=== PATIENT | male | born 1965 | race American Indian/Alaskan Native ===

== ENCOUNTER 2016-02-22 08:04 | Inpatient (IN) | payer MEDICARE ==
--- NOTE | 2016-02-22 08:57 | XRay Report ---
CHEST X-RAY, 2 VIEWS History: Shortness of breath. Findings: No comparison. Heart size appears borderline. Normal pulmonary vascularity. The lungs are clear. No evidence for pneumonia, CHF or pneumothorax. Impression: Borderline heart size. Lungs clear.
[2016-02-22 09:16] LABS: Basophils % (Auto) 1.1 % (0.0-1.8); Eosinophils % (Auto) 9.2 % (0.0-4.3); Hematocrit 32.7 % (35.5-45.6); Hemoglobin 10.6 gm/dl (11.8-15.2); Mean Corpuscular HGB Conc 33 % (32-34); Mean Corpuscular Hemoglobin 31 pg (28-32); Mean Corpuscular Volume 96 fl (84-94); Platelet Count 173 K/mm3 (140-440); Red Blood Count 3.42 M/mm3 (3.65-5.03); White Blood Count 5.7 K/mm3 (4.5-11.0)
[2016-02-22 09:36] LABS: Anion Gap 29 mmol/L; BUN/Creatinine Ratio 4.96; Blood Urea Nitrogen 77 mg/dL (9-20); Calcium 8.3 mg/dL (8.4-10.2); Carbon Dioxide 18 mmol/L (22-30); Chloride 94.3 mmol/L (98-107); Glucose 86 mg/dL (75-100); Potassium 4.9 mmol/L (3.6-5.0); Sodium 136 mmol/L (137-145)
--- NOTE | 2016-02-22 14:16 | Emergency Department Report ---
HPI - General Chief Complaint: Dyspnea/Respdistress Time Seen by Provider: 02/22/16 14:08 - HPI HPI: Chief complaint: Abdominal pain, constipation, decreased appetite and shortness of breath HPI: Patient presents complaining of abdominal pain especially epigastric radiating to the entire abdomen since last . Patient describes it as constant and sharp. Patient states he's not had a bowel movement since and does not feel hungry. Patient complains of nausea but no vomiting. Patient does not think he's had a fever but he feels alternately hot and cold. Patient states he's been constipated and had similar pain in the past but it appears to be worse this time. Patient had his last dialysis and skipped dialysis on Monday and is due for dialysis tomorrow. Patient denies any previous abdominal surgery. Mode of arrival: EMS Source: Patient Began: Last Duration: Continuous Context: See above Quality: Sharp Severity: 8 out of 10 Improved with: Nothing Worsened with: Palpation Associated signs and symptoms: See above. No edema. ED Past Medical Hx - Past Medical History Previous Medical History?: Yes Hx Hypertension: Yes Hx Renal Disease: Yes - Surgical History Past Surgical History?: Yes Additional Surgical History: Left A/V Graft - Medications Home Medications: Home Medications Medication Instructions Recorded Confirmed Last Taken Type Carvedilol [Coreg] 25 mg PO QDAY 02/22/16 02/22/16 02/21/16 History Furosemide [Lasix TAB] 80 mg PO 4XW 02/22/16 02/22/16 02/21/16 History Minoxidil [Loniten] 2.5 mg PO QDAY 02/22/16 02/22/16 02/21/16 History NIFEdipine XL [Procardia Xl] 90 mg PO QDAY 02/22/16 02/22/16 02/21/16 History Warfarin [Coumadin] 7.5 mg PO QDAY 02/22/16 02/22/16 02/21/16 History cloNIDine-TTS PATCH [Catapres-Tts 1 patch TD Q7D 02/22/16 02/22/16 Unknown History Patch] hydrALAZINE [Apresoline] 50 mg PO Q8HR 02/22/16 02/22/16 02/21/16 History ED Review of Systems ROS: Stated complaint: ZACHARIAH/ABD/BACK PAIN Other details as noted in HPI ROS Constitutional: No fever ENT: No uri symptoms Cardiovascular: No chest pain Respiratory: No sob or cough GI: No vomiting or diarrhea : End-stage renal disease on hemodialysis Skin: No rash Neuro: No focal weakness or numbness Psych: No depression Pio/lymph: No edema Physical Exam - Physical Exam Vital Signs: Vital Signs 02/22/16 02/22/16 08:22 14:05 Temperature 98.2 F Pulse Rate 82 74 Respiratory 18 18 Rate Blood Pressure 141/89 Blood Pressure 165/95 [Right] O2 Sat by Pulse 97 95 Oximetry Physical Exam: GENERAL: The patient is well-developed well-nourished . HEENT: Normocephalic. Atraumatic. Extraocular motions are intact. Patient has moist mucous membranes. NECK: Supple. No meningitic signs are noted. There is no adenopathy noted. CHEST/LUNGS: Clear to auscultation. There is no respiratory distress noted. HEART/CARDIOVASCULAR: Regular. There is no tachycardia. There is no gallop rub or murmur. ABDOMEN: Abdomen is soft and tender epigastric area without rebound or guarding. Patient has normal bowel sounds. There is no abdominal distention. SKIN: There is no rash. There is no edema. There is no diaphoresis. NEURO: The patient is awake, alert, and oriented. The patient is cooperative. The patient has no focal neurologic deficits. The patient has normal speech. MUSCULOSKELETAL: There is no tenderness or deformity. There is no limitation range of motion. There is no evidence of acute injury. ED Course Vital Signs 02/22/16 02/22/16 08:22 14:05 Temperature 98.2 F Pulse Rate 82 74 Respiratory 18 18 Rate Blood Pressure 141/89 Blood Pressure 165/95 [Right] O2 Sat by Pulse 97 95 Oximetry - Reevaluation(s) Reevaluation #1: 02/22/16 16:15 Discussed with nephrology who requested the patient be admitted to the hospital for further evaluation by gastroenterology and for dialysis. Patient was medicated with morphine, Protonix and Zofran with improvement. INR is pending. Patient will be admitted to the hospitalist. ED Medical Decision Making - Lab Data Result diagrams: 02/22/16 09:00 02/22/16 09:00 Laboratory Tests 02/22/16 09:00 Estimated GFR 4 BUN/Creatinine Ratio 4.96 Calcium 8.3 L Troponin T < 0.010 - EKG Data -: EKG Interpreted by Me EKG shows normal: sinus rhythm (79) - EKG Data When compared to previous EKG there are: previous EKG unavailable Interpretation: normal EKG (with possible left atrial enlargement.) - Radiology Data Radiology results: report reviewed (CT the abdomen does not show any acute changes other than a small amount of free fluid in the pelvis area.) Critical care attestation.: If time is entered above; I have spent that time in minutes in the direct care of this critically ill patient, excluding procedure time. ED Disposition Clinical Impression: Acute on chronic renal failure Abdominal pain Qualifiers: Abdominal location: generalized Qualified Code(s): R10.84 - Generalized abdominal pain Disposition: OP ADMITTED IP TO THIS HOSP Is pt being admited?: Yes Does the pt Need Aspirin: No Condition: Fair Time of Disposition: 16:14
[2016-02-22 14:41] LABS: Alanine Aminotransferase 15 units/L (7-56); Albumin 4.4 g/dL (3.9-5); Albumin/Globulin Ratio 1.5 %; Alkaline Phosphatase 84 units/L (35-129); Bilirubin,Total 0.4 mg/dL (0.1-1.2); Lipase 21 units/L (13-60); Total Protein 7.4 g/dL (6.3-8.2)
[2016-02-22 14:47] LABS: Bilirubin,Direct < 0.2 mg/dL (0-0.2)
--- NOTE | 2016-02-22 15:28 | Cat Scan Report ---
CT ABDOMEN AND PELVIS WITHOUT CONTRAST INDICATION: Upper abdominal pain. Renal failure, on dialysis. COMPARISON: None similar. FINDINGS: Noncontrast abdomen and pelvis CT performed. LUNG BASES: Mild cardiomegaly. No effusions. Slight basilar atelectasis. Mild atherosclerotic calcifications. Slight nonspecific distal esophageal prominence. ABDOMEN: Please note that sensitivity to detect small visceral lesions is limited due to the absence of intravenous or oral contrast. Few small splenic calcified granulomas. 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 No hydronephrosis or radiopaque renal calculi. Left renal fossa noted occupied by bowel and pancreatic tail. Otherwise grossly unremarkable unenhanced liver, spleen, gallbladder, pancreas, adrenals, nonaneurysmal abdominal aorta with atherosclerotic calcifications and IVC. Nonopacified GI tract evaluation limited, though grossly nonobstructive. Ascending colon incidentally noted coursing more anterior than usual in the right hemiabdomen. No ascites. Few small, subcentimeter mesenteric and retroperitoneal lymph nodes may be present. PELVIS: Small pelvic simple attenuation free fluid, an abnormal finding in a male patient. Grossly unremarkable prostate/seminal vesicles and nonopacified rectosigmoid. Nonopacified urinary bladder wall slightly exaggerated, possibly related to underdistention with minimal surrounding fat stranding nonspecific. No acute osseous abnormality. Mild subcutaneous edema. CONCLUSION: 1. Small amount of simple free fluid in the pelvis, though an abnormal finding in this male patient, etiology uncertain. 2. Few other incidental findings, including cardiomegaly and crossed fused renal ectopia on this unenhanced exam, amongst others, as described. I phoned the above results to Dr. Garcia in the ER, 3:15 PM, 02/22/2016. Thank you for the opportunity to participate in this patient's care.
[2016-02-22 15:33] LABS: Bilirubin,Indirect 0.2 mg/dL
[2016-02-22] MEDS ORDERED: MORPHINE IV ONE (15:42)
[2016-02-22] MEDS ORDERED: ZOFRAN IV ONE (15:42)
[2016-02-22] MEDS ORDERED: PROTONIX IV ONE (15:42)
--- NOTE | 2016-02-22 16:19 | Admit Criteria Form ---
Admission Criteria Documentation: RENAL FAILURE, ACUTE Clinical Indications for Admission to Inpatient Care ( Place 'X' for any and all applicable criteria): Admission is indicated for ALL (if I & II) or III of the following [A](2)(3)(4)( 5)(6)(7): [X ]I. Acute renal failure as indicated by ANY ONE of the following: [ ]a) A 3-fold rise in serum creatinine from baseline [ ]b) Serum creatinine greater than 4 mg/dL (354 micromoles/L) with an acute rise greater than 0.5 mg/dL (44.2 micromoles/L) [X ]c) Reduction of more than 75% in estimated glomerular filtration rate from baseline [ ]d) Estimated glomerular filtration rate less than 35 mL/min/1.73m2 (0.59mL/sec/1.73m2)in a child up to 18 years of age [ ]e) Anuria indicated by ALL of the following: [ ]i) Adequate volume status [ ]ii) Cessation of urine output indicated by ANY ONE of the following: [ ]1) Urine output less than 0.3 mL/kg/hr for 24 hours [ ]2) Anuria (urine output less than 0.1 mL/kg/ hr) for 12 hours [ X] II. Renal failure cannot be managed in an outpatient setting or observational care setting as indicating by ANY ONE of the following: [ ]a) Altered mental status that is severe or persistent [ ]b) Volume overload or Respiratory distress (eg, clinically significant pulmonary edema) that is severe or persistent [ ]c) Cardiac arrhythmias of immediate concern [ ]d) Hemodynamic instability [ ]e) Clinically significant electrolyte abnormality that requires inpatient care (eg, hyperkalemia with severe ECG findings)[B] [ ]f) Clinically significant metabolic abnormality (eg, acidosis) that is severe or persistent [X ]g) Acute treatment of renal failure (eg, renal replacement therapy ) not feasible or appropriate in observational care setting [ ]h) Clinical situation too unstable or uncertain (eg, inadequate urine output, ongoing decline in renal function, etiology unclear) [ ]i) Necessary support and caregiver ability to comply with outpatient treatment cannot be arranged in observation care timeframe (eg, within 24 hours) [X ]j) Other significant finding or clinical condition judged not to be within scope of observation care [ ]III.General contraindications and/or Inappropriate clinical situations for Observational Care in patients with Acute Renal Failure, when ANY ONE of the following is required: [ ]a) Prediction of prolongation of LOS based on ANY ONE of the following may be considered as a contraindication for observational care 2, 3, 4, 5, 6, 7, 8 , 9, 10, 11 [ ]i) Age > 65 yrs. [ ]ii) Patient arriving by ambulance [ ]iii) Patient with high acuity [ ]iv) Patient requiring vital sign monitoring [ ]v) Patient on IV medication [ ]b) Systolic blood pressures 180mmHg 3,12 [ ]c) Patient with altered mental status including delirium and other alteration of consciousness, (3) [ ]d) Patient whose discharge disposition will be to a detention home or rehabilitation home should not be managed in Emergency Department Observation Unit. CMS rule requires 3 days hospital stay before such placement.3,13 [ ]e) Patient with failure to thrive due to broad array of etiologies 3, 16,17 [ ]f) Inability to ambulate 3,14 Extended stay beyond goal length of stay may be needed for(13) [ ]a) Continuing uremic complications [ ]b) Care for comorbidities [ ]c) acute renal failure [ ]d) Need for dialysis The original [employer] content created by [employer] has been revised. The portions of the content which have been revised are identified through the use of italic text or in bold, and [facility] has neither reviewed nor approved the modified material. All other unmodified content is copyright [employer]. Please see references footnoted in the original [facility] edition 2016 Admission Criteria Met: Yes
[2016-02-22 16:24] LABS: Bacteria,Urine 1+ /HPF (Negative); Bilirubin,Urine NEG (Negative); Blood,Urine SM (Negative); Ketones,Urine TR mg/dL (Negative); Leukocyte Esterase,Urine NEG (Negative); Nitrite,Urine NEG (Negative); Urobilinogen,Urine < 2.0 mg/dL (<2.0); WBC,Urine < 1.0 /HPF (0.0-6.0)
[2016-02-22 16:44] LABS: INR 1.34 (0.87-1.13)
[2016-02-22 16:45] LABS: Partial Thromboplastin Time 35.1 Sec. (24.2-36.6)
[2016-02-22] MEDS ORDERED: NON-FORMULARY (Furosemide [Lasix Tab] 80 MG) PO SCH (16:45)
--- NOTE | 2016-02-22 16:55 | History and Physical Report ---
History of Present Illness Date of examination: 02/22/16 Date of admission: 02/22/16 Chief complaint: Abdominal pain History of present illness: Patient is a 42-year-old gentleman who is on renal replacement therapy on Tuesdays and Saturdays, started complaining of abdominal pain. Nausea but no vomiting. Patient was epigastric in location. Was seen by his die out worker, Dr. Garcia who advised patient to come to the emergency department for admission. CT scan of abdomen was unremarkable for any acute event except for some fluid collection and pelvic region. Patient was also found to be 77 and creatinine was 15.5. Patient denies any fever, no hematemesis or melena. Past History Past Medical History: ESRD, hypertension Past Surgical History: denies: No surgical history Social history: lives with family. denies: smoking, alcohol abuse, IV drug use Family history: denies: CAD, stroke Medications and Allergies Allergies Allergy/AdvReac Type Severity Reaction Status Date / Time No Known Allergies Allergy Unverified 02/22/16 08:22 Home Medications Medication Instructions Recorded Confirmed Last Taken Type Carvedilol [Coreg] 25 mg PO QDAY 02/22/16 02/22/16 02/21/16 History Furosemide [Lasix TAB] 80 mg PO 4XW 02/22/16 02/22/16 02/21/16 History Minoxidil [Loniten] 2.5 mg PO QDAY 02/22/16 02/22/16 02/21/16 History NIFEdipine XL [Procardia Xl] 90 mg PO QDAY 02/22/16 02/22/16 02/21/16 History Warfarin [Coumadin] 7.5 mg PO QDAY 02/22/16 02/22/16 02/21/16 History cloNIDine-TTS PATCH [Catapres-Tts 1 patch TD Q7D 02/22/16 02/22/16 Unknown History Patch] hydrALAZINE [Apresoline] 50 mg PO Q8HR 02/22/16 02/22/16 02/21/16 History Active Meds: Active Medications Carvedilol (Coreg) 25 mg PO QDAY DESTIN Clonidine HCl (Catapres-Tts Patch) mg TD Q7D DESTIN Famotidine (Pepcid) 20 mg IV QDAY DESTIN Hydralazine HCl (Apresoline) 50 mg PO Q8HR DESTIN Minoxidil (Loniten) 2.5 mg PO QDAY DESTIN Miscellaneous Medication (Furosemide [Lasix Tab]) 80 mg PO 4XW DESTIN Nifedipine (Procardia Xl) 90 mg PO QDAY DESTIN Exam - Physical Exam Narrative exam: Constitutional: Well Nouridhed and Well developed. Head: NC/ AT Eyes: Denies any visual impairments. No discharge from the eyes Nose: Denies any rhinorrhea or epistaxis Throats: Denies any post nasal drainage. Ears: Denies any hearing deficits Cardiovascular system: Denies any chest pain, shortness of breath, orthopnea, paroxysmal nocturnal dyspnea, or palpitation. Respiratory system: Denies any cough, difficulty breathing, wheezing, pleuritic chest pain, Gastrointestinal system: Has epigastric abdominal pain, with nausea, no vomiting , hematemesis or melena. Neurological system: Denies any headache, slurred speech, facial droop, lateralizing weakness Genitalia system: Denies any dysuria, urinary frequency or urgency, urethral discharge Skin: No rashes, hyperpigmented spots. Hematological: Denies any cervical tenderness hemorrhages or petechia. Immunological: Denies any multiple septic spots, Lymphatic: Denies any generalized lymphadenopathy. Endocrine: Denies any polyuria, polydipsia, polyphagia. No heat or cold intolerance. - Constitutional Vitals: Temp Pulse Resp BP Pulse Ox 98.3 F 79 18 153/77 100 02/22/16 15:40 02/22/16 15:40 02/22/16 15:40 02/22/16 15:40 02/22/16 15:40 General appearance: Present: no acute distress, well-nourished - EENT Eyes: Present: PERRL ENT: hearing intact, clear oral mucosa - Neck Neck: Present: supple, normal ROM - Respiratory Respiratory effort: normal Respiratory: bilateral: CTA - Cardiovascular Heart Sounds: Present: S1 & S2. Absent: rub, click - Extremities Extremities: pulses symmetrical, No edema Peripheral Pulses: within normal limits - Abdominal General gastrointestinal: Present: soft, non-tender, non-distended, normal bowel sounds Male genitourinary: Present: normal - Integumentary Integumentary: Present: clear, warm, dry - Musculoskeletal Musculoskeletal: gait normal, strength equal bilaterally - Psychiatric Psychiatric: appropriate mood/affect, intact judgment & insight - Neurologic Neurologic: CNII-XII intact, moves all extremities Results - Labs CBC & Chem 7: 02/22/16 09:00 02/22/16 09:00 Labs: Abnormal lab results 02/22/16 02/22/16 02/22/16 Range/Units 09:00 09:00 16:01 RBC 3.42 L (3.65-5.03) M/mm3 Hgb 10.6 L (11.8-15.2) gm/dl Hct 32.7 L (35.5-45.6) % MCV 96 H (84-94) fl RDW 18.0 H (13.2-15.2) % [place] % (Auto) 11.4 H (0.0-7.3) % Eos % (Auto) 9.2 H (0.0-4.3) % Eos # 0.5 H (0.0-0.4) K/mm3 PT 16.5 H (12.2-14.9) Sec. INR 1.34 H (0.87-1.13) Sodium 136 L (137-145) mmol/L Chloride 94.3 L (98-107) mmol/L Carbon Dioxide 18 L (22-30) mmol/L BUN 77 H (9-20) mg/dL Creatinine 15.5 H (0.8-1.5) mg/dL Calcium 8.3 L (8.4-10.2) mg/dL Assessment and Plan Assessment 1. Epigastric abdominal pain with nausea 2. Perinephric fluid collection of questionable significance 3. End-stage renal disease on hemodialysis 4. Anemia secondary to #3 Plan Commence patient on Pepcid 20 mg 1 by mouth twice a day Zofran 4 mg every 6hrs when necessary nausea Nephrology consult to continue hemodialysis DVT prophylaxis with Lovenox Spent 31 minutes direct patient care during this admission process - Patient Problems (1) Epigastric abdominal pain Current Visit: Yes Status: Acute (2) End-stage renal disease on hemodialysis Current Visit: Yes Status: Acute
[2016-02-22] MEDS ORDERED: CATAPRES-TTS PATCH TD SCH (17:00)
--- NOTE | 2016-02-22 17:03 | Consultation ---
History of Present Illness - History of Present Illness thank you for the consultation Patient was evaluated in the ER history of present illness Patient is a pleasant 50-year-old -[place] male who is currently established without practice for end-stage renal disease care. Patient normally dialyzes on Monday at [facility] and recently started having somewhat acute onset of nausea vomiting and upper abdominal pain. Patient denies having any fever but has had some chills. He was unable to keep food down. Upon further questioning it is found the patient has been taking Renvela which is potentially GI toxic binder and at times patient can have nausea vomiting with that. No real seizures reported to be sick at home. Patient has normally been tolerant trading his dialysis treatment well without any problems. Past medical history is significant for Cynthia is currently maintenance of a dialysis Anemia and end-stage renal disease Secondary hyperparathyroidism Hypertension Current allergies none Home medications present medication: Reviewed Social history: No history of any alcohol or tobacco use Family history: No history of any renal relatedhis daughter in the family All the labs and imaging Center review from this admission Review of systems: Positive for nausea vomiting somewhat acute onset no associated fever but has had some chills no constipation completed a systems up and pertinent positive mentioned system negative Assessment and plan End-stage renal disease currently on maintenance dialysis on Monday in no acute emergent indication for renal replacement therapy patient will receive hemodialysis in the morning Abdominal pain severe with nausea with epigastric tenderness in a patient who has been taking binders for phosphorus which do have known GI toxicity patient will need to be seen by GI and possibly consider for endoscopy to rule out peptic ulcer disease In the meantime continue to treat empirically for now Hypertension we'll systolic blood pressure under 140-150 predialysis under 160 Anemia and end-stage renal disease to follow hemoglobin goal between 10-12 Secondary hyperparathyroidism for phosphorusAn PTH needs to be followed Patient has reported fever or chills and at this time history monitor clinically Medications and Allergies Allergies Allergy/AdvReac Type Severity Reaction Status Date / Time No Known Allergies Allergy Unverified 02/22/16 08:22 Home Medications Medication Instructions Recorded Confirmed Last Taken Type Carvedilol [Coreg] 25 mg PO QDAY 02/22/16 02/22/16 02/21/16 History Furosemide [Lasix TAB] 80 mg PO 4XW 02/22/16 02/22/16 02/21/16 History Minoxidil [Loniten] 2.5 mg PO QDAY 02/22/16 02/22/16 02/21/16 History NIFEdipine XL [Procardia Xl] 90 mg PO QDAY 02/22/16 02/22/16 02/21/16 History Warfarin [Coumadin] 7.5 mg PO QDAY 02/22/16 02/22/16 02/21/16 History cloNIDine-TTS PATCH [Catapres-Tts 1 patch TD Q7D 02/22/16 02/22/16 Unknown History Patch] hydrALAZINE [Apresoline] 50 mg PO Q8HR 02/22/16 02/22/16 02/21/16 History Active Meds: Active Medications Carvedilol (Coreg) 25 mg PO QDAY DESTIN Clonidine HCl (Catapres-Tts Patch) 0.3 mg TD Q7D DESTIN Famotidine (Pepcid) 20 mg IV QDAY DESTIN Hydralazine HCl (Apresoline) 50 mg PO Q8HR DESTIN Minoxidil (Loniten) 2.5 mg PO QDAY DESTIN Miscellaneous Medication (Furosemide [Lasix Tab]) 80 mg PO 4XW DESTIN Nifedipine (Procardia Xl) 90 mg PO QDAY DESTIN Exam - Vital Signs Vital signs: Vital Signs Temp Pulse Resp BP Pulse Ox 98.2 F 82 18 141/89 97 02/22/16 08:22 02/22/16 08:22 02/22/16 08:22 02/22/16 08:22 02/22/16 08:22 - General Appearance General appearance: well-developed (no acute distress) EENT: mucous membranes moist (no pharyngeal erythema) Neck: Present: neck supple (without any thyroid problem last JVD carotid bruit) Respiratory: Clear to Ascultation (clear to auscultation no crackles rales or wheezes) Heart: regular (S1-S2 normal no S3-S4 or any rub) Gastrointestinal: Present: normal (mild epigastric tenderness to deep palpation otherwise unremarkable examination) Integumentary: no rash (minimal edema less than 1+) Neurologic: no focal deficit (alert awake oriented times) Results - Lab Results 02/22/16 09:00 02/22/16 09:00 Most recent lab results Calcium 8.3 mg/dL (8.4-10.2) L 02/22/16 09:00
[2016-02-22] MEDS: PEPCID IV SCH (17:24)
[2016-02-22] MEDS: APRESOLINE PO SCH ×2 (17:24→21:45)
[2016-02-22] MEDS: LASIX PO SCH (21:44)
[2016-02-22] MEDS: PROCARDIA XL PO SCH (21:44)
[2016-02-22] MEDS: COREG PO SCH (21:44)
[2016-02-22] MEDS ORDERED: NACL 0.9% 1000 ML 100 ML IV PRN (22:18)
[2016-02-23] MEDS: APRESOLINE PO SCH ×3 (09:33→21:27)
[2016-02-23] MEDS: LONITEN PO SCH (09:34)
[2016-02-23] MEDS: PROCARDIA XL PO SCH (09:35)
[2016-02-23] MEDS: PEPCID IV SCH (09:36)
[2016-02-23] MEDS: COREG PO SCH (09:37)
--- NOTE | 2016-02-23 09:48 | Progress Note ---
Assessment and Plan end-stage renal disease patient is currently in maintenance or dialysis on Monday schedule he will go for hemodialysis today orders will be placed. counseling and education was done Hypertension goal systolic blood pressure under 160 predialysis in his case to follow Nausea vomiting abdominal pain patient who has been taking Renvela but she is known to have GI toxicity, patient will likely benefit from an upper GI study or gastroenterology evaluation Interim treat empirically with proton pump inhibitor and possibly Carafate for 2 weeks anemia and end-stage renal disease to monitor and follow We'll continue to follow make recommendation from renal standpoint Subjective Interval history: seen today for follow up no acute complaints of than intermittent nausea and abdominal pain overall somewhat better events of 24 hours vitals labs intake output medications were reviewed, patient is to be seen by gastroenterology service Objective - Vital Signs Vital signs: Vital Signs - 12hr 02/22/16 02/23/16 02/23/16 22:00 00:06 08:00 Temperature 98.2 F 98.1 F Pulse Rate 81 Pulse Rate [ 81 77 80 Right Radial] Respiratory 16 18 18 Rate Blood Pressure 151/92 Blood Pressure 140/75 144/82 [Right Arm] O2 Sat by Pulse 98 98 Oximetry - General Appearance General appearance: appears stated age EENT: mucous membranes moist Neck: no JVD Respiratory: Present: Clear to Ascultation (no crackles rales or wheezes) Cardiology: regular (S1-S2 normal) Gastrointestinal: normal (soft mild epigastric tenderness) Integumentary: no rash - Lab 02/22/16 09:00 02/22/16 09:00 Most recent lab results Calcium 8.3 mg/dL (8.4-10.2) L 02/22/16 09:00
--- NOTE | 2016-02-23 15:05 | Progress Note ---
Assessment and Plan Assessment and plan: 1. Abdominal pain/nausea Possible secondary to toxicity from phosphorous binders GI consulted for possible EGD to rule out peptic ulcer disease Started on famotidine, when necessary antiemetics 2. Small amount of simple free fluid in the pelvis Questionable significance; monitor 3. ESRD on HD On regular schedule TTS Nephrology following 4. Anemia of chronic kidney disease Epogen with HD per nephrology 5. Hypertension BP controlled on multiple medications (hydralazine, clonidine patch, minoxidil, Coreg, nifedipine) and fluid removal through HD 6. DVT prophylaxis Start heparin subcutaneous History Interval history: doing well, abd pain significantly improved Hospitalist Physical - Constitutional Vitals: Temp Pulse Resp BP Pulse Ox 98.1 F 74 16 137/77 98 02/23/16 10:30 02/23/16 13:30 02/23/16 10:30 02/23/16 13:30 02/23/16 08:00 General appearance: Present: no acute distress - EENT Eyes: Present: PERRL, EOM intact. Absent: scleral icterus, conjunctival injection - Neck Neck: Present: supple, normal ROM. Absent: masses or JVD - Respiratory Respiratory effort: normal Respiratory: bilateral: CTA, negative: rhonchi, wheezing - Cardiovascular Rhythm: regular Heart Sounds: Present: S1 & S2. Absent: systolic murmur - Extremities Extremities: no ischemia - Abdominal General gastrointestinal: soft, tender, non-distended, normal bowel sounds Localized gastrointestinal: tender: epigastric periumbilical - Integumentary Integumentary: Present: warm, dry. Absent: jaundice, rash - Psychiatric Psychiatric: appropriate mood/affect - Neurologic Neurologic: CNII-XII intact, no focal deficits Results - Labs CBC & Chem 7: 02/22/16 09:00 02/22/16 09:00 Labs: Laboratory Last Values WBC 5.7 K/mm3 (4.5-11.0) 02/22/16 09:00 RBC 3.42 M/mm3 (3.65-5.03) L 02/22/16 09:00 Hgb 10.6 gm/dl (11.8-15.2) L 02/22/16 09:00 Hct 32.7 % (35.5-45.6) L 02/22/16 09:00 MCV 96 fl (84-94) H 02/22/16 09:00 MCH 31 pg (28-32) 02/22/16 09:00 MCHC 33 % (32-34) 02/22/16 09:00 RDW 18.0 % (13.2-15.2) H 02/22/16 09:00 Plt Count 173 K/mm3 (140-440) 02/22/16 09:00 Lymph % (Auto) 26.6 % (13.4-35.0) 02/22/16 09:00 [place] % (Auto) 11.4 % (0.0-7.3) H 02/22/16 09:00 Eos % (Auto) 9.2 % (0.0-4.3) H 02/22/16 09:00 Baso % (Auto) 1.1 % (0.0-1.8) 02/22/16 09:00 Lymph # 1.5 K/mm3 (1.2-5.4) 02/22/16 09:00 [place] # 0.6 K/mm3 (0.0-0.8) 02/22/16 09:00 Eos # 0.5 K/mm3 (0.0-0.4) H 02/22/16 09:00 Baso # 0.1 K/mm3 (0.0-0.1) 02/22/16 09:00 Seg Neutrophils % 51.7 % (40.0-70.0) 02/22/16 09:00 Seg Neutrophils # 2.9 K/mm3 (1.8-7.7) 02/22/16 09:00 PT 16.5 Sec. (12.2-14.9) H 02/22/16 16:01 INR 1.34 (0.87-1.13) H 02/22/16 16:01 APTT 35.1 Sec. (24.2-36.6) 02/22/16 16:01 Sodium 136 mmol/L (137-145) L 02/22/16 09:00 Potassium 4.9 mmol/L (3.6-5.0) 02/22/16 09:00 Chloride 94.3 mmol/L (98-107) L 02/22/16 09:00 Carbon Dioxide 18 mmol/L (22-30) L 02/22/16 09:00 Anion Gap 29 mmol/L 02/22/16 09:00 BUN 77 mg/dL (9-20) H 02/22/16 09:00 Creatinine 15.5 mg/dL (0.8-1.5) H 02/22/16 09:00 Estimated GFR 4 ml/min 02/22/16 09:00 BUN/Creatinine Ratio 4.96 % 02/22/16 09:00 Glucose 86 mg/dL (75-100) 02/22/16 09:00 Calcium 8.3 mg/dL (8.4-10.2) L 02/22/16 09:00 Total Bilirubin 0.4 mg/dL (0.1-1.2) 02/22/16 09:00 Direct Bilirubin < 0.2 mg/dL (0-0.2) 02/22/16 09:00 Indirect Bilirubin 0.2 mg/dL 02/22/16 09:00 AST 20 units/L (5-40) 02/22/16 09:00 ALT 15 units/L (7-56) 02/22/16 09:00 Alkaline Phosphatase 84 units/L (35-129) 02/22/16 09:00 Troponin T < 0.010 ng/mL (0.00-0.029) 02/22/16 09:00 Total Protein 7.4 g/dL (6.3-8.2) 02/22/16 09:00 Albumin 4.4 g/dL (3.9-5) 02/22/16 09:00 Albumin/Globulin Ratio 1.5 % 02/22/16 09:00 Lipase 21 units/L (13-60) 02/22/16 09:00 Urine Color Yellow (Yellow) 02/22/16 15:40 Urine Turbidity Clear (Clear) 02/22/16 15:40 Urine pH 7.0 (5.0-7.0) 02/22/16 15:40 Ur Specific [place] 1.011 (1.003-1.030) 02/22/16 15:40 Urine Protein 100 mg/dl mg/dL (Negative) 02/22/16 15:40 Urine Glucose (UA) 50 mg/dL (Negative) 02/22/16 15:40 Urine Ketones Tr mg/dL (Negative) 02/22/16 15:40 Urine Blood Sm (Negative) 02/22/16 15:40 Urine Nitrite Neg (Negative) 02/22/16 15:40 Urine Bilirubin Neg (Negative) 02/22/16 15:40 Urine Urobilinogen < 2.0 mg/dL (<2.0) 02/22/16 15:40 Ur Leukocyte Esterase Neg (Negative) 02/22/16 15:40 Urine WBC (Auto) < 1.0 /HPF (0.0-6.0) 02/22/16 15:40 Urine RBC (Auto) 1.0 /HPF (0.0-6.0) 02/22/16 15:40 U Epithel Cells (Auto) < 1.0 /HPF (0-13.0) 02/22/16 15:40 Urine Bacteria (Auto) 1+ /HPF (Negative) 02/22/16 15:40 - Imaging and Cardiology CT scan - abdomen: report reviewed (small amount of free fluid in the pelvis)
--- NOTE | 2016-02-23 17:43 | Gastroenterology Consultation ---
History of Present Illness - Reason for Consult Consult date: 02/23/16 Abdominal pain Requesting physician: SANTA PEDRAZA - History of Present Illness Asked to see this pleasant 50yo man with ESRD on HD for evaluation of epigastric pain. He is on phosphate binders and denies any NSAID usage. No hematemesis, vomiting, melena, hematochezia. He was started on Pepcid and states "I'm really feeling better than I did yesterday." No dysphagia, CP/SOB. Past History Past Medical History: ESRD, hypertension Past Surgical History: denies: No surgical history Social history: lives with family. denies: smoking, alcohol abuse, IV drug use Family history: denies: CAD, stroke Medications and Allergies Allergies Allergy/AdvReac Type Severity Reaction Status Date / Time No Known Allergies Allergy Unverified 02/22/16 08:22 Home Medications Medication Instructions Recorded Confirmed Last Taken Type Carvedilol [Coreg] 25 mg PO QDAY 02/22/16 02/22/16 02/21/16 History Furosemide [Lasix TAB] 80 mg PO 4XW 02/22/16 02/22/16 02/21/16 History Minoxidil [Loniten] 2.5 mg PO QDAY 02/22/16 02/22/16 02/21/16 History NIFEdipine XL [Procardia Xl] 90 mg PO QDAY 02/22/16 02/22/16 02/21/16 History Warfarin [Coumadin] 7.5 mg PO QDAY 02/22/16 02/22/16 02/21/16 History cloNIDine-TTS PATCH [Catapres-Tts 1 patch TD Q7D 02/22/16 02/22/16 Unknown History Patch] hydrALAZINE [Apresoline] 50 mg PO Q8HR 02/22/16 02/22/16 02/21/16 History Active Meds: Active Medications Carvedilol (Coreg) 25 mg PO QDAY [facility] Last Admin: 02/23/16 09:37 Dose: Not Given Clonidine HCl (Catapres-Tts Patch) 0.3 mg TD Q7D [facility] Last Admin: 02/22/16 22:00 Dose: Not Given Famotidine (Pepcid) 10 mg PO BID DESTIN Furosemide (Lasix) 80 mg PO SuMoWeFr [facility] Last Admin: 02/22/16 21:44 Dose: 80 mg Hydralazine HCl (Apresoline) 50 mg PO Q8HR [facility] Last Admin: 02/23/16 14:00 Dose: Not Given Sodium Chloride (Nacl 0.9% 1000 Ml) 100 mls @ 999 mls/hr IV STEPAN PRN PRN Reason: Hypotension Minoxidil (Loniten) 2.5 mg PO QDAY [facility] Last Admin: 02/23/16 09:34 Dose: Not Given Nifedipine (Procardia Xl) 90 mg PO QDAY [facility] Last Admin: 02/23/16 09:35 Dose: Not Given Review of Systems - Review of Systems All systems: negative (epig pain) Exam - Constitutional Vital Signs: Temp Pulse Resp BP Pulse Ox 98.4 F 86 18 140/80 98 02/23/16 17:00 02/23/16 17:00 02/23/16 17:00 02/23/16 17:00 02/23/16 08:00 General appearance: no acute distress - Neck Neck: supple - Respiratory Respiratory: bilateral: CTA - Cardiovascular Rhythm: regular Heart Sounds: Present: S1 & S2 Extremities: No edema - Gastrointestinal General gastrointestinal: Present: soft, non-tender, non-distended, normal bowel sounds - Neurologic Neurological: alert and oriented x3 - Psychiatric Psychiatric: appropriate mood/affect - Labs CBC & Chem 7: 02/22/16 09:00 02/22/16 09:00 Assessment and Plan 50yo man with improving epigastric pain, likely related to dyspepsia/gastritis from PO4 binders. Rec: 1) Would continue Pepcid for 2 weeks, then d/c 2) Given his improvement, I would not recommend an inpatient GI endoscopy at this time He may f/u with us in our [place] location upon discharge, should his issue re -occur. I will stop following daily, but please do not hesitate to contact me with any questions.
[2016-02-24] MEDS: APRESOLINE PO SCH ×3 (06:40→22:01)
[2016-02-24] MEDS: LONITEN PO SCH (10:23)
[2016-02-24] MEDS: PEPCID PO SCH ×2 (10:23→22:01)
[2016-02-24] MEDS: COREG PO SCH (10:23)
[2016-02-24] MEDS: PROCARDIA XL PO SCH (10:24)
--- NOTE | 2016-02-24 10:45 | Gastroenterology Progress Note ---
Assessment and Plan 50yo man with worsening epigastric pain, likely related to dyspepsia/gastritis from PO4 binders. However, given his intolerance of PO, PUD should also be considered. Rec: 1) Continue Pepcid 2) Clear liquids today and NPO after MN for EGD tomorrow 3) If PUD is found, will d/w Dr. Garcia re: PPI therapy Subjective Date of service: 02/24/16 Principal diagnosis: Epig pain Interval history: Asked to re-evaluate Mr. Fuller for abdominal pain. He developed worsening upper abdominal pain and an inability to tolerate his breakfast today. Pain is described as burning. No nausea/vomiting, signs of bleeding. No CP/SOB. Objective - Constitutional Vitals: Temp Pulse Resp BP Pulse Ox 98.1 F 76 18 164/64 96 02/24/16 08:11 02/24/16 08:11 02/24/16 08:11 02/24/16 10:23 02/24/16 08:11 General appearance: no acute distress - Neck Neck: supple - Respiratory Respiratory: bilateral: CTA - Cardiovascular Rhythm: regular Heart Sounds: Present: S1 & S2 - Extremities Extremities: No edema - Gastrointestinal General gastrointestinal: Present: soft, tender (in epigastrium), non-distended , normal bowel sounds - Neurologic Neurological: alert and oriented x3 - Psychiatric Psychiatric: appropriate mood/affect - Labs CBC & Chem 7: 02/22/16 09:00 02/22/16 09:00
--- NOTE | 2016-02-24 12:49 | Progress Note ---
Assessment and Plan Assessment and plan: 1. Abdominal pain/nausea Possible secondary to toxicity from phosphorous binders As pain persistent and associated with dyspepsia, PUD in differential, so GI consulted and scheduled for EGD tomorrow morning Continue Pepcid for now 2. Small amount of simple free fluid in the pelvis Questionable significance; monitor 3. ESRD on HD On regular schedule TTS Nephrology following 4. Anemia of chronic kidney disease Epogen with HD per nephrology 5. Hypertension BP controlled on multiple medications (hydralazine, clonidine patch, minoxidil, Coreg, nifedipine) and fluid removal through HD 6. DVT prophylaxis Heparin subcutaneous History Interval history: worsening epigastric pain this morning and not tolerating po Hospitalist Physical - Constitutional Vitals: Temp Pulse Resp BP Pulse Ox 98.1 F 76 18 164/64 96 02/24/16 08:11 02/24/16 08:11 02/24/16 08:11 02/24/16 10:23 02/24/16 08:11 General appearance: Present: no acute distress - EENT Eyes: Present: PERRL, EOM intact. Absent: scleral icterus, conjunctival injection - Neck Neck: Present: supple, normal ROM. Absent: masses or JVD - Respiratory Respiratory effort: normal Respiratory: bilateral: CTA, negative: rales, rhonchi, wheezing - Cardiovascular Rhythm: regular Heart Sounds: Present: S1 & S2. Absent: systolic murmur - Extremities Extremities: no ischemia - Abdominal General gastrointestinal: soft, tender, non-distended, normal bowel sounds Localized gastrointestinal: tender: epigastric periumbilical - Psychiatric Psychiatric: cooperative - Neurologic Neurologic: CNII-XII intact, no focal deficits Results - Labs CBC & Chem 7: 02/22/16 09:00 02/22/16 09:00 Labs: Laboratory Last Values WBC 5.7 K/mm3 (4.5-11.0) 02/22/16 09:00 RBC 3.42 M/mm3 (3.65-5.03) L 02/22/16 09:00 Hgb 10.6 gm/dl (11.8-15.2) L 02/22/16 09:00 Hct 32.7 % (35.5-45.6) L 02/22/16 09:00 MCV 96 fl (84-94) H 02/22/16 09:00 MCH 31 pg (28-32) 02/22/16 09:00 MCHC 33 % (32-34) 02/22/16 09:00 RDW 18.0 % (13.2-15.2) H 02/22/16 09:00 Plt Count 173 K/mm3 (140-440) 02/22/16 09:00 Lymph % (Auto) 26.6 % (13.4-35.0) 02/22/16 09:00 [place] % (Auto) 11.4 % (0.0-7.3) H 02/22/16 09:00 Eos % (Auto) 9.2 % (0.0-4.3) H 02/22/16 09:00 Baso % (Auto) 1.1 % (0.0-1.8) 02/22/16 09:00 Lymph # 1.5 K/mm3 (1.2-5.4) 02/22/16 09:00 [place] # 0.6 K/mm3 (0.0-0.8) 02/22/16 09:00 Eos # 0.5 K/mm3 (0.0-0.4) H 02/22/16 09:00 Baso # 0.1 K/mm3 (0.0-0.1) 02/22/16 09:00 Seg Neutrophils % 51.7 % (40.0-70.0) 02/22/16 09:00 Seg Neutrophils # 2.9 K/mm3 (1.8-7.7) 02/22/16 09:00 PT 16.5 Sec. (12.2-14.9) H 02/22/16 16:01 INR 1.34 (0.87-1.13) H 02/22/16 16:01 APTT 35.1 Sec. (24.2-36.6) 02/22/16 16:01 Sodium 136 mmol/L (137-145) L 02/22/16 09:00 Potassium 4.9 mmol/L (3.6-5.0) 02/22/16 09:00 Chloride 94.3 mmol/L (98-107) L 02/22/16 09:00 Carbon Dioxide 18 mmol/L (22-30) L 02/22/16 09:00 Anion Gap 29 mmol/L 02/22/16 09:00 BUN 77 mg/dL (9-20) H 02/22/16 09:00 Creatinine 15.5 mg/dL (0.8-1.5) H 02/22/16 09:00 Estimated GFR 4 ml/min 02/22/16 09:00 BUN/Creatinine Ratio 4.96 % 02/22/16 09:00 Glucose 86 mg/dL (75-100) 02/22/16 09:00 Calcium 8.3 mg/dL (8.4-10.2) L 02/22/16 09:00 Total Bilirubin 0.4 mg/dL (0.1-1.2) 02/22/16 09:00 Direct Bilirubin < 0.2 mg/dL (0-0.2) 02/22/16 09:00 Indirect Bilirubin 0.2 mg/dL 02/22/16 09:00 AST 20 units/L (5-40) 02/22/16 09:00 ALT 15 units/L (7-56) 02/22/16 09:00 Alkaline Phosphatase 84 units/L (35-129) 02/22/16 09:00 Troponin T < 0.010 ng/mL (0.00-0.029) 02/22/16 09:00 Total Protein 7.4 g/dL (6.3-8.2) 02/22/16 09:00 Albumin 4.4 g/dL (3.9-5) 02/22/16 09:00 Albumin/Globulin Ratio 1.5 % 02/22/16 09:00 Lipase 21 units/L (13-60) 02/22/16 09:00 Urine Color Yellow (Yellow) 02/22/16 15:40 Urine Turbidity Clear (Clear) 02/22/16 15:40 Urine pH 7.0 (5.0-7.0) 02/22/16 15:40 Ur Specific [place] 1.011 (1.003-1.030) 02/22/16 15:40 Urine Protein 100 mg/dl mg/dL (Negative) 02/22/16 15:40 Urine Glucose (UA) 50 mg/dL (Negative) 02/22/16 15:40 Urine Ketones Tr mg/dL (Negative) 02/22/16 15:40 Urine Blood Sm (Negative) 02/22/16 15:40 Urine Nitrite Neg (Negative) 02/22/16 15:40 Urine Bilirubin Neg (Negative) 02/22/16 15:40 Urine Urobilinogen < 2.0 mg/dL (<2.0) 02/22/16 15:40 Ur Leukocyte Esterase Neg (Negative) 02/22/16 15:40 Urine WBC (Auto) < 1.0 /HPF (0.0-6.0) 02/22/16 15:40 Urine RBC (Auto) 1.0 /HPF (0.0-6.0) 02/22/16 15:40 U Epithel Cells (Auto) < 1.0 /HPF (0-13.0) 02/22/16 15:40 Urine Bacteria (Auto) 1+ /HPF (Negative) 02/22/16 15:40
--- NOTE | 2016-02-24 13:16 | Progress Note ---
Assessment and Plan end-stage renal disease patient is currently in maintenance hemodialysis on Monday schedule Patient will receive his hemodialysis in the morning mild metabolic acidosis should improve with hemodialysis Still continues to have abdominal pain poor appetite and nausea patient likely will benefit from upper endoscopy Gastroenterology services currently following treat with antibiotic proton pump inhibitors and possibly Carafate for 2 weeks Patient was advised not to use Renvela,discussed with gastroenterology services patient will likely require upper endoscopy tomorrow CT scan showed traces of fluid in the pelvis which can be seen sometime in dialysis patient GI to comment Monitor dialysis related labs and follow-up Subjective Principal diagnosis: Epig pain Interval history: seen today for follow-up patient still continues to complain of abdominal pain and was unable to eat his breakfast Appetite is still very poor, events of 24 hours vitals labs intake output medications were reviewed Patient is currently status post gastroenterology evaluation denies any constipation today Objective - Vital Signs Vital signs: Vital Signs - 12hr 02/24/16 02/24/16 02/24/16 06:40 08:11 10:23 Temperature 98.1 F Pulse Rate 70 Pulse Rate [ 76 Right Radial] Respiratory 18 Rate Blood Pressure 165/92 164/64 Blood Pressure 145/76 [Right Arm] O2 Sat by Pulse 96 Oximetry - General Appearance General appearance: appears stated age EENT: mucous membranes moist Neck: no JVD Respiratory: Present: Clear to Ascultation Cardiology: regular (S1 and S2 normal) Gastrointestinal: other (still continues to have epigastric tenderness) Integumentary: other (o edema) Neurologic: other () - Lab 02/22/16 09:00 02/22/16 09:00 Most recent lab results Calcium 8.3 mg/dL (8.4-10.2) L 02/22/16 09:00
[2016-02-24] MEDS: LASIX PO SCH (17:51)
[2016-02-25] MEDS: APRESOLINE PO SCH ×4 (06:38→21:58)
--- NOTE | 2016-02-25 09:56 | Progress Note ---
Subjective Principal diagnosis: Epig pain Objective - Vital Signs Vital signs: Vital Signs - 12hr 02/24/16 02/24/16 02/24/16 22:01 23:00 23:04 Temperature 98 F Pulse Rate Pulse Rate [ 64 Right Radial] Respiratory 18 Rate Respiratory 20 Rate [Abdomen] Blood Pressure 144/81 Blood Pressure 144/81 [Right Arm] O2 Sat by Pulse 98 Oximetry 02/25/16 06:38 Temperature Pulse Rate 72 Pulse Rate [ Right Radial] Respiratory Rate Respiratory Rate [Abdomen] Blood Pressure 133/77 Blood Pressure [Right Arm] O2 Sat by Pulse Oximetry - Lab 02/22/16 09:00 02/22/16 09:00 Most recent lab results Calcium 8.3 mg/dL (8.4-10.2) L 02/22/16 09:00
[2016-02-25] MEDS: PEPCID PO SCH ×2 (10:52→21:57)
[2016-02-25] MEDS: PROCARDIA XL PO SCH ×2 (10:52→19:01)
[2016-02-25] MEDS: COREG PO SCH (10:52)
[2016-02-25] MEDS: LONITEN PO SCH ×2 (10:52→19:00)
[2016-02-25] MEDS ORDERED: NACL 0.9% 1000 ML 1,000 ML IV SCH (15:00)
--- NOTE | 2016-02-25 15:57 | Anesthesia Day of Surgery ---
Anesthesia Day of Surgery - Day of Surgery Patient Examined: Yes Patient H&P Reviewed: Yes Patient is NPO: Yes
--- NOTE | 2016-02-25 15:57 | Anesthesia Consultation ---
Anesthesia Consult and Med Hx Date of service: 02/25/16 - Airway Anesthetic Teeth Evaluation: Good ROM Head & Neck: Adequate Mental/Hyoid Distance: Adequate Mallampati Class: Class II Intubation Access Assessment: Good - Pulmonary Exam CTA: Yes - Cardiac Exam Cardiac Exam: RRR - Pre-Operative Health Status ASA Pre-Surgery Classification: ASA3 Proposed Anesthetic Plan: MAC - Cardiovascular System Hx Hypertension: Yes - Central Nervous System CVA: Yes (2011) - Endocrine Hx Renal Disease: Yes Hx End Stage Renal Disease: Yes (dialyzed today)
[2016-02-25] MEDS ORDERED: DIPRIVAN 10 MG/ML IV ONE (16:09)
[2016-02-25] MEDS ORDERED: NACL 0.9 (PRIMING MACHINE ONLY DIALYSIS) MC ONE (16:34)
--- NOTE | 2016-02-25 16:53 | Post Operative Note ---
Pre-op diagnosis: Epigastric pain Post-op diagnosis: other (epigastric pain, gastritis/duodenitis) Findings: EGD Esophagus: irreg Z-line, suspicious for Baeza's. Biopsied Stomach: Erythematous mucosa in antrum; biopsied Duodenum: Erythematous mucosa in bulb; biopsied Imp: Epig pain/anorexia, possibly due to gastritis/duodenitis. Incidentally irreg Z-line, suspicious for Baeza's Rec: 1) Return to floor 2) Advance diet 3) Would have nephro comment on whether he can be on PPI therapy, if need be 4) F/U path Procedure: EGD Anesthesia: MAC Surgeon: CHASE MCMAHON Estimated blood loss: minimal Pathology: list (GE junction, antrum, duodenum) Specimen disposition: to lab Condition: stable Disposition: floor
--- NOTE | 2016-02-25 17:32 | Post Anesthesia Evaluation ---
- Post Anesthesia Evaluation Patient Participated: Yes Airway Patent: Yes Stable Respiratory Function: Yes Temp > 96.8F: Yes Pain Manageable: Yes Adequeate Hydration: Yes Anesthesia Complications: No Block Receding Appropriately: Not Applicable
--- NOTE | 2016-02-25 18:11 | Event Note ---
Came to see the patient around 4:30 in the evening according to the nurse patient went for hemodialysis which she tolerated well currently he has gone down for endoscopy Vital labs medications were reviewed We will follow him in the morning
--- NOTE | 2016-02-25 20:26 | Operative Report ---
PROCEDURE PERFORMED: Upper endoscopy with biopsy. PREOPERATIVE DIAGNOSES: Epigastric pain, dyspepsia. POSTOPERATIVE DIAGNOSES: Epigastric pain, dyspepsia, gastritis/duodenitis/irregular Z line, rule out Baeza's esophagus. ANESTHESIA: Via monitored anesthesia care. DESCRIPTION OF PROCEDURE: After informed consent was obtained, the patient was placed in left lateral decubitus position. A standard Fujinon upper endoscope was inserted into the mouth and advanced to the second portion of duodenum. Scope was then carefully withdrawn and mucosa was carefully examined. FINDINGS: Esophagus: The Z-line appeared irregular at 38 cm from the oral entry site suspicious for Baeza's esophagus. Cold forceps biopsies were taken and sent for pathology. Stomach: There was evidence of erythematous mucosa in the gastric antrum. Cold forceps biopsies were taken and sent for pathology. Duodenum: There was erythematous mucosa noted in the duodenal bulb. Cold forceps biopsies were taken and sent for pathology. COMPLICATIONS: None. ESTIMATED BLOOD LOSS: Minimal. IMPRESSION: A 50-year-old gentleman with end-stage renal disease, on phosphate binders, presenting with epigastric pain/anorexia/dyspeptic symptoms, possibly related to gastritis and duodenitis from the phosphate binders. Incidentally, he was found to have an irregular Z line which is suspicious for Baeza's esophagus. RECOMMENDATIONS: 1. Return to floor. 2. Advance diet to clears and further as tolerated. 3. I would have Nephrology comment on whether or not the patient can safely be on a proton pump inhibitor therapy, if need be. 4. Follow up pathology. JOB# [id number] [facility]
--- NOTE | 2016-02-25 21:18 | Progress Note ---
Assessment and Plan Assessment and plan: 1. Abdominal pain/nausea Possible secondary to toxicity from phosphorous binders As pain persistent and associated with dyspepsia, PUD in differential, so GI consulted and underwent EGD today that revealed esophagus suspicious for Baeza 's and erythematous mucosa in the antrum and duodenal bulb; biopsies were obtained; likely PPI needed; will discuss tomorrow with GI and nephrology 2. Small amount of simple free fluid in the pelvis Questionable significance; monitor 3. ESRD on HD On regular schedule TTS Nephrology following 4. Anemia of chronic kidney disease Epogen with HD per nephrology 5. Hypertension BP controlled on multiple medications (hydralazine, clonidine patch, minoxidil, Coreg, nifedipine) and fluid removal through HD 6. DVT prophylaxis Heparin subcutaneous History Interval history: s/ EGD today as well as HD Hospitalist Physical - Constitutional Vitals: Temp Pulse Resp BP Pulse Ox 98.1 F 69 16 175/93 99 02/25/16 17:30 02/25/16 18:59 02/25/16 17:30 02/25/16 18:59 02/25/16 17:30 General appearance: Present: no acute distress - EENT Eyes: Present: PERRL, EOM intact. Absent: scleral icterus, conjunctival injection - Neck Neck: Present: supple, normal ROM. Absent: masses or JVD - Respiratory Respiratory effort: normal Respiratory: bilateral: CTA, negative: rales, rhonchi - Cardiovascular Rhythm: regular Heart Sounds: Present: S1 & S2. Absent: systolic murmur - Extremities Extremities: no ischemia - Abdominal General gastrointestinal: soft, non-tender, non-distended, normal bowel sounds - Integumentary Integumentary: Present: warm, dry. Absent: jaundice, rash - Neurologic Neurologic: CNII-XII intact, no focal deficits Results - Labs CBC & Chem 7: 02/22/16 09:00 02/22/16 09:00 Labs: Laboratory Last Values WBC 5.7 K/mm3 (4.5-11.0) 02/22/16 09:00 RBC 3.42 M/mm3 (3.65-5.03) L 02/22/16 09:00 Hgb 10.6 gm/dl (11.8-15.2) L 02/22/16 09:00 Hct 32.7 % (35.5-45.6) L 02/22/16 09:00 MCV 96 fl (84-94) H 02/22/16 09:00 MCH 31 pg (28-32) 02/22/16 09:00 MCHC 33 % (32-34) 02/22/16 09:00 RDW 18.0 % (13.2-15.2) H 02/22/16 09:00 Plt Count 173 K/mm3 (140-440) 02/22/16 09:00 Lymph % (Auto) 26.6 % (13.4-35.0) 02/22/16 09:00 [place] % (Auto) 11.4 % (0.0-7.3) H 02/22/16 09:00 Eos % (Auto) 9.2 % (0.0-4.3) H 02/22/16 09:00 Baso % (Auto) 1.1 % (0.0-1.8) 02/22/16 09:00 Lymph # 1.5 K/mm3 (1.2-5.4) 02/22/16 09:00 [place] # 0.6 K/mm3 (0.0-0.8) 02/22/16 09:00 Eos # 0.5 K/mm3 (0.0-0.4) H 02/22/16 09:00 Baso # 0.1 K/mm3 (0.0-0.1) 02/22/16 09:00 Seg Neutrophils % 51.7 % (40.0-70.0) 02/22/16 09:00 Seg Neutrophils # 2.9 K/mm3 (1.8-7.7) 02/22/16 09:00 PT 16.5 Sec. (12.2-14.9) H 02/22/16 16:01 INR 1.34 (0.87-1.13) H 02/22/16 16:01 APTT 35.1 Sec. (24.2-36.6) 02/22/16 16:01 Sodium 136 mmol/L (137-145) L 02/22/16 09:00 Potassium 4.9 mmol/L (3.6-5.0) 02/22/16 09:00 Chloride 94.3 mmol/L (98-107) L 02/22/16 09:00 Carbon Dioxide 18 mmol/L (22-30) L 02/22/16 09:00 Anion Gap 29 mmol/L 02/22/16 09:00 BUN 77 mg/dL (9-20) H 02/22/16 09:00 Creatinine 15.5 mg/dL (0.8-1.5) H 02/22/16 09:00 Estimated GFR 4 ml/min 02/22/16 09:00 BUN/Creatinine Ratio 4.96 % 02/22/16 09:00 Glucose 86 mg/dL (75-100) 02/22/16 09:00 Calcium 8.3 mg/dL (8.4-10.2) L 02/22/16 09:00 Total Bilirubin 0.4 mg/dL (0.1-1.2) 02/22/16 09:00 Direct Bilirubin < 0.2 mg/dL (0-0.2) 02/22/16 09:00 Indirect Bilirubin 0.2 mg/dL 02/22/16 09:00 AST 20 units/L (5-40) 02/22/16 09:00 ALT 15 units/L (7-56) 02/22/16 09:00 Alkaline Phosphatase 84 units/L (35-129) 02/22/16 09:00 Troponin T < 0.010 ng/mL (0.00-0.029) 02/22/16 09:00 Total Protein 7.4 g/dL (6.3-8.2) 02/22/16 09:00 Albumin 4.4 g/dL (3.9-5) 02/22/16 09:00 Albumin/Globulin Ratio 1.5 % 02/22/16 09:00 Lipase 21 units/L (13-60) 02/22/16 09:00 Urine Color Yellow (Yellow) 02/22/16 15:40 Urine Turbidity Clear (Clear) 02/22/16 15:40 Urine pH 7.0 (5.0-7.0) 02/22/16 15:40 Ur Specific [place] 1.011 (1.003-1.030) 02/22/16 15:40 Urine Protein 100 mg/dl mg/dL (Negative) 02/22/16 15:40 Urine Glucose (UA) 50 mg/dL (Negative) 02/22/16 15:40 Urine Ketones Tr mg/dL (Negative) 02/22/16 15:40 Urine Blood Sm (Negative) 02/22/16 15:40 Urine Nitrite Neg (Negative) 02/22/16 15:40 Urine Bilirubin Neg (Negative) 02/22/16 15:40 Urine Urobilinogen < 2.0 mg/dL (<2.0) 02/22/16 15:40 Ur Leukocyte Esterase Neg (Negative) 02/22/16 15:40 Urine WBC (Auto) < 1.0 /HPF (0.0-6.0) 02/22/16 15:40 Urine RBC (Auto) 1.0 /HPF (0.0-6.0) 02/22/16 15:40 U Epithel Cells (Auto) < 1.0 /HPF (0-13.0) 02/22/16 15:40 Urine Bacteria (Auto) 1+ /HPF (Negative) 02/22/16 15:40
[2016-02-26] MEDS: APRESOLINE PO SCH ×2 (05:59→14:36)
--- NOTE | 2016-02-26 07:37 | Gastroenterology Progress Note ---
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 Please call with questions. Thank you! Subjective Date of service: 02/26/16 Principal diagnosis: Epig pain Interval history: Pt seen/examined today. S/P EGD yesterday with evidence of irreg Z-line, gastritis/duodenitis. Tolerated diet w/o problems. No other acute overnight events. Objective - Constitutional Vitals: Temp Pulse Resp BP Pulse Ox 98.1 F 78 18 123/71 100 02/26/16 01:57 02/26/16 05:59 02/26/16 01:57 02/26/16 05:59 02/26/16 01:57 General appearance: no acute distress - Neck Neck: supple - Respiratory Respiratory: bilateral: CTA - Cardiovascular Rhythm: regular Heart Sounds: Present: S1 & S2 - Extremities Extremities: No edema - Gastrointestinal General gastrointestinal: Present: soft, non-tender, non-distended, normal bowel sounds - Neurologic Neurological: alert and oriented x3 - Labs CBC & Chem 7: 02/22/16 09:00 02/22/16 09:00
[2016-02-26] MEDS: COREG PO SCH (10:10)
[2016-02-26] MEDS: PEPCID PO SCH (10:10)
[2016-02-26] MEDS: LONITEN PO SCH (10:10)
[2016-02-26] MEDS: PROCARDIA XL PO SCH (10:10)
--- NOTE | 2016-02-26 11:26 | Progress Note ---
Assessment and Plan end-stage renal disease currently on maintenance in a dialysis patient is doing well We will see him for follow-up in the dialysis clinic Counseling and education was done regarding hospital related comorbidities His appetite is good his able to keep food down without any associated nausea vomiting I have also discussed the care plan with Hospital medicine about the prescriptions for Prilosec and Carafate to be given to the patient EGD findings were noted. Subjective Principal diagnosis: Epig pain Objective - Vital Signs Vital signs: Vital Signs - 12hr 02/26/16 02/26/16 02/26/16 01:57 05:59 07:40 Temperature 98.1 F 98.1 F Pulse Rate 78 Pulse Rate [ 72 75 Right Radial] Respiratory 18 16 Rate Blood Pressure 123/71 Blood Pressure 126/74 132/73 [Right Arm] O2 Sat by Pulse 100 98 Oximetry 02/26/16 10:10 Temperature Pulse Rate 75 Pulse Rate [ Right Radial] Respiratory Rate Blood Pressure 132/73 Blood Pressure [Right Arm] O2 Sat by Pulse Oximetry - Lab 02/22/16 09:00 02/22/16 09:00 Most recent lab results Calcium 8.3 mg/dL (8.4-10.2) L 02/22/16 09:00
[2016-02-26 12:57] VITALS: BP 140/83
--- NOTE | 2016-02-26 13:54 | Discharge Summary ---
Providers - Providers Date of Admission: 02/22/16 16:16 Date of discharge: 02/26/16 Attending physician: SANTA PEDRAZA 02/22/16 16:18 Consult to Physician [CONS] Urgent Consulting Provider: YAMILKA RUDD Reason For Exam: renal failure Notified:: yes 02/22/16 16:19 Consult to Physician [CONS] Urgent Consulting Provider: CARRIE HARMON ASS Reason For Exam: abdominal pain Place consult to:: [facility] Notified:: no Primary care physician: CARLOS HARRIS Hospitalization Condition: Stable Disposition: DISCHARGED TO HOME OR SELFCARE Time spent for discharge: 35 min Core Measure Documentation - Palliative Care Palliative Care/ Comfort Measures: Not Applicable - Core Measures Any of the following diagnoses?: none Exam - Constitutional Vitals: Temp Pulse Resp BP Pulse Ox 98.3 F 77 16 140/83 98 02/26/16 12:55 02/26/16 12:55 02/26/16 12:55 02/26/16 12:55 02/26/16 08:40 Plan Activity: advance as tolerated Diet: low cholesterol, low salt, renal Follow up with: CARLOS HARRIS MD [Primary Care Provider] - 3-5 Days CHASE MCMAHON MD [Staff Physician] - 14 Days YAMILKA RUDD MD [Staff Physician] - 7 Days Prescriptions: Sucralfate [Carafate] 1 gm PO ACHS #90 tablet Pantoprazole [Protonix] 40 mg PO QDAY #30 tablet
== END 2016-02-26 15:07 | disposition home or self-care (01) | DRG 391 ==
LOC: ED 08:04 → 3A 16:16
PROVIDERS: ADMIT Family Medicine; ATTEND Internal Medicine
PROC: 5A1D60Z (ICD-10-PCS; 2016-02-23)
PROC: 0DB98ZX Excision of Duodenum, Via Natural or Artificial Opening Endoscopic, Diagnostic (ICD-10-PCS; principal; 2016-02-25)
PROC: 0DB68ZX Excision of Stomach, Via Natural or Artificial Opening Endoscopic, Diagnostic (ICD-10-PCS; principal; 2016-02-25)
PROC: 0DB38ZX Excision of Lower Esophagus, Via Natural or Artificial Opening Endoscopic, Diagnostic (ICD-10-PCS; principal; 2016-02-25)
DX: K29.00 Acute gastritis without bleeding (principal); N18.6 End stage renal disease; I12.0 Hypertensive chronic kidney disease with stage 5 chronic kidney disease or end stage renal disease; E87.2 Acidosis; T50.995A Adverse effect of other drugs, medicaments and biological substances, initial encounter; K29.80 Duodenitis without bleeding; D63.1 Anemia in chronic kidney disease; E21.3 Hyperparathyroidism, unspecified; Y92.89 Other specified places as the place of occurrence of the external cause
CPT/HCPCS: 36415; 71020; 74176; 80048; 80074; 81001; 83690; 84484; 85025; 85610; 85730; 88305; 88342; 93005; 93010; 96374; 96375; C9113; J2270; J2405; J2704; J7030

== ENCOUNTER 2019-01-07 03:11 | Observation (INO) | payer MEDICARE ==
[2019-01-07] MEDS ORDERED: ONDANSETRON 4 MG/2 ML INJ IV ONE (03:35)
[2019-01-07] MEDS ORDERED: FAMOTIDINE 20 MG/2 ML INJ IV ONE (03:35)
[2019-01-07] MEDS ORDERED: DICYCLOMINE 20 MG/2 ML INJ IM ONE (03:35)
--- NOTE | 2019-01-07 04:07 | XRay Report ---
CHEST 1 VIEW INDICATION / CLINICAL INFORMATION: chest pain. COMPARISON: None available. FINDINGS: SUPPORT DEVICES: None. HEART / MEDIASTINUM: Mildly enlarged LUNGS / PLEURA: Extensive consolidation present throughout both lungs. Signer Name: Aryan Hall MD Signed: 01/07/2019 4:03 AM Workstation Name: [id number]
[2019-01-07 04:09] LABS: Basophils % (Auto) 0.3 % (0.0-1.8); Eosinophils # (Auto) 0.2 K/mm3 (0.0-0.4); Eosinophils % (Auto) 4.1 % (0.0-4.3); Hematocrit 29.7 % (35.5-45.6); Hemoglobin 9.5 gm/dl (11.8-15.2); Lymphocytes # (Auto) 0.8 K/mm3 (1.2-5.4); Lymphocytes % (Auto) 13.6 % (13.4-35.0); Mean Corpuscular HGB Conc 32 % (32-34); Mean Corpuscular Volume 89 fl (84-94); Monocytes # (Auto) 0.5 K/mm3 (0.0-0.8); Monocytes % (Auto) 7.9 % (0.0-7.3); Platelet Count 217 K/mm3 (140-440); Red Blood Count 3.35 M/mm3 (3.65-5.03); Red Cell Distribution Width 18.4 % (13.2-15.2)
--- NOTE | 2019-01-07 04:09 | Cat Scan Report ---
CT ABDOMEN AND PELVIS WITHOUT CONTRAST INDICATION / CLINICAL INFORMATION: NV epigastric pain. TECHNIQUE: Axial CT images were obtained through the abdomen and pelvis without IV contrast. All CT scans at [facility] location are performed using CT dose reduction for ALARA by means of automated exposure control. COMPARISON: None available. FINDINGS: LOWER CHEST: Cardiomegaly. Some respiratory motion artifact limits the exam.. LIVER: No significant abnormality. GALLBLADDER: No significant abnormality. BILE DUCTS: No significant abnormality. PANCREAS: No significant abnormality. SPLEEN: No significant abnormality. ADRENALS: No significant abnormality. 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 STOMACH and SMALL BOWEL: No significant abnormality. COLON: No significant abnormality. APPENDIX: No significant abnormality. PERITONEUM: No free fluid. No free air. No fluid collection. LYMPH NODES: No significant adenopathy. AORTA and ARTERIES: No significant abnormality. IVC and VEINS: No significant abnormality. URINARY BLADDER: No significant abnormality. REPRODUCTIVE ORGANS: No significant abnormality. ADDITIONAL FINDINGS: None. SKELETAL SYSTEM: No significant abnormality. IMPRESSION: No definite acute finding appreciated within the limits of the exam. Extensive respiratory motion art ifact limits the exam. Mild anasarca. Signer Name: Aryan Hall MD Signed: 01/07/2019 4:04 AM Workstation Name: [email or web address]
[2019-01-07 04:23] LABS: Albumin 3.9 g/dL (3.9-5); Calcium 9.2 mg/dL (8.4-10.2)
[2019-01-07 04:37] LABS: Chol/HDL Ratio 2.9 %
--- NOTE | 2019-01-07 05:10 | Emergency Department Report ---
ED General Adult HPI - General Chief complaint: Abdominal Pain Stated complaint: ABDOMINAL PAIN Time Seen by Provider: 01/07/19 03:26 Source: EMS Mode of arrival: Stretcher Limitations: No Limitations - History of Present Illness Initial comments: Patient is a 53-year-old male with a past medical history of end-stage renal disease and hypertension who is presenting with nausea vomiting shortness of breath chest pain. Patient states symptoms started on approximate 4 days ago. Patient states he hardly ate that day because of a burning epigastric pain radiating into his chest. He said multiple episodes of nausea and vomiting. Patient states he had dialysis on Monday however he's continued to have chest pain and denies shortness of breath as well. Patient denies fevers chills cough cold or congestion. - Related Data Home Medications Medication Instructions Recorded Confirmed Last Taken Furosemide [Lasix TAB] 80 mg PO 4XW 02/22/16 02/22/16 02/21/16 Minoxidil [Loniten] 2.5 mg PO QDAY 02/22/16 02/22/16 02/21/16 NIFEdipine XL [Procardia Xl] 90 mg PO QDAY 02/22/16 02/22/16 02/21/16 Warfarin [Coumadin] 7.5 mg PO QDAY 02/22/16 02/22/16 02/21/16 carvediloL [Coreg] 25 mg PO QDAY 02/22/16 02/22/16 02/21/16 cloNIDine-TTS PATCH [Catapres-Tts 1 patch TD Q7D 02/22/16 02/22/16 Unknown 0.3mg Patch] hydrALAZINE [Apresoline TAB] 50 mg PO Q8HR 02/22/16 02/22/16 02/21/16 Previous Rx's Medication Instructions Recorded Last Taken Type Pantoprazole [Protonix] 40 mg PO QDAY #30 tablet 02/26/16 Unknown Rx Sucralfate [Carafate] 1 gm PO ACHS #90 tablet 02/26/16 Unknown Rx Allergies Allergy/AdvReac Type Severity Reaction Status Date / Time No Known Allergies Allergy Unverified 02/22/16 08:22 ED Review of Systems ROS: Stated complaint: ABDOMINAL PAIN Other details as noted in HPI Comment: All other systems reviewed and negative ED Past Medical Hx - Past Medical History Previous Medical History?: Yes Hx Hypertension: Yes Hx Renal Disease: Yes (HD TThS) - Surgical History Past Surgical History?: Yes Additional Surgical History: Left A/V Graft - Social History Smoking Status: Never Smoker - Medications Home Medications: Home Medications Medication Instructions Recorded Confirmed Last Taken Type Furosemide [Lasix TAB] 80 mg PO 4XW 02/22/16 02/22/16 02/21/16 History Minoxidil [Loniten] 2.5 mg PO QDAY 02/22/16 02/22/16 02/21/16 History NIFEdipine XL [Procardia Xl] 90 mg PO QDAY 02/22/16 02/22/16 02/21/16 History Warfarin [Coumadin] 7.5 mg PO QDAY 02/22/16 02/22/16 02/21/16 History carvediloL [Coreg] 25 mg PO QDAY 02/22/16 02/22/16 02/21/16 History cloNIDine-TTS PATCH [Catapres-Tts 1 patch TD Q7D 02/22/16 02/22/16 Unknown Histo ry 0.3mg Patch] hydrALAZINE [Apresoline TAB] 50 mg PO Q8HR 02/22/16 02/22/16 02/21/16 History Pantoprazole [Protonix] 40 mg PO QDAY #30 tablet 02/26/16 Unknown Rx Sucralfate [Carafate] 1 gm PO ACHS #90 tablet 02/26/16 Unknown Rx ED Physical Exam - General Limitations: No Limitations General appearance: alert, in no apparent distress - Head Head exam: Present: atraumatic, normocephalic - Eye Eye exam: Present: normal appearance, PERRL, EOMI - ENT ENT exam: Present: mucous membranes moist - Neck Neck exam: Present: normal inspection - Respiratory Respiratory exam: Present: rales. Absent: respiratory distress, wheezes, rhonchi - Cardiovascular Cardiovascular Exam: Present: regular rate, normal rhythm, normal heart sounds. Absent: systolic murmur, diastolic murmur, rubs, gallop - GI/Abdominal GI/Abdominal exam: Present: soft, tenderness (epigastric), normal bowel sounds. Absent: distended, guarding, rebound - Rectal Rectal exam: Present: deferred - Extremities Exam Extremities exam: Present: normal inspection - Back Exam Back exam: Present: normal inspection - Neurological Exam Neurological exam: Present: alert, oriented X3 - Psychiatric Psychiatric exam: Present: normal affect, normal mood - Skin Skin exam: Present: warm, dry, intact, normal color. Absent: rash ED Course Vital Signs 01/07/19 03:36 Temperature 98 F Pulse Rate 84 Respiratory 14 Rate Blood Pressure 126/75 [Right] O2 Sat by Pulse 96 Oximetry ED Medical Decision Making - Lab Data Result diagrams: 01/07/19 03:53 01/07/19 03:53 Lab Results 01/07/19 01/07/19 01/07/19 Range/Units 03:53 03:53 03:53 WBC 6.0 (4.5-11.0) K/mm3 RBC 3.35 L (3.65-5.03) M/mm3 Hgb 9.5 L (11.8-15.2) gm/dl Hct 29.7 L (35.5-45.6) % MCV 89 (84-94) fl MCH 28 (28-32) pg MCHC 32 (32-34) % RDW 18.4 H (13.2-15.2) % Plt Count 217 (140-440) K/mm3 Lymph % (Auto) 13.6 (13.4-35.0) % [place] % (Auto) 7.9 H (0.0-7.3) % Eos % (Auto) 4.1 (0.0-4.3) % Baso % (Auto) 0.3 (0.0-1.8) % Lymph # 0.8 L (1.2-5.4) K/mm3 [place] # 0.5 (0.0-0.8) K/mm3 Eos # 0.2 (0.0-0.4) K/mm3 Baso # 0.0 (0.0-0.1) K/mm3 Seg Neutrophils % 74.1 H (40.0-70.0) % Seg Neutrophils # 4.5 (1.8-7.7) K/mm3 Sodium 136 L (137-145) mmol/L Potassium 4.0 (3.6-5.0) mmol/L Chloride 88.2 L (98-107) mmol/L Carbon Dioxide 22 (22-30) mmol/L Anion Gap 30 mmol/L BUN 147 H (9-20) mg/dL Creatinine 14.6 H (0.8-1.5) mg/dL Estimated GFR 4 ml/min BUN/Creatinine Ratio 10 % Glucose 151 H (75-100) mg/dL Calcium 9.2 (8.4-10.2) mg/dL Total Bilirubin 0.40 (0.1-1.2) mg/dL AST 18 (5-40) units/L ALT 18 (7-56) units/L Alkaline Phosphatase 109 (35-129) units/L Troponin T 0.077 H (0.00-0.029) ng/mL Total Protein 6.6 (6.3-8.2) g/dL Albumin 3.9 (3.9-5) g/dL Albumin/Globulin Ratio 1.4 % Triglycerides 105 (2-149) mg/dL Cholesterol 122 (50-199) mg/dL LDL Cholesterol Direct 66 (50-130) mg/dL HDL Cholesterol 42 (40-59) mg/dL Cholesterol/HDL Ratio 2.90 % Lipase 18 (13-60) units/L - EKG Data -: EKG Interpreted by Ne EKG shows normal: sinus rhythm, axis, intervals, QRS complexes, ST-T waves Rate: normal - EKG Data Interpretation: normal EKG - Radiology Data CHEST 1 VIEW INDICATION / CLINICAL INFORMATION: chest pain. COMPARISON: None available. FINDINGS: SUPPORT DEVICES: None. HEART / MEDIASTINUM: Mildly enlarged LUNGS / PLEURA: Extensive consolidation present throughout both lungs. Signer Name: Aryan Hall MD Signed: 01/07/2019 4:03 AM Workstation Name: [id number] CT ABDOMEN AND PELVIS WITHOUT CONTRAST INDICATION / CLINICAL INFORMATION: NV epigastric pain. TECHNIQUE: Axial CT images were obtained through the abdomen and pelvis without IV contrast. All CT scans at this location are performed using CT dose reduction for ALARA by means of automated exposure control. COMPARISON: None available. FINDINGS: LOWER CHEST: Cardiomegaly. Some respiratory motion artifact limits the exam.. LIVER: No significant abnormality. GALLBLADDER: No significant abnormality. BILE DUCTS: No significant abnormality. PANCREAS: No significant abnormality. SPLEEN: No significant abnormality. ADRENALS: No significant abnormality. 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 STOMACH and SMALL BOWEL: No significant abnormality. COLON: No significant abnormality. APPENDIX: No significant abnormality. PERITONEUM: No free fluid. No free air. No fluid collection. LYMPH NODES: No significant adenopathy. AORTA and ARTERIES: No significant abnormality. IVC and VEINS: No significant abnormality. URINARY BLADDER: No significant abnormality. REPRODUCTIVE ORGANS: No significant abnormality. ADDITIONAL FINDINGS: None. SKELETAL SYSTEM: No significant abnormality. IMPRESSION: No definite acute finding appreciated within the limits of the exam. Extensive respiratory motion artifact limits the exam. Mild anasarca. Signer Name: Aryan Hall MD - Medical Decision Making Patient is a 53-year-old Citizen Of [place] male who is presenting with 2 issues. Patient was a patient has end stage renal disease and is complaining of shortness of breath. Chest x-ray shows pulmonary edema. Patient's while resting in his room had a O2 sat of 88%. Patient was started on oxygen therapy. The patient does appear to need dialysis and likely would not make it till Monday. Secondly the patient has had nausea and vomiting and epigastric discomfort. CT of abdomen and pelvis shows no acute process and his laboratory studies do not show with patient has pancreatitis or biliary issues. Patient likely with a gastritis. Patient was given antiemetics and medications diseases epigastric burning. Patient's symptoms did improve and he was able to rest comfortably. Patient will be admitted to the hospitalist service for dialysis. Critical care attestation.: If time is entered above; I have spent that time in minutes in the direct care of this critically ill patient, excluding procedure time. ED Disposition Clinical Impression: End-stage renal disease needing dialysis Pulmonary edema Qualifiers: Chronicity: acute Qualified Code(s): J81.0 - Acute pulmonary edema Chest pain Qualifiers: Chest pain type: unspecified Qualified Code(s): R07.9 - Chest pain, unspecified Gastritis Qualifiers: Gastritis type: unspecified gastritis Chronicity: acute Gastritis bleeding: without bleeding Qualified Code(s): K29.00 - Acute gastritis without bleeding Disposition: OP ADMIT IP TO THIS HOSP Is pt being admited?: Yes Does the pt Need Aspirin: No Condition: Stable Instructions: Pulmonary Edema (ED), Chest Pain (ED) Time of Disposition: 05:13
--- NOTE | 2019-01-07 06:49 | Event Note ---
Date: 01/07/19 See history and physical and the reports End-stage renal disease needing dialysis Volume overload
[2019-01-07] MEDS ORDERED: cloNIDine TTS 0.3 MG/24 HR PATCH TD SCH (07:00)
[2019-01-07] MEDS ORDERED: NON-FORMULARY EACH (Furosemide [Lasix Tab] 80 MG) PO SCH (07:00)
--- NOTE | 2019-01-07 07:19 | History and Physical Report ---
CHIEF COMPLAINT: 1. Abdominal pain. 2. Nausea, vomiting of 1 day duration. 3. Chest pain. HISTORY OF PRESENT ILLNESS: A 53-year-old. The patient vomited about 3-4 times. Chest pain is retrosternal, nonradiating. Pain is about 5 on a scale of 1-10. Some shortness of breath present. No diarrhea. No fever or chills. No recent travel. PAST MEDICAL HISTORY: Significant for hypertension, end-stage renal disease, and anticoagulation. PAST SURGICAL HISTORY: Left AV graft. SOCIAL HISTORY: Does not smoke. FAMILY HISTORY: Hypertension. CURRENT MEDICATIONS: Include nifedipine 90 mg once a day, Coumadin 7.5 once a day and clonidine TTS patch q. weekly, hydralazine 50 mg every 8 hours, and Protonix 40 mg once a day. REVIEW OF SYSTEMS: Significant for chest pain, shortness of breath, and nausea and vomiting. Otherwise, review of systems is negative. PHYSICAL EXAMINATION: GENERAL: Middle-aged man, cooperative during examination. VITAL SIGNS: Blood pressure is 113/71, temperature is 98, pulse is 84, respirations are 14, and sats are 92%. HEENT: Unremarkable. Pupils are equal and reactive. NECK: Supple, no lymphadenopathy, no thyromegaly. LUNGS: Clear to auscultation and percussion. Good air entry. CARDIOVASCULAR: S1, S2 heard. No gallop, no murmur, no rub. Apical impulse in left fifth intercostal space and midclavicular line. ABDOMEN: Soft. Slight tenderness in the epigastric region. Bowel sounds are normal. Hernial orifices are normal. EXTREMITIES: Good pedal pulses. No pedal edema. CENTRAL NERVOUS SYSTEM: Alert and oriented x 4, nonfocal exam. SKIN: Normal. LABORATORY DATA: Significant for white count of 6000, H and H is 9.5 and 29.7, platelet count is 217,000. Sodium is 136, potassium is 4.0, BUN and creatinine is 147 and 14.6. AST and ALT are normal. Troponin is 0.077. Urine normal. EKG reviewed. No acute ST-T wave changes. Chest x-ray shows extensive consolidation present throughout the both lungs. Chest x-ray shows extensive consolidation present throughout both lungs. Abdominal CAT scan shows no definite acute findings appreciated. Extensive respiratory motion artifact, limited exam, mild anasarca. ASSESSMENT AND PLAN: 1. Chest pain, rule out myocardial infarction, chest pain protocol. Serial troponins and Lexiscan. 2. Hypertension. Continue antihypertensives and control the blood pressure. Now, the blood pressure is normal. 3. Acute gastritis. IV Protonix and gentle IV hydration. 4. Anticoagulation. Continue Coumadin. 5. Anemia secondary to chronic kidney disease. 6. Elevated troponin consistent with non-STEMI 2. The patient will also order for a stress test. 7. Deep venous thrombosis prophylaxis, heparin 5000 q. 12. JOB# [id number] [facility]
[2019-01-07] MEDS ORDERED: REGADENOSON 0.4 MG/5 ML INJ IV ONE ×2 (08:32→08:37)
[2019-01-07] MEDS: hydrALAZINE 25 MG TAB PO SCH ×3 (09:02→21:53)
[2019-01-07] MEDS: SUCRALFATE 1 GM TAB PO SCH ×4 (09:02→21:55)
[2019-01-07] MEDS ORDERED: MINOXIDIL 2.5 MG TAB PO SCH (10:00)
[2019-01-07] MEDS ORDERED: PANTOPRAZOLE 40 MG TAB PO SCH (10:00)
[2019-01-07 10:35] LABS: INR 1.14 (0.87-1.13)
--- NOTE | 2019-01-07 11:52 | Consultation ---
History of Present Illness - Reason for Consult Consult date: 01/07/19 end stage renal disease - History of Present Illness Mr. Fuller is a 53yo with ESRD on HD and hypertension who presented to the ED with chest pain, N/V and SOB. He reports that he was in usual state of health until when symptoms began. He reported burning, epigastric pain radiating to chest. He denies fever, chills. Outpatient treatment hx reviewed - he is noncompliant with dialysis. He last dialyzed on Jan 02 but did not complete his prescribed time. He has not completed his full prescribed time since 12/27. Past History Past Medical History: ESRD, hypertension, stroke Past Surgical History: Other (AV access surgery) Social history: no significant social history Family history: no significant family history Medications and Allergies Allergies Allergy/AdvReac Type Severity Reaction Status Date / Time No Known Allergies Allergy Unverified 02/22/16 08:22 Home Medications Medication Instructions Recorded Confirmed Last Taken Type Furosemide [Lasix TAB] 80 mg PO DAILY 02/22/16 01/07/19 02/21/16 History Minoxidil [Loniten] 2.5 mg PO QDAY 02/22/16 01/07/19 02/21/16 History NIFEdipine XL [Procardia Xl] 90 mg PO QDAY 02/22/16 01/07/19 02/21/16 History Warfarin [Coumadin] 7.5 mg PO QDAY 02/22/16 01/07/19 02/21/16 History carvediloL [Coreg] 25 mg PO QDAY 02/22/16 01/07/19 02/21/16 History cloNIDine-TTS PATCH [Catapres-Tts 1 patch TD Q7D 02/22/16 01/07/19 Unknown Hist ory 0.3mg Patch] hydrALAZINE [Apresoline TAB] 50 mg PO Q8HR 02/22/16 01/07/19 02/21/16 History Pantoprazole [Protonix] 40 mg PO QDAY #30 tablet 02/26/16 01/07/19 Unknown Rx Sucralfate [Carafate] 1 gm PO ACHS #90 tablet 02/26/16 01/07/19 Unknown Rx Active Meds: Active Medications Carvedilol (Coreg) 25 mg PO QDAY [facility] Clonidine HCl (Catapres-Tts Patch) 0.3 mg TD Mo [facility] Furosemide (Lasix) 80 mg PO DAILY [facility] Heparin Sodium (Porcine) (Heparin) 5,000 unit SUB-Q Q12HR [facility] Hydralazine HCl (Apresoline) 50 mg PO Q8HR [facility] Last Admin: 01/07/19 09:02 Dose: Not Given Documented by: Minoxidil (Loniten) 2.5 mg PO QDAY [facility] Nifedipine (Procardia Xl) 90 mg PO QDAY@0800 [facility] Pantoprazole Sodium (Protonix) 40 mg IV BID [facility] Stop: 01/07/19 23:59 Pantoprazole Sodium (Protonix) 40 mg PO BID [facility] Sucralfate (Carafate) 1 gm PO ACHS [facility] Last Admin: 01/07/19 09:02 Dose: Not Given Documented by: Warfarin Sodium (Coumadin) 7.5 mg PO QDAY@1700 [facility]; Protocol Review of Systems All systems: negative Exam - Vital Signs Vital signs: Vital Signs Pulse Ox 96 01/07/19 03:27 - General Appearance General appearance: well-developed, well-nourished EENT: ATNC Respiratory: Clear to Ascultation Heart: regular, S1S2 Gastrointestinal: Present: normal. Absent: tenderness, distended Integumentary: no rash, warm and dry Musculoskeletal: Present: other (no edema) Psychiatric: cooperative Results - Lab Results 01/07/19 03:53 01/07/19 03:53 Most recent lab results Calcium 9.2 mg/dL (8.4-10.2) 01/07/19 03:53 Assessment and Plan Impression: * End stage renal disease * Chest pain * Uremia * Nausea/vomiting - uremia likely contributing factor * Hypertension * Anemia secondary to ESRD * Secondary hyperparathyroidism Plan: * Hemodialysis today; continue daily hemodialysis * UF as tolerated * Cardiology following; work up in progress * Epogen TIW prn * Renal diet * Dose medications for renal function * Need for compliance addressed with patient
[2019-01-07] MEDS ORDERED: SODIUM CHLORIDE 0.9% 100 ML IV PRN (11:57)
[2019-01-07] MEDS ORDERED: EPOETIN ALFA 10,000 UNIT/1 ML INJ IV PRN (11:57)
[2019-01-07 12:10] LABS: Hepatitis B Surface Antigen Non-Reactive (Negative); Hepatitis C Virus Antibody Non-Reactive (NonReactive)
--- NOTE | 2019-01-07 14:57 | Event Note ---
Date: 01/07/19 Patient seen and examined Presented with chest pain and volume overload Consulted nephrology and cardiology Patient on coumadin, INR nontherapeutic cont to monitor trop,f/u cardiology recommendation
[2019-01-07] MEDS ORDERED: WARFARIN 7.5 MG TAB PO SCH (17:00)
[2019-01-07] MEDS: HEPARIN 5,000 UNIT/1 ML VIAL SUB-Q SCH ×2 (17:45→21:53)
[2019-01-07] MEDS: PANTOPRAZOLE 40 MG INJ IV SCH ×2 (17:47→21:52)
[2019-01-07] MEDS: carvediloL 25 MG TAB PO SCH (18:03)
[2019-01-07] MEDS: FUROSEMIDE 40 MG TAB PO SCH (18:04)
[2019-01-07] MEDS: NIFEdipine XL 90 MG TAB PO SCH (18:04)
--- NOTE | 2019-01-07 18:50 | Consultation ---
History of Present Illness Consult date: 01/07/19 Consult reason: chest pain History of present illness: The patient is a 53-year-old man with end-stage renal disease on hemodialysis, hypertension and chronic anemia. He presented to the hospital with atypical chest pain, and mildly upper abdominal pain, epigastric pain and nausea vomiting. He was evaluated by the medical service, ordered a Lexiscan thallium stress test. The Lexiscan thallium stress test performed today showed normal perfusion with mild left ventricular dilatation, no ischemic defects. The patient has no exertional chest pain, no unusual shortness of breath, no palpitations, no edema. He denies any prior cardiac history. Serial ECG showing normal sinus rhythm with nonspecific ST and T-wave changes. Chest x-ray shows a moderate cardiomegaly, with diffuse mild bilateral interstitial opacities. There was a mild isolated rise in troponin of uncertain significance. Of note, this patient is on warfarin therapy, the indication of which is uncertain. There is no report in the chart of a cardiac indication for chronic anticoagulation. His INR was subtherapeutic at 1.14 on presentation. Past History Past Medical History: ESRD, hypertension, stroke Past Surgical History: Other (AV access surgery) Social history: no significant social history Family history: no significant family history Medications and Allergies Allergies Allergy/AdvReac Type Severity Reaction Status Date / Time No Known Allergies Allergy Unverified 02/22/16 08:22 Home Medications Medication Instructions Recorded Confirmed Last Taken Type Furosemide [Lasix TAB] 80 mg PO DAILY 02/22/16 01/07/19 02/21/16 History Minoxidil [Loniten] 2.5 mg PO QDAY 02/22/16 01/07/19 02/21/16 History NIFEdipine XL [Procardia Xl] 90 mg PO QDAY 02/22/16 01/07/19 02/21/16 History Warfarin [Coumadin] 7.5 mg PO QDAY 02/22/16 01/07/19 02/21/16 History carvediloL [Coreg] 25 mg PO QDAY 02/22/16 01/07/19 02/21/16 History cloNIDine-TTS PATCH [Catapres-Tts 1 patch TD Q7D 02/22/16 01/07/19 Unknown History 0.3mg Patch] hydrALAZINE [Apresoline TAB] 50 mg PO Q8HR 02/22/16 01/07/19 02/21/16 History Pantoprazole [Protonix] 40 mg PO QDAY #30 tablet 02/26/16 01/07/19 Unknown Rx Sucralfate [Carafate] 1 gm PO ACHS #90 tablet 02/26/16 01/07/19 Unknown Rx Active Meds: Active Medications Carvedilol (Coreg) 25 mg PO QDAY [facility] Last Admin: 01/07/19 18:03 Dose: 25 mg Documented by: Clonidine HCl (Catapres-Tts Patch) 0.3 mg TD Mo [facility] Epoetin Curt (Procrit) 10,000 unit IV STEPAN PRN PRN Reason: hemodialysis Furosemide (Lasix) 80 mg PO DAILY [facility] Last Admin: 01/07/19 18:04 Dose: 80 mg Documented by: Heparin Sodium (Porcine) (Heparin) 5,000 unit SUB-Q Q12HR [facility] Last Admin: 01/07/19 17:45 Dose: Not Given Documented by: Hydralazine HCl (Apresoline) 50 mg PO Q8HR [facility] Last Admin: 01/07/19 16:16 Dose: 50 mg Documented by: Sodium Chloride (Nacl 0.9%) 100 mls @ 999 mls/hr IV STEPAN PRN PRN Reason: Hypotension Minoxidil (Loniten) 2.5 mg PO QDAY [facility] Last Admin: 01/07/19 18:03 Dose: 2.5 mg Documented by: Nifedipine (Procardia Xl) 90 mg PO QDAY@0800 [facility] Last Admin: 01/07/19 18:04 Dose: 90 mg Documented by: Pantoprazole Sodium (Protonix) 40 mg IV BID [facility] Stop: 01/07/19 23:59 Last Admin: 01/07/19 17:47 Dose: Not Given Documented by: Pantoprazole Sodium (Protonix) 40 mg PO BID [facility] Sucralfate (Carafate) 1 gm PO ACHS [facility] Last Admin: 01/07/19 18:04 Dose: 1 gm Documented by: Warfarin Sodium (Coumadin) 7.5 mg PO QDAY@1700 [facility]; Protocol Last Admin: 01/07/19 18:02 Dose: 7.5 mg Documented by: Review of Systems Cardiovascular: chest pain, no orthopnea, no palpitations, no rapid/irregular heart beat, no edema, no syncope, no lightheadedness, no shortness of breath Physical Examination Vital Signs Pulse Ox 96 01/07/19 03:27 General appearance: no acute distress HEENT: Positive: PERRL Neck: Positive: neck supple Cardiac: Positive: Reg Rate and Rhythm Lungs: Positive: Decreased Breath Sounds Neuro: Positive: Weakness Abdomen: Positive: Soft Male genitourinary: Positive: deferred Skin: Positive: Clear Extremities: Absent: edema Results 01/07/19 03:53 01/07/19 03:53 Cardiac Enzymes 01/07/19 Range/Units 03:53 AST 18 (5-40) units/L Coagulation 01/07/19 Range/Units 09:49 PT 14.5 (12.2-14.9) Sec. INR 1.14 H (0.87-1.13) Lipids 01/07/19 Range/Units 03:53 Triglycerides 105 (2-149) mg/dL Cholesterol 122 (50-199) mg/dL HDL Cholesterol 42 (40-59) mg/dL Cholesterol/HDL Ratio 2.90 % CBC 01/07/19 Range/Units 03:53 WBC 6.0 (4.5-11.0) K/mm3 RBC 3.35 L (3.65-5.03) M/mm3 Hgb 9.5 L (11.8-15.2) gm/dl Hct 29.7 L (35.5-45.6) % Plt Count 217 (140-440) K/mm3 Lymph # 0.8 L (1.2-5.4) K/mm3 [place] # 0.5 (0.0-0.8) K/mm3 Eos # 0.2 (0.0-0.4) K/mm3 Baso # 0.0 (0.0-0.1) K/mm3 Comprehensive Metabolic Panel 01/07/19 Range/Units 03:53 Sodium 136 L (137-145) mmol/L Potassium 4.0 (3.6-5.0) mmol/L Chloride 88.2 L (98-107) mmol/L Carbon Dioxide 22 (22-30) mmol/L BUN 147 H (9-20) mg/dL Creatinine 14.6 H (0.8-1.5) mg/dL Glucose 151 H (75-100) mg/dL Calcium 9.2 (8.4-10.2) mg/dL AST 18 (5-40) units/L ALT 18 (7-56) units/L Alkaline Phosphatase 109 (35-129) units/L Total Protein 6.6 (6.3-8.2) g/dL Albumin 3.9 (3.9-5) g/dL EKG interpretations - Telemetry EKG Rhythm: Sinus Rhythm Assessment and Plan - Patient Problems (1) Atypical chest pain Current Visit: Yes Status: Acute Plan to address problem: Atypical chest pain which appears more consistent with gastroesophageal reflux or gastritis. He underwent a Lexiscan thallium stress test today, normal perfusion, no ischemic defects. (2) Cardiomegaly Current Visit: Yes Status: Acute Plan to address problem: Cardiomegaly on chest x-ray, we will order an echocardiogram for left ventricular function assessment. (3) Abnormal chest x-ray Current Visit: Yes Status: Acute Plan to address problem: Abnormal chest x-ray with bilateral interstitial opacities, does not appear to represent pulmonary edema, recommend pulmonary consultation and further evaluat ion.
--- NOTE | 2019-01-07 21:31 | Treadmill Report ---
THALLIUM STRESS TEST REPORT LEFT VENTRICLE: Left ventricle is at the upper limits of normal in size. Perfusion study demonstrates homogeneous uptake of the tracer in all segments, no significant defects identified. Gated analysis demonstrates normal left ventricular systolic function, ejection fraction 52%. CONCLUSION: Normal myocardial perfusion study. JOB# [id number] CA/NTS
[2019-01-07] MEDS ORDERED: ACETAMINOPHEN 325 MG TAB PO PRN (21:57)
[2019-01-08] MEDS: hydrALAZINE 25 MG TAB PO SCH ×2 (05:36→14:15)
[2019-01-08 06:07] LABS: INR 1.05 (0.87-1.13)
[2019-01-08] MEDS: NIFEdipine XL 90 MG TAB PO SCH (08:30)
[2019-01-08] MEDS: SUCRALFATE 1 GM TAB PO SCH ×2 (08:30→14:15)
[2019-01-08] MEDS ORDERED: AMOXICILLIN/K CLAV 875/125MG TAB PO SCH (10:00)
[2019-01-08] MEDS ORDERED: PANTOPRAZOLE 40 MG TAB PO SCH (10:00)
[2019-01-08] MEDS ORDERED: SODIUM CHLORIDE*PRIMING MACHINE ONLY FOR DIALYSIS MC ONE (10:18)
--- NOTE | 2019-01-08 10:54 | Discharge Summary ---
Providers - Providers Date of Admission: 01/07/19 06:25 Date of discharge: 01/08/19 Attending physician: THIEN CHEN 01/07/19 07:05 Consult to Physician [CONS] Routine Comment: Consulting Provider: YAMILKA RUDD Physician Instructions: Reason For Exam: ESRD 01/07/19 12:36 Consult to Physician [CONS] Routine Comment: Consulting Provider: NOEMI BANDA Physician Instructions: Reason For Exam: chest pain Primary care physician: [employer]ICATION PROFESSOR Hospitalization Condition: Stable Pertinent studies: Exercise stress test Abdomen/pelvis CT CXR Hospital course: Discharge diagnosis: * End stage renal disease on HD * Chest pain due to CAP placed on abx, stress test was negative * Uremia due to ESRD * Nausea/vomiting - uremia likely contributing factor * Hypertension * Anemia secondary to ESRD * Secondary hyperparathyroidism * Paroxysmal atrial fib on coumadin Disposition: DC- TO HOME OR SELFCARE Time spent for discharge: 34 minutes Core Measure Documentation - Palliative Care Palliative Care/ Comfort Measures: Not Applicable - Core Measures Any of the following diagnoses?: none Exam - Constitutional Vitals: Temp Pulse Resp BP Pulse Ox 98.2 F 90 18 155/90 97 01/08/19 09:10 01/08/19 10:30 01/08/19 09:10 01/08/19 10:30 01/08/19 07:53 General appearance: Present: no acute distress, well-nourished - EENT Eyes: Present: PERRL ENT: hearing intact, clear oral mucosa - Neck Neck: Present: supple, normal ROM - Respiratory Respiratory effort: normal Respiratory: bilateral: CTA - Cardiovascular Heart Sounds: Present: S1 & S2. Absent: rub, click - Extremities Extremities: pulses symmetrical, No edema Peripheral Pulses: within normal limits - Abdominal General gastrointestinal: Present: soft, non-tender, non-distended, normal bowel sounds - Integumentary Integumentary: Present: clear, warm, dry - Musculoskeletal Musculoskeletal: gait normal, strength equal bilaterally - Psychiatric Psychiatric: appropriate mood/affect, intact judgment & insight - Neurologic Neurologic: CNII-XII intact, moves all extremities Plan Activity: advance as tolerated Weight Bearing Status: Weight Bear as Tolerated Diet: renal Special Instructions: restrict fluid intake to (1.2 L per day), home health RN (for INR check) Follow up with: PRIMARY CARE,MD [Primary Care Provider] - 7 Days SOLO,CHITURU, MD [Staff Physician] - 7 Days Forms: Warfarin Discharge Instruction Prescriptions: Amoxicillin/K Clav Tab [Augmentin 875MG TAB] 1 each PO Q12HR #14 tablet Amiodarone [Cordarone 200 MG TAB] 200 mg PO QDAY #30 tablet Warfarin [Coumadin] 7.5 mg PO QDAY #14
--- NOTE | 2019-01-08 13:10 | Progress Note ---
Assessment and Plan Atypical chest pain stress thallium test this admission: normal perfusion with mild left ventricular dilatation, no ischemic defects. End-stage renal disease on hemodialysis Hypertension Chronic anemia Mild isolated rise in troponin of uncertain significance Paroxysmal Afib on warfarin. INR sub-therapeutic on presentation Recommendations: Continue warfarin for oral anticoagulation. In addition to carvedilol, we will add amiodarone for suppression of paroxysmal atrial fibrillation. Subjective Date of service: 01/08/19 Interval history: Patient was seen in dialysis. He denies chest pain. Objective Vital Signs Temp Pulse Resp Resp BP Pulse Ox 01/08/19 10:30 90 155/90 01/08/19 10:15 80 148/93 01/08/19 10:00 90 137/81 01/08/19 09:45 89 144/87 01/08/19 09:30 88 140/84 01/08/19 09:15 88 135/81 01/08/19 09:10 98.2 F 87 18 138/82 01/08/19 07:53 97 01/08/19 05:32 97.8 F 80 20 118/58 91 01/07/19 22:00 18 01/07/19 21:37 97 01/07/19 21:14 98.2 F 134 H 18 182/110 98 01/07/19 19:06 98.8 F 126 H 18 157/104 94 01/07/19 18:03 115 H 195/116 01/07/19 16:45 97 H 179/115 01/07/19 16:39 98.6 F 102 H 18 162/95 01/07/19 16:31 84 196/116 01/07/19 16:16 96 H 188/144 01/07/19 16:15 96 H 188/114 01/07/19 16:00 69 186/100 01/07/19 15:45 75 173/82 01/07/19 15:30 86 174/96 01/07/19 15:15 94 H 180/93 01/07/19 15:00 90 157/81 01/07/19 14:45 95 H 174/96 01/07/19 14:30 87 172/94 01/07/19 14:15 88 175/92 01/07/19 14:00 88 178/96 01/07/19 13:45 84 175/91 01/07/19 13:30 84 159/88 01/07/19 13:25 84 158/88 01/07/19 13:20 97.7 F 84 19 155/83 - Physical Examination General: No Apparent Distress HEENT: Positive: PERRL Neck: Positive: neck supple Cardiac: Positive: Reg Rate and Rhythm Lungs: Positive: Decreased Breath Sounds Neuro: Positive: Weakness Extremities: Absent: edema - Labs and Meds Coagulation 01/08/19 Range/Units 05:15 PT 13.6 (12.2-14.9) Sec. INR 1.05 (0.87-1.13)
[2019-01-08] MEDS ORDERED: AMIODARONE 200 MG TAB PO SCH (14:00)
[2019-01-08] MEDS: FUROSEMIDE 40 MG TAB PO SCH (14:16)
[2019-01-08] MEDS: carvediloL 25 MG TAB PO SCH (14:16)
[2019-01-08] MEDS: HEPARIN 5,000 UNIT/1 ML VIAL SUB-Q SCH (14:19)
[2019-01-08 14:29] VITALS: BP 150/88
[2019-01-09] MEDS ORDERED: AMIODARONE 200 MG TAB PO SCH (10:00)
== END 2019-01-08 14:30 | disposition home or self-care (01) ==
LOC: ED 03:11 → INTOOBSV 06:25 → 3A 06:25
PROVIDERS: ADMIT Internal Medicine; ATTEND Internal Medicine
DX: R07.89 Other chest pain (principal); I12.0 Hypertensive chronic kidney disease with stage 5 chronic kidney disease or end stage renal disease; N18.6 End stage renal disease; D63.1 Anemia in chronic kidney disease; K29.00 Acute gastritis without bleeding; R74.8 Abnormal levels of other serum enzymes; D68.62 Lupus anticoagulant syndrome; Z99.2 Dependence on renal dialysis
CPT/HCPCS: 36415; 71045; 74176; 78452; 80053; 80061; 80074; 83690; 84484; 85025; 85610; 93005; 93010; 93017; 94760; 96372; 96374; 96375; 99284; 99285; A9502; C9113; G0378; J0500; J0885; J1644; J2405; J7030; G0257; J2785

== ENCOUNTER 2019-01-12 05:58 | Inpatient (IN) | payer MEDICARE ==
--- NOTE | 2019-01-12 06:25 | Emergency Department Report ---
HPI - General Chief Complaint: Abdominal Pain Time Seen by Provider: 01/12/19 06:09 - HPI HPI: 53-year-old male presents to the emergency department with a complaint of generalized abdominal pain and some diarrhea with dark stool that has been going on since earlier this week, about 5 days ago. The patient was just recently admitted and discharged from this hospital after presenting with chest pain, nausea and vomiting. He has a history of noncompliance with dialysis and received daily dialysis while admitted here. His police crime scene technician is Dr. Garcia. The patient says that he has not had dialysis since as he says the left upper extremity fistula has clotted off. He denies any fever, nausea, vomiting, chest pain, shortness of breath. He also has a past medical history of hypertension. He is anticoagulated on Coumadin. ED Past Medical Hx - Past Medical History Hx Hypertension: Yes Hx Renal Disease: Yes (HD TThS) - Surgical History Additional Surgical History: Left A/V Graft - Social History Smoking Status: Never Smoker Substance Use Type: None - Medications Home Medications: Home Medications Medication Instructions Recorded Confirmed Last Taken Type Furosemide [Lasix TAB] 80 mg PO DAILY 02/22/16 01/07/19 02/21/16 History Minoxidil [Loniten] 2.5 mg PO QDAY 02/22/16 01/07/19 02/21/16 History NIFEdipine XL [Procardia Xl] 90 mg PO QDAY 02/22/16 01/07/19 02/21/16 History carvediloL [Coreg] 25 mg PO QDAY 02/22/16 01/07/19 02/21/16 History cloNIDine-TTS PATCH [Catapres-Tts 1 patch TD Q7D 02/22/16 01/07/19 Unknown History 0.3mg Patch] hydrALAZINE [Apresoline TAB] 50 mg PO Q8HR 02/22/16 01/07/19 02/21/16 History Pantoprazole [Protonix TAB] 40 mg PO QDAY #30 tablet 02/26/16 01/07/19 Unknown Rx Sucralfate [Carafate] 1 gm PO ACHS #90 tablet 02/26/16 01/07/19 Unknown Rx Amiodarone [Cordarone 200 MG TAB] 200 mg PO QDAY #30 tablet 01/08/19 Unknown Rx Amoxicillin/K Clav Tab [Augmentin 1 each PO Q12HR #14 tablet 01/08/19 Unknown Rx 875MG TAB] Warfarin [Coumadin] 7.5 mg PO QDAY #14 01/08/19 Unknown Rx ED Review of Systems ROS: Stated complaint: ABDOMINAL PAIN Other details as noted in HPI Comment: All other systems reviewed and negative Constitutional: denies: chills, fever Eyes: denies: eye pain, vision change ENT: denies: ear pain, throat pain Respiratory: denies: cough, shortness of breath Cardiovascular: denies: chest pain, palpitations Gastrointestinal: abdominal pain, diarrhea, melena. denies: nausea, vomiting Genitourinary: denies: dysuria, discharge Musculoskeletal: denies: back pain, arthralgia Skin: denies: rash, lesions Neurological: denies: headache, weakness Physical Exam - Physical Exam Vital Signs: Vital Signs 01/12/19 06:06 Temperature 98.6 F Physical Exam: GENERAL: The patient is well-developed well-nourished. HENT: Normocephalic. Atraumatic. Patient has moist mucous membranes. EYES: Extraocular motions are intact. Pupils equal reactive to light bilateral ly. NECK: Supple. Trachea is midline. CHEST/LUNGS: Clear to auscultation. There is no respiratory distress noted. HEART/CARDIOVASCULAR: Regular. There is no tachycardia. There is no murmur. ABDOMEN: Abdomen is soft. Generalized tenderness to palpation to the abdomen. No guarding. Patient has normal bowel sounds. There is no abdominal distention. SKIN: Skin is warm and dry. NEURO: The patient is awake, alert, and oriented. The patient is cooperative. The patient has no focal neurologic deficits. Normal speech. MUSCULOSKELETAL: There is no tenderness or deformity. There is no evidence of acute injury. There is a left upper extremity AV graft that has a palpable thrill. RECTAL: No gross blood. Very little stool obtained for guaiac testing. ED Course Vital Signs 01/12/19 06:06 Temperature 98.6 F - Consultations Consultation #1: 01/12/19 08:[address] Woods, nephrology, who will arrange for the patient to get dialysis today. If the graft is in fact malfunctioning, they will contact vascular. ED Medical Decision Making - Lab Data Result diagrams: 01/12/19 07:18 01/12/19 07:18 - Radiology Data Radiology results: image reviewed interpreted by me: Chest x-ray does not show any acute process. There are no pleural effusions, obvious pneumonia and there is no pneumothorax. Abdominal x-ray shows nonspecific nonobstructive bowel gas - Medical Decision Making This patient presents to the emergency department with a complaint of abdominal pain and the inability to get dialysis secondary to an alleged clotted left upper extremity AV graft. His labs are mostly unremarkable except for the elevated BUN and creatinine levels consistent with his end-stage renal disease on hemodialysis. Patient does present quite hypertensive and was given doses of hydralazine and labetalol, along with some morphine for pain control. Nephrology was contacted and consult. The patient will get dialyzed this morning. The patient also had some complaints of having some dark stool over the past few days. Rectal examination was done that does not show any gross blood. While there was not much stool for guaiac testing there was no obvious melena. He was accepted for admission by the hospitalist service. - Differential Diagnosis gastritis, colitis, bowel obstruction Critical Care Time: No Critical care attestation.: If time is entered above; I have spent that time in minutes in the direct care of this critically ill patient, excluding procedure time. ED Disposition Clinical Impression: End-stage renal disease needing dialysis, Hypertensive urgency Abdominal pain Qualifiers: Abdominal location: generalized Qualified Code(s): R10.84 - Generalized abdominal pain Disposition: OP ADMIT IP TO THIS HOSP Is pt being admited?: Yes Condition: Fair Time of Disposition: 08:04
[2019-01-12] MEDS ORDERED: MORPHINE 4 MG/1 ML INJ IV ONE (06:39)
[2019-01-12] MEDS ORDERED: hydrALAZINE 20 MG/1 ML INJ IV ONE ×2 (06:39→10:43)
--- NOTE | 2019-01-12 07:02 | XRay Report ---
ABDOMEN 3 VIEW(S) INDICATION: Unspecified abdominal pain. COMPARISON: CT abdomen and pelvis without contrast from 01/07/2019. FINDINGS: Bowel gas pattern: No significant abnormality. Free air: None seen. Stones: None seen. Chest: Stable cardiomegaly. No acute abnormality. Additional Findings: No additional significant findings. IMPRESSION: No acute abnormality of the abdomen. Signer Name: Terrance Hughes MD Signed: 01/12/2019 6:57 AM Workstation Name: [email or web address]
[2019-01-12 07:38] LABS: Basophils # (Auto) 0.1 K/mm3 (0.0-0.1); Basophils % (Auto) 0.8 % (0.0-1.8); Eosinophils # (Auto) 0.3 K/mm3 (0.0-0.4); Eosinophils % (Auto) 5.2 % (0.0-4.3); Hematocrit 24.9 % (35.5-45.6); Lymphocytes # (Auto) 1.3 K/mm3 (1.2-5.4); Lymphocytes % (Auto) 19.3 % (13.4-35.0); Mean Corpuscular HGB Conc 32 % (32-34); Mean Corpuscular Volume 89 fl (84-94); Monocytes # (Auto) 0.5 K/mm3 (0.0-0.8); Monocytes % (Auto) 7.5 % (0.0-7.3); Platelet Count 253 K/mm3 (140-440); Red Blood Count 2.79 M/mm3 (3.65-5.03); Red Cell Distribution Width 18.2 % (13.2-15.2)
[2019-01-12 07:42] LABS: INR 1.13 (0.87-1.13)
[2019-01-12 07:43] LABS: Partial Thromboplastin Time 30.9 Sec. (24.2-36.6)
[2019-01-12 07:49] LABS: Alanine Aminotransferase 21 units/L (7-56); Albumin 3.4 g/dL (3.9-5); BUN/Creatinine Ratio 6; Blood Urea Nitrogen 86 mg/dL (9-20); Hemolysis Index 5
[2019-01-12 07:58] LABS: Bilirubin,Direct < 0.2 mg/dL (0-0.2)
[2019-01-12] MEDS ORDERED: PANTOPRAZOLE 40 MG INJ IV ONE (08:05)
[2019-01-12] MEDS ORDERED: SODIUM CHLORIDE 0.9% 100 ML IV PRN (08:35)
[2019-01-12] MEDS ORDERED: hydrALAZINE 20 MG/1 ML INJ ONE (11:03)
--- NOTE | 2019-01-12 12:15 | History and Physical Report ---
History of Present Illness Date of examination: 01/12/19 Date of admission: 01/12/19 08:05 Chief complaint: Stomach pains History of present illness: [facility] 53 [facility] with a history of ESRD on hemodialysis TTS, hypertension, AOCD and pAFib on Warfarin who presents to [facility] ED with unresolved epigastric abdominal pains/n/v and a report of clotted left upper extremity AV graft since patient discharge from here on Monday, Jan.09. During that admission he had a negative stress test. He was found to have pAFib and started on Amiodarone. The abdominal pains never resolved and it prevented him from going to hemodialysis on . He also having intractable n/v which never went away from last hospitalization, so he has not been taking his bp medications consistently; therefore, BP is uncontrolled. He denies any fever, nausea, vomiting, chest pain, shortness of breath. He also has a past medical history of hypertension. He is anti-coagulated on Coumadin. The patient also had some complaints of having some dark stool over the past few days. Rectal examination was done that does not show any gross blood. While there was not much stool for guaiac testing there was no obvious melena. Patient seen in HD center and the Left AVG is functioning normally. PMH: as hpi PSH: Multiple HD access device, currently Left upper AVG SH: no tob, no etoh, no illegal drugs FH: hypertension ROS: Constitutional: denies: fever ENT: denies: throat or neck pain Respiratory: denies: cough, shortness of breath Cardiovascular: denies: chest pain Endocrine: denies unexplained weight loss or gain Gastrointestinal: + abdominal pain, nausea Genitourinary: denies: dysuria Rectal: denies no incontinence, no bleeding, no itching, no discharge Musculoskeletal: denies swelling, myalgia, muscle weakness Skin: denies: rash Neurological: denies: headache Hematological/Lymphatic: denies: easy bleeding or easy bruising Allergic/Immunologic: no urticaria, no allergic rhinitis, no anaphylaxis Psych: denies sadness or hopelessness, SI/HI Medications and Allergies Allergies Allergy/AdvReac Type Severity Reaction Status Date / Time No Known Allergies Allergy Unverified 02/22/16 08:22 Home Medications Medication Instructions Recorded Confirmed Last Taken Type Furosemide [Lasix TAB] 80 mg PO DAILY 02/22/16 01/07/19 02/21/16 History Minoxidil [Loniten] 2.5 mg PO QDAY 02/22/16 01/07/19 02/21/16 History NIFEdipine XL [Procardia Xl] 90 mg PO QDAY 02/22/16 01/07/19 02/21/16 History carvediloL [Coreg] 25 mg PO QDAY 02/22/16 01/07/19 02/21/16 History cloNIDine-TTS PATCH [Catapres-Tts 1 patch TD Q7D 02/22/16 01/07/19 Unknown History 0.3mg Patch] hydrALAZINE [Apresoline TAB] 50 mg PO Q8HR 02/22/16 01/07/19 02/21/16 History Pantoprazole [Protonix TAB] 40 mg PO QDAY #30 tablet 02/26/16 01/07/19 Unknown Rx Sucralfate [Carafate] 1 gm PO ACHS #90 tablet 02/26/16 01/07/19 Unknown Rx Amiodarone [Cordarone 200 MG TAB] 200 mg PO QDAY #30 tablet 01/08/19 Unknown Rx Amoxicillin/K Clav Tab [Augmentin 1 each PO Q12HR #14 tablet 01/08/19 Unknown Rx 875MG TAB] Warfarin [Coumadin] 7.5 mg PO QDAY #14 01/08/19 Unknown Rx Active Meds: Active Medications Amiodarone HCl (Cordarone) 200 mg PO QDAY [facility] Carvedilol (Coreg) 12.5 mg PO BID [facility] Clonidine HCl (Catapres-Tts Patch) 0.3 mg TD Q7D [facility] Hydralazine HCl (Apresoline) 50 mg PO Q8HR [facility] Sodium Chloride (Nacl 0.9%) 100 mls @ 999 mls/hr IV STEPAN PRN PRN Reason: Hypotension Minoxidil (Loniten) 2.5 mg PO QDAY [facility] Nifedipine (Procardia Xl) 90 mg PO QDAY [facility] Pantoprazole Sodium (Protonix) 40 mg PO QDAY [facility] Sucralfate (Carafate) 1 gm PO ACHS [facility]ST[facility] Exam - Physical Exam Narrative exam: Gen: WDWN, NAD, Awake, Alert, Orientated x 3 HEENT: NCAT, EOMI, PERRL, OP Clear Neck: supple, no adenopathy, no thyromegaly, no JVD CVS/Heart: RRR, normal S1S2, pulses present bilaterally Chest/Lungs: CTA B, Symmetrical chest expansion, good air entry bilaterally GI/Abdomen: soft, nondistended, mild epigastic tenderness, good bowel sounds, no guarding or rebound /Bladder: no suprapubic tenderness, no CVA or paraspinal tenderness Extermity/Skin: no c/c/e, no obvious rash MSK: FROM x 4 Neuro: CN 2-12 grossly intact, no new focal deficits Psych: calm - Constitutional Vitals: Temp Pulse Resp BP Pulse Ox 98.6 F 73 18 232/125 99 01/12/19 08:40 01/12/19 12:00 01/12/19 08:40 01/12/19 12:00 01/12/19 06:25 Results - Labs CBC & Chem 7: 01/12/19 07:18 01/12/19 07:18 Labs: Laboratory Last Values WBC 6.8 K/mm3 (4.5-11.0) 01/12/19 07:18 RBC 2.79 M/mm3 (3.65-5.03) L 01/12/19 07:18 Hgb 8.0 gm/dl (11.8-15.2) L 01/12/19 07:18 Hct 24.9 % (35.5-45.6) L 01/12/19 07:18 MCV 89 fl (84-94) 01/12/19 07:18 MCH 29 pg (28-32) 01/12/19 07:18 MCHC 32 % (32-34) 01/12/19 07:18 RDW 18.2 % (13.2-15.2) H 01/12/19 07:18 Plt Count 253 K/mm3 (140-440) 01/12/19 07:18 Lymph % (Auto) 19.3 % (13.4-35.0) 01/12/19 07:18 [place] % (Auto) 7.5 % (0.0-7.3) H 01/12/19 07:18 Eos % (Auto) 5.2 % (0.0-4.3) H 01/12/19 07:18 Baso % (Auto) 0.8 % (0.0-1.8) 01/12/19 07:18 Lymph # 1.3 K/mm3 (1.2-5.4) 01/12/19 07:18 [place] # 0.5 K/mm3 (0.0-0.8) 01/12/19 07:18 Eos # 0.3 K/mm3 (0.0-0.4) 01/12/19 07:18 Baso # 0.1 K/mm3 (0.0-0.1) 01/12/19 07:18 Seg Neutrophils % 67.2 % (40.0-70.0) 01/12/19 07:18 Seg Neutrophils # 4.6 K/mm3 (1.8-7.7) 01/12/19 07:18 PT 14.4 Sec. (12.2-14.9) 01/12/19 07:18 INR 1.13 (0.87-1.13) 01/12/19 07:18 APTT 30.9 Sec. (24.2-36.6) 01/12/19 07:18 Sodium 138 mmol/L (137-145) 01/12/19 07:18 Potassium 4.3 mmol/L (3.6-5.0) 01/12/19 07:18 Chloride 96.6 mmol/L (98-107) L 01/12/19 07:18 Carbon Dioxide 18 mmol/L (22-30) L 01/12/19 07:18 Anion Gap 28 mmol/L 01/12/19 07:18 BUN 86 mg/dL (9-20) H 01/12/19 07:18 Creatinine 13.4 mg/dL (0.8-1.5) H 01/12/19 07:18 Estimated GFR 5 ml/min 01/12/19 07:18 BUN/Creatinine Ratio 6 % 01/12/19 07:18 Glucose 92 mg/dL (75-100) 01/12/19 07:18 Calcium 9.0 mg/dL (8.4-10.2) 01/12/19 07:18 Total Bilirubin 0.30 mg/dL (0.1-1.2) 01/12/19 07:18 Direct Bilirubin < 0.2 mg/dL (0-0.2) 01/12/19 07:18 Indirect Bilirubin 0.1 mg/dL 01/12/19 07:18 AST 21 units/L (5-40) 01/12/19 07:18 ALT 21 units/L (7-56) 01/12/19 07:18 Alkaline Phosphatase 117 units/L (35-129) 01/12/19 07:18 Total Protein 6.2 g/dL (6.3-8.2) L 01/12/19 07:18 Albumin 3.4 g/dL (3.9-5) L 01/12/19 07:18 Albumin/Globulin Ratio 1.2 % 01/12/19 07:18 Lipase 20 units/L (13-60) 01/12/19 07:18 Assessment and Plan Assessment and plan: [facility] is a 53 [facility] [place] [place] with a history of ESRD on hemodialysis TTS, hypertension, AOCD and pAFib on Warfarin who presents to [facility] ED with unresolved epigastric abdominal pains/n/v and a report of clotted left upper extremity AV graft since patient discharge from here on Monday, Jan.09. During that admission he had a negative stress test. He was found to have pAFib and started on Amiodarone. The abdominal pains never resolved and it prevented him from going to hemodialysis on . He also having intractable n/v which never went away from last hospitalization, so he has not been taking his bp medications consistently; therefore, BP is uncontrolled. He denies any fever, nausea, vomiting, chest pain, shortness of breath. He also has a past medical history of hypertension. He is anti-coagulated on Coumadin. The patient also had some complaints of having some dark stool over the past few days. Rectal examination was done that does not show any gross blood. While there was not much stool for guaiac testing there was no obvious melena. Patient seen in HD center and the Left AVG is functioning normally. * pChest x-ray does not show any acute process. There are no pleural effusions, obvious pneumonia and there is no pneumothorax. * Abdominal x-ray shows nonspecific nonobstructive bowel gas * 01/07/19 CT abd/pelvis without contrast Impression: No definite acute finding appreciated within the limits of the exam. Extensive respiratory motion artifact limits the exam, mild anasarca. Intractable N/V/Epigastric Abd pains on anticoagulation with anemia warrants inpatient GI consultation. Treat with PPI ESRD, missed HD: needing Hemodialysis, Nephrology consulted, counseling on compliance Malignant Hypertension: iv hydralazine not helping, restarted home medications which patient was noncompliance with. AOCD with drop in h/h: monitor closely, repeat levels, pAFib: continue amiodarone, hold warfarin due to the anemia and poor compliance Noncompliance; counseling done DVT ppx scd only preventive health screening 16 minutes Advance care planning 30 minutes Disposition: GI evaluation due intractable n/v and to drop in h/h from 9.5 on to 8.0 today.
--- NOTE | 2019-01-12 12:39 | Consultation ---
History of Present Illness - Reason for Consult Consult date: 01/12/19 end stage renal disease - History of Present Illness Mr. Fuller is a a 53yo with ESRD on hemodialysis TTS, hypertension, atrial fibrillation on oral anticoagulation who presented to the ED w/ complaint of abdominal pain and a report of clotted left upper extremity AV graft. He was discharged on Jan 09 and rudolph since patient discharged from here on Jan 08 and has not received dialysis since that time. He reports abdominal pain has failed to improve. He also reports N/V. Past History Past Medical History: atrial fib, ESRD, hypertension Past Surgical History: Other ([facility]ERRA AVG) Social history: no significant social history Family history: no significant family history Medications and Allergies Allergies Allergy/AdvReac Type Severity Reaction Status Date / Time No Known Allergies Allergy Unverified 02/22/16 08:22 Home Medications Medication Instructions Recorded Confirmed Last Taken Type Furosemide [Lasix TAB] 80 mg PO DAILY 02/22/16 01/07/19 02/21/16 History Minoxidil [Loniten] 2.5 mg PO QDAY 02/22/16 01/07/19 02/21/16 History NIFEdipine XL [Procardia Xl] 90 mg PO QDAY 02/22/16 01/07/19 02/21/16 History carvediloL [Coreg] 25 mg PO QDAY 02/22/16 01/07/19 02/21/16 History cloNIDine-TTS PATCH [Catapres-Tts 1 patch TD Q7D 02/22/16 01/07/19 Unknown History 0.3mg Patch] hydrALAZINE [Apresoline TAB] 50 mg PO Q8HR 02/22/16 01/07/19 02/21/16 History Pantoprazole [Protonix TAB] 40 mg PO QDAY #30 tablet 02/26/16 01/07/19 Unknown Rx Sucralfate [Carafate] 1 gm PO ACHS #90 tablet 02/26/16 01/07/19 Unknown Rx Amiodarone [Cordarone 200 MG TAB] 200 mg PO QDAY #30 tablet 01/08/19 Unknown Rx Amoxicillin/K Clav Tab [Augmentin 1 each PO Q12HR #14 tablet 01/08/19 Unknown Rx 875MG TAB] Warfarin [Coumadin] 7.5 mg PO QDAY #14 01/08/19 Unknown Rx Active Meds: Active Medications Amiodarone HCl (Cordarone) 200 mg PO QDAY [facility] Carvedilol (Coreg) 12.5 mg PO BID [facility] Clonidine HCl (Catapres-Tts Patch) 0.3 mg TD Q7D [facility] Hydralazine HCl (Apresoline) 50 mg PO Q8HR [facility] Sodium Chloride (Nacl 0.9%) 100 mls @ 999 mls/hr IV STEPAN PRN PRN Reason: Hypotension Minoxidil (Loniten) 2.5 mg PO QDAY [facility] Nifedipine (Procardia Xl) 90 mg PO QDAY [facility] Pantoprazole Sodium (Protonix) 40 mg PO QDAY [facility] Sucralfate (Carafate) 1 gm PO ACHS [facility] Review of Systems All systems: negative Exam - Vital Signs Vital signs: Vital Signs Temp 98.6 F 01/12/19 06:06 - General Appearance General appearance: well-developed, well-nourished EENT: ATNC, mucous membranes moist Respiratory: Clear to Ascultation Heart: regular, S1S2 Gastrointestinal: Present: normal. Absent: tenderness, distended Integumentary: no rash, warm and dry Neurologic: no focal deficit Musculoskeletal: Present: other (no edema) Psychiatric: cooperative Results - Lab Results 01/12/19 07:18 01/12/19 07:18 Most recent lab results Calcium 9.0 mg/dL (8.4-10.2) 01/12/19 07:18 Assessment and Plan Impression: * End stage renal disease * Abdominal pain * Atrial fibrillation on chronic anticoagulation * Hypertension * Anemia secondary to ESRD * Secondary hyperparathyroidism * Medical noncompliance Plan: * Hemodialysis today - SIERRA AVG used successfully w/o difficulty * Continue HD TTS * UF as tolerated * GI consulation pending * Epogen TIW prn * Renal diet * Dose medications for renal function
[2019-01-12] MEDS ORDERED: cloNIDine TTS 0.3 MG/24 HR PATCH TD SCH (13:00)
[2019-01-12] MEDS: hydrALAZINE 25 MG TAB PO SCH ×2 (13:02→21:23)
[2019-01-12] MEDS: AMIODARONE 200 MG TAB PO SCH (13:02)
[2019-01-12] MEDS: NIFEdipine XL 90 MG TAB PO SCH (13:02)
[2019-01-12] MEDS: MINOXIDIL 2.5 MG TAB PO SCH (13:03)
--- NOTE | 2019-01-12 15:25 | Gastroenterology Consultation ---
History of Present Illness - Reason for Consult Consult date: 01/12/19 abdominal pain, nausea/vomiting, anemia Requesting physician: MORENA CHACKO - History of Present Illness This is a 53 yo male with pmh of ESRD on HD, HTN, chronic anemia, p Afib on coumadin (last dose on Monday per patient during last admission) admitted for abdominal pain/nausea/vomiting. He reports having abdominal pain and nausea/vomiting for the past 1 month or so. He also has had loose stools and intermittent black stools. no prior GI evaluation. he has been on PPI and sucralfate without much relief. He was noted to have down trend in H/H with acute on chronic anemia. hgb down to 8 from 9 at last admission. He was on coumadin for afib but did not take it at home since last admission with discharge on Monday. INR at 1.13. During last admission, he had negative stress test and cardiac work up. Medication list reviewed. Past History Past Medical History: atrial fib, anemia, ESRD Past Surgical History: Other (fistula) Family history: diabetes, hypertension Medications and Allergies Allergies Allergy/AdvReac Type Severity Reaction Status Date / Time No Known Allergies Allergy Unverified 02/22/16 08:22 Home Medications Medication Instructions Recorded Confirmed Last Taken Type Furosemide [Lasix TAB] 80 mg PO DAILY 02/22/16 01/07/19 02/21/16 History Minoxidil [Loniten] 2.5 mg PO QDAY 02/22/16 01/07/19 02/21/16 History NIFEdipine XL [Procardia Xl] 90 mg PO QDAY 02/22/16 01/07/19 02/21/16 History carvediloL [Coreg] 25 mg PO QDAY 02/22/16 01/07/19 02/21/16 History cloNIDine-TTS PATCH [Catapres-Tts 1 patch TD Q7D 02/22/16 01/07/19 Unknown History 0.3mg Patch] hydrALAZINE [Apresoline TAB] 50 mg PO Q8HR 02/22/16 01/07/19 02/21/16 History Pantoprazole [Protonix TAB] 40 mg PO QDAY #30 tablet 02/26/16 01/07/19 Unknown Rx Sucralfate [Carafate] 1 gm PO ACHS #90 tablet 02/26/16 01/07/19 Unknown Rx Amiodarone [Cordarone 200 MG TAB] 200 mg PO QDAY #30 tablet 01/08/19 Unknown Rx Amoxicillin/K Clav Tab [Augmentin 1 each PO Q12HR #14 tablet 01/08/19 Unknown Rx 875MG TAB] Warfarin [Coumadin] 7.5 mg PO QDAY #14 01/08/19 Unknown Rx Active Meds: Active Medications Amiodarone HCl (Cordarone) 200 mg PO QDAY [facility] Last Admin: 01/12/19 13:02 Dose: 200 mg Documented by: Carvedilol (Coreg) 12.5 mg PO BID [facility] Clonidine HCl (Catapres-Tts Patch) 0.3 mg TD Q7D [facility] Last Admin: 01/12/19 14:42 Dose: 0.3 mg Documented by: Hydralazine HCl (Apresoline) 50 mg PO Q8HR [facility] Last Admin: 01/12/19 13:02 Dose: 50 mg Documented by: Sodium Chloride (Nacl 0.9%) 100 mls @ 999 mls/hr IV STEPAN PRN PRN Reason: Hypotension Minoxidil (Loniten) 2.5 mg PO QDAY [facility] Last Admin: 01/12/19 13:03 Dose: 2.5 mg Documented by: Nifedipine (Procardia Xl) 90 mg PO QDAY [facility] Last Admin: 01/12/19 13:02 Dose: 90 mg Documented by: Pantoprazole Sodium (Protonix) 40 mg PO QDAY [facility] Sucralfate (Carafate) 1 gm PO [facility] Review of Systems - Review of Systems Constitutional: no weight loss, no weight gain Cardiovascular: no chest pain Respiratory: no cough, no shortness of breath Gastrointestinal: abdominal pain, nausea, vomiting, melena Rectal: no bleeding Neurological: weakness Exam - Constitutional Vital Signs: Temp Pulse Resp BP Pulse Ox 98.7 F 87 18 227/118 98 01/12/19 12:51 01/12/19 12:51 01/12/19 12:51 01/12/19 13:02 01/12/19 12:51 General appearance: no acute distress - EENT Eyes: EOM intact ENT: hearing intact - Neck Neck: supple - Respiratory Respiratory effort: normal - Cardiovascular Rhythm: regular Heart Sounds: Present: S1 & S2 - Gastrointestinal General gastrointestinal: Present: soft, non-tender, non-distended, normal bowel sounds - Integumentary Integumentary: Present: clear, warm - Neurologic Neurological: alert and oriented x3 - Labs CBC & Chem 7: 01/12/19 07:18 01/12/19 07:18 Lab Results: Laboratory Results - last 24 hr 01/12/19 01/12/19 01/12/19 07:18 07:18 07:18 WBC 6.8 RBC 2.79 L Hgb 8.0 L Hct 24.9 L MCV 89 MCH 29 MCHC 32 RDW 18.2 H Plt Count 253 Lymph % (Auto) 19.3 [place] % (Auto) 7.5 H Eos % (Auto) 5.2 H Baso % (Auto) 0.8 Lymph # 1.3 [place] # 0.5 Eos # 0.3 Baso # 0.1 Seg Neutrophils % 67.2 Seg Neutrophils # 4.6 PT 14.4 INR 1.13 APTT 30.9 Sodium 138 Potassium 4.3 Chloride 96.6 L Carbon Dioxide 18 L Anion Gap 28 BUN 86 H Creatinine 13.4 H Estimated GFR 5 BUN/Creatinine Ratio 6 Glucose 92 Calcium 9.0 Total Bilirubin 0.30 Direct Bilirubin < 0.2 Indirect Bilirubin 0.1 AST 21 ALT 21 Alkaline Phosphatase 117 Total Protein 6.2 L Albumin 3.4 L Albumin/Globulin Ratio 1.2 Lipase 20 - Imaging CT Scan: report reviewed Assessment and Plan # Epigastric pain/nausea/vomiting # Reports of melena. # Acute on chronic anemia - ddx including PUD, gastritis, H pylori. - CT a/p from last admission unremarkable but without contrast. - unclear if patient has been taking any PPI or sucralfate as prescribed from last admission. - kept lunch down today. Rec - continue with PPI and sucralfate. - monitor H/H. - will plan for EGD on Monday unless there is further drop in H/H or overt signs of active GI bleeding.
[2019-01-12 16:10] LABS: Hematocrit 27.7 % (35.5-45.6)
[2019-01-12] MEDS: SUCRALFATE 1 GM TAB PO SCH ×2 (17:45→21:24)
[2019-01-12] MEDS: carvediloL 12.5 MG TAB PO SCH (21:23)
[2019-01-13] MEDS: hydrALAZINE 25 MG TAB PO SCH ×3 (05:05→21:55)
[2019-01-13] MEDS: SUCRALFATE 1 GM TAB PO SCH ×4 (08:39→21:55)
[2019-01-13] MEDS: AMIODARONE 200 MG TAB PO SCH (09:41)
[2019-01-13] MEDS: MINOXIDIL 2.5 MG TAB PO SCH (09:41)
--- NOTE | 2019-01-13 09:41 | Gastroenterology Progress Note ---
Assessment and Plan # Epigastric pain/nausea/vomiting # Reports of melena. # Acute on chronic anemia - ddx including PUD, gastritis, H pylori. - CT a/p from last admission unremarkable but without contrast. - patient has not been taking any PPI or sucralfate as prescribed from last admission. - clinically improving somewhat. Rec - continue with PPI and sucralfate. - monitor H/H. - will plan for EGD on Monday unless there is further drop in H/H or overt signs of active GI bleeding. - NPO MN. Subjective Date of service: 01/13/19 Interval history: patient reports abdominal pain somewhat better and keeping food down. tolerating diet. Objective - Constitutional Vitals: Temp Pulse Resp BP Pulse Ox 98.2 F 96 H 18 151/83 97 01/13/19 04:38 01/13/19 05:05 01/13/19 04:38 01/13/19 05:05 01/13/19 04:38 General appearance: no acute distress - Neck Neck: supple - Respiratory Respiratory effort: normal - Cardiovascular Rhythm: regular Heart Sounds: Present: S1 & S2 - Gastrointestinal General gastrointestinal: Present: soft, non-tender, non-distended - Integumentary Integumentary: Present: warm - Neurologic Neurological: alert and oriented x3 - Labs CBC & Chem 7: 01/12/19 15:52 01/12/19 07:18 Labs: Laboratory Results - last 24 hr 01/12/19 15:52 Hgb 9.0 L Hct 27.7 L
[2019-01-13] MEDS: carvediloL 12.5 MG TAB PO SCH ×2 (09:42→21:55)
[2019-01-13] MEDS: NIFEdipine XL 90 MG TAB PO SCH (09:42)
[2019-01-13] MEDS: PANTOPRAZOLE 40 MG TAB PO SCH (09:43)
[2019-01-13 10:10] LABS: Hemoglobin 9.2 gm/dl (11.8-15.2); Mean Corpuscular HGB Conc 32 % (32-34); Mean Corpuscular Volume 90 fl (84-94); Platelet Count 284 K/mm3 (140-440); Red Blood Count 3.22 M/mm3 (3.65-5.03)
--- NOTE | 2019-01-13 11:32 | Progress Note ---
Assessment and Plan Assessment and plan: Patient is a 53 yo man from [place], [place] with a history of ESRD on hemodialysis TTS, hypertension, AOCD and pAFib on Warfarin who presents to [facility] ED with unresolved epigastric abdominal pains/n/v and a report of clotted left upper extremity AV graft since patient discharge from here on Jan.09. During that admission he had a negative stress test. He was found to have pAFib and started on Amiodarone. The abdominal pains never resolved and it prevented him from going to hemodialysis on . He also having intractable n/v which never went away from last hospitalization, so he has not been taking his bp medications consistently; therefore, BP is uncontrolled. He denies any fever, nausea, vomiting, chest pain, shortness of breath. He also has a past medical history of hypertension. He is anti-coagulated on Coumadin. The patient also had some complaints of having some dark stool over the past few days. Rectal examination was done that does not show any gross blood. While there was not much stool for guaiac testing there was no obvious melena. Patient seen in HD center and the Left AVG is functioning normally. * pChest x-ray does not show any acute process. There are no pleural effusions, obvious pneumonia and there is no pneumothorax. * Abdominal x-ray shows nonspecific nonobstructive bowel gas * 01/07/19 CT abd/pelvis without contrast Impression: No definite acute finding a ppreciated within the limits of the exam. Extensive respiratory motion artifact limits the exam, mild anasarca. Intractable N/V/Epigastric Abd pains: Treating w/ PPI and sucrafrate, d/w GI ESRD, missed HD: needing Hemodialysis, Nephrology consulted, counseling on compliance Malignant Hypertension: iv hydralazine not helping, restarted home medications which patient was noncompliance with. AOCD with drop in h/h: monitor closely, repeat levels, pAFib: continue amiodarone, hold warfarin due to the anemia and poor compliance Noncompliance; counseling done DVT ppx scd only full code Disposition: continue inpatient care, EGD tomorrow then hopefully d/c soon after History Interval history: Patient was seen and examined. Follow-up on current diagnosis n/v. No overnight events reported to me. Patient denies any chest pain, shortness breath, or severe headaches. Imaging, nursing note, chart, labs and old chart reviewed. Discussed with patient. Hospitalist Physical - Physical exam Narrative exam: Gen: WDWN, NAD, Awake, Alert, Orientated x 3 HEENT: NCAT, EOMI, PERRL, OP Clear Neck: supple, no adenopathy, no thyromegaly, no JVD CVS/Heart: RRR, normal S1S2, pulses present bilaterally Chest/Lungs: CTA B, Symmetrical chest expansion, good air entry bilaterally GI/Abdomen: soft, nondistended, mild epigastic tenderness, good bowel sounds, no guarding or rebound /Bladder: no suprapubic tenderness, no CVA or paraspinal tenderness Extermity/Skin: no c/c/e, no obvious rash MSK: FROM x 4 Neuro: CN 2-12 grossly intact, no new focal deficits Psych: calm - Constitutional Vitals: Temp Pulse Resp BP Pulse Ox 98.2 F 96 H 18 167/92 97 01/13/19 04:38 01/13/19 05:05 01/13/19 04:38 01/13/19 09:42 01/13/19 04:38 Results - Labs CBC & Chem 7: 01/13/19 09:22 01/12/19 07:18 Labs: Laboratory Last Values WBC 5.4 K/mm3 (4.5-11.0) 01/13/19 09:22 RBC 3.22 M/mm3 (3.65-5.03) L 01/13/19 09:22 Hgb 9.2 gm/dl (11.8-15.2) L 01/13/19 09:22 Hct 29.0 % (35.5-45.6) L 01/13/19 09:22 MCV 90 fl (84-94) 01/13/19 09:22 MCH 29 pg (28-32) 01/13/19 09:22 MCHC 32 % (32-34) 01/13/19 09:22 RDW 18.0 % (13.2-15.2) H 01/13/19 09:22 Plt Count 284 K/mm3 (140-440) 01/13/19 09:22 Lymph % (Auto) 19.3 % (13.4-35.0) 01/12/19 07:18 Brooks % (Auto) 7.5 % (0.0-7.3) H 01/12/19 07:18 Eos % (Auto) 5.2 % (0.0-4.3) H 01/12/19 07:18 Baso % (Auto) 0.8 % (0.0-1.8) 01/12/19 07:18 Lymph # 1.3 K/mm3 (1.2-5.4) 01/12/19 07:18 Brooks # 0.5 K/mm3 (0.0-0.8) 01/12/19 07:18 Eos # 0.3 K/mm3 (0.0-0.4) 01/12/19 07:18 Baso # 0.1 K/mm3 (0.0-0.1) 01/12/19 07:18 Seg Neutrophils % 67.2 % (40.0-70.0) 01/12/19 07:18 Seg Neutrophils # 4.6 K/mm3 (1.8-7.7) 01/12/19 07:18 PT 14.4 Sec. (12.2-14.9) 01/12/19 07:18 INR 1.13 (0.87-1.13) 01/12/19 07:18 APTT 30.9 Sec. (24.2-36.6) 01/12/19 07:18 Sodium 138 mmol/L (137-145) 01/12/19 07:18 Potassium 4.3 mmol/L (3.6-5.0) 01/12/19 07:18 Chloride 96.6 mmol/L (98-107) L 01/12/19 07:18 Carbon Dioxide 18 mmol/L (22-30) L 01/12/19 07:18 Anion Gap 28 mmol/L 01/12/19 07:18 BUN 86 mg/dL (9-20) H 01/12/19 07:18 Creatinine 13.4 mg/dL (0.8-1.5) H 01/12/19 07:18 Estimated GFR 5 ml/min 01/12/19 07:18 BUN/Creatinine Ratio 6 % 01/12/19 07:18 Glucose 92 mg/dL (75-100) 01/12/19 07:18 Calcium 9.0 mg/dL (8.4-10.2) 01/12/19 07:18 Total Bilirubin 0.30 mg/dL (0.1-1.2) 01/12/19 07:18 Direct Bilirubin < 0.2 mg/dL (0-0.2) 01/12/19 07:18 Indirect Bilirubin 0.1 mg/dL 01/12/19 07:18 AST 21 units/L (5-40) 01/12/19 07:18 ALT 21 units/L (7-56) 01/12/19 07:18 Alkaline Phosphatase 117 units/L (35-129) 01/12/19 07:18 Total Protein 6.2 g/dL (6.3-8.2) L 01/12/19 07:18 Albumin 3.4 g/dL (3.9-5) L 01/12/19 07:18 Albumin/Globulin Ratio 1.2 % 01/12/19 07:18 Lipase 20 units/L (13-60) 01/12/19 07:18 Active Medications - Current Medications Current Medications: Generic Name Dose Route Start Last Admin Trade Name Freq PRN Reason Stop Dose Admin Amiodarone HCl 200 mg 01/12/19 13:00 01/13/19 09:41 Cordarone PO 200 mg QDAY DESTIN Administration Carvedilol 12.5 mg 01/12/19 22:00 01/13/19 09:42 Coreg PO 12.5 mg BID DESTIN Administration Clonidine HCl 0.3 mg 01/12/19 13:00 01/12/19 14:42 Catapres-Tts Patch TD 0.3 mg Q7D DESTIN Administration Hydralazine HCl 50 mg 01/12/19 14:00 01/13/19 05:05 Apresoline PO 50 mg Q8HR DESTIN Administration Sodium Chloride 100 mls @ 999 mls/hr 01/12/19 08:35 Nacl 0.9% IV STEPAN PRN Hypotension Minoxidil 2.5 mg 01/12/19 13:00 01/13/19 09:41 Loniten PO 2.5 mg QDAY DESTIN Administration Nifedipine 90 mg 01/12/19 13:00 01/13/19 09:42 Procardia Xl PO 90 mg QDAY DESTIN Administration Pantoprazole Sodium 40 mg 01/13/19 10:00 01/13/19 09:43 Protonix PO 40 mg QDAY DESTIN Administration Sucralfate 1 gm 01/12/19 16:30 01/13/19 08:39 Carafate PO 1 gm ACHS DESTIN Administration
[2019-01-13 12:13] LABS: INR 1.07 (0.87-1.13)
[2019-01-13] MEDS ORDERED: EPOETIN ALFA 10,000 UNIT/1 ML INJ IV PRN (16:27)
[2019-01-13] MEDS ORDERED: SODIUM CHLORIDE 0.9% 100 ML IV PRN (16:27)
--- NOTE | 2019-01-13 16:27 | Progress Note ---
Assessment and Plan Impression: * End stage renal disease * Abdominal pain * Atrial fibrillation on chronic anticoagulation * Hypertension * Anemia secondary to ESRD * Secondary hyperparathyroidism * Medical noncompliance Plan: * Patient is s/p hemodialysis yesterday - [facility] AV[facility] used successfully w/o difficulty * Continue HD TTS schedule - no acute need for HD today * UF as tolerated * GI recommendations reviewed - note plans for EGD in AM * Continue antiHTN medications * Epogen TIW prn * Renal diet * Dose medications for renal function * AM labs Subjective Date of service: 01/13/19 Interval history: Reports no complaints today. States abdominal pain improved. Objective - Vital Signs Vital signs: Vital Signs - 12hr 01/13/19 01/13/19 01/13/19 04:38 05:05 09:42 Temperature 98.2 F Pulse Rate 87 96 H 91 H Respiratory 18 Rate Blood Pressure 151/83 151/83 167/92 O2 Sat by Pulse 97 98 Oximetry 01/13/19 01/13/19 11:48 13:19 Temperature 98.7 F Pulse Rate 89 Respiratory 18 Rate Blood Pressure 165/94 165/94 O2 Sat by Pulse 96 Oximetry - General Appearance General appearance: well-developed, well-nourished EENT: ATNC Neck: no JVD Respiratory: Present: Clear to Ascultation Cardiology: regular, S1S2 Gastrointestinal: tenderness (mild epigastric tenderness with palpation) Integumentary: no rash Neurologic: no focal deficit, alert and oriented x3 Musculoskeletal: other (no edema) Psychiatric: cooperative - Lab 01/13/19 09:22 01/12/19 07:18 Most recent lab results Calcium 9.0 mg/dL (8.4-10.2) 01/12/19 07:18 Medications & Allergies - Medications Allergies/Adverse Reactions: Allergies No Known Allergies Allergy (Unverified 02/22/16 08:22) Home Medications: Home Medications Medication Instructions Recorded Confirmed Last Taken Type Furosemide [Lasix TAB] 80 mg PO DAILY 02/22/16 01/13/19 01/11/19 History NIFEdipine XL [Procardia Xl] 90 mg PO QDAY 02/22/16 01/13/19 01/11/19 History carvediloL [Coreg] 25 mg PO QDAY 02/22/16 01/13/19 01/11/19 History cloNIDine-TTS PATCH [Catapres-Tts 1 patch TD Q7D 02/22/16 01/13/19 01/12/19 History 0.3mg Patch] hydrALAZINE [Apresoline TAB] 100 mg PO Q8HR 02/22/16 01/13/19 01/11/19 History Pantoprazole [Protonix TAB] 40 mg PO QDAY #30 tablet 02/26/16 01/13/19 01/11/19 Rx Sucralfate [Carafate] 1 gm PO ACHS #90 tablet 02/26/16 01/13/19 01/12/19 Rx Amiodarone [Cordarone 200 MG TAB] 200 mg PO QDAY #30 tablet 01/08/19 01/13/19 Unknown Rx Warfarin [Coumadin] 7.5 mg PO QDAY #14 01/08/19 01/13/19 Unknown Rx Active Medications: Generic Name Dose Route Start Last Admin Trade Name Freq PRN Reason Stop Dose Admin Amiodarone HCl 200 mg 01/12/19 13:00 01/13/19 09:41 Cordarone PO 200 mg QDAY DESTIN Administration Carvedilol 12.5 mg 01/12/19 22:00 01/13/19 09:42 Coreg PO 12.5 mg BID DESTIN Administration Clonidine HCl 0.3 mg 01/12/19 13:00 01/12/19 14:42 Catapres-Tts Patch TD 0.3 mg Q7D DESTIN Administration Hydralazine HCl 50 mg 01/12/19 14:00 01/13/19 13:19 Apresoline PO 50 mg Q8HR DESTIN Administration Sodium Chloride 100 mls @ 999 mls/hr 01/12/19 08:35 Nacl 0.9% IV STEPAN PRN Hypotension Minoxidil 2.5 mg 01/12/19 13:00 01/13/19 09:41 Loniten PO 2.5 mg QDAY DESTIN Administration Nifedipine 90 mg 01/12/19 13:00 01/13/19 09:42 Procardia Xl PO 90 mg QDAY DESTIN Administration Pantoprazole Sodium 40 mg 01/13/19 10:00 01/13/19 09:43 Protonix PO 40 mg QDAY DESTIN Administration Sucralfate 1 gm 01/12/19 16:30 01/13/19 12:47 Carafate PO 1 gm ACHS DESTIN Administration
[2019-01-14] MEDS: hydrALAZINE 25 MG TAB PO SCH ×2 (06:03→13:08)
[2019-01-14 08:07] LABS: Calcium 9.4 mg/dL (8.4-10.2)
[2019-01-14] MEDS ORDERED: SODIUM CHLORIDE 0.9% 1000 ML 1,000 ML IV SCH (09:30)
[2019-01-14] MEDS ORDERED: LIDOCAINE MPF (2%) 20 MG/1 ML VIAL 5 ML ONE (09:30)
[2019-01-14] MEDS ORDERED: WATER FOR IRRIG STERILE 250 ML BOTTLE IR ONE (10:10)
[2019-01-14] MEDS ORDERED: PROPOFOL 200 MG/20 ML VIAL IV ONE (10:14)
--- NOTE | 2019-01-14 10:15 | Anesthesia Day of Surgery ---
Anesthesia Day of Surgery - Day of Surgery Patient Examined: Yes Patient H&P Reviewed: Yes Patient is NPO: Yes
--- NOTE | 2019-01-14 10:18 | Anesthesia Consultation ---
Anesthesia Consult and Med Hx Date of service: 01/14/19 - Airway Anesthetic Teeth Evaluation: Chipped ROM Head & Neck: Adequate Mental/Hyoid Distance: Adequate Mallampati Class: Class II Intubation Access Assessment: Probably Good - Pre-Operative Health Status ASA Pre-Surgery Classification: ASA3 Proposed Anesthetic Plan: MAC - Cardiovascular System Hx Hypertension: Yes (Negative stress test [id number] per pt) Hx Heart Attack/AMI: No Hx Cardia Arrhythmia: Yes () - Central Nervous System CVA: Yes (2012-denies residual) - Gastrointestinal Hx Gastroesophageal Reflux Disease: Yes - Endocrine Hx Renal Disease: Yes (HD TThS. Last HD [id number]) Hx End Stage Renal Disease: Yes - Hematic Hx Anemia: Yes - Other Systems Hx Alcohol Use: No Hx Cancer: No
--- NOTE | 2019-01-14 10:38 | Operative Report ---
Operative Report Operative Report: Date: 01/14/2019 Pre procedure diagnosis: abdominal pain, nausea/vomiting Post procedure diagnosis: esophagitis, gastritis, gastric erosion, duodenitis Procedure: Esophagogastroduodenoscopy with biopsies Endoscopist: Ori Chavez MD Medications: Per anesthesia- see separate records for details Complications: none Estimated blood loss: None After careful discussion of the nature and purpose of the procedure, details of the technique, risks, benefits and alternatives, the patient gave consent. The patient was placed in the left lateral decubitus position and medicated by anesthesia- see separate records for details. The tip of the olympus video upper scope was passed per orum under direct view through the mouth and into the esophagus, stomach and duodenum. The scope was advanced to the second portion of the duodenum without difficulty. The second portion of the duodenum were normal. The bulb revealed mild erythematous mucosa. Biopsies were obtained from the duodenum. The scope was withdrawn back into the stomach and the stomach gently insufflated with air. The antrum revealed erythematous mucosa diffusely with small nonbleeding erosions. Biopsies were obtained. The scope was then retroflexed and partially withdrawn to inspect the proximal stomach. The cardia, fundus and body were normal appearing. The scope was then withdrawn in the forward view. The EG junction was at 38 cm from the incisors. The distal esophagus showed mild esophagitis LA grade A with irregular z-line. Biopsies were obtained. Rest of the esophagus was normal. The procedure was well tolerated and the patient was observed in the GI recovery unit. IMPRESSION: 1. Mild duodenitis in the bulb. Biopsies obtained from the duodenum. 2. Antral gastritis with nonbleeding small gastric erosions. Biopsies were obtained. 3. Mild distal esophagitis. Biopsies were obtained from the GE junction. 4. No signs of active bleeding noted. Plan: 1. Resume renal diet. 2. Continue with PPI and sucralfate. 3. Follow up in GI clinic post discharge. Follow up on pathology results. 4. No further GI recommendations. Ok for discharge per GI standpoint. Will sign off. 4. Avoid NSAIDs. Ori Chavez MD (Jenny) [facility]
[2019-01-14] MEDS: SUCRALFATE 1 GM TAB PO SCH ×2 (10:41→13:08)
[2019-01-14] MEDS: PANTOPRAZOLE 40 MG TAB PO SCH ×2 (10:42→13:11)
[2019-01-14] MEDS: carvediloL 12.5 MG TAB PO SCH (11:45)
[2019-01-14] MEDS: AMIODARONE 200 MG TAB PO SCH ×2 (11:45→13:11)
[2019-01-14] MEDS: MINOXIDIL 2.5 MG TAB PO SCH ×2 (11:46→13:10)
[2019-01-14] MEDS: NIFEdipine XL 90 MG TAB PO SCH ×2 (11:46→13:10)
--- NOTE | 2019-01-14 13:04 | Post Anesthesia Evaluation ---
- Post Anesthesia Evaluation Patient Participated: Yes Airway Patent: Yes Stable Respiratory Function: Yes Nausea/Vomiting: No Temp > 96.8F: Yes Pain Manageable: Yes Adequeate Hydration: Yes Anesthesia Complications: No Block Receding Appropriately: Not Applicable Patient on Ventilator: No
--- NOTE | 2019-01-14 13:15 | Discharge Summary ---
Providers - Providers Date of Admission: 01/12/19 18:30 Date of discharge: 01/14/19 Attending physician: MORENA CHACKO 01/12/19 08:02 Consult to Physician [CONS] Routine Comment: Consulting Provider: QUYEN ROSE Physician Instructions: Reason For Exam: ESRD, Dialysis 01/12/19 12:37 Consult to Physician [CONS] Routine Comment: Consulting Provider: BRIAN CHAVEZ Physician Instructions: Reason For Exam: intractable n/v abd pains, anemia, on A/c Primary care physician: YAMILKA RUDD Hospitalization Condition: Stable Hospital course: Patient is a 53 yo man from [place], [place] with a history of ESRD on hemodialysis TTS, hypertension, AOCD and pAFib on Warfarin who presents to [facility] ED with unresolved epigastric abdominal pains/n/v and a report of clotted left upper extremity AV graft since patient discharge from here on Monday, Jan.09. During that admission he had a negative stress test. He was found to have pAFib and started on Amiodarone. The abdominal pains never resolved and it prevented him from going to hemodialysis on . He also having intractable n/v which never went away from last hospitalization, so he has not been taking his bp medications consistently; therefore, BP is uncontrolled. He denies any fever, nausea, vomiting, chest pain, shortness of breath. He also has a past medical history of hypertension. He is anti-coagulated on Coumadin. The patient also had some complaints of having some dark stool over the past few days. Rectal examination was done that does not show any gross blood. While there was not much stool for guaiac testing there was no obvious melena. Patient seen in HD center and the Left AVG is functioning normally. * pChest x-ray does not show any acute process. There are no pleural effusions, obvious pneumonia and there is no pneumothorax. * Abdominal x-ray shows nonspecific nonobstructive bowel gas * 01/07/19 CT abd/pelvis without contrast Impression: No definite acute finding appreciated within the limits of the exam. Extensive respiratory motion artifact limits the exam, mild anasarca. Date: 01/14/2019 EGD Pre procedure diagnosis: abdominal pain, nausea/vomiting Post procedure diagnosis: esophagitis, gastritis, gastric erosion, duodenitis Procedure: Esophagogastroduodenoscopy with biopsies Endoscopist: Brian Chavez MD IMPRESSION: 1. Mild duodenitis in the bulb. Biopsies obtained from the duodenum. 2. Antral gastritis with nonbleeding small gastric erosions. Biopsies were obtained. 3. Mild distal esophagitis. Biopsies were obtained from the GE junction. 4. No signs of active bleeding noted. Plan: 1. Resume renal diet. 2. Continue with PPI and sucralfate. 3. Follow up in GI clinic post discharge. Follow up on pathology results. 4. No further GI recommendations. Ok for discharge per GI standpoint. Will sign off. 4. Avoid NSAIDs. Discharge Diagnoses: Intractable N/V/Epigastric Abd pains due to Mild duodenitis, antral gastritis and distal esophagitis: Treating w/ PPI and sucrafrate, d/w GI okay to resume a/c ESRD, missed HD: needing Hemodialysis, Nephrology consulted, counseling on compliance Malignant Hypertension: iv hydralazine not helping, restarted home medications which patient was noncompliance with. AOCD with drop in h/h: monitor closely, repeat levels, pAFib: continue amiodarone, hold warfarin due to the anemia and poor compliance Noncompliance; counseling done DVT ppx scd only full code Disposition: DC-01 TO HOME OR SELFCARE Time spent for discharge: 35 minutes Core Measure Documentation - Palliative Care Palliative Care/ Comfort Measures: Not Applicable - Core Measures Any of the following diagnoses?: none - VTE Discharge Requirements Deep Vein Thrombosis/Pulmonary Embolism Present on Admission: No Has pt received <5 days of overlap therapy or INR<2.0: No Anticoagulant overlap therapy prescribed at discharge: No Contraindication No Overlap Therapy order at DC: Not Indicated Exam - Physical Exam Narrative exam: Gen: WDWN, NAD, Awake, Alert, Orientated x 3 HEENT: NCAT, EOMI, PERRL, OP Clear Neck: supple, no adenopathy, no thyromegaly, no JVD CVS/Heart: RRR, normal S1S2, pulses present bilaterally Chest/Lungs: CTA B, Symmetrical chest expansion, good air entry bilaterally GI/Abdomen: soft, nondistended, mild epigastic tenderness, good bowel sounds, no guarding or rebound /Bladder: no suprapubic tenderness, no CVA or paraspinal tenderness Extermity/Skin: no c/c/e, no obvious rash MSK: FROM x 4 Neuro: CN 2-12 grossly intact, no new focal deficits Psych: calm - Constitutional Vitals: Temp Pulse Resp BP Pulse Ox 98.5 F 89 16 173/100 96 01/14/19 11:54 01/14/19 13:08 01/14/19 11:54 01/14/19 13:08 01/14/19 11:54 Plan Activity: other (no strenous activity until cleared by PCP) Diet: renal, advance as tolerated Follow up with: BRIAN CHAVEZ MD [Staff Physician] - 7 Days QUYEN ROSE MD [Staff Physician] - 7 Days ANDRE BARBOUR MD [Staff Physician] - 7 Days Prescriptions: hydrALAZINE [Apresoline TAB] 100 mg PO TID #90 tab Sucralfate [Carafate] 1 gm PO ACHS #90 tablet cloNIDine-TTS PATCH [Catapres-Tts 0.3mg Patch] 1 patch TD Q7D #4 patch Amiodarone [Cordarone 200 MG TAB] 200 mg PO QDAY #30 tablet carvediloL [Coreg] 25 mg PO QDAY #30 tab Warfarin [Coumadin] 7.5 mg PO QDAY #30 tablet Minoxidil [Loniten] 2.5 mg PO QDAY #30 tablet NIFEdipine XL [Procardia Xl] 90 mg PO QDAY #30 tablet Pantoprazole [Protonix TAB] 40 mg PO QDAY #30 tablet
--- NOTE | 2019-01-14 16:49 | Progress Note ---
Assessment and Plan - Patient Problems (1) End-stage renal disease needing dialysis Current Visit: Yes Status: Acute Plan to address problem: End stage renal disease Continue hemodialysis Monday schedule (2) Hypertensive urgency Current Visit: Yes Status: Acute Plan to address problem: Hypertensive urgency Continue medications Ultrafiltration with dialysis (3) Hyponatremia Current Visit: Yes Status: Acute Plan to address problem: Hyponatremia mild Initial fluid restriction (4) Anemia Current Visit: Yes Status: Acute Plan to address problem: Moderate anemia Hemoglobin 9.2 g per DL Monitor CBC Subjective Interval history: 53-year-old with end-stage renal disease on hemodialysis Monday S schedule hypertension admitted with concern for bloody stools Patient seen today Next hemodialysis in the a.m. has had elevated blood pressures blood pressure medications given by the nurse Objective - Vital Signs Vital signs: Vital Signs - 12hr 01/14/19 01/14/19 01/14/19 05:08 06:03 10:16 Temperature 98.4 F 98.6 F Pulse Rate 90 90 88 Respiratory 18 18 Rate Blood Pressure 148/84 148/84 163/94 O2 Sat by Pulse 96 97 Oximetry 01/14/19 01/14/19 01/14/19 10:39 10:54 11:09 Temperature 97.7 F Pulse Rate 85 85 85 Respiratory 14 14 25 H Rate Blood Pressure 137/74 150/85 15/86 O2 Sat by Pulse 95 100 100 Oximetry 01/14/19 01/14/19 11:54 13:08 Temperature 98.5 F Pulse Rate 89 89 Respiratory 16 Rate Blood Pressure 173/100 173/100 O2 Sat by Pulse 96 Oximetry - General Appearance General appearance: well-developed, well-nourished EENT: ATNC, PERRL Neck: no JVD Respiratory: Present: Clear to Ascultation Cardiology: regular, S1S2 Gastrointestinal: normal, normoactive bowel sounds Integumentary: no rash Neurologic: alert and oriented x3, CN 3-12 intact Psychiatric: mood/affect appropriate - Lab 01/13/19 09:22 01/14/19 06:26 Most recent lab results Calcium 9.4 mg/dL (8.4-10.2) 01/14/19 06:26 - Imaging Chest x-ray: image reviewed (I reviewed chest x-ray) Medications & Allergies - Medications Allergies/Adverse Reactions: Allergies No Known Allergies Allergy (Unverified 02/22/16 08:22) Home Medications: Home Medications Medication Instructions Recorded Confirmed Last Taken Type Amiodarone [Cordarone 200 MG TAB] 200 mg PO QDAY #30 tablet 01/14/19 Unknown Rx Epoetin Curt 10,000 Unit [Procrit] 10,000 unit IV STEPAN PRN #1 vial 01/14/19 Unknown Rx Minoxidil [Loniten] 2.5 mg PO QDAY #30 tablet 01/14/19 Unknown Rx NIFEdipine XL [Procardia Xl] 90 mg PO QDAY #30 tablet 01/14/19 Unknown Rx Pantoprazole [Protonix TAB] 40 mg PO QDAY #30 tablet 01/14/19 Unknown Rx Sucralfate [Carafate] 1 gm PO ACHS #90 tablet 01/14/19 Unknown Rx Warfarin [Coumadin] 7.5 mg PO QDAY #30 tablet 01/14/19 Unknown Rx carvediloL [Coreg] 25 mg PO QDAY #30 tab 01/14/19 Unknown Rx cloNIDine-TTS PATCH [Catapres-Tts 1 patch TD Q7D #4 patch 01/14/19 Unknown Rx 0.3mg Patch] hydrALAZINE [Apresoline TAB] 100 mg PO TID #90 tab 01/14/19 Unknown Rx Active Medications: Generic Name Dose Route Start Last Admin Trade Name Freq PRN Reason Stop Dose Admin Amiodarone HCl 200 mg 01/12/19 13:00 01/14/19 13:11 Cordarone PO 200 mg QDAY DESTIN Administration Carvedilol 12.5 mg 01/12/19 22:00 01/14/19 11:45 Coreg PO Not Given BID DESTIN Clonidine HCl 0.3 mg 01/12/19 13:00 01/12/19 14:42 Catapres-Tts Patch TD 0.3 mg Q7D DESTIN Administration Epoetin Curt 10,000 unit 01/13/19 16:27 Procrit IV STEPAN PRN hemodialysis Hydralazine HCl 50 mg 01/12/19 14:00 01/14/19 13:08 Apresoline PO 50 mg Q8HR DESTIN Administration Sodium Chloride 100 mls @ 999 mls/hr 01/12/19 08:35 Nacl 0.9% IV STEPAN PRN Hypotension Sodium Chloride 1,000 mls @ 50 mls/hr 01/14/19 09:30 Nacl 0.9% 1000 Ml IV DIRECT DESTIN Minoxidil 2.5 mg 01/12/19 13:00 01/14/19 13:10 Loniten PO 2.5 mg QDAY DESTIN Administration Nifedipine 90 mg 01/12/19 13:00 01/14/19 13:10 Procardia Xl PO 90 mg QDAY DESTIN Administration Pantoprazole Sodium 40 mg 01/13/19 10:00 01/14/19 13:11 Protonix PO 40 mg QDAY DESTIN Administration Sucralfate 1 gm 01/12/19 16:30 01/14/19 13:08 Carafate PO 1 gm ACHS DESTIN Administration
[2019-01-14 17:02] VITALS: BP 179/104
== END 2019-01-14 18:18 | disposition home or self-care (01) | DRG 391 ==
LOC: ED 05:58 → 3A 08:05 → OBSVTOIN 18:30
PROVIDERS: ADMIT Internal Medicine; ATTEND Internal Medicine
PROC: 5A1D70Z Performance of Urinary Filtration, Intermittent, Less than 6 Hours Per Day (ICD-10-PCS; 2019-01-12)
PROC: 0DB98ZX Excision of Duodenum, Via Natural or Artificial Opening Endoscopic, Diagnostic (ICD-10-PCS; principal; 2019-01-14)
PROC: 0DB68ZX Excision of Stomach, Via Natural or Artificial Opening Endoscopic, Diagnostic (ICD-10-PCS; 2019-01-14)
DX: K29.80 Duodenitis without bleeding (principal); N18.6 End stage renal disease; N25.81 Secondary hyperparathyroidism of renal origin; I12.0 Hypertensive chronic kidney disease with stage 5 chronic kidney disease or end stage renal disease; K25.9 Gastric ulcer, unspecified as acute or chronic, without hemorrhage or perforation; D63.1 Anemia in chronic kidney disease; K21.0 Gastro-esophageal reflux disease with esophagitis; K29.70 Gastritis, unspecified, without bleeding; I16.0 Hypertensive urgency; I48.0 Paroxysmal atrial fibrillation; Z99.2 Dependence on renal dialysis; Z79.01 Long term (current) use of anticoagulants; Z79.899 Other long term (current) drug therapy; Z82.49 Family history of ischemic heart disease and other diseases of the circulatory system; Z91.19 Patient's noncompliance with other medical treatment and regimen
CPT/HCPCS: 36415; 74022; 80048; 80076; 83690; 85014; 85018; 85025; 85027; 85610; 85730; 87116; 88305; 88312; 88342; 96374; 96375; G0378; J0360; J2270; J2704; J7030

== ENCOUNTER 2019-01-23 23:18 | Observation (INO) | payer MEDICARE ==
[2019-01-23] MEDS ORDERED: ASPIRIN 325 MG TAB PO ONE (23:40)
--- NOTE | 2019-01-24 00:24 | XRay Report ---
CHEST 1 VIEW INDICATION / CLINICAL INFORMATION: Chest Pain. COMPARISON: 01/07/2019 FINDINGS: SUPPORT DEVICES: None. HEART / MEDIASTINUM: Moderately enlarged but stable. LUNGS / PLEURA: There is now extensive bilateral perihilar and lower lobe lung consolidation suggesti ng pulmonary edema. Mild venous congestion is also seen. No effusions are seen. No pneumothorax. ADDITIONAL FINDINGS: No significant additional findings. IMPRESSION: 1 Significant interval worsening likely pulmonary edema. Signer Name: Ghanshyam Sweeney MD Signed: 01/24/2019 12:19 AM Workstation Name: [email or web address]
[2019-01-24 00:32] LABS: Hematocrit 25.3 % (35.5-45.6); Hemoglobin 8.2 gm/dl (11.8-15.2); Lymphocytes % (Auto) 15.1 % (13.4-35.0); Mean Corpuscular HGB Conc 33 % (32-34); Mean Corpuscular Volume 91 fl (84-94); Mean Platelet Volume 7.9 fl (6-12); Platelet Count 223 K/mm3 (140-440); Red Blood Count 2.78 M/mm3 (3.65-5.03); Red Cell Distribution Width 19.2 % (13.2-15.2)
[2019-01-24 00:33] LABS: Basophils # (Auto) 0.1 K/mm3 (0.0-0.1); Basophils % (Auto) 1.4 % (0.0-1.8); Eosinophils # (Auto) 0.8 K/mm3 (0.0-0.4); Eosinophils % (Auto) 10.9 % (0.0-4.3); Lymphocytes # (Auto) 1.2 K/mm3 (1.2-5.4); Monocytes # (Auto) 0.7 K/mm3 (0.0-0.8); Monocytes % (Auto) 8.6 % (0.0-7.3)
[2019-01-24 00:41] LABS: Calcium 9.5 mg/dL (8.4-10.2)
[2019-01-24 01:02] LABS: INR 2.21 (0.87-1.13)
[2019-01-24 01:03] LABS: Partial Thromboplastin Time 40.4 Sec. (24.2-36.6)
[2019-01-24 01:08] LABS: Chol/HDL Ratio 2.45 %
[2019-01-24] MEDS ORDERED: ONDANSETRON 4 MG/2 ML INJ IV ONE (03:26)
[2019-01-24] MEDS ORDERED: HYDROmorphone 1 MG/1 ML INJ IV ONE (03:26)
[2019-01-24] MEDS ORDERED: ASPIRIN 325 MG TAB ONE (03:36)
--- NOTE | 2019-01-24 03:52 | Emergency Department Report ---
ED Chest Pain HPI - General Chief Complaint: Chest Pain Stated Complaint: CHEST PAIN/ZACHARIAH Time Seen by Provider: 01/24/19 02:54 Source: patient Mode of arrival: Ambulatory Limitations: No Limitations - History of Present Illness Initial Comments: 53-year-old male with a past medical history end-stage renal disease on dialysis TTS, hypertension, and A. fib on Coumadin presents to the hospital complaining of chest pain that started yesterday evening. Patient complains of a constant moderate tightness across his chest with shortness of breath. Pain is worse with movement and palpation. He denies cough or fever. He also complains of lower extremity edema. Last dialysis was Monday, January 19. Patient missed his Monday dialysis because his access was not working. Patient had a procedure on the to fix his access was not able to wait for his dialysis on the due to his symptoms. medical record reviewed. Patient has been admitted here twice this month. He had a negative stress test January 07. Severity scale (0 -10): 8 - Related Data Previous Rx's Medication Instructions Recorded Last Taken Type Amiodarone [Cordarone 200 MG TAB] 200 mg PO QDAY #30 tablet 01/14/19 Unknown Rx Epoetin Curt 10,000 Unit [Procrit] 10,000 unit IV STEPAN PRN #1 vial 01/14/19 Unknown Rx Minoxidil [Loniten] 2.5 mg PO QDAY #30 tablet 01/14/19 Unknown Rx NIFEdipine XL [Procardia Xl] 90 mg PO QDAY #30 tablet 01/14/19 Unknown Rx Pantoprazole [Protonix TAB] 40 mg PO QDAY #30 tablet 01/14/19 Unknown Rx Sucralfate [Carafate] 1 gm PO ACHS #90 tablet 01/14/19 Unknown Rx Warfarin [Coumadin] 7.5 mg PO QDAY #30 tablet 01/14/19 Unknown Rx carvediloL [Coreg] 25 mg PO QDAY #30 tab 01/14/19 Unknown Rx cloNIDine-TTS PATCH [Catapres-Tts 1 patch TD Q7D #4 patch 01/14/19 Unknown Rx 0.3mg Patch] hydrALAZINE [Apresoline TAB] 100 mg PO TID #90 tab 01/14/19 Unknown Rx Allergies Allergy/AdvReac Type Severity Reaction Status Date / Time No Known Allergies Allergy Unverified 02/22/16 08:22 Heart Score - HEART Score History: Slightly suspicious EKG: Normal Age: 45-65 Risk factors: > 3 risk factors or hx of atherosclerotic disease Troponin: 1-3x normal limit HEART Score: 4 ED Review of Systems ROS: Stated complaint: CHEST PAIN/ZACHARIAH Other details as noted in HPI Comment: All other systems reviewed and negative ED Past Medical Hx - Past Medical History Previous Medical History?: Yes Hx Hypertension: Yes (Negative stress test [id number] per pt) Hx Heart Attack/AMI: No Hx Renal Disease: Yes (HD TThS. Last HD ) - Surgical History Additional Surgical History: Left A/V Graft - Social History Smoking Status: Never Smoker - Medications Home Medications: Home Medications Medication Instructions Recorded Confirmed Last Taken Type Amiodarone [Cordarone 200 MG TAB] 200 mg PO QDAY #30 tablet 01/14/19 Unknown Rx Epoetin Curt 10,000 Unit [Procrit] 10,000 unit IV STEPAN PRN #1 vial 01/14/19 Unk nown Rx Minoxidil [Loniten] 2.5 mg PO QDAY #30 tablet 01/14/19 Unknown Rx NIFEdipine XL [Procardia Xl] 90 mg PO QDAY #30 tablet 01/14/19 Unknown Rx Pantoprazole [Protonix TAB] 40 mg PO QDAY #30 tablet 01/14/19 Unknown Rx Sucralfate [Carafate] 1 gm PO ACHS #90 tablet 01/14/19 Unknown Rx Warfarin [Coumadin] 7.5 mg PO QDAY #30 tablet 01/14/19 Unknown Rx carvediloL [Coreg] 25 mg PO QDAY #30 tab 01/14/19 Unknown Rx cloNIDine-TTS PATCH [Catapres-Tts 1 patch TD Q7D #4 patch 01/14/19 Unknown Rx 0.3mg Patch] hydrALAZINE [Apresoline TAB] 100 mg PO TID #90 tab 01/14/19 Unknown Rx ED Physical Exam - General Limitations: No Limitations - Other Other exam information: General: No acute distress Head: Atraumatic Eyes: normal appearance ENT: Moist mucous membranes Neck: Normal appearance, no midline tenderness Chest: Clear to auscultation bilaterally CV: Regular rate and rhythm, reproducible upper chest wall tenderness to palpation, systolic murmur Abdomen: Soft, normal bowel sounds, nontender, nondistended, no rebound or guarding Back: Normal inspection Extremity: Normal inspection infection, full range of motion, lower extremity edema. Left arm AV access with positive thrill Neuro: Alert O x 3, no facial asymmetry, speech clear, no gross motor sensory deficit Psych: Appropriate behavior Skin: No rash ED Course Vital Signs 01/24/19 01/24/19 01/24/19 02:31 02:41 02:45 Temperature Pulse Rate 82 94 H Respiratory 19 19 Rate Blood Pressure 146/83 Blood Pressure 168/88 [Left] O2 Sat by Pulse 96 95 Oximetry 01/24/19 01/24/19 02:57 03:01 Temperature 98.2 F Pulse Rate 94 H Respiratory 21 Rate Blood Pressure 147/74 Blood Pressure [Left] O2 Sat by Pulse 95 Oximetry - Consultations Consultation #1: 01/24/19 03:[address] Cruz industrial boilermaker, will admit pt for dialysis in am. JOSÉ score - José Score Age > 65: (0) No Aspirin use within the Past 7 Days: (0) No 3 or more CAD Risk Factors: (1) Yes 2 or more Angina events in past 24 hrs: (1) Yes Known CAD with more than 50% Stenosis: (0) No Elevated Cardiac Markers: (1) Yes ST Deviation Greater than 0.5mm: (0) No JOSÉ Score: 3 ED Medical Decision Making - Lab Data Result diagrams: 01/24/19 00:02 01/24/19 00:02 Lab Results 01/24/19 01/24/19 01/24/19 Range/Units 00:02 00:02 00:37 WBC 7.8 (4.5-11.0) K/mm3 RBC 2.78 L (3.65-5.03) M/mm3 Hgb 8.2 L (11.8-15.2) gm/dl Hct 25.3 L (35.5-45.6) % MCV 91 (84-94) fl MCH 30 (28-32) pg MCHC 33 (32-34) % RDW 19.2 H (13.2-15.2) % Plt Count 223 (140-440) K/mm3 Lymph % (Auto) 15.1 (13.4-35.0) % [place] % (Auto) 8.6 H (0.0-7.3) % Eos % (Auto) 10.9 H (0.0-4.3) % Baso % (Auto) 1.4 (0.0-1.8) % Lymph # 1.2 (1.2-5.4) K/mm3 [place] # 0.7 (0.0-0.8) K/mm3 Eos # 0.8 H (0.0-0.4) K/mm3 Baso # 0.1 (0.0-0.1) K/mm3 Seg Neutrophils % 64.0 (40.0-70.0) % Seg Neutrophils # 5.0 (1.8-7.7) K/mm3 PT 25.0 H (12.2-14.9) Sec. INR 2.21 H (0.87-1.13) APTT 40.4 H (24.2-36.6) Sec. Sodium 137 (137-145) mmol/L Potassium 4.5 (3.6-5.0) mmol/L Chloride 101.5 (98-107) mmol/L Carbon Dioxide 17 L (22-30) mmol/L Anion Gap 23 mmol/L BUN 70 H (9-20) mg/dL Creatinine 13.2 H (0.8-1.5) mg/dL Estimated GFR 5 ml/min BUN/Creatinine Ratio 5 % Glucose 104 H (75-100) mg/dL Calcium 9.5 (8.4-10.2) mg/dL Troponin T 0.055 H (0.00-0.029) ng/mL Triglycerides 130 (2-149) mg/dL Cholesterol 172 (50-199) mg/dL LDL Cholesterol Direct 85 (50-130) mg/dL HDL Cholesterol 70 H (40-59) mg/dL Cholesterol/HDL Ratio 2.45 % 01/24/19 Range/Units 02:59 WBC (4.5-11.0) K/mm3 RBC (3.65-5.03) M/mm3 Hgb (11.8-15.2) gm/dl Hct (35.5-45.6) % MCV (84-94) fl MCH (28-32) pg MCHC (32-34) % RDW (13.2-15.2) % Plt Count (140-440) K/mm3 Lymph % (Auto) (13.4-35.0) % [place] % (Auto) (0.0-7.3) % Eos % (Auto) (0.0-4.3) % Baso % (Auto) (0.0-1.8) % Lymph # (1.2-5.4) K/mm3 [place] # (0.0-0.8) K/mm3 Eos # (0.0-0.4) K/mm3 Baso # (0.0-0.1) K/mm3 Seg Neutrophils % (40.0-70.0) % Seg Neutrophils # (1.8-7.7) K/mm3 PT (12.2-14.9) Sec. INR (0.87-1.13) APTT (24.2-36.6) Sec. Sodium (137-145) mmol/L Potassium (3.6-5.0) mmol/L Chloride (98-107) mmol/L Carbon Dioxide (22-30) mmol/L Anion Gap mmol/L BUN (9-20) mg/dL Creatinine (0.8-1.5) mg/dL Estimated GFR ml/min BUN/Creatinine Ratio % Glucose (75-100) mg/dL Calcium (8.4-10.2) mg/dL Troponin T 0.055 H (0.00-0.029) ng/mL Triglycerides (2-149) mg/dL Cholesterol (50-199) mg/dL LDL Cholesterol Direct (50-130) mg/dL HDL Cholesterol (40-59) mg/dL Cholesterol/HDL Ratio % - EKG Data -: EKG Interpreted by [facility] EKG shows normal: sinus rhythm, ST-T waves (no stemi) Rate: normal - Radiology Data Radiology results: report reviewed CHEST 1 VIEW INDICATION / CLINICAL INFORMATION: Chest Pain. COMPARISON: 01/07/2019 FINDINGS: SUPPORT DEVICES: None. HEART / MEDIASTINUM: Moderately enlarged but stable. LUNGS / PLEURA: There is now extensive bilateral perihilar and lower lobe lung consolidation suggesting pulmonary edema. Mild venous congestion is also seen. No effusions are seen. No pneumoth orax. ADDITIONAL FINDINGS: No significant additional findings. IMPRESSION: 1 Significant interval worsening likely pulmonary edema. - Medical Decision Making Patient has reproducible chest wall tenderness. Low suspicion for CAD given negative stress tests earlier this month. Chronic troponin elevation with unchanged upon repeat testing. Patient is anticoagulated on Coumadin therefore low suspicious for pulmonary embolism. Shortness of breath secondary to pulmonary edema and missing dialysis. Case discussed with industrial boilermaker who will arrange for dialysis in a.m. Patient provided 0.5 mg of Dilaudid and 4 Zofran for pain. Patient has a history of chronic A. fib and is currently in sinus rhythm on EKG. - Differential Diagnosis PA, unstable angina, pulmonary embolism, pulmonary edema, MSK pain Critical Care Time: No Critical care attestation.: If time is entered above; I have spent that time in minutes in the direct care of this critically ill patient, excluding procedure time. ED Disposition Clinical Impression: Chest wall pain, End-stage renal disease needing dialysis, Pulmonary edema, Chronic atrial fibrillation, Anticoagulated on Coumadin Disposition: 09 OP ADMIT IP TO THIS HOSP Is pt being admited?: Yes Condition: Stable Referrals: PRIMARY CARE, [Primary Care Provider] - 3-5 Days Time of Disposition: 04:08 (Dr Sheth/hosp)
[2019-01-24] MEDS ORDERED: ONDANSETRON 4 MG/2 ML INJ IV PRN (04:24)
[2019-01-24] MEDS ORDERED: oxyCODONE /ACETAMINOPHEN 5-325MG TAB PO PRN (04:24)
[2019-01-24] MEDS ORDERED: ACETAMINOPHEN 325 MG TAB PO PRN (04:24)
[2019-01-24] MEDS ORDERED: NITROGLYCERIN 0.4 MG TAB SUBL SL PRN (04:27)
[2019-01-24] MEDS ORDERED: diphenhydrAMINE 50 MG/ML VIAL IV PRN (04:27)
--- NOTE | 2019-01-24 04:40 | History and Physical Report ---
<BETSEY SURESH - Last Filed: 01/24/19 04:54> History of Present Illness Date of examination: 01/24/19 Date of admission: 01/24/2019 Chief complaint: Missed HD , and CP History of present illness: 53-year-old -[place] male with history of ESRD on HD, hypertension, A. fib on anticoagulation who presents to [facility] ED with complaints of chest pain and missed HD session. Patient states that he's been experiencing intermittent chest pain for the past day. He rates the pain 5/10. There are no aggravating or relieving factors. Patient complains of medicine Tuesdays (01/22) HD session due to malfunction of AV fistula. AV fistula was repaired but his next scheduled HD session at outpatient clinic is not until 01/24/19. Patient states he was unable to wait for clinic to open up to be dialyzed. He states that his ankles are swollen and he is becoming SOB with exertion. Review of medical records shows patient was admitted on 01/07/19 with similar complaints. Pt had thallium stress test during that admission which was negative. Denies nausea, vomiting, diaphoresis, headache, fever, or compliance with medications. Past History Past Medical History: atrial fib (on Coumadin ), ESRD (T//), hypertension Past Surgical History: Other (L AV Fistula) Social history: lives with family, full code. denies: smoking Family history: no significant family history Medications and Allergies Allergies Allergy/AdvReac Type Severity Reaction Status Date / Time No Known Allergies Allergy Unverified 02/22/16 08:22 Home Medications Medication Instructions Recorded Confirmed Last Taken Type Amiodarone [Cordarone 200 MG TAB] 200 mg PO QDAY #30 tablet 01/14/19 01/24/19 Unknown Rx Epoetin Curt 10,000 Unit [Procrit] 10,000 unit IV STEPAN PRN #1 vial 01/14/19 01/24/19 Unknown Rx Minoxidil [Loniten] 2.5 mg PO QDAY #30 tablet 01/14/19 01/24/19 Unknown Rx NIFEdipine XL [Procardia Xl] 90 mg PO QDAY #30 tablet 01/14/19 01/24/19 Unknown Rx Pantoprazole [Protonix TAB] 40 mg PO QDAY #30 tablet 01/14/19 01/24/19 Unknown Rx Sucralfate [Carafate] 1 gm PO ACHS #90 tablet 01/14/19 01/24/19 Unknown Rx Warfarin [Coumadin] 7.5 mg PO QDAY #30 tablet 01/14/19 01/24/19 Unknown Rx carvediloL [Coreg] 25 mg PO QDAY #30 tab 01/14/19 01/24/19 Unknown Rx cloNIDine-TTS PATCH [Catapres-Tts 1 patch TD Q7D #4 patch 01/14/19 01/24/19 Unknown Rx 0.3mg Patch] hydrALAZINE [Apresoline TAB] 100 mg PO TID #90 tab 01/14/19 01/24/19 Unknown Rx Cinacalcet 30 mg PO DAILY 01/24/19 01/24/19 Unknown History Furosemide 80 mg PO DAILY 01/24/19 01/24/19 Unknown History Review of Systems All systems: negative Cardiovascular: chest pain, edema (ankle ), dyspnea on exertion Respiratory: dyspnea on exertion Exam - Physical Exam Narrative exam: Physical exam General appearance: Present: No acute distress, alert and oriented 3, adult male - EENT Eyes: Present: PERRL, EOM intact ENT: hearing intact, normal dentition - Neck Neck: Present: supple, normal ROM - Respiratory Respiratory effort: Non-labored Respiratory: Clear throughout - Cardiovascular Heart rate: 90 (bpm) Rhythm: Sinus rhythm Heart Sounds: Present: S1 & S2. Absent: rub, click - Extremities Extremities: no ischemia, pulses intact, ankle edema L>R - Peripheral Assessment Peripheral Pulses: within normal limits - Abdominal General gastrointestinal: soft, non-tender, normal bowel sounds - Integumentary Integumentary: Present: warm, dry - Musculoskeletal Musculoskeletal: Able to move all extremities -Neurological Neurological: CN II-XII intact - Psychiatric Psychiatric: cooperative - Constitutional Vitals: Temp Pulse Resp BP Pulse Ox 98.2 F 90 17 143/83 95 01/24/19 02:57 01/24/19 04:15 01/24/19 04:15 01/24/19 04:15 01/24/19 04:21 Results - Labs CBC & Chem 7: 01/24/19 00:02 01/24/19 00:02 Labs: Laboratory Last Values WBC 7.8 K/mm3 (4.5-11.0) 01/24/19 00:02 RBC 2.78 M/mm3 (3.65-5.03) L 01/24/19 00:02 Hgb 8.2 gm/dl (11.8-15.2) L 01/24/19 00:02 Hct 25.3 % (35.5-45.6) L 01/24/19 00:02 MCV 91 fl (84-94) 01/24/19 00:02 MCH 30 pg (28-32) 01/24/19 00:02 MCHC 33 % (32-34) 01/24/19 00:02 RDW 19.2 % (13.2-15.2) H 01/24/19 00:02 Plt Count 223 K/mm3 (140-440) 01/24/19 00:02 Lymph % (Auto) 15.1 % (13.4-35.0) 01/24/19 00:02 [place] % (Auto) 8.6 % (0.0-7.3) H 01/24/19 00:02 Eos % (Auto) 10.9 % (0.0-4.3) H 01/24/19 00:02 Baso % (Auto) 1.4 % (0.0-1.8) 01/24/19 00:02 Lymph # 1.2 K/mm3 (1.2-5.4) 01/24/19 00:02 [place] # 0.7 K/mm3 (0.0-0.8) 01/24/19 00:02 Eos # 0.8 K/mm3 (0.0-0.4) H 01/24/19 00:02 Baso # 0.1 K/mm3 (0.0-0.1) 01/24/19 00:02 Seg Neutrophils % 64.0 % (40.0-70.0) 01/24/19 00:02 Seg Neutrophils # 5.0 K/mm3 (1.8-7.7) 01/24/19 00:02 PT 25.0 Sec. (12.2-14.9) H 01/24/19 00:37 INR 2.21 (0.87-1.13) H 01/24/19 00:37 APTT 40.4 Sec. (24.2-36.6) H 01/24/19 00:37 Sodium 137 mmol/L (137-145) 01/24/19 00:02 Potassium 4.5 mmol/L (3.6-5.0) 01/24/19 00:02 Chloride 101.5 mmol/L (98-107) 01/24/19 00:02 Carbon Dioxide 17 mmol/L (22-30) L 01/24/19 00:02 Anion Gap 23 mmol/L 01/24/19 00:02 BUN 70 mg/dL (9-20) H 01/24/19 00:02 Creatinine 13.2 mg/dL (0.8-1.5) H 01/24/19 00:02 Estimated GFR 5 ml/min 01/24/19 00:02 BUN/Creatinine Ratio 5 % 01/24/19 00:02 Glucose 104 mg/dL (75-100) H 01/24/19 00:02 Calcium 9.5 mg/dL (8.4-10.2) 01/24/19 00:02 Troponin T 0.055 ng/mL (0.00-0.029) H 01/24/19 02:59 Triglycerides 130 mg/dL (2-149) 01/24/19 00:02 Cholesterol 172 mg/dL (50-199) 01/24/19 00:02 LDL Cholesterol Direct 85 mg/dL (50-130) 01/24/19 00:02 HDL Cholesterol 70 mg/dL (40-59) H 01/24/19 00:02 Cholesterol/HDL Ratio 2.45 % 01/24/19 00:02 - Imaging and Cardiology Imaging and Cardiology: CXR: FINDINGS: SUPPORT DEVICES: None. HEART / MEDIASTINUM: Moderately enlarged but stable. LUNGS / PLEURA: There is now extensive bilateral perihilar and lower lobe lung consolidation suggesting pulmonary edema. Mild venous congestion is also seen. No effusions are seen. No pneumothorax. ADDITIONAL FINDINGS: No significant additional findings. IMPRESSION: 1 Significant interval worsening likely pulmonary edema. Assessment and Plan Assessment and plan: 53-year-old -[place] male with history of ESRD on HD, hypertension, A. fib on anticoagulation who presents to [facility] ED with complaints of chest pain and missed HD session. Acute Atypical Chest Pain -Initiate chest pain protocol -Continuous telemetry monitoring -Continue supportive care -Pain mgmt -Troponin negative0.055 x 2 -EKG unrevealing for acute ischemic abnormalities -Negative thallium stress test on 01/07 -Cardiology consulted ESRD on HD -T/Th/S -Last dialyzed 01/19/19 -Missed 01/22 HD session due to malfunction of HD access, which has been resolved -CXR shows Significant interval worsening likely pulmonary edema -Avoid nephrotoxic agents -Renal dose all meds -Nephrology consulted Paroxysmal A. Fib -Continue Coumadin and amiodarone HTN -Monitor BP -Resume home hypertensive meds Chronic Anemia -Hemoglobin on admission 8.2 -No s/s of active bleeding -Continue to monitor hemoglobin -Transfuse as needed DVT PPX -On Heparin Advance Directives: No VTE prophylaxis?: Mechanical Plan of care discussed with patient/family: Yes <ELIZABETH HYATT - Last Filed: 01/24/19 06:03> Medications and Allergies Active Meds: Active Medications Acetaminophen (Tylenol) 650 mg PO Q4H PRN PRN Reason: Pain MILD(1-3)/Fever >100.5/NIELSON Amiodarone HCl (Cordarone) 200 mg PO QDAY DESTIN Carvedilol (Coreg) 25 mg PO QDAY DESTIN Clonidine HCl (Catapres-Tts Patch) 0.3 mg TD Th DESTIN Diphenhydramine HCl (Benadryl) 25 mg IV Q6H PRN PRN Reason: Itching Docusate Sodium (Colace) 100 mg PO BID DESTIN Hydralazine HCl (Apresoline) 100 mg PO TID DESTIN Minoxidil (Loniten) 2.5 mg PO QDAY DESTIN Nifedipine (Procardia Xl) 90 mg PO QDAY@0600 DESTIN Nitroglycerin (Nitrostat) 0.4 mg SL .Q5MIN PRN PRN Reason: Chest Pain Ondansetron HCl (Zofran) 4 mg IV Q6H PRN PRN Reason: Nausea And Vomiting Oxycodone/Acetaminophen (Percocet 5/325) 1 tab PO Q6H PRN PRN Reason: Pain, Moderate (4-6) Pantoprazole Sodium (Protonix) 40 mg PO QDAY DESTIN Sodium Chloride (Sodium Chloride Flush Syringe 10 Ml) 10 ml IV BID DESTIN Sodium Chloride (Sodium Chloride Flush Syringe 10 Ml) 10 ml IV PRN PRN PRN Reason: LINE FLUSH Sucralfate (Carafate) 1 gm PO ACHS [facility] Exam - Constitutional Vitals: Temp Pulse Resp BP Pulse Ox 98.2 F 90 16 149/82 94 01/24/19 02:57 01/24/19 05:24 01/24/19 05:24 01/24/19 05:15 01/24/19 05:24 Results - Labs CBC & Chem 7: 01/24/19 00:02 01/24/19 00:02 Labs: Laboratory Last Values WBC 7.8 K/mm3 (4.5-11.0) 01/24/19 00:02 RBC 2.78 M/mm3 (3.65-5.03) L 01/24/19 00:02 Hgb 8.2 gm/dl (11.8-15.2) L 01/24/19 00:02 Hct 25.3 % (35.5-45.6) L 01/24/19 00:02 MCV 91 fl (84-94) 01/24/19 00:02 MCH 30 pg (28-32) 01/24/19 00:02 MCHC 33 % (32-34) 01/24/19 00:02 RDW 19.2 % (13.2-15.2) H 01/24/19 00:02 Plt Count 223 K/mm3 (140-440) 01/24/19 00:02 Lymph % (Auto) 15.1 % (13.4-35.0) 01/24/19 00:02 Boyd % (Auto) 8.6 % (0.0-7.3) H 01/24/19 00:02 Eos % (Auto) 10.9 % (0.0-4.3) H 01/24/19 00:02 Baso % (Auto) 1.4 % (0.0-1.8) 01/24/19 00:02 Lymph # 1.2 K/mm3 (1.2-5.4) 01/24/19 00:02 Boyd # 0.7 K/mm3 (0.0-0.8) 01/24/19 00:02 Eos # 0.8 K/mm3 (0.0-0.4) H 01/24/19 00:02 Baso # 0.1 K/mm3 (0.0-0.1) 01/24/19 00:02 Seg Neutrophils % 64.0 % (40.0-70.0) 01/24/19 00:02 Seg Neutrophils # 5.0 K/mm3 (1.8-7.7) 01/24/19 00:02 PT 25.0 Sec. (12.2-14.9) H 01/24/19 00:37 INR 2.21 (0.87-1.13) H 01/24/19 00:37 APTT 40.4 Sec. (24.2-36.6) H 01/24/19 00:37 Sodium 137 mmol/L (137-145) 01/24/19 00:02 Potassium 4.5 mmol/L (3.6-5.0) 01/24/19 00:02 Chloride 101.5 mmol/L (98-107) 01/24/19 00:02 Carbon Dioxide 17 mmol/L (22-30) L 01/24/19 00:02 Anion Gap 23 mmol/L 01/24/19 00:02 BUN 70 mg/dL (9-20) H 01/24/19 00:02 Creatinine 13.2 mg/dL (0.8-1.5) H 01/24/19 00:02 Estimated GFR 5 ml/min 01/24/19 00:02 BUN/Creatinine Ratio 5 % 01/24/19 00:02 Glucose 104 mg/dL (75-100) H 01/24/19 00:02 Calcium 9.5 mg/dL (8.4-10.2) 01/24/19 00:02 Troponin T 0.055 ng/mL (0.00-0.029) H 01/24/19 02:59 Triglycerides 130 mg/dL (2-149) 01/24/19 00:02 Cholesterol 172 mg/dL (50-199) 01/24/19 00:02 LDL Cholesterol Direct 85 mg/dL (50-130) 01/24/19 00:02 HDL Cholesterol 70 mg/dL (40-59) H 01/24/19 00:02 Cholesterol/HDL Ratio 2.45 % 01/24/19 00:02 Assessment and Plan Assessment and plan: Patient seen and examined, with plan as stated above
[2019-01-24] MEDS ORDERED: SODIUM CHLORIDE 0.9% 100 ML IV PRN ×2 (06:53→06:54)
[2019-01-24] MEDS ORDERED: EPOETIN ALFA 10,000 UNIT/1 ML INJ IV PRN (06:54)
[2019-01-24] MEDS: SUCRALFATE 1 GM TAB PO SCH ×5 (07:30→20:59)
[2019-01-24] MEDS: NIFEdipine XL 90 MG TAB PO SCH (07:48)
[2019-01-24] MEDS ORDERED: cloNIDine TTS 0.3 MG/24 HR PATCH TD SCH (08:00)
[2019-01-24 08:18] LABS: Creatine Kinase MB 2.9 ng/mL (0.0-4.0)
[2019-01-24] MEDS: hydrALAZINE 100 MG TAB PO SCH ×3 (08:48→20:59)
[2019-01-24] MEDS ORDERED: AMIODARONE 200 MG TAB PO SCH (10:00)
[2019-01-24] MEDS: DOCUSATE SODIUM 100 MG CAP PO SCH ×2 (10:00→20:59)
--- NOTE | 2019-01-24 11:58 | Consultation ---
History of Present Illness Consult date: 01/24/19 Consult reason: chest pain History of present illness: 53-year old male with end-stage renal disease on hemodialysis, chronic anemia and hypertension. He also has paroxysmal atrial fibrillation on warfarin for anticoagulation. He presented with atypical chest pain, that reproducible with palpation and position changes. Patient denies unusual shortness of breath or lower extremity edema. He admits to one missed dialysis session this week. Of note, the patient was admitted to this hospital two weeks ago with chest pain. At that time he underwent a Lexiscan thallium stress test that showed normal myocardial perfusion, ejection fraction 52%. Chest x-ray shows cardiomegaly with interstitial edema. INR is therapeutic at 2.2. Cardiac enzymes shows a CK of 124 with a normal relative index of 2.3. Troponins mildly elevated likely in the setting of renal failure. An ECG is sinus rhythm, no acute ischemic changes. Past History Past Medical History: atrial fib (on Coumadin ), ESRD (T/Th/S), hypertension Past Surgical History: Other (L AV Fistula) Social history: lives with family, full code. denies: smoking Family history: no significant family history Medications and Allergies Allergies Allergy/AdvReac Type Severity Reaction Status Date / Time No Known Allergies Allergy Unverified 02/22/16 08:22 Home Medications Medication Instructions Recorded Confirmed Last Taken Type Amiodarone [Cordarone 200 MG TAB] 200 mg PO QDAY #30 tablet 01/14/19 01/24/19 Unknown Rx Epoetin Curt 10,000 Unit [Procrit] 10,000 unit IV STEPAN PRN #1 vial 01/14/19 01/24/19 Unknown Rx Minoxidil [Loniten] 2.5 mg PO QDAY #30 tablet 01/14/19 01/24/19 Unknown Rx NIFEdipine XL [Procardia Xl] 90 mg PO QDAY #30 tablet 01/14/19 01/24/19 Unknown Rx Pantoprazole [Protonix TAB] 40 mg PO QDAY #30 tablet 01/14/19 01/24/19 Unknown Rx Sucralfate [Carafate] 1 gm PO ACHS #90 tablet 01/14/19 01/24/19 Unknown Rx Warfarin [Coumadin] 7.5 mg PO QDAY #30 tablet 01/14/19 01/24/19 Unknown Rx carvediloL [Coreg] 25 mg PO QDAY #30 tab 01/14/19 01/24/19 Unknown Rx cloNIDine-TTS PATCH [Catapres-Tts 1 patch TD Q7D #4 patch 01/14/19 01/24/19 Unknown Rx 0.3mg Patch] hydrALAZINE [Apresoline TAB] 100 mg PO TID #90 tab 01/14/19 01/24/19 Unknown Rx Cinacalcet 30 mg PO DAILY 01/24/19 01/24/19 Unknown History Furosemide 80 mg PO DAILY 01/24/19 01/24/19 Unknown History Active Meds: Active Medications Acetaminophen (Tylenol) 650 mg PO Q4H PRN PRN Reason: Pain MILD(1-3)/Fever >100.5/NIELSON Amiodarone HCl (Cordarone) 200 mg PO QDAY [facility] Carvedilol (Coreg) 25 mg PO QDAY [facility] Clonidine HCl (Catapres-Tts Patch) 0.3 mg TD Th [facility] Diphenhydramine HCl (Benadryl) 25 mg IV Q6H PRN PRN Reason: Itching Docusate Sodium (Colace) 100 mg PO BID [facility] Epoetin Curt (Procrit) 10,000 unit IV STEPAN PRN PRN Reason: hemodialysis Hydralazine HCl (Apresoline) 100 mg PO TID [facility] Last Admin: 01/24/19 08:48 Dose: 100 mg Documented by: Sodium Chloride (Nacl 0.9%) 100 mls @ 999 mls/hr IV STEPAN PRN PRN Reason: Hypotension Minoxidil (Loniten) 2.5 mg PO QDAY [facility] Nifedipine (Procardia Xl) 90 mg PO QDAY@0600 [facility] Last Admin: 01/24/19 07:48 Dose: 90 mg Documented by: Nitroglycerin (Nitrostat) 0.4 mg SL .Q5MIN PRN PRN Reason: Chest Pain Ondansetron HCl (Zofran) 4 mg IV Q6H PRN PRN Reason: Nausea And Vomiting Oxycodone/Acetaminophen (Percocet 5/325) 1 tab PO Q6H PRN PRN Reason: Pain, Moderate (4-6) Pantoprazole Sodium (Protonix) 40 mg PO QDAY [facility] Sodium Chloride (Sodium Chloride Flush Syringe 10 Ml) 10 ml IV BID [facility] Sodium Chloride (Sodium Chloride Flush Syringe 10 Ml) 10 ml IV PRN PRN PRN Reason: LINE FLUSH Sucralfate (Carafate) 1 gm PO ACHS [facility] Warfarin Sodium (Coumadin) 7.5 mg PO DAILY@1700 [facility] Physical Examination Vital Signs Pulse Resp Pulse Ox 82 19 96 01/24/19 02:31 01/24/19 02:31 01/24/19 02:31 General appearance: no acute distress HEENT: Positive: PERRL Neck: Positive: trachea midline Cardiac: Positive: Reg Rate and Rhythm Lungs: Positive: Decreased Breath Sounds Neuro: Positive: Grossly Intact Results 01/24/19 00:02 01/24/19 00:02 Cardiac Enzymes 01/24/19 Range/Units 07:42 CK-MB (CK-2) 2.9 (0.0-4.0) ng/mL Coagulation 01/24/19 Range/Units 00:37 PT 25.0 H (12.2-14.9) Sec. INR 2.21 H (0.87-1.13) APTT 40.4 H (24.2-36.6) Sec. Lipids 01/24/19 Range/Units 00:02 Triglycerides 130 (2-149) mg/dL Cholesterol 172 (50-199) mg/dL HDL Cholesterol 70 H (40-59) mg/dL Cholesterol/HDL Ratio 2.45 % CBC 01/24/19 Range/Units 00:02 WBC 7.8 (4.5-11.0) K/mm3 RBC 2.78 L (3.65-5.03) M/mm3 Hgb 8.2 L (11.8-15.2) gm/dl Hct 25.3 L (35.5-45.6) % Plt Count 223 (140-440) K/mm3 Lymph # 1.2 (1.2-5.4) K/mm3 [place] # 0.7 (0.0-0.8) K/mm3 Eos # 0.8 H (0.0-0.4) K/mm3 Baso # 0.1 (0.0-0.1) K/mm3 Comprehensive Metabolic Panel 01/24/19 Range/Units 00:02 Sodium 137 (137-145) mmol/L Potassium 4.5 (3.6-5.0) mmol/L Chloride 101.5 (98-107) mmol/L Carbon Dioxide 17 L (22-30) mmol/L BUN 70 H (9-20) mg/dL Creatinine 13.2 H (0.8-1.5) mg/dL Glucose 104 H (75-100) mg/dL Calcium 9.5 (8.4-10.2) mg/dL Assessment and Plan Atypical chest pain, musculoskeletal normal myocardial perfusion by MPI 01/07/19 Paroxysmal afib on warfarin for anticoagulation ESRD on dialysis Hypertension Chronic Anemia
--- NOTE | 2019-01-24 13:43 | Consultation ---
History of Present Illness - Reason for Consult Consult date: 01/24/19 end stage renal disease - History of Present Illness This is a 53 year old man with ESRD who presents with shortness of breath. He was last dialyzed on Friday 01/19. He had an access issue which was fixed on 01/22/19 but was unable to make it to dialysis. He began getting short of breath last night and came to ED. No recent issues with HD, with no cramping or dizziness. Seen on HD this AM. No issues noted. No dyspnea currently. No chest pain. No abdominal pain. No nausea, vomiting. Past History Past Medical History: atrial fib (on Coumadin ), ESRD (T//), hypertension Past Surgical History: Other (L AV Fistula) Social history: lives with family, full code. denies: smoking Family history: no significant family history Medications and Allergies Allergies Allergy/AdvReac Type Severity Reaction Status Date / Time No Known Allergies Allergy Unverified 02/22/16 08:22 Home Medications Medication Instructions Recorded Confirmed Last Taken Type Amiodarone [Cordarone 200 MG TAB] 200 mg PO QDAY #30 tablet 01/14/19 01/24/19 Unknown Rx Epoetin Curt 10,000 Unit [Procrit] 10,000 unit IV STEPAN PRN #1 vial 01/14/19 01/24/19 Unknown Rx Minoxidil [Loniten] 2.5 mg PO QDAY #30 tablet 01/14/19 01/24/19 Unknown Rx NIFEdipine XL [Procardia Xl] 90 mg PO QDAY #30 tablet 01/14/19 01/24/19 Unknown Rx Pantoprazole [Protonix TAB] 40 mg PO QDAY #30 tablet 01/14/19 01/24/19 Unknown Rx Sucralfate [Carafate] 1 gm PO ACHS #90 tablet 01/14/19 01/24/19 Unknown Rx Warfarin [Coumadin] 7.5 mg PO QDAY #30 tablet 01/14/19 01/24/19 Unknown Rx carvediloL [Coreg] 25 mg PO QDAY #30 tab 01/14/19 01/24/19 Unknown Rx cloNIDine-TTS PATCH [Catapres-Tts 1 patch TD Q7D #4 patch 01/14/19 01/24/19 Unknown Rx 0.3mg Patch] hydrALAZINE [Apresoline TAB] 100 mg PO TID #90 tab 01/14/19 01/24/19 Unknown Rx Cinacalcet 30 mg PO DAILY 01/24/19 01/24/19 Unknown History Furosemide 80 mg PO DAILY 01/24/19 01/24/19 Unknown History Active Meds: Active Medications Acetaminophen (Tylenol) 650 mg PO Q4H PRN PRN Reason: Pain MILD(1-3)/Fever >100.5/NIELSON Amiodarone HCl (Cordarone) 200 mg PO QDAY [facility] Carvedilol (Coreg) 25 mg PO QDAY [facility] Clonidine HCl (Catapres-Tts Patch) 0.3 mg TD Th [facility] Diphenhydramine HCl (Benadryl) 25 mg IV Q6H PRN PRN Reason: Itching Docusate Sodium (Colace) 100 mg PO BID [facility] Last Admin: 01/24/19 10:00 Dose: Not Given Documented by: Epoetin Curt (Procrit) 10,000 unit IV STEPAN PRN PRN Reason: hemodialysis Hydralazine HCl (Apresoline) 100 mg PO TID [facility] Last Admin: 01/24/19 08:48 Dose: 100 mg Documented by: Sodium Chloride (Nacl 0.9%) 100 mls @ 999 mls/hr IV STEPAN PRN PRN Reason: Hypotension Minoxidil (Loniten) 2.5 mg PO QDAY [facility] Nifedipine (Procardia Xl) 90 mg PO QDAY@0600 [facility] Last Admin: 01/24/19 07:48 Dose: 90 mg Documented by: Nitroglycerin (Nitrostat) 0.4 mg SL .Q5MIN PRN PRN Reason: Chest Pain Ondansetron HCl (Zofran) 4 mg IV Q6H PRN PRN Reason: Nausea And Vomiting Oxycodone/Acetaminophen (Percocet 5/325) 1 tab PO Q6H PRN PRN Reason: Pain, Moderate (4-6) Pantoprazole Sodium (Protonix) 40 mg PO QDAY [facility] Sodium Chloride (Sodium Chloride Flush Syringe 10 Ml) 10 ml IV BID [facility] Last Admin: 01/24/19 10:00 Dose: Not Given Documented by: Sodium Chloride (Sodium Chloride Flush Syringe 10 Ml) 10 ml IV PRN PRN PRN Reason: LINE FLUSH Sucralfate (Carafate) 1 gm PO ACHS [facility] Last Admin: 01/24/19 11:30 Dose: Not Given Documented by: Warfarin Sodium (Coumadin) 7.5 mg PO DAILY@1700 [facility] Review of Systems Constitutional: no fever, no fatigue Ears, nose, mouth and throat: no ear pain Cardiovascular: no chest pain, no orthopnea, no dyspnea on exertion Respiratory: no cough, no shortness of breath, no dyspnea on exertion, no congestion Gastrointestinal: no abdominal pain, no nausea, no vomiting, no diarrhea Genitourinary Male: no dysuria Musculoskeletal: no neck stiffness, no hot joints Integumentary: no rash Neurological: no headaches Psychiatric: no anxiety Exam - Vital Signs Vital signs: Vital Signs Pulse Resp Pulse Ox 82 19 96 01/24/19 02:31 01/24/19 02:31 01/24/19 02:31 - General Appearance General appearance: well-developed, well-nourished, appears stated age EENT: PERRL, mucous membranes moist Neck: Present: neck supple, trachea midline. Absent: JVD/HJR, Masses Respiratory: Clear to Ascultation Heart: regular, S1S2 Gastrointestinal: Present: normoactive bowel sounds. Absent: tenderness Integumentary: no rash, warm and dry Neurologic: no focal deficit, no asterixis, alert and oriented x3 Psychiatric: mood/affect appropriate Results - Lab Results 01/24/19 00:02 01/24/19 00:02 Most recent lab results Calcium 9.5 mg/dL (8.4-10.2) 01/24/19 00:02 Assessment and Plan # ESRD: will provide HD today for shortness of breath. Continue HD // or prn based on labs. - avoid nephrotoxins - daily labs - renal diet - renally dose meds # Anemia: EDITH with HD prn # HTN: BP high. UF as tolerated, dyspnea improving with HD. Continue home meds post HD # Acidosis: HD as above # Secondary Hyperparathyroidism: continue home binders
--- NOTE | 2019-01-24 15:46 | Event Note ---
Date: 01/24/19 Patient with ESRD on dialysis presents with missed hemodialysis, chest pain. I have seen and examined him. Dialysis today.
[2019-01-24] MEDS ORDERED: WARFARIN 7.5 MG TAB PO SCH (17:00)
[2019-01-24] MEDS: carvediloL 25 MG TAB PO SCH (18:10)
[2019-01-24] MEDS: PANTOPRAZOLE 40 MG TAB PO SCH (18:10)
[2019-01-24] MEDS: MINOXIDIL 2.5 MG TAB PO SCH (18:10)
[2019-01-24 20:19] LABS: Creatine Kinase MB 2.9 ng/mL (0.0-4.0)
[2019-01-25] MEDS: NIFEdipine XL 90 MG TAB PO SCH (05:03)
[2019-01-25 06:28] LABS: Basophils % (Auto) 0.8 % (0.0-1.8); Eosinophils # (Auto) 0.5 K/mm3 (0.0-0.4); Eosinophils % (Auto) 9.2 % (0.0-4.3); Hematocrit 23.8 % (35.5-45.6); Hemoglobin 7.8 gm/dl (11.8-15.2); Lymphocytes # (Auto) 0.9 K/mm3 (1.2-5.4); Lymphocytes % (Auto) 16.5 % (13.4-35.0); Mean Corpuscular HGB Conc 33 % (32-34); Mean Corpuscular Volume 90 fl (84-94); Monocytes # (Auto) 0.6 K/mm3 (0.0-0.8); Monocytes % (Auto) 10.5 % (0.0-7.3); Platelet Count 188 K/mm3 (140-440); Red Blood Count 2.66 M/mm3 (3.65-5.03); Red Cell Distribution Width 18.6 % (13.2-15.2)
[2019-01-25 06:38] LABS: INR 2.37 (0.87-1.13)
[2019-01-25 06:55] LABS: Calcium 8.8 mg/dL (8.4-10.2)
[2019-01-25] MEDS: SUCRALFATE 1 GM TAB PO SCH ×2 (08:00→11:33)
--- NOTE | 2019-01-25 09:03 | Progress Note ---
Assessment and Plan Atypical chest pain, musculoskeletal normal myocardial perfusion by MPI 01/07/19 Shortness of breath cxr this presentation shows a persistent cardiomegaly, with worse perihilar infiltrates, and possible right lower lobe consolidation. pt admits to one missed dialysis session this week Paroxysmal afib currently in sinus rhythm; on beta blockers for suppression on warfarin for anticoagulation ESRD on dialysis Hypertension Chronic Anemia Recommendations: Pulmonary evaluation for persistent diffuse pulmonary opacities. The appearance is not consistent with cardiogenic pulmonary edema. Echocardiogram for left ventricular function and valvular function assessment. Subjective Date of service: 01/25/19 Interval history: Patient reports his breathing improved after dialysis. He denies chest pain. Objective Vital Signs Temp Pulse Resp Resp BP Pulse Ox 01/25/19 08:03 20 01/25/19 00:00 105 H 01/24/19 18:10 104 H 190/100 01/24/19 18:00 100 H 01/24/19 16:00 98.2 F 102 H 20 187/99 01/24/19 15:30 107 H 192/108 01/24/19 15:15 107 H 185/104 01/24/19 15:00 105 H 192/106 01/24/19 14:45 105 H 182/105 01/24/19 14:30 104 H 188/106 01/24/19 14:15 102 H 187/106 01/24/19 14:00 102 H 194/106 01/24/19 13:45 190 H 01/24/19 13:30 98 H 191/109 01/24/19 13:15 98 H 186/102 01/24/19 13:00 98 H 197/109 01/24/19 12:45 97 H 195/111 01/24/19 12:30 95 H 194/106 01/24/19 12:21 97.5 F L 100 H 20 188/97 87 01/24/19 12:20 97 F L 99 H 20 208/104 01/24/19 10:00 20 20 96 - Physical Examination General: No Apparent Distress HEENT: Positive: PERRL Neck: Positive: trachea midline. Negative: Masses Cardiac: Positive: Reg Rate and Rhythm Lungs: Positive: Decreased Breath Sounds Neuro: Positive: Grossly Intact Extremities: Present: +1 Edema - Labs and Meds Cardiac Enzymes 01/24/19 Range/Units 19:15 CK-MB (CK-2) 2.9 (0.0-4.0) ng/mL Coagulation 01/25/19 Range/Units 05:14 PT 26.4 H (12.2-14.9) Sec. INR 2.37 H (0.87-1.13) CBC 01/25/19 Range/Units 05:14 WBC 5.6 (4.5-11.0) K/mm3 RBC 2.66 L (3.65-5.03) M/mm3 Hgb 7.8 L (11.8-15.2) gm/dl Hct 23.8 L (35.5-45.6) % Plt Count 188 (140-440) K/mm3 Lymph # 0.9 L (1.2-5.4) K/mm3 [place] # 0.6 (0.0-0.8) K/mm3 Eos # 0.5 H (0.0-0.4) K/mm3 Baso # 0.0 (0.0-0.1) K/mm3 Comprehensive Metabolic Panel 01/25/19 Range/Units 05:14 Sodium 137 (137-145) mmol/L Potassium 4.6 (3.6-5.0) mmol/L Chloride 97.2 L (98-107) mmol/L Carbon Dioxide 23 (22-30) mmol/L BUN 43 H (9-20) mg/dL Creatinine 9.1 H (0.8-1.5) mg/dL Glucose 95 (75-100) mg/dL Calcium 8.8 (8.4-10.2) mg/dL
[2019-01-25] MEDS ORDERED: NON-FORMULARY EACH (Furosemide 80 MG) PO SCH (10:30)
[2019-01-25] MEDS ORDERED: NON-FORMULARY EACH (Cinacalcet 30 MG) PO SCH (10:30)
[2019-01-25] MEDS ORDERED: FUROSEMIDE 40 MG TAB PO SCH (11:00)
[2019-01-25] MEDS ORDERED: CINACALCET 30 MG TAB PO SCH (11:00)
[2019-01-25] MEDS: PANTOPRAZOLE 40 MG TAB PO SCH (11:31)
[2019-01-25] MEDS: DOCUSATE SODIUM 100 MG CAP PO SCH (11:31)
[2019-01-25] MEDS: MINOXIDIL 2.5 MG TAB PO SCH (11:31)
[2019-01-25] MEDS: carvediloL 25 MG TAB PO SCH (11:32)
[2019-01-25] MEDS: hydrALAZINE 100 MG TAB PO SCH ×2 (11:32→14:00)
--- NOTE | 2019-01-25 11:44 | XRay Report ---
CHEST 1 VIEW INDICATION: pulmonary opacities. COMPARISON: 01/23/2018. FINDINGS: Support devices: None. Heart: Stable cardiomegaly. Lungs/Pleura: Marked improvement in bilateral opacities greatest at the perihilar region. Mild residu al remains. Additional findings: None. IMPRESSION: Marked interval improvement. Asymmetric edema is favored. Signer Name: Roland Buitrago MD Signed: 01/25/2019 11:40 AM Workstation Name: [id number]
--- NOTE | 2019-01-25 11:45 | Progress Note ---
Assessment and Plan # ESRD: s/p HD yesterday for shortness of breath. Continue HD // or prn based on labs. Due tomorrow, no indication for HD today - avoid nephrotoxins - daily labs - renal diet - renally dose meds # Anemia: EDITH with HD prn, hemoglobin 7.8 # HTN: BP high but improved. UF as tolerated with HD. Continue home meds post HD # Acidosis: HD as above # Secondary Hyperparathyroidism: continue home binders Thank you for this consult. Subjective Date of service: 01/25/19 Interval history: No acute events noted. Feeling well today. No issues with HD noted yesterday. No dyspnea, chest pain noted. Normal appetite. Ready to go home. Objective - Exam Narrative Exam: General appearance: well-developed, well-nourished, appears stated age EENT: PERRL, mucous membranes moist Neck: Present: neck supple, trachea midline. Absent: JVD/HJR, Masses Respiratory: Clear to Ascultation Heart: regular, S1S2 Gastrointestinal: Present: normoactive bowel sounds. Absent: tenderness Integumentary: no rash, warm and dry Neurologic: no focal deficit, no asterixis, alert and oriented x3 Psychiatric: mood/affect appropriate - Vital Signs Vital signs: Vital Signs - 12hr 01/25/19 01/25/19 01/25/19 00:00 00:01 05:28 Temperature 98.2 F 98.1 F Pulse Rate 105 H 108 H 101 H Respiratory 18 18 Rate Blood Pressure 155/94 155/87 O2 Sat by Pulse 88 92 Oximetry 01/25/19 01/25/19 01/25/19 08:03 09:01 09:03 Temperature 98.0 F Pulse Rate 100 H Respiratory 20 18 20 Rate Blood Pressure 153/86 O2 Sat by Pulse 89 Oximetry 01/25/19 11:32 Temperature Pulse Rate 100 H Respiratory Rate Blood Pressure 156/86 O2 Sat by Pulse Oximetry - Lab 01/25/19 05:14 01/25/19 05:14 Most recent lab results Calcium 8.8 mg/dL (8.4-10.2) 01/25/19 05:14 Medications & Allergies - Medications Allergies/Adverse Reactions: Allergies No Known Allergies Allergy (Unverified 02/22/16 08:22) Home Medications: Home Medications Medication Instructions Recorded Confirmed Last Taken Type Amiodarone [Cordarone 200 MG TAB] 200 mg PO QDAY #30 tablet 01/14/19 01/24/19 Unknown Rx Epoetin Curt 10,000 Unit [Procrit] 10,000 unit IV STEPAN PRN #1 vial 01/14/19 01/24/19 Unknown Rx Minoxidil [Loniten] 2.5 mg PO QDAY #30 tablet 01/14/19 01/24/19 Unknown Rx NIFEdipine XL [Procardia Xl] 90 mg PO QDAY #30 tablet 01/14/19 01/24/19 Unknown Rx Pantoprazole [Protonix TAB] 40 mg PO QDAY #30 tablet 01/14/19 01/24/19 Unknown Rx Sucralfate [Carafate] 1 gm PO ACHS #90 tablet 01/14/19 01/24/19 Unknown Rx Warfarin [Coumadin] 7.5 mg PO QDAY #30 tablet 01/14/19 01/24/19 Unknown Rx carvediloL [Coreg] 25 mg PO QDAY #30 tab 01/14/19 01/24/19 Unknown Rx cloNIDine-TTS PATCH [Catapres-Tts 1 patch TD Q7D #4 patch 01/14/19 01/24/19 Unknown Rx 0.3mg Patch] hydrALAZINE [Apresoline TAB] 100 mg PO TID #90 tab 01/14/19 01/24/19 Unknown Rx Cinacalcet 30 mg PO DAILY 01/24/19 01/24/19 Unknown History Furosemide 80 mg PO DAILY 01/24/19 01/24/19 Unknown History Active Medications: Generic Name Dose Route Start Last Admin Trade Name Freq PRN Reason Stop Dose Admin Acetaminophen 650 mg 01/24/19 04:24 01/25/19 08:03 Tylenol PO 650 mg Q4H PRN Administration Pain MILD(1-3)/Fever >100.5/NIELSON Carvedilol 25 mg 01/24/19 10:00 01/25/19 11:32 Coreg PO 25 mg QDAY [facility] Administration Cinacalcet 30 mg 01/25/19 11:00 01/25/19 11:40 Sensipar PO 30 mg QDAY [facility] Administration Clonidine HCl 0.3 mg 01/24/19 08:00 01/24/19 18:18 Catapres-Tts Patch TD Not Given Th [facility] Diphenhydramine HCl 25 mg 12/19/19 04:27 Benadryl IV Q6H PRN Itching Docusate Sodium 100 mg 01/24/19 10:00 01/25/19 11:31 Colace PO 100 mg BID [facility] Administration Epoetin Curt 10,000 unit 01/24/19 06:54 Procrit IV STEPAN PRN hemodialysis Furosemide 80 mg 01/25/19 11:00 01/25/19 11:40 Lasix PO 80 mg DAILY@0600 [facility] Administration Hydralazine HCl 100 mg 01/24/19 08:00 01/25/19 11:32 Apresoline PO 100 mg TID [facility] Administration Sodium Chloride 100 mls @ 999 mls/hr 01/24/19 06:53 Nacl 0.9% IV STEPAN PRN Hypotension Minoxidil 2.5 mg 01/24/19 10:00 01/25/19 11:31 Loniten PO 2.5 mg QDAY [facility] Administration Nifedipine 90 mg 01/24/19 06:00 01/25/19 05:03 Procardia Xl PO 90 mg QDAY@0600 [facility] Administration Nitroglycerin 0.4 mg 01/24/19 04:27 Nitrostat SL .Q5MIN PRN Chest Pain Ondansetron HCl 4 mg 01/24/19 04:24 Zofran IV Q6H PRN Nausea And Vomiting Oxycodone/Acetaminophen 1 tab 01/24/19 04:24 Percocet 5/325 PO Q6H PRN Pain, Moderate (4-6) Pantoprazole Sodium 40 mg 01/24/19 10:00 01/25/19 11:31 Protonix PO 40 mg QDAY [facility] Administration Sodium Chloride 10 ml 01/24/19 10:00 01/25/19 11:34 Sodium Chloride Flush Syringe 10 Ml IV 10 ml BID [facility] Administration Sodium Chloride 10 ml 01/24/19 04:24 Sodium Chloride Flush Syringe 10 Ml IV PRN PRN LINE FLUSH Sucralfate 1 gm 01/24/19 07:30 01/25/19 11:33 Carafate PO 1 gm ACHS [facility] Administration Warfarin Sodium 7.5 mg 01/24/19 17:00 01/24/19 18:16 Coumadin PO 7.5 mg DAILY@1700 [facility] Administration
--- NOTE | 2019-01-25 12:23 | Consultation ---
History of Present Illness Consult date: 01/25/19 Requesting physician: JESSICA BROCK Reason for consult: abnormal CXR/CT History of present illness: 53 y/o male admitted two days ago with dyspnea and chest pain. CXR showed bilateral pulmonary edema in bat wing pattern. At suggestion of Cardiology, pulmonary was consulted. Repeat CXR today has significant improvement with diuresis only. Past History Past Medical History: atrial fib (on Coumadin ), ESRD (T//), hypertension Past Surgical History: Other (L AV Fistula) Social history: lives with family, full code. denies: smoking Family history: no significant family history Medications and Allergies Allergies Allergy/AdvReac Type Severity Reaction Status Date / Time No Known Allergies Allergy Unverified 02/22/16 08:22 Home Medications Medication Instructions Recorded Confirmed Last Taken Type Amiodarone [Cordarone 200 MG TAB] 200 mg PO QDAY #30 tablet 01/14/19 01/24/19 Unknown Rx Epoetin Curt 10,000 Unit [Procrit] 10,000 unit IV STEPAN PRN #1 vial 01/14/19 01/24/19 Unknown Rx Minoxidil [Loniten] 2.5 mg PO QDAY #30 tablet 01/14/19 01/24/19 Unknown Rx NIFEdipine XL [Procardia Xl] 90 mg PO QDAY #30 tablet 01/14/19 01/24/19 Unknown Rx Pantoprazole [Protonix TAB] 40 mg PO QDAY #30 tablet 01/14/19 01/24/19 Unknown Rx Sucralfate [Carafate] 1 gm PO ACHS #90 tablet 01/14/19 01/24/19 Unknown Rx Warfarin [Coumadin] 7.5 mg PO QDAY #30 tablet 01/14/19 01/24/19 Unknown Rx carvediloL [Coreg] 25 mg PO QDAY #30 tab 01/14/19 01/24/19 Unknown Rx cloNIDine-TTS PATCH [Catapres-Tts 1 patch TD Q7D #4 patch 01/14/19 01/24/19 Unknown Rx 0.3mg Patch] hydrALAZINE [Apresoline TAB] 100 mg PO TID #90 tab 01/14/19 01/24/19 Unknown Rx Cinacalcet 30 mg PO DAILY 01/24/19 01/24/19 Unknown History Furosemide 80 mg PO DAILY 01/24/19 01/24/19 Unknown History Active Meds: Active Medications Acetaminophen (Tylenol) 650 mg PO Q4H PRN PRN Reason: Pain MILD(1-3)/Fever >100.5/NIELSON Last Admin: 01/25/19 08:03 Dose: 650 mg Documented by: Carvedilol (Coreg) 25 mg PO QDAY [facility] Last Admin: 01/25/19 11:32 Dose: 25 mg Documented by: Cinacalcet (Sensipar) 30 mg PO QDAY [facility] Last Admin: 01/25/19 11:40 Dose: 30 mg Documented by: Clonidine HCl (Catapres-Tts Patch) 0.3 mg TD Th [facility] Last Admin: 01/24/19 18:18 Dose: Not Given Documented by: Diphenhydramine HCl (Benadryl) 25 mg IV Q6H PRN PRN Reason: Itching Docusate Sodium (Colace) 100 mg PO BID [facility] Last Admin: 01/25/19 11:31 Dose: 100 mg Documented by: Epoetin Curt (Procrit) 10,000 unit IV STEPAN PRN PRN Reason: hemodialysis Furosemide (Lasix) 80 mg PO DAILY@0600 [facility] Last Admin: 01/25/19 11:40 Dose: 80 mg Documented by: Hydralazine HCl (Apresoline) 100 mg PO TID [facility] Last Admin: 01/25/19 11:32 Dose: 100 mg Documented by: Sodium Chloride (Nacl 0.9%) 100 mls @ 999 mls/hr IV STEPAN PRN PRN Reason: Hypotension Minoxidil (Loniten) 2.5 mg PO QDAY [facility] Last Admin: 01/25/19 11:31 Dose: 2.5 mg Documented by: Nifedipine (Procardia Xl) 90 mg PO QDAY@0600 [facility] Last Admin: 01/25/19 05:03 Dose: 90 mg Documented by: Nitroglycerin (Nitrostat) 0.4 mg SL .Q5MIN PRN PRN Reason: Chest Pain Ondansetron HCl (Zofran) 4 mg IV Q6H PRN PRN Reason: Nausea And Vomiting Oxycodone/Acetaminophen (Percocet 5/325) 1 tab PO Q6H PRN PRN Reason: Pain, Moderate (4-6) Pantoprazole Sodium (Protonix) 40 mg PO QDAY [facility] Last Admin: 01/25/19 11:31 Dose: 40 mg Documented by: Sodium Chloride (Sodium Chloride Flush Syringe 10 Ml) 10 ml IV BID [facility] Last Admin: 01/25/19 11:34 Dose: 10 ml Documented by: Sodium Chloride (Sodium Chloride Flush Syringe 10 Ml) 10 ml IV PRN PRN PRN Reason: LINE FLUSH Sucralfate (Carafate) 1 gm PO ACHS [facility] Last Admin: 01/25/19 11:33 Dose: 1 gm Documented by: Warfarin Sodium (Coumadin) 7.5 mg PO DAILY@1700 [facility] Last Admin: 01/24/19 18:16 Dose: 7.5 mg Documented by: Physical Examination Vital signs: Vital Signs Pulse Resp Pulse Ox 82 19 96 01/24/19 02:31 01/24/19 02:31 01/24/19 02:31 Results - Laboratory Findings CBC and BMP: 01/25/19 05:14 01/25/19 05:14 PT/INR, D-dimer PT 26.4 Sec. (12.2-14.9) H 01/25/19 05:14 INR 2.37 (0.87-1.13) H 01/25/19 05:14 Abnormal lab findings: Abnormal Labs 01/24/19 01/24/19 01/24/19 00:02 00:02 00:37 RBC 2.78 L Hgb 8.2 L Hct 25.3 L RDW 19.2 H [place] % (Auto) 8.6 H Eos % (Auto) 10.9 H Lymph # Eos # 0.8 H PT 25.0 H INR 2.21 H APTT 40.4 H Chloride Carbon Dioxide 17 L BUN 70 H Creatinine 13.2 H Glucose 104 H Troponin T 0.055 H HDL Cholesterol 70 H 01/24/19 01/24/19 01/24/19 02:59 05:35 07:42 RBC Hgb Hct RDW [place] % (Auto) Eos % (Auto) Lymph # Eos # PT INR APTT Chloride Carbon Dioxide BUN Creatinine Glucose Troponin T 0.055 H 0.054 H 0.059 H HDL Cholesterol 01/24/19 01/25/19 01/25/19 19:15 05:14 05:14 RBC 2.66 L Hgb 7.8 L Hct 23.8 L RDW 18.6 H [place] % (Auto) 10.5 H Eos % (Auto) 9.2 H Lymph # 0.9 L Eos # 0.5 H PT INR APTT Chloride 97.2 L Carbon Dioxide BUN 43 H Creatinine 9.1 H Glucose Troponin T 0.071 H D HDL Cholesterol 01/25/19 05:14 RBC Hgb Hct RDW [place] % (Auto) Eos % (Auto) Lymph # Eos # PT 26.4 H INR 2.37 H APTT Chloride Carbon Dioxide BUN Creatinine Glucose Troponin T HDL Cholesterol - Diagnostic Findings Chest x-ray: image reviewed Assessment and Plan patient's cxr is markedly improved per report. Cannot see imaging. If this were not edema then there would have been no improvement with diuresis. At this point, will sign off.
--- NOTE | 2019-01-25 13:35 | Progress Note ---
Hospitalist Physical - Constitutional Vitals: Temp Pulse Resp BP Pulse Ox 98.3 F 98 H 18 159/93 88 01/25/19 12:45 01/25/19 12:45 01/25/19 12:45 01/25/19 12:45 01/25/19 12:45 General appearance: Present: no acute distress Results - Labs CBC & Chem 7: 01/25/19 05:14 01/25/19 05:14 Labs: Laboratory Last Values WBC 5.6 K/mm3 (4.5-11.0) 01/25/19 05:14 RBC 2.66 M/mm3 (3.65-5.03) L 01/25/19 05:14 Hgb 7.8 gm/dl (11.8-15.2) L 01/25/19 05:14 Hct 23.8 % (35.5-45.6) L 01/25/19 05:14 MCV 90 fl (84-94) 01/25/19 05:14 MCH 29 pg (28-32) 01/25/19 05:14 MCHC 33 % (32-34) 01/25/19 05:14 RDW 18.6 % (13.2-15.2) H 01/25/19 05:14 Plt Count 188 K/mm3 (140-440) 01/25/19 05:14 Lymph % (Auto) 16.5 % (13.4-35.0) 01/25/19 05:14 [place] % (Auto) 10.5 % (0.0-7.3) H 01/25/19 05:14 Eos % (Auto) 9.2 % (0.0-4.3) H 01/25/19 05:14 Baso % (Auto) 0.8 % (0.0-1.8) 01/25/19 05:14 Lymph # 0.9 K/mm3 (1.2-5.4) L 01/25/19 05:14 [place]mer[place]da # 0.6 K/mm3 (0.0-0.8) 01/25/19 05:14 Eos # 0.5 K/mm3 (0.0-0.4) H 01/25/19 05:14 Baso # 0.0 K/mm3 (0.0-0.1) 01/25/19 05:14 Seg Neutrophils % 63.0 % (40.0-70.0) 01/25/19 05:14 Seg Neutrophils # 3.6 K/mm3 (1.8-7.7) 01/25/19 05:14 PT 26.4 Sec. (12.2-14.9) H 01/25/19 05:14 INR 2.37 (0.87-1.13) H 01/25/19 05:14 APTT 40.4 Sec. (24.2-36.6) H 01/24/19 00:37 Sodium 137 mmol/L (137-145) 01/25/19 05:14 Potassium 4.6 mmol/L (3.6-5.0) 01/25/19 05:14 Chloride 97.2 mmol/L (98-107) L 01/25/19 05:14 Carbon Dioxide 23 mmol/L (22-30) 01/25/19 05:14 Anion Gap 21 mmol/L 01/25/19 05:14 BUN 43 mg/dL (9-20) H 01/25/19 05:14 Creatinine 9.1 mg/dL (0.8-1.5) H 01/25/19 05:14 Estimated GFR 7 ml/min 01/25/19 05:14 BUN/Creatinine Ratio 5 % 01/25/19 05:14 Glucose 95 mg/dL (75-100) 01/25/19 05:14 Calcium 8.8 mg/dL (8.4-10.2) 01/25/19 05:14 Total Creatine Kinase 115 units/L (55-170) 01/24/19 19:15 CK-MB (CK-2) 2.9 ng/mL (0.0-4.0) 01/24/19 19:15 CK-MB (CK-2) Rel Index 2.5 (0-4) 01/24/19 19:15 Troponin T 0.071 ng/mL (0.00-0.029) H D 01/24/19 19:15 Triglycerides 130 mg/dL (2-149) 01/24/19 00:02 Cholesterol 172 mg/dL (50-199) 01/24/19 00:02 LDL Cholesterol Direct 85 mg/dL (50-130) 01/24/19 00:02 HDL Cholesterol 70 mg/dL (40-59) H 01/24/19 00:02 Cholesterol/HDL Ratio 2.45 % 01/24/19 00:02 Active Medications - Current Medications Current Medications: Generic Name Dose Route Start Last Admin Trade Name Freq PRN Reason Stop Dose Admin Acetaminophen 650 mg 01/24/19 04:24 01/25/19 08:03 Tylenol PO 650 mg Q4H PRN Administration Pain MILD(1-3)/Fever >100.5/NIELSON Carvedilol 25 mg 01/24/19 10:00 01/25/19 11:32 Coreg PO 25 mg QDAY [facility] Administration Cinacalcet 30 mg 01/25/19 11:00 01/25/19 11:40 Sensipar PO 30 mg QDAY [facility] Administration Clonidine HCl 0.3 mg 01/24/19 08:00 01/24/19 18:18 Catapres-Tts Patch TD Not Given Th [facility] Diphenhydramine HCl 25 mg 01/24/19 04:27 Benadryl IV Q6H PRN Itching Docusate Sodium 100 mg 01/24/19 10:00 01/25/19 11:31 Colace PO 100 mg BID [facility] Administration Epoetin Curt 10,000 unit 01/24/19 06:54 Procrit IV STEPAN PRN hemodialysis Furosemide 80 mg 01/25/19 11:00 01/25/19 11:40 Lasix PO 80 mg DAILY@0600 [facility] Administration Hydralazine HCl 100 mg 01/24/19 08:00 01/25/19 11:32 Apresoline PO 100 mg TID [facility] Administration Sodium Chloride 100 mls @ 999 mls/hr 01/24/19 06:53 Nacl 0.9% IV STEPAN PRN Hypotension Minoxidil 2.5 mg 01/24/19 10:00 01/25/19 11:31 Loniten PO 2.5 mg QDAY [facility] Administration Nifedipine 90 mg 01/24/19 06:00 01/25/19 05:03 Procardia Xl PO 90 mg QDAY@0600 [facility] Administration Nitroglycerin 0.4 mg 01/24/19 04:27 Nitrostat SL .Q5MIN PRN Chest Pain Ondansetron HCl 4 mg 01/24/19 04:24 Zofran IV Q6H PRN Nausea And Vomiting Oxycodone/Acetaminophen 1 tab 01/24/19 04:24 Percocet 5/325 PO Q6H PRN Pain, Moderate (4-6) Pantoprazole Sodium 40 mg 01/24/19 10:00 01/25/19 11:31 Protonix PO 40 mg QDAY [facility] Administration Sodium Chloride 10 ml 01/24/19 10:00 01/25/19 11:34 Sodium Chloride Flush Syringe 10 Ml IV 10 ml BID [facility] Administration Sodium Chloride 10 ml 01/24/19 04:24 Sodium Chloride Flush Syringe 10 Ml IV PRN PRN LINE FLUSH Sucralfate 1 gm 01/24/19 07:30 01/25/19 11:33 Carafate PO 1 gm ACHS [facility] Administration Warfarin Sodium 7.5 mg 01/24/19 17:00 01/24/19 18:16 Coumadin PO 7.5 mg DAILY@1700 [facility] Administration Nutrition/Malnutrition Assess - Dietary Evaluation Nutrition/Malnutrition Findings: Nutrition Notes Start: 01/25/19 11:12 Freq: Status: Active Protocol: Document 01/25/19 11:12 CT (Rec: 01/25/19 11:21 CT [id number]) Co-Sign 01/25/19 11:12 LP Nutrition Notes Need for Assessment generated from: Education Initial or Follow up Assessment Current Diagnosis Hypertension Other Pertinent Diagnosis ESRD on HD, afib, chronic anemia Current Diet Renal Labs/Tests BUN 43 Cr 9.1 Pertinent Medications Coumadin Height 5 ft 9 in Weight 61.235 kg Usual Body Weight 61.235 kg [place] Body Weight (kg) 72.72 BMI 19.9 Intake Prior to Admission Fair Weight Status Appropriate Subjective/Other Information Coumadin education screen. Pt stated UBW is 135 lbs and he has noticed wt change d/t fluid accumulation and HD but did not know how many pounds. Pt stated he was eating fair [employer] d/t having no appetite at times. Pt stated he has had previous education for coumadin and vitamin k interactions, stating that he is well versed on the topic. Handout was left with pt. Pt ate 100% of his dinner and had 2 cereals for breakfast. He had requested only having cereal for breakfast. Pt stated he received Nepro at his previous dialysis center and would like it again. Burn Absent Trauma Absent GI Symptoms None Current % PO Good (75-100%) Minimum of two criteria No Energy Intake (non-severe) <75% Estimated Energy Requirement >7 days #1 Nutrition Diagnosis Inadequate oral intake Etiology poor appetite As Evidenced by Signs and Symptoms pt stating eating fair [employer] Is patient on ventilator? No Is Patient Ambulatory and/or Out of Bed Yes REE-([facility]-ambulatory/OOB) [ 1895.049 [id number]] Calculation Used for Recommendations [facility] Additional Notes Protein needs: >73 g/kg/day (> 1.2 g/kg/day) Fluid needs: 7191-0666 ml/day or per MD Nutrition Intervention Change Diet Order: Continue Renal Add Supplement/Snack (indicate name/kcal Add Nepro daily vanilla /protein ) Provides kCal: 425 Provides Protein (gm) 20 Teaching Recipient Patient Learning Readiness Good Teaching Methods Discussion,Handout Response to Teaching Verbalize understanding Education Handouts Provided Coumadin and vitamin K Barriers to Learning No Barriers RD phone number provided Yes Patient aware of follow up options Yes Goal #1 Meet >75% of energy and protein needs Goal #2 wt maintenance Anticipated Discharge Needs: Renal with ONS PRN Follow-Up By: 01/28/19 Additional Comments Follow up for PO/ONS intakes
--- NOTE | 2019-01-25 14:30 | Discharge Summary ---
Providers - Providers Date of Admission: 01/24/19 04:24 Date of discharge: 01/25/19 Attending physician: JESSICA BROCK 01/24/19 03:51 Consult to Physician [CONS] Urgent Comment: Dr. Morrow spoke with Dr. Cruz @ [phone] Consulting Provider: QUYEN ROSE Physician Instructions: Reason For Exam: esrd pulm edema, needing dialysis Primary care physician: WINDOWS SERVER SPECIALIST Hospitalization Condition: Fair Hospital course: Patient is 53-year-old -[place] male with history of ESRD on HD, hypertension, A. fib on anticoagulation who presented to [facility] ED with complaints of chest pain and missed HD session. Patient states that he's been experiencing intermittent chest pain for the past day. He rates the pain 5/10. There are no aggravating or relieving factors. Patient missed HD session due to malfunction of AV fistula. AV fistula was repaired but his next scheduled HD session at outpatient clinic is not until 01/24/19. Patient states he was unable to wait for clinic to open up to be dialyzed. He states that his ankles are swollen and he is becoming SOB with exertion. Review of medical records shows patient was admitted on 01/07/19 with similar complaints. Pt had thallium stress test during that admission which was negative. He was admitted, evaluated by Cardiology and Pulmonology. Cardiology stated chest pain is non cardiac. Dialysis was arranged and done. Afterwards he felt better, chest pain was resolved so discharged home. Disposition: DC-01 TO HOME OR SELFCARE - Discharge Diagnoses (1) Chest pain due to GERD Status: Acute (2) Pulmonary edema Status: Acute (3) Fluid overload Status: Acute (4) Chronic atrial fibrillation Status: Acute (5) End-stage renal disease needing dialysis Status: Acute (6) Hypertensive urgency Status: Acute Core Measure Documentation - Palliative Care Palliative Care/ Comfort Measures: Not Applicable - Core Measures Any of the following diagnoses?: none Exam - Constitutional Vitals: Temp Pulse Resp BP Pulse Ox 98.3 F 98 H 18 159/93 88 01/25/19 12:45 01/25/19 12:45 01/25/19 12:45 01/25/19 12:45 01/25/19 12:45 Plan Activity: advance as tolerated Diet: low fat, low cholesterol, low salt, renal Plan of Treatment: 1.Follow up with PCP in 1 week 2.Check INR in 1 week at PCP office 3.Routine hemodialysis as scheduled Follow up with: PRIMARY CAREMD [Primary Care Provider] - 3-5 Days Forms: Warfarin Discharge Instruction
[2019-01-25 15:25] VITALS: BP 146/82
== END 2019-01-25 15:20 | disposition home or self-care (01) ==
LOC: ED 23:18 → 4A 01-24 04:24
PROVIDERS: ADMIT Internal Medicine; ATTEND Internal Medicine
DX: R07.89 Other chest pain (principal); I12.0 Hypertensive chronic kidney disease with stage 5 chronic kidney disease or end stage renal disease; N18.6 End stage renal disease; I48.0 Paroxysmal atrial fibrillation; D50.0 Iron deficiency anemia secondary to blood loss (chronic); E87.2 Acidosis; N25.81 Secondary hyperparathyroidism of renal origin; J81.1 Chronic pulmonary edema; I48.20 Chronic atrial fibrillation, unspecified; Z79.01 Long term (current) use of anticoagulants; Z99.2 Dependence on renal dialysis
CPT/HCPCS: 36415; 71045; 80048; 80061; 82550; 82553; 84484; 85025; 85610; 85730; 87116; 93005; 93010; 93306; 96374; 96375; 99284; G0378; J1170; J2405; G0257

== ENCOUNTER 2019-02-09 17:10 | Observation (INO) | payer MEDICARE ==
--- NOTE | 2019-02-09 17:27 | Event Note ---
ED Screening Note Date of service: 02/09/19 Time: 17:26 ED Screening Note: Pt complains of mouth and oral bleeding x today post dialysis denies pain on coumadin This initial assessment/diagnostic orders/clinical plan/treatment(s) is/are subject to change based on patients health status, clinical progression and re- assessment by fellow clinical providers in the ED. Further treatment and workup at subsequent clinical providers discretion. Patient/guardian urged not to elope from the ED as their condition may be serious if not clinically assessed and managed. Initial orders include: labs
[2019-02-09 19:01] LABS: Basophils # (Auto) 0.1 K/mm3 (0.0-0.1); Basophils % (Auto) 2.9 % (0.0-1.8); Eosinophils # (Auto) 0.6 K/mm3 (0.0-0.4); Eosinophils % (Auto) 11.2 % (0.0-4.3); Hemoglobin 6.7 gm/dl (11.8-15.2); Lymphocytes # (Auto) 0.9 K/mm3 (1.2-5.4); Lymphocytes % (Auto) 18.1 % (13.4-35.0); Mean Corpuscular HGB Conc 34 % (32-34); Mean Corpuscular Volume 90 fl (84-94); Monocytes # (Auto) 0.5 K/mm3 (0.0-0.8); Monocytes % (Auto) 9.2 % (0.0-7.3); Platelet Count 263 K/mm3 (140-440); Red Blood Count 2.18 M/mm3 (3.65-5.03)
[2019-02-09 19:07] LABS: Hematocrit 19.7 % (35.5-45.6); Red Cell Distribution Width 20.1 % (13.2-15.2)
[2019-02-09 19:09] LABS: INR 4.32 (0.87-1.13); Partial Thromboplastin Time 43.6 Sec. (24.2-36.6)
[2019-02-09] MEDS ORDERED: SODIUM CHLORIDE 0.9% 500 ML 500 ML IV ONE (21:41)
--- NOTE | 2019-02-09 22:10 | Emergency Department Report ---
ED General Adult HPI - General Chief complaint: Medical Clearance Stated complaint: BLEEDING OUT OF MOUTH Time Seen by Provider: 02/09/19 17:25 Source: patient, EMS Mode of arrival: Ambulatory Limitations: No Limitations - History of Present Illness Initial comments: Patient is a 53-year-old [place] male with a past history of atrial fibrillation on Coumadin as well as end-stage renal disease who is presenting with resolved epistaxis. The patient states after dialysis he had a prolonged periods of time where his dialysis AV graft was bleeding. Pressure was held. I walking home patient states that he had some trickling of blood from the nose. Patient states he very coughed up a large amount of blood. This is resolved as well. Patient came to the hospital seeking treatment Y he was bleeding. He denies any chest pain shortness of breath fevers chills nausea vomiting at this time. Patient is no longer having any bleeding per mouth or nose. He denies melena. Patient states several weeks ago he did have some abdominal pain but this resolved as well. - Related Data Home Medications Medication Instructions Recorded Confirmed Last Taken Cinacalcet 30 mg PO DAILY 01/24/19 01/24/19 Unknown Furosemide 80 mg PO DAILY 01/24/19 01/24/19 Unknown Previous Rx's Medication Instructions Recorded Last Taken Type Amiodarone [Cordarone 200 MG TAB] 200 mg PO QDAY #30 tablet 01/14/19 Unknown Rx Epoetin Curt 10,000 Unit [Procrit] 10,000 unit IV STEPAN PRN #1 vial 01/14/19 Unknown Rx Minoxidil [Loniten] 2.5 mg PO QDAY #30 tablet 01/14/19 Unknown Rx NIFEdipine XL [Procardia Xl] 90 mg PO QDAY #30 tablet 01/14/19 Unknown Rx Pantoprazole [Protonix TAB] 40 mg PO QDAY #30 tablet 01/14/19 Unknown Rx Sucralfate [Carafate] 1 gm PO ACHS #90 tablet 01/14/19 Unknown Rx Warfarin [Coumadin] 7.5 mg PO QDAY #30 tablet 01/14/19 Unknown Rx carvediloL [Coreg] 25 mg PO QDAY #30 tab 01/14/19 Unknown Rx cloNIDine-TTS PATCH [Catapres-Tts 1 patch TD Q7D #4 patch 01/14/19 Unknown Rx 0.3mg Patch] hydrALAZINE [Apresoline TAB] 100 mg PO TID #90 tab 01/14/19 Unknown Rx Allergies Allergy/AdvReac Type Severity Reaction Status Date / Time No Known Allergies Allergy Unverified 02/22/16 08:22 ED Review of Systems ROS: Stated complaint: BLEEDING OUT OF MOUTH Other details as noted in HPI Comment: All other systems reviewed and negative ED Past Medical Hx - Past Medical History Hx Hypertension: Yes (Negative stress test [id number] per pt) Hx Heart Attack/AMI: No Hx Renal Disease: Yes (HD TThS. Last HD [id number]) - Surgical History Additional Surgical History: Left A/V Graft - Social History Smoking Status: Never Smoker Substance Use Type: None - Medications Home Medications: Home Medications Medication Instructions Recorded Confirmed Last Taken Type Amiodarone [Cordarone 200 MG TAB] 200 mg PO QDAY #30 tablet 01/14/19 01/24/19 Unknown Rx Epoetin Curt 10,000 Unit [Procrit] 10,000 unit IV STEPAN PRN #1 vial 01/14/19 01/24/19 Unknown Rx Minoxidil [Loniten] 2.5 mg PO QDAY #30 tablet 01/14/19 01/24/19 Unknown Rx NIFEdipine XL [Procardia Xl] 90 mg PO QDAY #30 tablet 01/14/19 01/24/19 Unknown Rx Pantoprazole [Protonix TAB] 40 mg PO QDAY #30 tablet 01/14/19 01/24/19 Unknown Rx Sucralfate [Carafate] 1 gm PO ACHS #90 tablet 01/14/19 01/24/19 Unknown Rx Warfarin [Coumadin] 7.5 mg PO QDAY #30 tablet 01/14/19 01/24/19 Unknown Rx carvediloL [Coreg] 25 mg PO QDAY #30 tab 01/14/19 01/24/19 Unknown Rx cloNIDine-TTS PATCH [Catapres-Tts 1 patch TD Q7D #4 patch 01/14/19 01/24/19 Un known Rx 0.3mg Patch] hydrALAZINE [Apresoline TAB] 100 mg PO TID #90 tab 01/14/19 01/24/19 Unknown Rx Cinacalcet 30 mg PO DAILY 01/24/19 01/24/19 Unknown History Furosemide 80 mg PO DAILY 01/24/19 01/24/19 Unknown History ED Physical Exam - General Limitations: No Limitations General appearance: alert, in no apparent distress - Head Head exam: Present: atraumatic, normocephalic - Eye Eye exam: Present: normal appearance - ENT ENT exam: Present: normal orophraynx, mucous membranes moist, other (patient bilateral turbinates show some very mild hyperemia but no active bleeding. There is no dried blood in the nares. Patient's saliva is not blood tinged. There is no bleeding at the teeth.) - Neck Neck exam: Present: normal inspection - Respiratory Respiratory exam: Present: normal lung sounds bilaterally. Absent: respiratory distress, wheezes, rales, rhonchi - Cardiovascular Cardiovascular Exam: Present: regular rate, normal rhythm. Absent: systolic murmur, diastolic murmur, rubs, gallop - GI/Abdominal GI/Abdominal exam: Present: soft, normal bowel sounds. Absent: distended, tenderness, guarding - Rectal Rectal exam: Present: deferred, heme (-) stool - Extremities Exam Extremities exam: Present: normal inspection - Back Exam Back exam: Present: normal inspection - Neurological Exam Neurological exam: Present: alert, oriented X3 - Psychiatric Psychiatric exam: Present: normal affect, normal mood - Skin Skin exam: Present: warm, dry, intact, normal color. Absent: rash ED Course Vital Signs 02/09/19 02/09/19 17:27 21:13 Temperature 98.4 F Pulse Rate 85 84 Respiratory 16 12 Rate Blood Pressure 156/86 Blood Pressure 134/77 [Right] O2 Sat by Pulse 100 100 Oximetry ED Medical Decision Making - Lab Data Result diagrams: 02/09/19 18:41 02/09/19 18:41 Lab Results 02/09/19 02/09/19 02/09/19 Range/Units 18:41 18:41 18:41 WBC 5.2 (4.5-11.0) K/mm3 RBC 2.18 L (3.65-5.03) M/mm3 Hgb 6.7 L (11.8-15.2) gm/dl Hct 19.7 L* (35.5-45.6) % MCV 90 (84-94) fl MCH 31 (28-32) pg MCHC 34 (32-34) % RDW 20.1 H (13.2-15.2) % Plt Count 263 (140-440) K/mm3 Lymph % (Auto) 18.1 (13.4-35.0) % [place] % (Auto) 9.2 H (0.0-7.3) % Eos % (Auto) 11.2 H (0.0-4.3) % Baso % (Auto) 2.9 H (0.0-1.8) % Lymph # 0.9 L (1.2-5.4) K/mm3 [place] # 0.5 (0.0-0.8) K/mm3 Eos # 0.6 H (0.0-0.4) K/mm3 Baso # 0.1 (0.0-0.1) K/mm3 Seg Neutrophils % 58.6 (40.0-70.0) % Seg Neutrophils # 3.0 (1.8-7.7) K/mm3 PT 42.5 H (12.2-14.9) Sec. INR 4.32 H (0.87-1.13) APTT 43.6 H (24.2-36.6) Sec. Sodium 137 (137-145) mmol/L Potassium 4.2 (3.6-5.0) mmol/L Chloride 96.6 L (98-107) mmol/L Carbon Dioxide 26 (22-30) mmol/L Anion Gap 19 mmol/L BUN 25 H (9-20) mg/dL Creatinine 4.2 H (0.8-1.5) mg/dL Estimated GFR 18 ml/min BUN/Creatinine Ratio 6 % Glucose 105 H (75-100) mg/dL Calcium 9.0 (8.4-10.2) mg/dL Total Bilirubin 0.40 (0.1-1.2) mg/dL AST 34 (5-40) units/L ALT 41 (7-56) units/L Alkaline Phosphatase 155 H (35-129) units/L Total Protein 6.7 (6.3-8.2) g/dL Albumin 4.0 (3.9-5) g/dL Albumin/Globulin Ratio 1.5 % - Medical Decision Making Patient with a supratherapeutic INR. This is likely cause of the patient's prolonged bleeding of his AV graft as well as the episode of epistaxis. Patient is not actively bleeding at this time. The patient will be admitted for observation to monitor the patient's bleeding. Also monitor the patient's INR returning back to therapeutic range. Patient's hemoglobin is lower than normal for this patient patient will be given 1 unit of packed red blood cells. Critical Care Time: Yes (30) Critical care attestation.: If time is entered above; I have spent that time in minutes in the direct care of this critically ill patient, excluding procedure time. ED Disposition Clinical Impression: End-stage renal disease on hemodialysis, Severe anemia, Supratherapeutic INR, Anticoagulated on Coumadin Disposition: OP ADMIT IP TO THIS HOSP Is pt being admited?: Yes Does the pt Need Aspirin: No Condition: Stable Time of Disposition: 22:11
--- NOTE | 2019-02-09 22:39 | History and Physical Report ---
History of Present Illness Date of admission: 02/09/19 22:12 History of present illness: 53-year-old man with a history of end-stage renal disease on dialysis Monday, , Monday, hypertension, A. fib on Coumadin comes emergency room for evaluation of bleeding. Patient states that after dialysis his fistula started bleeding, they got that under control at dialysis and wrapped his arm. On his way home he had a few drops of blood from his nose, bleeding from the left side of his mouth. He has had no further bleeding since he has been here in the emergency room Review Of Systems: Constitutional: no weight loss, chills, fever Ears, eyes, nose, mouth and throat: no nasal congestion, no nasal discharge, no sinus pressure, blurry vision, diplopia Neck: No neck pain or rigidity. Cardiovascular: No palpitations, chest pain Respiratory: No cough, shortness of breath Gastrointestinal: No hematochezia, abdominal pain Genitourinary : no dysuria, frequency , hematuria Musculoskeletal: no muscle ache , joint pain Integumentary: no rash, no pruritis Neurological: no parathesias, focal weakness Endocrine: no cold or heat intolerance, no polyuria or polydipsia Hematologic/Lymphatic: no easy bruising, no easy bleeding, no gland swelling Allergic/Immunologic: no urticaria, no angioedema. PAST MEDICAL HISTORY:hypertension,, A. fib, end-stage renal disease PAST SURGICAL HISTORY: AV fistula FAMILY HISTORY:hypertension, diabetes SOCIAL HISTORY: no tobacco, no drugs, alcohol Medications and Allergies Allergies Allergy/AdvReac Type Severity Reaction Status Date / Time No Known Allergies Allergy Unverified 02/22/16 08:22 Home Medications Medication Instructions Recorded Confirmed Last Taken Type Amiodarone [Cordarone 200 MG TAB] 200 mg PO QDAY 02/09/19 02/09/19 Unknown History Cinacalcet [Sensipar] 30 mg PO QDAY 02/09/19 02/09/19 Unknown History Furosemide [Lasix TAB] 80 mg PO QDAY 02/09/19 02/09/19 Unknown History Minoxidil [Loniten] 2.5 mg PO QDAY 02/09/19 02/09/19 Unknown History NIFEdipine [Nifedipine ER] 90 mg PO QDAY 02/09/19 02/09/19 Unknown History Pantoprazole [Protonix] 40 mg PO QDAY 02/09/19 02/09/19 Unknown History Warfarin Sodium 7.5 mg PO QDAY 02/09/19 02/09/19 Unknown History carvediloL [Coreg] 25 mg PO QDAY 02/09/19 02/09/19 Unknown History cloNIDine-TTS PATCH [Catapres-Tts 1 patch TD Q7D 02/09/19 02/09/19 Unknown History 0.3mg Patch] hydrALAZINE [Apresoline TAB] 100 mg PO TID 02/09/19 02/09/19 Unknown History Exam - Physical Exam Narrative exam: Gen. appearance: Patient lying in bed, no apparent distress HEENT: Normocephalic, atraumatic, pupils equally round and reactive to light, extraocular movement intact, and no sclericterus,. No JVD or thyromegaly or nodule,neck supple, no carotid bruit ,mucous membranes moist, no exudate or erythema Heart: S1, S2, regular rate and rhythm Lungs: Clear to auscultation bilaterally, breathing comfortable Abdomen: Positive bowel sounds, nontender, nondistended, no organomegaly Extremity: No edema, cyanosis, clubbing Skin: No rash, nodules, warm, dry Neuro: Oriented 3, cranial nerves II-12 intact, speech is fluent, motor and sensory intact - Constitutional Vitals: Temp Pulse Resp BP Pulse Ox 98.4 F 84 12 156/86 100 02/09/19 17:27 02/09/19 21:13 02/09/19 21:13 02/09/19 21:13 02/09/19 21:13 Results - Labs CBC & Chem 7: 02/09/19 18:41 02/09/19 18:41 Labs: Abnormal lab results 02/09/19 02/09/19 02/09/19 Range/Units 18:41 18:41 18:41 RBC 2.18 L (3.65-5.03) M/mm3 Hgb 6.7 L (11.8-15.2) gm/dl Hct 19.7 L* (35.5-45.6) % RDW 20.1 H (13.2-15.2) % [place] % (Auto) 9.2 H (0.0-7.3) % Eos % (Auto) 11.2 H (0.0-4.3) % Baso % (Auto) 2.9 H (0.0-1.8) % Lymph # 0.9 L (1.2-5.4) K/mm3 Eos # 0.6 H (0.0-0.4) K/mm3 PT 42.5 H (12.2-14.9) Sec. INR 4.32 H (0.87-1.13) APTT 43.6 H (24.2-36.6) Sec. Chloride 96.6 L (98-107) mmol/L BUN 25 H (9-20) mg/dL Creatinine 4.2 H (0.8-1.5) mg/dL Glucose 105 H (75-100) mg/dL Alkaline Phosphatase 155 H (35-129) units/L Crossmatch 02/09/19 Range/Units 22:00 RBC (3.65-5.03) M/mm3 Hgb (11.8-15.2) gm/dl Hct (35.5-45.6) % RDW (13.2-15.2) % [place] % (Auto) (0.0-7.3) % Eos % (Auto) (0.0-4.3) % Baso % (Auto) (0.0-1.8) % Lymph # (1.2-5.4) K/mm3 Eos # (0.0-0.4) K/mm3 PT (12.2-14.9) Sec. INR (0.87-1.13) APTT (24.2-36.6) Sec. Chloride (98-107) mmol/L BUN (9-20) mg/dL Creatinine (0.8-1.5) mg/dL Glucose (75-100) mg/dL Alkaline Phosphatase (35-129) units/L Crossmatch See Detail Assessment and Plan Assessment Bleedinf from fistula Consult vascular, bleeding stable Acute blood loss anemia Transfuse 1 unit of blood No further bleeding noted Monitor PT/INR End-stage renal disease on dialysis Consult renal A. fib on Coumadin INR is supratherapeutic Hold further Coumadin, monitor PT/INR DVT prophylaxis
[2019-02-09] MEDS ORDERED: ONDANSETRON 4 MG/2 ML INJ IV PRN (22:40)
[2019-02-09] MEDS ORDERED: ACETAMINOPHEN 325 MG TAB PO PRN (22:40)
[2019-02-09] MEDS ORDERED: SODIUM CHLORIDE 0.9% 500 ML 500 ML ONE (23:17)
[2019-02-10 08:08] LABS: Basophils # (Auto) 0.1 K/mm3 (0.0-0.1); Eosinophils # (Auto) 0.6 K/mm3 (0.0-0.4); Eosinophils % (Auto) 12.1 % (0.0-4.3); Hematocrit 22.2 % (35.5-45.6); Hemoglobin 7.3 gm/dl (11.8-15.2); Lymphocytes % (Auto) 20.6 % (13.4-35.0); Mean Corpuscular HGB Conc 33 % (32-34); Mean Corpuscular Volume 90 fl (84-94); Monocytes # (Auto) 0.7 K/mm3 (0.0-0.8); Platelet Count 256 K/mm3 (140-440); Red Blood Count 2.47 M/mm3 (3.65-5.03)
[2019-02-10 09:11] LABS: INR 4.16 (0.87-1.13)
[2019-02-10 09:16] LABS: Partial Thromboplastin Time 45.1 Sec. (24.2-36.6)
[2019-02-10 14:00] VITALS: BP 159/85
--- NOTE | 2019-02-10 14:17 | Consultation ---
History of Present Illness - Reason for Consult Consult date: 02/10/19 Bleeding from Left Arm Arteriovenous Fistula Requesting physician: ELIZABETH HYATT - History of Present Illness The patient is a 53-year-old male with a history of end-stage renal disease who was on hemodialysis through a left arm arteriovenous fistula. He is on Coumadin for atrial fibrillation with a supratherapeutic INR greater than 4. He went to hemodialysis on Monday and underwent dialysis without complications. He states after dialysis he had a prolonged bleeding was initially controlled with manual compression. While he was walking home he became bleeding from his nose as well as his fistula which prompted him to present to the emergency department. Upon presentation to the emergency department he was no longer bleeding from his nose or his fistula but was found to have the supratherapeutic INR of 4.25. He states that he recently moved back to [place] from [place] and followed up with his vascular surgeon Dr. Genaro Rajput and had a fistulogram with angioplasty performed in his office approximately 2 weeks ago. 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 He denies any additional complications. Past History Past Medical History: atrial fib, dialysis, ESRD, heart failure, hypertension, stroke Past Surgical History: Other (left arm AVF with multiple interventions) Medications and Allergies Allergies Allergy/AdvReac Type Severity Reaction Status Date / Time No Known Allergies Allergy Unverified 02/22/16 08:22 Home Medications Medication Instructions Recorded Confirmed Last Taken Type Amiodarone [Cordarone 200 MG TAB] 200 mg PO QDAY 02/09/19 02/09/19 Unknown History Cinacalcet [Sensipar] 30 mg PO QDAY 02/09/19 02/09/19 Unknown History Furosemide [Lasix TAB] 80 mg PO QDAY 02/09/19 02/09/19 Unknown History Minoxidil [Loniten] 2.5 mg PO QDAY 02/09/19 02/09/19 Unknown History NIFEdipine [Nifedipine ER] 90 mg PO QDAY 02/09/19 02/09/19 Unknown History Pantoprazole [Protonix] 40 mg PO QDAY 02/09/19 02/09/19 Unknown History Warfarin Sodium 7.5 mg PO QDAY 02/09/19 02/09/19 Unknown History carvediloL [Coreg] 25 mg PO QDAY 02/09/19 02/09/19 Unknown History cloNIDine-TTS PATCH [Catapres-Tts 1 patch TD Q7D 02/09/19 02/09/19 Unknown History 0.3mg Patch] hydrALAZINE [Apresoline TAB] 100 mg PO TID 02/09/19 02/09/19 Unknown History Active Meds: Active Medications Acetaminophen (Tylenol) 650 mg PO Q4H PRN PRN Reason: Pain MILD(1-3)/Fever >100.5/NIELSON Ondansetron HCl (Zofran) 4 mg IV Q8H PRN PRN Reason: Nausea And Vomiting Sodium Chloride (Sodium Chloride Flush Syringe 10 Ml) 10 ml IV BID DESTIN Last Admin: 02/10/19 09:44 Dose: 10 ml Documented by: Sodium Chloride (Sodium Chloride Flush Syringe 10 Ml) 10 ml IV PRN PRN PRN Reason: LINE FLUSH Review of Systems All systems: negative Exam - Constitutional Vitals: Temp Pulse Resp BP Pulse Ox 98.0 F 85 19 159/85 98 02/10/19 10:42 02/10/19 10:42 02/10/19 10:42 02/10/19 10:42 02/10/19 10:42 General appearance: Present: no acute distress - Neck Neck: Present: supple - Respiratory Respiratory effort: normal - Cardiovascular Rhythm: irregularly irregular - Extremities Extremities: No edema, abnormal (Left arm AVF with 2 moderately sized pseudoanuerysms without ulcerations, palpable thrill without pulsatility) Results - Labs CBC & Chem 7: 02/10/19 07:19 02/10/19 07:19 Labs: Abnormal lab results 02/09/19 02/09/19 02/09/19 Range/Units 18:41 18:41 18:41 RBC 2.18 L (3.65-5.03) M/mm3 Hgb 6.7 L (11.8-15.2) gm/dl Hct 19.7 L* (35.5-45.6) % RDW 20.1 H (13.2-15.2) % [place] % (Auto) 9.2 H (0.0-7.3) % Eos % (Auto) 11.2 H (0.0-4.3) % Baso % (Auto) 2.9 H (0.0-1.8) % Lymph # 0.9 L (1.2-5.4) K/mm3 Eos # 0.6 H (0.0-0.4) K/mm3 PT 42.5 H (12.2-14.9) Sec. INR 4.32 H (0.87-1.13) APTT 43.6 H (24.2-36.6) Sec. Sodium (137-145) mmol/L Chloride 96.6 L (98-107) mmol/L BUN 25 H (9-20) mg/dL Creatinine 4.2 H (0.8-1.5) mg/dL Glucose 105 H (75-100) mg/dL Alkaline Phosphatase 155 H (35-129) units/L Crossmatch 02/09/19 02/10/19 02/10/19 Range/Units 22:00 07:19 07:19 RBC 2.47 L (3.65-5.03) M/mm3 Hgb 7.3 L (11.8-15.2) gm/dl Hct 22.2 L (35.5-45.6) % RDW 18.0 H (13.2-15.2) % [place] % (Auto) 14.0 H (0.0-7.3) % Eos % (Auto) 12.1 H (0.0-4.3) % Baso % (Auto) 2.0 H (0.0-1.8) % Lymph # 1.0 L (1.2-5.4) K/mm3 Eos # 0.6 H (0.0-0.4) K/mm3 PT 41.2 H (12.2-14.9) Sec. INR 4.16 H (0.87-1.13) APTT 45.1 H (24.2-36.6) Sec. Sodium (137-145) mmol/L Chloride (98-107) mmol/L BUN (9-20) mg/dL Creatinine (0.8-1.5) mg/dL Glucose (75-100) mg/dL Alkaline Phosphatase (35-129) units/L Crossmatch See Detail 02/10/19 Range/Units 07:19 RBC (3.65-5.03) M/mm3 Hgb (11.8-15.2) gm/dl Hct (35.5-45.6) % RDW (13.2-15.2) % [place] % (Auto) (0.0-7.3) % Eos % (Auto) (0.0-4.3) % Baso % (Auto) (0.0-1.8) % Lymph # (1.2-5.4) K/mm3 Eos # (0.0-0.4) K/mm3 PT (12.2-14.9) Sec. INR (0.87-1.13) APTT (24.2-36.6) Sec. Sodium 134 L (137-145) mmol/L Chloride 94.6 L (98-107) mmol/L BUN 41 H (9-20) mg/dL Creatinine 5.7 H (0.8-1.5) mg/dL Glucose (75-100) mg/dL Alkaline Phosphatase (35-129) units/L Crossmatch Assessment and Plan The patient is a 53-year-old male who presented with bleeding from his left arm AV fistula secondary to a supratherapeutic INR. He recently had intervention from his vascular surgeon on his left arm arteriovenous fistula. He has no evidence of venous outflow obstruction. There is no need for vascular surgery intervention at this time.
--- NOTE | 2019-02-10 14:53 | Progress Note ---
Assessment and Plan Assessment and plan: Patient is a 53-year-old man with a history of end-stage renal disease on dialysis TTS, hypertension and A. fib on Coumadin comes emergency room for evaluation of bleeding from left arm AVF due to supratherapeutic INR ESRD HD AVF malfunction/Bleeding due to supratherapeutic INR Consult vascular, input noted bleeding stopped Acute blood loss anemia Transfuse 1 unit of blood No further bleeding noted Monitor PT/INR End-stage renal disease on dialysis Consult renal A. fib on Coumadin INR is supratherapeutic Hold further Coumadin, monitor PT/INR DVT prophylaxis, already protected History Interval history: Patient was seen and examined. Follow-up on current diagnosis. Overnight uneventful as no events directly reported to me. Patient denies any chest pain, shortness breath, nausea/vomiting or severe headaches. Imaging, nursing note, chart, labs and old chart reviewed. Discussed with patient. Gen: WDWN, NAD, Awake, Alert, Orientated HEENT: NCAT, EOMI, PERRL, OP Clear Neck: supple, no adenopathy, no thyromegaly, no JVD CVS/Heart: RRR, normal S1S2, pulses present bilaterally Chest/Lungs: CTA B, Symmetrical chest expansion, good air entry bilaterally GI/Abdomen: soft, NTND, good bowel sounds, no guarding or rebound /Bladder: no suprapubic tenderness, no CVA or paraspinal tenderness Extermity/Skin: no c/c/e, no obvious rash MSK: FROM x 4 Neuro: CN 2-12 grossly intact, no new focal deficits Psych: calm Hospitalist Physical - Constitutional Vitals: Temp Pulse Resp BP Pulse Ox 98.0 F 85 19 159/85 98 02/10/19 10:42 02/10/19 10:42 02/10/19 10:42 02/10/19 10:42 02/10/19 10:42 General appearance: Present: no acute distress Results - Labs CBC & Chem 7: 02/10/19 07:19 02/10/19 07:19 Labs: Laboratory Last Values WBC 4.8 K/mm3 (4.5-11.0) 02/10/19 07:19 RBC 2.47 M/mm3 (3.65-5.03) L 02/10/19 07:19 Hgb 7.3 gm/dl (11.8-15.2) L 02/10/19 07:19 Hct 22.2 % (35.5-45.6) L 02/10/19 07:19 MCV 90 fl (84-94) 02/10/19 07:19 MCH 29 pg (28-32) 02/10/19 07:19 MCHC 33 % (32-34) 02/10/19 07:19 RDW 18.0 % (13.2-15.2) H 02/10/19 07:19 Plt Count 256 K/mm3 (140-440) 02/10/19 07:19 Lymph % (Auto) 20.6 % (13.4-35.0) 02/10/19 07:19 [place] % (Auto) 14.0 % (0.0-7.3) H 02/10/19 07:19 Eos % (Auto) 12.1 % (0.0-4.3) H 02/10/19 07:19 Baso % (Auto) 2.0 % (0.0-1.8) H 02/10/19 07:19 Lymph # 1.0 K/mm3 (1.2-5.4) L 02/10/19 07:19 [place] # 0.7 K/mm3 (0.0-0.8) 02/10/19 07:19 Eos # 0.6 K/mm3 (0.0-0.4) H 02/10/19 07:19 Baso # 0.1 K/mm3 (0.0-0.1) 02/10/19 07:19 Seg Neutrophils % 51.3 % (40.0-70.0) 02/10/19 07:19 Seg Neutrophils # 2.4 K/mm3 (1.8-7.7) 02/10/19 07:19 PT 41.2 Sec. (12.2-14.9) H 02/10/19 07:19 INR 4.16 (0.87-1.13) H 02/10/19 07:19 APTT 45.1 Sec. (24.2-36.6) H 02/10/19 07:19 Sodium 134 mmol/L (137-145) L 02/10/19 07:19 Potassium 4.2 mmol/L (3.6-5.0) 02/10/19 07:19 Chloride 94.6 mmol/L (98-107) L 02/10/19 07:19 Carbon Dioxide 24 mmol/L (22-30) 02/10/19 07:19 Anion Gap 20 mmol/L 02/10/19 07:19 BUN 41 mg/dL (9-20) H 02/10/19 07:19 Creatinine 5.7 mg/dL (0.8-1.5) H 02/10/19 07:19 Estimated GFR 13 ml/min 02/10/19 07:19 BUN/Creatinine Ratio 7 % 02/10/19 07:19 Glucose 86 mg/dL (75-100) 02/10/19 07:19 Calcium 9.0 mg/dL (8.4-10.2) 02/10/19 07:19 Total Bilirubin 0.40 mg/dL (0.1-1.2) 02/09/19 18:41 AST 34 units/L (5-40) 02/09/19 18:41 ALT 41 units/L (7-56) 02/09/19 18:41 Alkaline Phosphatase 155 units/L (35-129) H 02/09/19 18:41 Total Protein 6.7 g/dL (6.3-8.2) 02/09/19 18:41 Albumin 4.0 g/dL (3.9-5) 02/09/19 18:41 Albumin/Globulin Ratio 1.5 % 02/09/19 18:41 Blood Type O POSITIVE 02/09/19 22:00 Antibody Screen Negative 02/09/19 22:00 Crossmatch See Detail 02/09/19 22:00 Active Medications - Current Medications Current Medications: Generic Name Dose Route Start Last Admin Trade Name Freq PRN Reason Stop Dose Admin Acetaminophen 650 mg 02/09/19 22:40 Tylenol PO Q4H PRN Pain MILD(1-3)/Fever >100.5/NIELSON Ondansetron HCl 4 mg 02/09/19 22:40 Zofran IV Q8H PRN Nausea And Vomiting Sodium Chloride 10 ml 02/10/19 10:00 02/10/19 09:44 Sodium Chloride Flush Syringe 10 Ml IV 10 ml BID DESTIN Administration Sodium Chloride 10 ml 02/09/19 22:40 Sodium Chloride Flush Syringe 10 Ml IV PRN PRN LINE FLUSH
--- NOTE | 2019-02-10 15:09 | Discharge Summary ---
Providers - Providers Date of Admission: 02/09/19 22:12 Date of discharge: 02/10/19 Attending physician: MORENA CHACKO 02/09/19 22:40 Consult to Physician [CONS] Routine Comment: Consulting Provider: MOE RODRIGUEZ Physician Instructions: Reason For Exam: hd 02/10/19 06:17 Consult to Physician [CONS] Routine Comment: Consulting Provider: CHASE VARGHESE Physician Instructions: Reason For Exam: bleeding from fistula [facility] Condition: Stable Hospital course: Patient is a 53-year-old man with a history of end-stage renal disease on dialysis TTS, hypertension and A. fib on Coumadin comes emergency room for evaluation of bleeding from left arm AVF due to supratherapeutic INR ESRD HD AVF malfunction/Bleeding due to supratherapeutic INR Consult vascular, input noted bleeding stopped Acute blood loss anemia Transfuse 1 unit of blood No further bleeding noted Monitor PT/INR End-stage renal disease on dialysis Consult renal A. fib on Coumadin INR is supratherapeutic Hold further Coumadin, monitor PT/INR DVT prophylaxis, already protected Disposition: DC-01 TO HOME OR SELFCARE Time spent for discharge: 35 minutes Core Measure Documentation - Palliative Care Palliative Care/ Comfort Measures: Not Applicable - Core Measures Any of the following diagnoses?: none - VTE Discharge Requirements Deep Vein Thrombosis/Pulmonary Embolism Present on Admission: No Has pt received <5 days of overlap therapy or INR<2.0: No Anticoagulant overlap therapy prescribed at discharge: No Contraindication No Overlap Therapy order at DC: Not Indicated Exam - Physical Exam Narrative exam: Gen: WDWN, NAD, Awake, Alert, Orientated HEENT: NCAT, EOMI, PERRL, OP Clear Neck: supple, no adenopathy, no thyromegaly, no JVD CVS/Heart: RRR, normal S1S2, pulses present bilaterally Chest/Lungs: CTA B, Symmetrical chest expansion, good air entry bilaterally GI/Abdomen: soft, NTND, good bowel sounds, no guarding or rebound /Bladder: no suprapubic tenderness, no CVA or paraspinal tenderness Extermity/Skin: no c/c/e, no obvious rash MSK: FROM x 4 - Constitutional Vitals: Temp Pulse Resp BP Pulse Ox 98.0 F 85 19 159/85 98 02/10/19 10:42 02/10/19 10:42 02/10/19 10:42 02/10/19 10:42 02/10/19 10:42 Plan Additional Instructions: DO NOT Warfarin. keep holding Warfarin until you see [facility] doctor [facility] JESSICA [Primary Care Provider] - 3 Days
== END 2019-02-10 17:40 | disposition home or self-care (01) ==
LOC: ED 17:10 → 3A 22:12
PROVIDERS: ADMIT Internal Medicine; ATTEND Internal Medicine
DX: D62 Acute posthemorrhagic anemia (principal); R79.1 Abnormal coagulation profile; I12.0 Hypertensive chronic kidney disease with stage 5 chronic kidney disease or end stage renal disease; N18.6 End stage renal disease; I48.91 Unspecified atrial fibrillation; Z79.01 Long term (current) use of anticoagulants; Z99.2 Dependence on renal dialysis
CPT/HCPCS: 36415; 36430; 80048; 80053; 82271; 85025; 85610; 85730; 86850; 86900; 86901; 86920; 87116; 99291; G0378; J7040; P9016

== ENCOUNTER 2019-04-02 04:22 | Observation (INO) | payer MEDICARE ==
--- NOTE | 2019-04-02 05:17 | XRay Report ---
CHEST PA AND LATERAL VIEWS INDICATION: rosalia. COMPARISON: 01/25/2019 FINDINGS: Support devices: None. Heart: Enlarged, unchanged Lungs/Pleura: There is bilateral pulmonary edema. No pleural effusion. IMPRESSION: 1. Cardiomegaly with pulmonary edema. Signer Name: Bharat Venegas MD Signed: 04/02/2019 5:13 AM Workstation Name: [id number]
--- NOTE | 2019-04-02 05:23 | Event Note ---
Date: 04/02/19 Nephrology: Dr. Garcia Patient is a 53-year-old gentleman, on Coumadin therapy, end-stage renal disease on dialysis, presenting to the ER with nontraumatic paralumbar back pain for the past few days. There is no abdominal pain. Patient sitting on his side. Check basic laboratory studies, x-ray the chest, EKG, noncontrast CT scan of the abdomen pelvis to exclude AAA, and retroperitoneal hematoma. Vital Signs 04/02/19 04:25 Temperature 98.6 F Pulse Rate 85 Blood Pressure 161/86 O2 Sat by Pulse 98 Oximetry
--- NOTE | 2019-04-02 05:26 | Cat Scan Report ---
CT ABDOMEN AND PELVIS WITHOUT IV CONTRAST INDICATION: lower back pain with rosalia. COMPARISON: CT 01/07/2019 TECHNIQUE: All CT scans at this facility use dose modulation, automated exposure control, iterative reconstructi on or weight based dosing, when appropriate, to reduce radiation dose to as low as reasonably achieva ble. FINDINGS: Lung Bases: There is significant cardiomegaly. Bilateral pulmonary edema is noted. Skeletal System: No acute abnormality. ABDOMEN: Liver: No significant abnormality. Gallbladder: There is mild gallbladder wall edema. Bile Ducts: No significant abnormality. Pancreas: No significant abnormality. Spleen: No significant abnormality. Adrenals: No significant abnormality. 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 There is diffuse cortical thinning and numerous cysts involving both kidneys. No hydronephrosis. Upper GI tract: No significant abnormality. Lymph Nodes: No significant adenopathy. Aorta: No significant abnormality. Additional Findings: No significant abnormality. PELVIS: Colon: No acute abnormality. Urinary Bladder and Distal Ureters: No significant abnormality. Appendix: Not visualized. Lymph Nodes: No significant adenopathy. Additional Findings: There is trace pelvic ascites. This is similar to the prior. IMPRESSION: 1. Within the limitations of non contrast technique, no acute process in the abdomen or pelvis. 2. Cardiomegaly with pulmonary edema. 3. Incidental findings as above. Signer Name: Bharat Venegas MD Signed: 04/02/2019 5:21 AM Workstation Name: [id number]
[2019-04-02 05:31] LABS: Basophils # (Auto) 0.1 K/mm3 (0.0-0.1); Basophils % (Auto) 1.1 % (0.0-1.8); Eosinophils # (Auto) 0.6 K/mm3 (0.0-0.4); Eosinophils % (Auto) 6.4 % (0.0-4.3); Hematocrit 25.9 % (35.5-45.6); Hemoglobin 8.6 gm/dl (11.8-15.2); Lymphocytes % (Auto) 11.5 % (13.4-35.0); Mean Corpuscular HGB Conc 33 % (32-34); Mean Corpuscular Volume 90 fl (84-94); Monocytes # (Auto) 0.9 K/mm3 (0.0-0.8); Monocytes % (Auto) 9.6 % (0.0-7.3); Platelet Count 262 K/mm3 (140-440); Red Blood Count 2.88 M/mm3 (3.65-5.03)
[2019-04-02 05:45] LABS: Calcium 12.2 mg/dL (8.4-10.2)
[2019-04-02] MEDS ORDERED: IPRATROPIUM/ALBUTEROL SULFATE 3 ML AMPUL.NEB IH ONE (06:15)
--- NOTE | 2019-04-02 06:37 | Emergency Department Report ---
HPI - General Chief Complaint: Back Pain/Injury Time Seen by Provider: 04/02/19 06:02 - HPI HPI: 53-year-old -[place] male presents to the emergency department with a complaint of a 4 to 5-day history of some low back pain since he received a bloo d transfusion on Monday. Pain started once he returned home from the transfusion. He denies any recent fall, injury or obvious inciting event. He denies any problems with bowel movements, numbness or paresthesias or any neurological deficits. The patient has not taken anything for his symptoms p rior to presentation. He has end-stage renal disease on hemodialysis on Monday//Monday and did have dialysis done on Monday. He also has a past medical history of hypertension, glaucoma, atrial fibrillation. His device engineer is Dr. Garcia. ED Past Medical Hx - Past Medical History Previous Medical History?: Yes Hx Hypertension: Yes Hx Heart Attack/AMI: No Hx Renal Disease: Yes (HD TThS. Last HD) Additional medical history: Glaucoma. afib - Surgical History Past Surgical History?: Yes Additional Surgical History: Left A/V Graft - Social History Smoking Status: Never Smoker Substance Use Type: None - Medications Home Medications: Home Medications Medication Instructions Recorded Confirmed Last Taken Type Cinacalcet [Sensipar] 30 mg PO QDAY 02/09/19 04/02/19 Unknown History Furosemide [Lasix TAB] 80 mg PO QDAY 02/09/19 04/02/19 Unknown History NIFEdipine [Nifedipine ER] 90 mg PO QDAY 02/09/19 04/02/19 Unknown History Pantoprazole [Protonix TAB] 40 mg PO QDAY 02/09/19 04/02/19 Unknown History carvediloL [Coreg] 25 mg PO QDAY 02/09/19 04/02/19 Unknown History hydrALAZINE [Apresoline TAB] 100 mg PO TID 02/09/19 04/02/19 Unknown History ED Review of Systems ROS: Stated complaint: BACK PAIN Other details as noted in HPI Comment: All other systems reviewed and negative Constitutional: denies: chills, fever Eyes: denies: eye pain, vision change ENT: denies: ear pain, throat pain Respiratory: cough, shortness of breath Cardiovascular: denies: chest pain, palpitations Gastrointestinal: denies: abdominal pain, vomiting Genitourinary: denies: dysuria, discharge Musculoskeletal: back pain. denies: arthralgia Skin: denies: rash, lesions Neurological: denies: headache, weakness Physical Exam - Physical Exam Vital Signs: Vital Signs 04/02/19 04/02/19 04/02/19 04:25 05:27 05:36 Temperature 98.6 F 98.6 F Pulse Rate 85 85 Respiratory 20 20 Rate Blood Pressure 161/86 Blood Pressure 159/85 [Right] O2 Sat by Pulse 98 95 95 Oximetry Physical Exam: GENERAL: The patient is well-developed well-nourished. HENT: Normocephalic. Atraumatic. Patient has moist mucous membranes. EYES: Extraocular motions are intact. NECK: Supple. Trachea is midline. CHEST/LUNGS: Coarse breath sounds throughout the chest. No tachypnea or accessory muscle use. There is no respiratory distress noted. HEART/CARDIOVASCULAR: Regular. There is no tachycardia. There is no murmur. ABDOMEN: Abdomen is soft, nontender. Patient has normal bowel sounds. There is no abdominal distention. SKIN: Skin is warm and dry. NEURO: The patient is awake, alert, and oriented. The patient is cooperative. The patient has no focal neurologic deficits. Normal speech. MUSCULOSKELETAL: There is no tenderness or deformity. There is no evidence of acute injury. BACK: No midline thoracic or lumbar tenderness to palpation, step-off or deformity. There is some low lumbar bilateral paraspinal tenderness to palpation. ED Course Vital Signs 04/02/19 04/02/19 04/02/19 04:25 05:27 05:36 Temperature 98.6 F 98.6 F Pulse Rate 85 85 Respiratory 20 20 Rate Blood Pressure 161/86 Blood Pressure 159/85 [Right] O2 Sat by Pulse 98 95 95 Oximetry - Consultations Consultation #1: Earlier in the day I spoke with the device engineer on-call for Jenna Gardner, Doctor Woods, who is aware of the patient's presentation and my plan for admission and she will place dialysis orders. 04/02/19 13:35 ED Medical Decision Making - Lab Data Result diagrams: 04/02/19 04:59 04/02/19 04:59 - EKG Data -: EKG Interpreted by Me EKG shows normal: sinus rhythm, axis, intervals (Mild prolongation of OR interval), QRS complexes (LVH), ST-T waves Rate: normal - EKG Data When compared to previous EKG there are: no significant change Interpretation: unchanged when compared t (01/23/19) - Radiology Data Radiology results: report reviewed, image reviewed interpreted by me: Chest x-ray shows some cardiomegaly and pulmonary vascular congestion with mild interstitial edema. CT ABDOMEN AND PELVIS WITHOUT IV CONTRAST INDICATION: lower back pain with rosalia. COMPARISON: CT 01/07/2019 TECHNIQUE: All CT scans at this facility use dose modulation, automated exposure control, iterative reconstruction or weight based dosing, when appropriate, to reduce radiation dose to as low as reasonably achievable. FINDINGS: Lung Bases: There is significant cardiomegaly. Bilateral pulmonary edema is noted. Skeletal System: No acute abnormality. ABDOMEN: Liver: No significant abnormality. Gallbladder: There is mild gallbladder wall edema. Bile Ducts: No significant abnormality. Pancreas: No significant abnormality. Spleen: No significant abnormality. Adrenals: No significant abnormality. 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 There is diffuse cortical thinning and numerous cysts involving both kidneys. No hydronephrosis. Upper GI tract: No significant abnormality. Lymph Nodes: No significant adenopathy. Aorta: No significant abnormality. Additional Findings: No significant abnormality. PELVIS: Colon: No acute abnormality. Urinary Bladder and Distal Ureters: No significant abnormality. Appendix: Not visualized. Lymph Nodes: No significant adenopathy. Additional Findings: There is trace pelvic ascites. This is similar to the prior. IMPRESSION: 1. Within the limitations of non contrast technique, no acute process in the abdomen or pelvis. 2. C ardiomegaly with pulmonary edema. 3. Incidental findings as above. Signer Name: Bharat Venegas MD - Medical Decision Making This patient presented with the complaint of some low back pain that is been going on for the past 4 to 5 days. He has some reproducible lower lumbar bilateral paraspinal tenderness but there is no midline thoracic or lumbar tenderness to palpation, step-off or deformity. There was no trauma or injury, and along with the fact that there is no midline tenderness, I did not feel that any imaging was necessary of his back or spine at this time. During my initial examination, the patient was sleeping in the room but was found to have a low pulse ox. This is most likely secondary to sleep apnea. The patient was easy to arouse but still has some hypoxia present on room air and was seen between 89 to 92%. The patient was placed on nasal cannula and given a DuoNeb treatment. His chest x-ray shows some pulmonary vascular congestion. For these reasons the patient will be admitted to the hospital for further evaluation and treatm ent and was accepted for admission by the hospitalist service. Nephrology was contacted and consulted. - Differential Diagnosis CHF, volume overload, pneumonia, sleep apnea Critical Care Time: No Critical care attestation.: If time is entered above; I have spent that time in minutes in the direct care of this critically ill patient, excluding procedure time. ED Disposition Clinical Impression: ESRD needing dialysis, Hypercalcemia Pulmonary edema Qualifiers: Chronicity: acute Qualified Code(s): J81.0 - Acute pulmonary edema Hypertension Qualifiers: Hypertension type: essential hypertension Qualified Code(s): I10 - Essential (primary) hypertension Disposition: OP ADMIT IP TO THIS HOSP Is pt being admited?: Yes Condition: Fair Time of Disposition: 07:29
[2019-04-02] MEDS ORDERED: SODIUM CHLORIDE 0.9% 100 ML IV PRN (09:26)
[2019-04-02] MEDS ORDERED: EPOETIN ALFA 10,000 UNIT/1 ML INJ IV PRN (09:26)
--- NOTE | 2019-04-02 09:27 | Consultation ---
History of Present Illness - Reason for Consult Consult date: 04/02/19 end stage renal disease - History of Present Illness Mr. Fuller is a 53yo with ESRD on HD TTS who presented to the ED with complaint of back pain. He reports that back pain began on Monday following transfusion of pRBC. He denies associated symptoms. Presently, patient denies back pain. He denies chest pain, SOB. He denies abdominal pain, nausea/vomiting. Past History Past Medical History: atrial fib, anemia, ESRD, hypertension Past Surgical History: Other (AVF creation) Social history: no significant social history Family history: no significant family history Medications and Allergies Allergies Allergy/AdvReac Type Severity Reaction Status Date / Time No Known Allergies Allergy Verified 04/02/19 04:29 Home Medications Medication Instructions Recorded Confirmed Last Taken Type Cinacalcet [Sensipar] 30 mg PO QDAY 02/09/19 04/02/19 Unknown History Furosemide [Lasix TAB] 80 mg PO QDAY 02/09/19 04/02/19 Unknown History NIFEdipine [Nifedipine ER] 90 mg PO QDAY 02/09/19 04/02/19 Unknown History Pantoprazole [Protonix TAB] 40 mg PO QDAY 02/09/19 04/02/19 Unknown History carvediloL [Coreg] 25 mg PO QDAY 02/09/19 04/02/19 Unknown History hydrALAZINE [Apresoline TAB] 100 mg PO TID 02/09/19 04/02/19 Unknown History cloNIDine [Catapres] 0.1 mg PO BID #60 tablet 04/03/19 Unknown Rx Active Meds: Active Medications Epoetin Curt (Procrit) 10,000 unit IV STEPAN PRN PRN Reason: hemodialysis Sodium Chloride (Nacl 0.9%) 100 mls @ 999 mls/hr IV STEPAN PRN PRN Reason: Hypotension Review of Systems All systems: negative Exam - Vital Signs Vital signs: Vital Signs Temp Pulse BP Pulse Ox 98.6 F 85 161/86 98 04/02/19 04:25 04/02/19 04:25 04/02/19 04:25 04/02/19 04:25 - General Appearance General appearance: well-developed, well-nourished EENT: ATNC Respiratory: Clear to Ascultation Heart: regular, S1S2 Gastrointestinal: Present: normal. Absent: tenderness, distended Integumentary: no rash, warm and dry Neurologic: no focal deficit, alert and oriented x3 Psychiatric: cooperative Results - Lab Results 04/02/19 04:59 04/02/19 04:59 Most recent lab results Calcium 12.2 mg/dL (8.4-10.2) H* 04/02/19 04:59 Assessment and Plan Impression: * End stage renal disease * Back pain * Anemia - recent hx of transfusion * Hypercalcemia * Atrial fibrillation on chronic anticoagulation * Hypertension * Anemia secondary to ESRD * Medical noncompliance Plan: * Continue HD TTS schedule - HD today * UF as tolerated * Unclear etiology of hypercalcemia work up ordered - iCa,PTH; will order SIFE, SPEP in setting of anemia and back pain * Adjust Ca bath with dialysis * Continue antiHTN medications * Epogen TIW prn * Renal diet * Dose medications for renal function
[2019-04-02] MEDS: hydrALAZINE 20 MG/1 ML INJ IV PRN ×2 (10:59→16:22)
[2019-04-02] MEDS ORDERED: NON-FORMULARY EACH (Furosemide [Lasix Tab] 80 MG) PO SCH (11:15)
[2019-04-02] MEDS ORDERED: NON-FORMULARY EACH (Nifedipine [Nifedipine Er] 90 MG) PO SCH (11:15)
--- NOTE | 2019-04-02 11:15 | History and Physical Report ---
History of Present Illness Date of examination: 04/02/19 Date of admission: 04/02/19 07:30 Chief complaint: low back pain History of present illness: Patient is 53 yo with ESRd on dialysis,presented with low back pain, found to have acute pulm edema, hypertensive urgency Past History Past Medical History: ESRD, hypertension Medications and Allergies Allergies Allergy/AdvReac Type Severity Reaction Status Date / Time No Known Allergies Allergy Verified 04/02/19 04:29 Home Medications Medication Instructions Recorded Confirmed Last Taken Type Cinacalcet [Sensipar] 30 mg PO QDAY 02/09/19 04/02/19 Unknown History Furosemide [Lasix TAB] 80 mg PO QDAY 02/09/19 04/02/19 Unknown History NIFEdipine [Nifedipine ER] 90 mg PO QDAY 02/09/19 04/02/19 Unknown History Pantoprazole [Protonix TAB] 40 mg PO QDAY 02/09/19 04/02/19 Unknown History carvediloL [Coreg] 25 mg PO QDAY 02/09/19 04/02/19 Unknown History hydrALAZINE [Apresoline TAB] 100 mg PO TID 02/09/19 04/02/19 Unknown History Active Meds: Active Medications Epoetin Curt (Procrit) 10,000 unit IV STEPAN PRN PRN Reason: hemodialysis Hydralazine HCl (Apresoline) 20 mg IV Q4HR PRN PRN Reason: SBP>160 or DBP>110 Last Admin: 04/02/19 10:59 Dose: 20 mg Documented by: Sodium Chloride (Nacl 0.9%) 100 mls @ 999 mls/hr IV STEPAN PRN PRN Reason: Hypotension Exam - Physical Exam Narrative exam: GEN: Not in acute distress, sitting up in chair HEENT: Normocephalic, atraumatic, Neck: supple, No JVD Lungs: Clear to auscultation ,no wheeze, heart;S1 and S2 reg, no murmurs, rubs or gallop Abd:soft, non tender , non distended, normal bowel sounds Ext: No edema, no clubbing, no cyanosis Neuro: Awake,alert, oriented X 3, no focal neurological signs - Constitutional Vitals: Temp Pulse Resp BP Pulse Ox 97.7 F 86 20 209/120 97 04/02/19 10:04 04/02/19 10:04 04/02/19 10:04 04/02/19 10:04 04/02/19 10:04 Results - Labs CBC & Chem 7: 04/02/19 04:59 04/02/19 04:59 Labs: Abnormal lab results 04/02/19 04/02/19 04/02/19 Range/Units 04:59 04:59 09:59 RBC 2.88 L (3.65-5.03) M/mm3 Hgb 8.6 L (11.8-15.2) gm/dl Hct 25.9 L (35.5-45.6) % RDW 18.0 H (13.2-15.2) % Lymph % (Auto) 11.5 L (13.4-35.0) % Barren % (Auto) 9.6 H (0.0-7.3) % Eos % (Auto) 6.4 H (0.0-4.3) % Lymph # 1.0 L (1.2-5.4) K/mm3 Barren # 0.9 H (0.0-0.8) K/mm3 Eos # 0.6 H (0.0-0.4) K/mm3 Seg Neutrophils % 71.4 H (40.0-70.0) % Chloride 95.4 L (98-107) mmol/L BUN 55 H (9-20) mg/dL Creatinine 11.4 H (0.8-1.5) mg/dL Glucose 102 H (75-100) mg/dL Calcium 12.2 H* (8.4-10.2) mg/dL PTH Intact 69.20 H (15-65) pg/mL Assessment and Plan Hypertensive urgency place on observation Fluid overload/Acute pulm edema For dialysis today ESRD on dialysis back pain
[2019-04-02 12:30] LABS: Hepatitis B Surface Antigen Non-Reactive (Negative); Hepatitis C Virus Antibody Non-Reactive (NonReactive)
[2019-04-02] MEDS: NIFEdipine XL 90 MG TAB PO SCH (12:30)
[2019-04-02] MEDS: PANTOPRAZOLE 40 MG TAB PO SCH (12:30)
[2019-04-02] MEDS: carvediloL 25 MG TAB PO SCH (12:31)
[2019-04-02] MEDS: hydrALAZINE 100 MG TAB PO SCH ×2 (13:15→20:25)
[2019-04-02] MEDS: FUROSEMIDE 40 MG TAB PO SCH (13:18)
[2019-04-02] MEDS ORDERED: SODIUM CHLORIDE*PRIMING MACHINE ONLY FOR DIALYSIS MC ONE (16:18)
[2019-04-02] MEDS ORDERED: ALBUTEROL 2.5 MG/3 ML NEBU IH PRN (16:42)
[2019-04-02] MEDS ORDERED: ONDANSETRON 4 MG/2 ML INJ IV PRN (16:42)
[2019-04-02] MEDS ORDERED: MORPHINE 2 MG/1 ML INJ IV PRN (16:42)
[2019-04-02] MEDS ORDERED: ACETAMINOPHEN 325 MG TAB PO PRN (16:42)
[2019-04-02] MEDS: HEPARIN 5,000 UNIT/1 ML VIAL SUB-Q SCH (22:01)
[2019-04-03] MEDS: hydrALAZINE 20 MG/1 ML INJ IV PRN ×2 (06:43→12:54)
--- NOTE | 2019-04-03 09:20 | XRay Report ---
LUMBOSACRAL SPINE 3 VIEWS INDICATION / CLINICAL INFORMATION: Low back pain. COMPARISON: None available. FINDINGS: BONES / JOINT(S): No acute fracture or subluxation. No significant arthritis. SOFT TISSUES: There are marked atherosclerotic calcifications involving the abdominal aorta with a ma ximal AP measurement of approximately 3.2 cm. ADDITIONAL FINDINGS: None. IMPRESSION: 1. No significant osseous abnormality. 2. Marked atherosclerosis with ectasia/mild AAA of the infrarenal abdominal aorta. Signer Name: Abdulaziz Colin MD Signed: 04/03/2019 9:15 AM Workstation Name: [id number]
[2019-04-03] MEDS: FUROSEMIDE 40 MG TAB PO SCH (09:57)
[2019-04-03] MEDS: PANTOPRAZOLE 40 MG TAB PO SCH (09:57)
[2019-04-03] MEDS: NIFEdipine XL 90 MG TAB PO SCH (09:57)
[2019-04-03] MEDS: hydrALAZINE 100 MG TAB PO SCH ×2 (09:58→13:36)
[2019-04-03] MEDS: HEPARIN 5,000 UNIT/1 ML VIAL SUB-Q SCH (09:58)
[2019-04-03] MEDS: carvediloL 25 MG TAB PO SCH (09:58)
[2019-04-03] MEDS ORDERED: cloNIDine 0.2 MG TAB PO ONE (15:00)
--- NOTE | 2019-04-03 15:36 | Discharge Summary ---
Providers - Providers Date of Admission: 04/02/19 07:30 Date of discharge: 04/03/19 Attending physician: JESSICA BROCK 04/02/19 07:27 Consult to Physician [CONS] Routine Comment: Consulting Provider: QUYEN ROSE Physician Instructions: Reason For Exam: dialysis [facility] Hospitalization Condition: Fair Disposition: DC-01 TO HOME OR SELFCARE Core Measure Documentation - Palliative Care Palliative Care/ Comfort Measures: Not Applicable - Core Measures Any of the following diagnoses?: none Exam - Constitutional Vitals: Temp Pulse Resp BP Pulse Ox 99.1 F 91 H 18 152/86 95 04/03/19 12:06 04/03/19 13:35 04/03/19 12:06 04/03/19 14:18 04/03/19 12:06 Plan Activity: advance as tolerated Diet: low fat, low cholesterol, low salt, renal Plan of Treatment: 1.Follow up with PCP in 1 week. 2.Continue routine hemodialysis as scheduled Follow up with: RASHAD CUETO MD [Primary Care Provider] - 3-5 Days
--- NOTE | 2019-04-03 16:56 | Progress Note ---
Assessment and Plan Impression: * End stage renal disease * Back pain * Anemia * Hypercalcemia * Atrial fibrillation on chronic anticoagulation * Hypertension * Anemia secondary to ESRD * Secondary hyperparathyroidism * Medical noncompliance Plan: * Patient is s/p hemodialysis yesterday * Continue HD TTS schedule - no acute need for HD today * UF as tolerated * Hypercalcemia work up ordered - JOSHUA SMALLS * Adjust Ca bath with dialysis * Continue antiHTN medications * Epogen TIW prn * Renal diet * Dose medications for renal function Subjective Date of service: 04/03/19 Interval history: Patient reports that pain has resolved. Wants to go home. States that he has plans to go out of town tomorrow. Objective - Vital Signs Vital signs: Vital Signs - 12hr 04/03/19 04/03/19 04/03/19 06:43 08:39 09:58 Temperature Pulse Rate 74 Respiratory Rate Blood Pressure 170/81 205/117 Blood Pressure [Right] O2 Sat by Pulse 99 Oximetry 04/03/19 04/03/19 04/03/19 12:06 12:54 13:35 Temperature 99.1 F Pulse Rate 82 82 91 H Respiratory 18 Rate Blood Pressure 198/103 198/103 Blood Pressure 149/75 [Right] O2 Sat by Pulse 95 Oximetry 04/03/19 04/03/19 14:18 15:45 Temperature Pulse Rate 92 H Respiratory Rate Blood Pressure 152/86 152/86 Blood Pressure [Right] O2 Sat by Pulse Oximetry - General Appearance General appearance: well-developed, well-nourished EENT: ATNC, mucous membranes moist Respiratory: Present: Clear to Ascultation Cardiology: regular, normal heart rate, S1S2 Gastrointestinal: normal, no tenderness, no distended Integumentary: no rash, warm and dry Neurologic: no focal deficit, alert and oriented x3 Musculoskeletal: other (no edema) Psychiatric: cooperative - Lab 04/02/19 04:59 04/02/19 04:59 Most recent lab results Calcium 12.2 mg/dL (8.4-10.2) H* 04/02/19 04:59 Medications & Allergies - Medications Allergies/Adverse Reactions: Allergies No Known Allergies Allergy (Verified 04/02/19 04:29) Home Medications: Home Medications Medication Instructions Recorded Confirmed Last Taken Type Cinacalcet [Sensipar] 30 mg PO QDAY 02/09/19 04/02/19 Unknown History Furosemide [Lasix TAB] 80 mg PO QDAY 02/09/19 04/02/19 Unknown History NIFEdipine [Nifedipine ER] 90 mg PO QDAY 02/09/19 04/02/19 Unknown History Pantoprazole [Protonix TAB] 40 mg PO QDAY 02/09/19 04/02/19 Unknown History carvediloL [Coreg] 25 mg PO QDAY 02/09/19 04/02/19 Unknown History hydrALAZINE [Apresoline TAB] 100 mg PO TID 02/09/19 04/02/19 Unknown History cloNIDine [Catapres] 0.1 mg PO BID #60 tablet 04/03/19 Unknown Rx Active Medications: Generic Name Dose Route Start Last Admin Trade Name Freq PRN Reason Stop Dose Admin Acetaminophen 650 mg 04/02/19 16:42 Tylenol PO Q4H PRN Pain MILD(1-3)/Fever >100.5/NIELSON Albuterol 2.5 mg 04/02/19 16:42 Proventil IH Q4HRT PRN Shortness Of Breath Carvedilol 25 mg 04/02/19 12:00 04/03/19 09:58 Coreg PO 25 mg QDAY DESTIN Administration Epoetin Curt 10,000 unit 04/02/19 09:26 Procrit IV STEPAN PRN hemodialysis Furosemide 80 mg 04/02/19 12:00 04/03/19 09:57 Lasix PO 80 mg DAILY DESTIN Administration Heparin Sodium (Porcine) 5,000 unit 04/02/19 22:00 04/03/19 09:58 Heparin SUB-Q 5,000 unit Q12HR DESTIN Administration Hydralazine HCl 20 mg 04/02/19 10:40 04/03/19 12:54 Apresoline IV 20 mg Q4HR PRN Administration SBP>160 or DBP>110 Hydralazine HCl 100 mg 04/02/19 14:00 04/03/19 13:36 Apresoline PO 100 mg TID DESTIN Administration Sodium Chloride 100 mls @ 999 mls/hr 04/02/19 09:26 Nacl 0.9% IV STEPAN PRN Hypotension Morphine Sulfate 2 mg 04/02/19 16:42 Morphine IV Q4H PRN Pain, Moderate (4-6) Nifedipine 90 mg 04/02/19 12:00 02/26/20 09:57 Procardia Xl PO 90 mg QDAY DESTIN Administration Ondansetron HCl 4 mg 04/02/19 16:42 Zofran IV Q8H PRN Nausea And Vomiting Pantoprazole Sodium 40 mg 04/02/19 12:00 04/03/19 09:57 Protonix PO 40 mg QDAY DESTIN Administration Sodium Chloride 10 ml 04/02/19 22:00 04/03/19 09:58 Sodium Chloride Flush Syringe 10 Ml IV 10 ml BID DESTIN Administration Sodium Chloride 10 ml 04/02/19 16:42 Sodium Chloride Flush Syringe 10 Ml IV PRN PRN LINE FLUSH
[2019-04-03 17:00] VITALS: BP 159/83
[2019-04-07 04:26] LABS: Albumin 3.6 g/dL (3.8-4.8); Gamma Globulin 0.9 g/dL (0.8-1.7)
== END 2019-04-03 18:30 | disposition home or self-care (01) ==
LOC: ED 04:22 → 3A 07:30
PROVIDERS: ADMIT Internal Medicine; ATTEND Internal Medicine
DX: I16.0 Hypertensive urgency (principal); I12.0 Hypertensive chronic kidney disease with stage 5 chronic kidney disease or end stage renal disease; N18.6 End stage renal disease; J81.1 Chronic pulmonary edema; E83.52 Hypercalcemia; M54.5 Low back pain; J81.0 Acute pulmonary edema; Z99.2 Dependence on renal dialysis
CPT/HCPCS: 36415; 71046; 72100; 74176; 80048; 80074; 82330; 83970; 84165; 85025; 86334; 93005; 93010; 96372; 96374; 96376; 99285; G0257; G0378; J0360; J1644; J7030

== ENCOUNTER 2019-04-25 08:23 | Observation (INO) | payer MEDICARE ==
--- NOTE | 2019-04-25 09:26 | Emergency Department Report ---
ED Shortness of Breath HPI - General Chief Complaint: Dyspnea/Respdistress Stated Complaint: BODYACHES,MISSED DIALYSIS Time Seen by Provider: 04/25/19 09:17 Source: EMS Mode of arrival: Ambulatory Limitations: Other - History of Present Illness Initial Comments: Patient is 53 years old male with history of end-stage renal disease on hemodialysis and hypertension. Patient presented to the ER complaining of shortness of breath for the last 5 days. Patient stated that he missed 2 of his dialysis session. Patient denied any fever, chills, cough, chest pain, abdominal pain, nausea or vomiting. MD Complaint: shortness of breath -: days(s) (5) - Related Data Home Medications Medication Instructions Recorded Confirmed Last Taken Cinacalcet [Sensipar] 30 mg PO QDAY 02/09/19 04/25/19 04/25/19 04:00 Furosemide [Lasix TAB] 80 mg PO QDAY 02/09/19 04/25/19 04/25/19 04:00 NIFEdipine [Nifedipine ER] 90 mg PO QDAY 02/09/19 04/25/19 04/25/19 04:00 Pantoprazole [Protonix TAB] 40 mg PO QDAY 02/09/19 04/25/19 04/25/19 04:00 carvediloL [Coreg] 25 mg PO QDAY 02/09/19 04/25/19 04/25/19 04:00 hydrALAZINE [Apresoline TAB] 100 mg PO TID 02/09/19 04/25/19 04/25/19 04:00 Previous Rx's Medication Instructions Recorded Last Taken Type cloNIDine [Catapres] 0.1 mg PO BID #60 tablet 04/03/19 04/25/19 04:00 Rx Allergies Allergy/AdvReac Type Severity Reaction Status Date / Time No Known Allergies Allergy Verified 04/25/19 08:50 ED Review of Systems ROS: Stated complaint: BODYACHES,MISSED DIALYSIS Other details as noted in HPI Comment: All other systems reviewed and negative Constitutional: denies: chills, fever Respiratory: orthopnea, shortness of breath, SOB with exertion, SOB at rest. denies: cough, wheezing Cardiovascular: denies: chest pain, palpitations Gastrointestinal: denies: abdominal pain, nausea, vomiting Musculoskeletal: denies: back pain ED Past Medical Hx - Past Medical History Hx Hypertension: Yes Hx Heart Attack/AMI: No Hx Renal Disease: Yes (HD TThS. Last HD) Additional medical history: Glaucoma. afib - Surgical History Additional Surgical History: Left A/V Graft - Social History Smoking Status: Never Smoker Substance Use Type: None - Medications Home Medications: Home Medications Medication Instructions Recorded Confirmed Last Taken Type Cinacalcet [Sensipar] 30 mg PO QDAY 02/09/19 04/25/19 04/25/19 04:00 History Furosemide [Lasix TAB] 80 mg PO QDAY 02/09/19 04/25/19 04/25/19 04:00 History NIFEdipine [Nifedipine ER] 90 mg PO QDAY 02/09/19 04/25/19 04/25/19 04:00 History Pantoprazole [Protonix TAB] 40 mg PO QDAY 02/09/19 04/25/19 04/25/19 04:00 History carvediloL [Coreg] 25 mg PO QDAY 02/09/19 04/25/19 04/25/19 04:00 History hydrALAZINE [Apresoline TAB] 100 mg PO TID 02/09/19 04/25/19 04/25/19 04:00 History cloNIDine [Catapres] 0.1 mg PO BID #60 tablet 04/03/19 04/25/19 04/25/19 04:00 Rx ED Physical Exam - General Limitations: No Limitations, Other General appearance: alert, in no apparent distress - Head Head exam: Present: atraumatic - Eye Eye exam: Present: normal appearance, PERRL - ENT ENT exam: Present: normal exam, normal orophraynx, mucous membranes moist - Neck Neck exam: Present: normal inspection. Absent: tenderness, meningismus - Respiratory Respiratory exam: Present: rales. Absent: respiratory distress, wheezes, rhonchi, accessory muscle use, decreased breath sounds, prolonged expiratory - Cardiovascular Cardiovascular Exam: Present: regular rate, normal rhythm, normal heart sounds - GI/Abdominal GI/Abdominal exam: Present: soft, normal bowel sounds. Absent: distended, tenderness, guarding, rebound, rigid, organomegaly, mass, bruit, pulsatile mass, hernia - Extremities Exam Extremities exam: Present: normal inspection, full ROM, normal capillary refill. Absent: pedal edema, calf tenderness - Back Exam Back exam: Present: normal inspection, full ROM. Absent: CVA tenderness (R), CVA tenderness (L) - Neurological Exam Neurological exam: Present: alert, oriented X3, CN II-XII intact - Psychiatric Psychiatric exam: Present: normal mood - Skin Skin exam: Present: warm, intact, normal color ED Course Vital Signs 04/25/19 04/25/19 04/25/19 08:38 08:50 10:03 Temperature 97.5 F L Pulse Rate 77 90 Respiratory 22 18 Rate Blood Pressure 140/85 Blood Pressure 142/76 [Left] O2 Sat by Pulse 100 100 100 Oximetry 04/25/19 04/25/19 11:32 12:14 Temperature 97.5 F L Pulse Rate 80 92 H Respiratory 16 20 Rate Blood Pressure Blood Pressure 151/74 145/76 [Left] O2 Sat by Pulse 95 94 Oximetry ED Medical Decision Making - Lab Data Result diagrams: 04/25/19 10:03 04/25/19 10:03 - EKG Data -: EKG Interpreted by Nv EKG shows normal: sinus rhythm Rate: normal - EKG Data Interpretation: no acute changes - Radiology Data Radiology results: report reviewed - Medical Decision Making Patient is 53 years old male with history of end-stage renal disease on hemodialysis and hypertension. Patient presented to the ER complaining of shortness of breath for the last 5 days. Patient stated that he missed 2 of his dialysis session. Patient denied any fever, chills, cough, chest pain, abdominal pain, nausea or vomiting. Patient potassium is 5.7. Patient given dextrose 50 and insulin 5. Chest x-ray showed pulmonary edema. I discussed the patient with Ramila, nurse practitioner with Dr. Woods and she stated that she is putting dialysis order for the patient. Patient discussed with Dr. Uriarte who agreed to admit the patient to medical service for further management. My interaction with this patient is limited to less than 10 minutes at a time and was wearing my surgical mask and goggles. Critical Care Time: Yes Critical care time in (mins) excluding proc time.: 30 Critical care attestation.: If time is entered above; I have spent that time in minutes in the direct care of this critically ill patient, excluding procedure time. ED Disposition Clinical Impression: Shortness of breath, Acute hyperkalemia, End-stage renal disease needing dialys is Disposition: OP ADMIT IP TO THIS HOSP Is pt being admited?: Yes Condition: Stable
--- NOTE | 2019-04-25 10:27 | XRay Report ---
CHEST 1 VIEW INDICATION / CLINICAL INFORMATION: MAIN: Dyspnea; PT MISSED 2 DIALYSIS TREATMENT THIS WEEK AND IS NOW IN PAIN. COMPARISON: 04/02/2019 FINDINGS: SUPPORT DEVICES: None. HEART / MEDIASTINUM: Cardiomegaly LUNGS / PLEURA: Diffuse interstitial pulmonary edema No pneumothorax. ADDITIONAL FINDINGS: No significant additional findings. IMPRESSION: Cardiomegaly with diffuse interstitial pulmonary edema Signer Name: Vick Reeves MD FACR Signed: 04/25/2019 10:22 AM Workstation Name: [id number]
[2019-04-25 10:29] LABS: Basophils # (Auto) 0.1 K/mm3 (0.0-0.1); Eosinophils # (Auto) 0.2 K/mm3 (0.0-0.4); Eosinophils % (Auto) 3.9 % (0.0-4.3); Hematocrit 23.3 % (35.5-45.6); Hemoglobin 7.4 gm/dl (11.8-15.2); Lymphocytes # (Auto) 0.8 K/mm3 (1.2-5.4); Lymphocytes % (Auto) 13.6 % (13.4-35.0); Mean Corpuscular HGB Conc 32 % (32-34); Mean Corpuscular Volume 93 fl (84-94); Monocytes # (Auto) 0.5 K/mm3 (0.0-0.8); Monocytes % (Auto) 8.3 % (0.0-7.3); Platelet Count 226 K/mm3 (140-440); Red Blood Count 2.52 M/mm3 (3.65-5.03); Red Cell Distribution Width 19.3 % (13.2-15.2)
[2019-04-25 10:40] LABS: INR 1.08 (0.87-1.13)
[2019-04-25 10:41] LABS: Partial Thromboplastin Time 27.1 Sec. (24.2-36.6)
[2019-04-25 10:45] LABS: Alanine Aminotransferase 30 units/L (7-56); Albumin 3.7 g/dL (3.9-5); Calcium 10.9 mg/dL (8.4-10.2); Hemolysis Index 13
[2019-04-25 10:46] LABS: Bilirubin,Direct < 0.2 mg/dL (0-0.2)
[2019-04-25 10:55] LABS: BUN/Creatinine Ratio 7; Blood Urea Nitrogen 113 mg/dL (9-20)
[2019-04-25] MEDS ORDERED: INSULIN REGULAR, HUMAN 100 UNITS/1 ML IV ONE (11:07)
[2019-04-25] MEDS ORDERED: DEXTROSE 50% IN WATER (25GM) 50 ML SYRINGE IV ONE (11:07)
--- NOTE | 2019-04-25 11:49 | History and Physical Report ---
History of Present Illness Chief complaint: I cannot breathe and I need dialysis History of present illness: 53 YO Male with HTN, Atrial Fib on therapeutic anticoagulation, ESRD on hd (T,R,Sa), Severe Malnutrition presents to ED for evaluation. Patient states that he has experienced progressive shortness of breath over the past 5 days with persistently worsening symptoms over the same timeframe. Patient acknowledges noncompliance with his outpatient dialysis and that he has missed his past 2 dialysis sessions. EMS notified and upon arrival the patient was found to be in respiratory distress and placed on supplemental oxygen and transported to [facility] for further care and evaluation. Patient seen and evaluated in the emergency department. Lab and imaging studies reviewed. Patient found to have end-stage renal disease in need of urgent dialysis, fluid overload, metabolic acidosis, and accelerated hypertension. Patient placed in observation status and admitted to medical floor for further evaluation and care due to increased risk of decompensation. Nephrology team consulted in ED. Patient denies fever, chills, chest pain, palpitations, productive cough, unintentional weight loss, muscle aches, joint pain, skin rash, rhinorrhea, trauma, or known ill contacts. Prior admission on 04/02/2019 reviewed. All medication listed at time of admission has been reconciled. Past History Past Medical History: atrial fib, ESRD, hypertension, other (See HPI) Past Surgical History: Other (Left upper extremity AV fistula) Social history: single. denies: smoking, alcohol abuse, prescription drug abuse Family history: hypertension Medications and Allergies Allergies Allergy/AdvReac Type Severity Reaction Status Date / Time No Known Allergies Allergy Verified 04/25/19 08:50 Home Medications Medication Instructions Recorded Confirmed Last Taken Type Cinacalcet [Sensipar] 30 mg PO QDAY 02/09/19 04/25/19 04/25/19 04:00 History Furosemide [Lasix TAB] 80 mg PO QDAY 02/09/19 04/25/19 04/25/19 04:00 History NIFEdipine [Nifedipine ER] 90 mg PO QDAY 02/09/19 04/25/19 04/25/19 04:00 Histor y Pantoprazole [Protonix TAB] 40 mg PO QDAY 02/09/19 04/25/19 04/25/19 04:00 History carvediloL [Coreg] 25 mg PO QDAY 02/09/19 04/25/19 04/25/19 04:00 History hydrALAZINE [Apresoline TAB] 100 mg PO TID 02/09/19 04/25/19 04/25/19 04:00 History cloNIDine [Catapres] 0.1 mg PO BID #60 tablet 04/03/19 04/25/19 04/25/19 04:00 Rx Review of Systems Constitutional: weight gain, no weight loss, no fever, no chills, no sweats Ears, nose, mouth and throat: no ear pain, no ear discharge, no tinnitis, no nose pain, no nasal congestion Cardiovascular: no chest pain, no orthopnea, no palpitations, no rapid/irregular heart beat, no syncope Respiratory: shortness of breath, no cough, no cough with sputum, no excessive sputum, no hemoptysis Gastrointestinal: no nausea, no vomiting, no diarrhea, no constipation Genitourinary Male: no hematuria, no flank pain, no discharge, no urinary hesitancy, no nocturia Rectal: no pain, no incontinence, no bleeding Musculoskeletal: no neck stiffness, no neck pain, no shooting arm pain, no arm numbness/tingling, no low back pain, no shooting leg pain Integumentary: no rash, no pruritis, no wounds, no jaundice, no boils Neurological: no head injury, no paralysis, no weakness, no parathesias, no numbness, no tremors Psychiatric: no anxiety, no memory loss, no change in sleep habits, no sleep disturbances, no insomnia, no change in libido, no suicidal ideation Endocrine: no cold intolerance, no excessive thirst, no polyuria, no nocturia Hematologic/Lymphatic: no easy bruising, no lymphadenopathy Allergic/Immunologic: no urticaria, no allergic rhinitis, no wheezing, no anaphylaxis, no angioedema Exam - Constitutional Vitals: Temp Pulse Resp BP Pulse Ox 97.5 F L 80 16 151/74 95 04/25/19 08:50 04/25/19 11:32 04/25/19 11:32 04/25/19 11:32 04/25/19 11:32 General appearance: Present: mild distress, cachectic - EENT Eyes: Present: PERRL ENT: hearing intact, clear oral mucosa - Neck Neck: Present: supple, normal ROM - Respiratory Respiratory effort: normal Respiratory: bilateral: diminished, rhonchi - Cardiovascular Heart Sounds: Present: S1 & S2. Absent: rub, click - Extremities Extremities: pulses symmetrical, No edema Peripheral Pulses: within normal limits - Abdominal General gastrointestinal: Present: soft, non-tender, non-distended, normal bowel sounds Male genitourinary: Present: normal - Integumentary Integumentary: Present: clear, warm, dry - Musculoskeletal Musculoskeletal: gait normal, strength equal bilaterally - Psychiatric Psychiatric: appropriate mood/affect, intact judgment & insight - Neurologic Neurologic: CNII-XII intact, moves all extremities Results - Labs CBC & Chem 7: 04/25/19 10:03 04/25/19 10:03 Labs: Abnormal lab results 04/25/19 04/25/19 Range/Units 10:03 10:03 RBC 2.52 L (3.65-5.03) M/mm3 Hgb 7.4 L (11.8-15.2) gm/dl Hct 23.3 L (35.5-45.6) % RDW 19.3 H (13.2-15.2) % [place] % (Auto) 8.3 H (0.0-7.3) % Lymph # 0.8 L (1.2-5.4) K/mm3 Seg Neutrophils % 73.2 H (40.0-70.0) % Sodium 133 L (137-145) mmol/L Potassium 5.7 H (3.6-5.0) mmol/L Chloride 93.7 L (98-107) mmol/L Carbon Dioxide 18 L (22-30) mmol/L BUN 113 H (9-20) mg/dL Creatinine 16.5 H (0.8-1.5) mg/dL Glucose 115 H (75-100) mg/dL Calcium 10.9 H (8.4-10.2) mg/dL Alkaline Phosphatase 134 H (35-129) units/L Albumin 3.7 L (3.9-5) g/dL Assessment and Plan - Patient Problems (1) End stage renal disease Current Visit: Yes Status: Acute Plan to address problem: Nephrology team consult placed in ED, dialysis as per renal team, strict I/O, monitor urine output every shift, daily weight, avoid nephrotoxic agents. (2) Metabolic acidosis Current Visit: Yes Status: Acute Plan to address problem: Dialysis as per renal team, BMP, repeat BMP in a.m., supportive care. (3) Atrial fibrillation Current Visit: Yes Status: Acute Qualifiers: Atrial fibrillation type: permanent Qualified Code(s): I48.21 - Permanent atrial fibrillation Plan to address problem: Continue therapeutic anticoagulation, continue rate control with beta-tab therapy, supportive care. (4) Accelerated hypertension Current Visit: Yes Status: Acute Plan to address problem: Monitor blood pressure every shift, continue prehospital medication, continue medical management. (5) Severe malnutrition Current Visit: Yes Status: Acute Plan to address problem: Encourage increased protein intake, dietary supplementation. (6) DVT prophylaxis Current Visit: Yes Status: Acute Plan to address problem: SCD to bilateral lower extremities while in bed, patient is ambulatory.
[2019-04-25] MEDS ORDERED: ONDANSETRON 4 MG/2 ML INJ IV PRN (11:51)
[2019-04-25] MEDS ORDERED: ALBUTEROL 2.5 MG/3 ML NEBU IH PRN (11:51)
[2019-04-25] MEDS ORDERED: ACETAMINOPHEN 325 MG TAB PO PRN (11:51)
[2019-04-25 13:02] LABS: Hepatitis C Virus Antibody Non-Reactive (NonReactive)
[2019-04-25 13:25] LABS: Hepatitis B Surface Antigen Non-Reactive (Negative)
[2019-04-25] MEDS ORDERED: SODIUM CHLORIDE 0.9% 100 ML IV PRN (13:41)
[2019-04-25] MEDS ORDERED: SODIUM CHLORIDE*PRIMING MACHINE ONLY FOR DIALYSIS MC ONE (14:59)
[2019-04-25] MEDS: hydrALAZINE 100 MG TAB PO SCH ×2 (15:00→23:06)
--- NOTE | 2019-04-25 16:13 | Consultation ---
History of Present Illness - Reason for Consult Consult date: 04/25/19 end stage renal disease - History of Present Illness "I didn't go to dialysis and it caught up with me" Mr. Fuller is a 53yo male with ESRD on HD who presented to the ED with SOB. He reports that he missed two dialysis treatments. He denies fever, chills, cough, chest pain. Past History Past Medical History: atrial fib, ESRD, hypertension, other (See HPI) Past Surgical History: Other (Left upper extremity AV fistula) Social history: single. denies: smoking, alcohol abuse, prescription drug abuse Family history: hypertension Medications and Allergies Allergies Allergy/AdvReac Type Severity Reaction Status Date / Time No Known Allergies Allergy Verified 04/25/19 08:50 Home Medications Medication Instructions Recorded Confirmed Last Taken Type Cinacalcet [Sensipar] 30 mg PO QDAY 02/09/19 04/25/19 04/25/19 04:00 History Furosemide [Lasix TAB] 80 mg PO QDAY 02/09/19 04/25/19 04/25/19 04:00 History NIFEdipine [Nifedipine ER] 90 mg PO QDAY 02/09/19 04/25/19 04/25/19 04:00 History Pantoprazole [Protonix TAB] 40 mg PO QDAY 02/09/19 04/25/19 04/25/19 04:00 History carvediloL [Coreg] 25 mg PO QDAY 02/09/19 04/25/19 04/25/19 04:00 History hydrALAZINE [Apresoline TAB] 100 mg PO TID 02/09/19 04/25/19 04/25/19 04:00 History cloNIDine [Catapres] 0.1 mg PO BID #60 tablet 04/03/19 04/25/19 04/25/19 04:00 Rx Active Meds: Active Medications Acetaminophen (Tylenol) 650 mg PO Q4H PRN PRN Reason: Pain MILD(1-3)/Fever >100.5/NIELSON Albuterol (Proventil) 2.5 mg IH Q4HRT PRN PRN Reason: Shortness Of Breath Carvedilol (Coreg) 25 mg PO QDAY DESTIN Cinacalcet (Sensipar) 30 mg PO QDAY DESTIN Clonidine HCl (Catapres) 0.1 mg PO BID DESTIN Furosemide (Lasix) 80 mg PO QDAY DESTIN Hydralazine HCl (Apresoline) 100 mg PO TID DESTIN Sodium Chloride (Nacl 0.9%) 100 mls @ 999 mls/hr IV STEPAN PRN PRN Reason: Hypotension Nifedipine (Procardia Xl) 90 mg PO QDAY DESTIN Ondansetron HCl (Zofran) 4 mg IV Q8H PRN PRN Reason: Nausea And Vomiting Pantoprazole Sodium (Protonix) 40 mg PO QDAY DESTIN Sodium Chloride (Sodium Chloride Flush Syringe 10 Ml) 10 ml IV BID DESTIN Sodium Chloride (Sodium Chloride Flush Syringe 10 Ml) 10 ml IV PRN PRN PRN Reason: LINE FLUSH Review of Systems All systems: negative Exam - Vital Signs Vital signs: Vital Signs Pulse Ox 100 04/25/19 08:38 - General Appearance General appearance: well-developed, well-nourished EENT: ATNC Respiratory: Decreased Breath Sounds Heart: regular, S1S2 Gastrointestinal: Present: normal. Absent: tenderness, distended Integumentary: no rash, warm and dry Neurologic: no focal deficit Psychiatric: cooperative Results - Lab Results 04/25/19 10:03 04/25/19 10:03 Most recent lab results Calcium 10.9 mg/dL (8.4-10.2) H 04/25/19 10:03 Assessment and Plan Impression: * End stage renal disease on HD * Pulmonary edema * Uremia * Metabolic acidosis * Atrial fibrillation on chronic anticoagulation * Hypertension * Anemia secondary to ESRD * Medical noncompliance Plan: * Hemodialysis today. Continue TTS schedule * UF as tolerated * Epogen TIW prn * Renal diet * Dose medications for renal function
[2019-04-25] MEDS ORDERED: EPOETIN ALFA 20,000 UNIT/1 ML INJ IV SCH (21:58)
[2019-04-25] MEDS ORDERED: EPOETIN ALFA 20,000 UNIT/1 ML INJ SUB-Q SCH (22:00)
[2019-04-25] MEDS: cloNIDine 0.1 MG TAB PO SCH (23:06)
[2019-04-26 06:10] LABS: Eosinophils # (Auto) 0.2 K/mm3 (0.0-0.4); Eosinophils % (Auto) 5.9 % (0.0-4.3); Hematocrit 22.4 % (35.5-45.6); Hemoglobin 7.3 gm/dl (11.8-15.2); Lymphocytes # (Auto) 0.7 K/mm3 (1.2-5.4); Lymphocytes % (Auto) 16.5 % (13.4-35.0); Mean Corpuscular HGB Conc 33 % (32-34); Mean Corpuscular Volume 91 fl (84-94); Monocytes # (Auto) 0.5 K/mm3 (0.0-0.8); Monocytes % (Auto) 11.4 % (0.0-7.3); Platelet Count 230 K/mm3 (140-440); Red Blood Count 2.47 M/mm3 (3.65-5.03); Red Cell Distribution Width 18.9 % (13.2-15.2)
[2019-04-26 06:29] LABS: Albumin 3.6 g/dL (3.9-5)
[2019-04-26] MEDS ORDERED: CINACALCET 30 MG TAB PO SCH (10:00)
[2019-04-26] MEDS ORDERED: NON-FORMULARY EACH (Furosemide [Lasix Tab] 80 MG) PO SCH (10:00)
[2019-04-26] MEDS ORDERED: PANTOPRAZOLE 40 MG TAB PO SCH (10:00)
[2019-04-26] MEDS ORDERED: NIFEdipine XL 90 MG TAB PO SCH (10:00)
[2019-04-26] MEDS ORDERED: carvediloL 25 MG TAB PO SCH (10:00)
[2019-04-26] MEDS ORDERED: FUROSEMIDE 40 MG TAB PO SCH (10:00)
[2019-04-26] MEDS ORDERED: NON-FORMULARY EACH (Nifedipine [Nifedipine Er] 90 MG) PO SCH (10:00)
[2019-04-26] MEDS: hydrALAZINE 100 MG TAB PO SCH (10:16)
[2019-04-26] MEDS: cloNIDine 0.1 MG TAB PO SCH (10:16)
--- NOTE | 2019-04-26 10:43 | Discharge Summary ---
Providers - Providers Date of Admission: 04/25/19 11:51 Date of discharge: 04/26/19 Attending physician: CLYDE PUGH 04/25/19 11:40 Consult to Physician [CONS] Stat Comment: Consulting Provider: QUYEN ROSE Physician Instructions: Reason For Exam: End-stage renal disease needing dialysis Primary care physician: [employer] OPERATOR Hospitalization Reason for admission: Missed hemodialysis Condition: Stable Hospital course: 53-year-old male with ESRD on hemodialysis, hypertension, atrial fibrillation on therapeutic anticoagulation and severe protein calorie malnutrition who presented through the emergency department with complaints of dyspnea. Patient reported that he had missed 2 hemodialysis sessions prior to admission. Patient denied cough, chest pain or fever. Chest x-ray revealed evidence of pulmonary edema/volume overload. Patient was also noted on laboratory to have uremia and metabolic acidosis. Patient was admitted with diagnosis of acute pulmonary edema/volume overload, metabolic acidosis and anemia of chronic kidney disease. The patient was seen by nephrology and underwent urgent hemodialysis. Patient has significant improvement in his symptoms and return back to his baseline. Therefore, patient is felt to receive maximal hospital benefit and will be discharged home. Dedicated discharge time 32 minutes. Disposition: [id number]-01 TO HOME OR SELFCARE Time spent for discharge: 32 - Discharge Diagnoses (1) Accelerated hypertension Status: Acute (2) Atrial fibrillation Status: Acute Qualifiers: Atrial fibrillation type: permanent Qualified Code(s): I48.21 - Permanent atrial fibrillation (3) End-stage renal disease needing dialysis Status: Acute (4) Metabolic acidosis Status: Acute (5) Acute on chronic renal failure Status: Acute Core Measure Documentation - Palliative Care Palliative Care/ Comfort Measures: Not Applicable - Core Measures Any of the following diagnoses?: none Exam - Constitutional Vitals: Temp Pulse Resp BP Pulse Ox 98.2 F 90 20 216/115 99 04/26/19 05:25 04/26/19 10:17 04/26/19 05:25 04/26/19 10:17 04/26/19 05:25 General appearance: Present: no acute distress, well-nourished - EENT Eyes: Present: PERRL ENT: hearing intact, clear oral mucosa - Neck Neck: Present: supple, normal ROM - Respiratory Respiratory effort: normal Respiratory: bilateral: CTA - Cardiovascular Heart Sounds: Present: S1 & S2. Absent: rub, click - Extremities Extremities: pulses symmetrical, No edema Peripheral Pulses: within normal limits - Abdominal General gastrointestinal: Present: soft, non-tender, non-distended, normal bowel sounds Male genitourinary: Present: normal - Integumentary Integumentary: Present: clear, warm, dry - Musculoskeletal Musculoskeletal: gait normal, strength equal bilaterally - Psychiatric Psychiatric: appropriate mood/affect, intact judgment & insight - Neurologic Neurologic: CNII-XII intact, moves all extremities Plan Activity: advance as tolerated Weight Bearing Status: Weight Bear as Tolerated Diet: renal Follow up with: PRIMARY MD SERGIO [Primary Care Provider] - 3-5 Days QUYEN ROSE MD [Staff Physician] - 7 Days Prescriptions: hydrALAZINE [Apresoline TAB] 100 mg PO TID #90 tab cloNIDine [Catapres] 0.1 mg PO BID #60 tablet carvediloL [Coreg] 25 mg PO QDAY #30 Furosemide [Lasix TAB] 80 mg PO QDAY #30 NIFEdipine [Nifedipine ER] 90 mg PO QDAY #30 Pantoprazole [Protonix TAB] 40 mg PO QDAY #30 Cinacalcet [Sensipar] 30 mg PO QDAY #30
--- NOTE | 2019-04-26 11:38 | Progress Note ---
Assessment and Plan Impression: * End stage renal disease on HD * Pulmonary edema * Uremia * Metabolic acidosis * Atrial fibrillation on chronic anticoagulation * Hypertension * Anemia secondary to ESRD * Medical noncompliance Plan: * Continue hemodialysis TTS schedule and plan for hd today * UF as tolerated * Epogen TIW prn * amend bp meds * Renal diet * Dose medications for renal function * bp is too elevated to dc home Subjective Date of service: 04/26/19 Principal diagnosis: esrd Interval history: resting in bed Objective - Exam Narrative Exam: General appearance: well-developed, well-nourished EENT: ATNC Respiratory: Decreased Breath Sounds Heart: regular, S1S2 Gastrointestinal: Present: normal. Absent: tenderness, distended Integumentary: no rash, warm and dry Neurologic: no focal deficit Psychiatric: cooperative - Vital Signs Vital signs: Vital Signs - 12hr 04/26/19 04/26/19 04/26/19 00:57 05:25 10:16 Temperature 98.2 F Pulse Rate 99 H 90 Respiratory 20 Rate Blood Pressure 179/102 216/115 O2 Sat by Pulse 97 99 Oximetry 04/26/19 10:17 Temperature Pulse Rate 90 Respiratory Rate Blood Pressure 216/115 O2 Sat by Pulse Oximetry - Lab 04/26/19 05:15 04/26/19 05:15 Most recent lab results Calcium 9.0 mg/dL (8.4-10.2) D 04/26/19 05:15 Medications & Allergies - Medications Allergies/Adverse Reactions: Allergies No Known Allergies Allergy (Verified 04/25/19 08:50) Home Medications: Home Medications Medication Instructions Recorded Confirmed Last Taken Type Cinacalcet [Sensipar] 30 mg PO QDAY #30 04/26/19 Unknown Rx Epoetin Curt 20,000 Unit [Procrit] 20,000 unit SUB-Q Sa vial 04/26/19 Unknown Rx Epoetin Curt 20,000 Unit [Procrit] 20,000 unit SUB-Q Th vial 04/26/19 Unknown Rx Epoetin Curt 20,000 Unit [Procrit] 20,000 unit SUB-Q Tu vial 04/26/19 Unknown Rx Furosemide [Lasix TAB] 80 mg PO QDAY tablet 04/26/19 Unknown Rx Furosemide [Lasix TAB] 80 mg PO QDAY #30 04/26/19 Unknown Rx NIFEdipine [Nifedipine ER] 90 mg PO QDAY #30 04/26/19 Unknown Rx Pantoprazole [Protonix TAB] 40 mg PO QDAY #30 04/26/19 Unknown Rx carvediloL [Coreg] 25 mg PO QDAY #30 04/26/19 Unknown Rx cloNIDine [Catapres] 0.1 mg PO BID #60 tablet 04/26/19 Unknown Rx hydrALAZINE [Apresoline TAB] 100 mg PO TID #90 tab 04/26/19 Unknown Rx Active Medications: Generic Name Dose Route Start Last Admin Trade Name Freq PRN Reason Stop Dose Admin Acetaminophen 650 mg 04/25/19 11:51 04/25/19 16:45 Tylenol PO 650 mg Q4H PRN Administration Pain MILD(1-3)/Fever >100.5/NIELSON Albuterol 2.5 mg 04/25/19 11:51 Proventil IH Q4HRT PRN Shortness Of Breath Carvedilol 25 mg 04/26/19 10:00 04/26/19 10:17 Coreg PO 25 mg QDAY DESTIN Administration Cinacalcet 30 mg 04/26/19 10:00 04/26/19 10:16 Sensipar PO 30 mg QDAY DESTIN Administration Clonidine HCl 0.1 mg 04/25/19 22:00 04/26/19 10:16 Catapres PO 0.1 mg BID DESTIN Administration Epoetin Curt 20,000 unit 04/27/19 10:00 Procrit SUB-Q Sa DESTIN Epoetin Curt 20,000 unit 04/30/19 10:00 Procrit SUB-Q Tu DESTIN Epoetin Curt 20,000 unit 04/25/19 22:00 04/26/19 05:43 Procrit SUB-Q 20,000 unit Th DESTIN Administration Furosemide 80 mg 04/26/19 10:00 04/26/19 10:16 Lasix PO 80 mg QDAY DESTIN Administration Hydralazine HCl 100 mg 04/25/19 14:00 04/26/19 10:16 Apresoline PO 100 mg TID DESTIN Administration Sodium Chloride 100 mls @ 999 mls/hr 04/25/19 13:41 Nacl 0.9% IV STEPAN PRN Hypotension Nifedipine 90 mg 04/26/19 10:00 04/26/19 10:16 Procardia Xl PO 90 mg QDAY DESTIN Administration Ondansetron HCl 4 mg 04/25/19 11:51 Zofran IV Q8H PRN Nausea And Vomiting Pantoprazole Sodium 40 mg 04/26/19 10:00 04/26/19 10:23 Protonix PO 40 mg QDAY DESTIN Administration Sodium Chloride 10 ml 04/25/19 22:00 04/26/19 10:17 Sodium Chloride Flush Syringe 10 Ml IV 10 ml BID DESTIN Administration Sodium Chloride 10 ml 04/25/19 11:51 Sodium Chloride Flush Syringe 10 Ml IV PRN PRN LINE FLUSH
[2019-04-26] MEDS ORDERED: SODIUM CHLORIDE*PRIMING MACHINE ONLY FOR DIALYSIS MC ONE (13:39)
[2019-04-26] MEDS ORDERED: cloNIDine 0.2 MG TAB PO SCH (14:00)
[2019-04-26 18:34] VITALS: BP 140/84
[2019-04-27] MEDS ORDERED: EPOETIN ALFA 20,000 UNIT/1 ML INJ SUB-Q SCH (10:00)
[2019-04-30] MEDS ORDERED: EPOETIN ALFA 20,000 UNIT/1 ML INJ SUB-Q SCH (10:00)
== END 2019-04-26 18:23 | disposition home or self-care (01) ==
LOC: ED 08:23 → 3A 11:51
PROVIDERS: ADMIT Internal Medicine; ATTEND Hospitalist
DX: I12.0 Hypertensive chronic kidney disease with stage 5 chronic kidney disease or end stage renal disease (principal); N18.6 End stage renal disease; D63.1 Anemia in chronic kidney disease; E87.2 Acidosis; E43 Unspecified severe protein-calorie malnutrition; I48.21 Permanent atrial fibrillation; N17.9 Acute kidney failure, unspecified; E87.5 Hyperkalemia; Z91.19 Patient's noncompliance with other medical treatment and regimen; Z99.2 Dependence on renal dialysis; Z79.01 Long term (current) use of anticoagulants; Z79.899 Other long term (current) drug therapy
CPT/HCPCS: 36415; 71045; 80048; 80053; 80074; 80076; 85025; 85610; 85730; 87116; 93005; 93010; 96372; 96374; 99291; G0257; G0378; J0885; J7030; J1815

== ENCOUNTER 2020-09-16 14:37 | Observation (INO) | payer MEDICARE ==
[2020-09-16 16:32] LABS: Hematocrit 22.8 % (35.5-45.6); Hemoglobin 7.5 gm/dl (11.8-15.2); Mean Corpuscular HGB Conc 33 % (32-34); Mean Corpuscular Volume 92 fl (84-94); Platelet Count 180 K/mm3 (140-440); Red Blood Count 2.47 M/mm3 (3.65-5.03)
[2020-09-16 16:45] LABS: Blood Urea Nitrogen 76 mg/dL (9-20); Calcium 8.3 mg/dL (8.4-10.2); Hemolysis Index 1
[2020-09-16 16:56] LABS: BUN/Creatinine Ratio 5
--- NOTE | 2020-09-16 17:07 | Event Note ---
ED Screening Note ED Screening Note: states he needs dialysis states he just moved from [place] states he last had dialysis on 09/10/20 reports he begins at his new dialysis clinic on monday09/18/20 This initial assessment/diagnostic orders/clinical plan/treatment(s) is/are subject to change based on patients health status, clinical progression and re- assessment by fellow clinical providers in the ED. Further treatment and workup at subsequent clinical providers discretion. Patient/guardian urged not to elope from the ED as their condition may be serious if not clinically assessed and managed. Initial orders include: needs MAIN ED for dialysis
[2020-09-17] MEDS ORDERED: cloNIDine 0.2 MG TAB PO ONE (03:50)
--- NOTE | 2020-09-17 03:50 | Emergency Department Report ---
ED General Adult HPI - General Chief complaint: Medical Clearance Stated complaint: DIALYSIS PUI?: No Time Seen by Provider: 09/17/20 03:33 Source: patient Mode of arrival: Ambulatory Limitations: No Limitations - History of Present Illness Initial comments: Patient is a 35-year-old male who presents emergency room for withdrawals. Patient states he just moved back here 4 days ago. Patient states his last dialysis was 1 week ago. Patient states she has not established care here. Patient states he doesn't have a neurologist in the area. Patient states he does not have a dialysis center. Patient denies shortness of breath. Patient denies chest pain. Patient denies visual complaints. Patient states she just needs to have dialysis and then he can go home. Patient denies recent travel. Patient denies recent international travel. Patient denies exposure to the novel coronavirus. Patient denies sick contacts. Patient denies fever and chills. Patient denies cough. Patient denies diarrhea. Patient denies coming in contact with anybody with symptoms of the novel coronavirus. -: Sudden Consistency: constant Improves with: none Worsens with: none Associated Symptoms: denies other symptoms - Related Data Previous Rx's Medication Instructions Recorded Last Taken Type Cinacalcet [Sensipar] 30 mg PO QDAY #30 04/26/19 Unknown Rx Epoetin Curt 20,000 Unit [Procrit] 20,000 unit SUB-Q Sa vial 04/26/19 Unknown Rx Epoetin Curt 20,000 Unit [Procrit] 20,000 unit SUB-Q Th vial 04/26/19 Unknown Rx Epoetin Curt 20,000 Unit [Procrit] 20,000 unit SUB-Q Tu vial 04/26/19 Unknown Rx Furosemide [Lasix TAB] 80 mg PO QDAY tablet 04/26/19 Unknown Rx Furosemide [Lasix TAB] 80 mg PO QDAY #30 04/26/19 Unknown Rx NIFEdipine [Nifedipine ER] 90 mg PO QDAY #30 04/26/19 Unknown Rx Pantoprazole [Protonix TAB] 40 mg PO QDAY #30 04/26/19 Unknown Rx carvediloL [Coreg] 25 mg PO QDAY #30 04/26/19 Unknown Rx cloNIDine [Catapres] 0.1 mg PO BID #60 tablet 04/26/19 Unknown Rx hydrALAZINE [Apresoline TAB] 100 mg PO TID #90 tab 04/26/19 Unknown Rx Allergies Allergy/AdvReac Type Severity Reaction Status Date / Time No Known Allergies Allergy Verified 04/25/19 08:50 ED Review of Systems ROS: Stated complaint: DIALYSIS Other details as noted in HPI Constitutional: denies: chills, fever Eyes: denies: eye pain, eye discharge, vision change ENT: denies: ear pain, throat pain Respiratory: denies: cough, shortness of breath, wheezing Cardiovascular: denies: chest pain, palpitations Endocrine: no symptoms reported Gastrointestinal: denies: abdominal pain, nausea, diarrhea Genitourinary: denies: urgency, dysuria Musculoskeletal: denies: back pain, joint swelling, arthralgia Skin: denies: rash, lesions Neurological: denies: headache, weakness, paresthesias Psychiatric: denies: anxiety, depression Hematological/Lymphatic: denies: easy bleeding, easy bruising ED Past Medical Hx - Past Medical History Previous Medical History?: Yes Hx Hypertension: Yes Hx Heart Attack/AMI: No Hx Renal Disease: Yes (HD TThS. Last HD) Additional medical history: Glaucoma. afib - Surgical History Past Surgical History?: Yes Additional Surgical History: Left A/V Graft - Family History Family history: no significant - Social History Smoking Status: Never Smoker Substance Use Type: None - Medications Home Medications: Home Medications Medication Instructions Recorded Confirmed Last Taken Type Cinacalcet [Sensipar] 30 mg PO QDAY #30 04/26/19 Unknown Rx Epoetin Curt 20,000 Unit [Procrit] 20,000 unit SUB-Q Sa vial 04/26/19 Unknown Rx Epoetin Curt 20,000 Unit [Procrit] 20,000 unit SUB-Q Th vial 04/26/19 Unknown Rx Epoetin Curt 20,000 Unit [Procrit] 20,000 unit SUB-Q Tu vial 04/26/19 Unknown Rx Furosemide [Lasix TAB] 80 mg PO QDAY tablet 04/26/19 Unknown Rx Furosemide [Lasix TAB] 80 mg PO QDAY #30 04/26/19 Unknown Rx NIFEdipine [Nifedipine ER] 90 mg PO QDAY #30 04/26/19 Unknown Rx Pantoprazole [Protonix TAB] 40 mg PO QDAY #30 04/26/19 Unknown Rx carvediloL [Coreg] 25 mg PO QDAY #30 04/26/19 Unknown Rx cloNIDine [Catapres] 0.1 mg PO BID #60 tablet 04/26/19 Unknown Rx hydrALAZINE [Apresoline TAB] 100 mg PO TID #90 tab 04/26/19 Unknown Rx ED Physical Exam - General Limitations: No Limitations General appearance: alert, in no apparent distress - Head Head exam: Present: atraumatic, normocephalic - Eye Eye exam: Present: normal appearance - ENT ENT exam: Present: mucous membranes moist - Neck Neck exam: Present: normal inspection - Respiratory Respiratory exam: Present: normal lung sounds bilaterally. Absent: respiratory distress - Cardiovascular Cardiovascular Exam: Present: regular rate, normal rhythm. Absent: systolic murmur, diastolic murmur, rubs, gallop - GI/Abdominal GI/Abdominal exam: Present: soft, normal bowel sounds - Rectal Rectal exam: Present: deferred - Extremities Exam Extremities exam: Present: normal inspection - Back Exam Back exam: Present: normal inspection - Neurological Exam Neurological exam: Present: alert, oriented X3 - Psychiatric Psychiatric exam: Present: normal affect, normal mood - Skin Skin exam: Present: warm, dry, intact, normal color. Absent: rash ED Course Vital Signs 09/16/20 15:19 Temperature 98.3 F Pulse Rate 81 Respiratory 16 Rate Blood Pressure 194/102 [Left] O2 Sat by Pulse 96 Oximetry - Reevaluation(s) Reevaluation #1: I discussed all results with patient. I discussed plan of care with patient. Patient agrees with plan of care and admission. Patient to be admitted to the hospitalist service. 09/17/20 03:55 - Consultations Consultation #1: Nephrology consulted. 09/17/20 03:48 Consultation #2: Hospitalist consulted for admission. Hospitalist to admit patient. 09/17/20 03:58 ED Medical Decision Making - Lab Data Result diagrams: 09/16/20 16:10 09/16/20 16:10 - Medical Decision Making Patient is a 55-year-old male who presents emergency room with complaints of needing dialysis. Patient has dialysis for 7 days. Patient will require in- hospital dialysis. Nephrology consulted. Patient had labs done. Consistent with end-stage renal disease. Patient potassium normal. Patient admitted to the hospital service for further evaluation treatment. Critical care time documented due to the multiple reassessments, prolonged time at the bedside, interpretation of diagnostics and labs. - Differential Diagnosis End-stage renal disease, missed dialysis, volume overload. Critical Care Time: Yes Critical care time in (mins) excluding proc time.: 35 Critical care attestation.: If time is entered above; I have spent that time in minutes in the direct care of this critically ill patient, excluding procedure time. Critical Care Time: 35 minutes ED Disposition Clinical Impression: End-stage renal disease needing dialysis, Missed dialysis Fluid overload Qualifiers: Hypervolemia type: unspecified Qualified Code(s): E87.70 - Fluid overload, unspecified Disposition: DC-09 OP ADMIT IP TO THIS HOSP Is pt being admited?: Yes Does the pt Need Aspirin: No Condition: Critical Time of Disposition: 04:10
--- NOTE | 2020-09-17 09:06 | History and Physical Report ---
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 Patient is denies any chest pain shortness of breath, came for hemodialysis and be discharged Patient has history of atrial fibrillation however not on chronic anticoagulation Initial work-up is consistent with accelerated hypertension, mild shortness of breath Patient did not receive COVID-19 vaccination Reports that he tested for COVID-19 outside, pending report Patient blood pressures are uncontrolled with systolic more than 170 and diastolic more than 115 Past History Past Medical History: atrial fib (Chronic), dialysis, ESRD, hypertension Past Surgical History: Other (AV fistula) Social history: denies: smoking, alcohol abuse, prescription drug abuse Family history: no significant family history Medications and Allergies Allergies Allergy/AdvReac Type Severity Reaction Status Date / Time No Known Allergies Allergy Verified 04/25/19 08:50 Home Medications Medication Instructions Recorded Confirmed Last Taken Type Cinacalcet [Sensipar] 30 mg PO QDAY #30 04/26/19 Unknown Rx Epoetin Curt 20,000 Unit [Procrit] 20,000 unit SUB-Q Sa vial 04/26/19 Unknown Rx Epoetin Curt 20,000 Unit [Procrit] 20,000 unit SUB-Q Th vial 04/26/19 Unknown Rx Epoetin Curt 20,000 Unit [Procrit] 20,000 unit SUB-Q Tu vial 04/26/19 Unknown Rx Furosemide [Lasix TAB] 80 mg PO QDAY tablet 04/26/19 Unknown Rx Furosemide [Lasix TAB] 80 mg PO QDAY #30 04/26/19 Unknown Rx NIFEdipine [Nifedipine ER] 90 mg PO QDAY #30 04/26/19 Unknown Rx Pantoprazole [Protonix TAB] 40 mg PO QDAY #30 04/26/19 Unknown Rx carvediloL [Coreg] 25 mg PO QDAY #30 04/26/19 Unknown Rx cloNIDine [Catapres] 0.1 mg PO BID #60 tablet 04/26/19 Unknown Rx hydrALAZINE [Apresoline TAB] 100 mg PO TID #90 tab 04/26/19 Unknown Rx Review of Systems Constitutional: fatigue, weakness, no weight loss, no weight gain, no fever, no chills Ears, nose, mouth and throat: no nasal congestion, no nasal discharge Cardiovascular: shortness of breath, no chest pain, no orthopnea Respiratory: no cough, no hemoptysis Gastrointestinal: no abdominal pain, no nausea, no vomiting Genitourinary Male: no dysuria, no hematuria, no flank pain Musculoskeletal: no myalgias, no arthritis Integumentary: no rash, no lesions Neurological: weakness, no seizures, no syncope Psychiatric: no anxiety, no depression Endocrine: no cold intolerance, no heat intolerance, no polydipsia, no polyuria Hematologic/Lymphatic: no easy bruising, no easy bleeding Allergic/Immunologic: no urticaria, no allergic rhinitis Exam - Constitutional Vitals: Temp Pulse Resp BP Pulse Ox 97.8 F 68 15 178/94 99 09/17/20 04:10 09/17/20 08:01 09/17/20 08:01 09/17/20 08:01 09/17/20 08:01 General appearance: Present: mild distress, well-nourished - EENT Eyes: Present: PERRL, EOM intact - Neck Neck: Present: supple, normal ROM - Respiratory Respiratory effort: normal Respiratory: bilateral: diminished, rales, negative: rhonchi, wheezing - Cardiovascular Rhythm: regular Heart Sounds: Present: S1 & S2 - Extremities Extremities: no ischemia, No edema Results - Labs CBC & Chem 7: 09/16/20 16:10 09/16/20 16:10 Labs: Abnormal lab results 09/16/20 09/16/20 Range/Units 16:10 16:10 WBC 4.1 L (4.5-11.0) K/mm3 RBC 2.47 L (3.65-5.03) M/mm3 Hgb 7.5 L (11.8-15.2) gm/dl Hct 22.8 L (35.5-45.6) % RDW 21.0 H (13.2-15.2) % Chloride 96.0 L (98-107) mmol/L BUN 76 H (9-20) mg/dL Creatinine 14.0 H (0.8-1.3) mg/dL Glucose 113 H (75-100) mg/dL Calcium 8.3 L (8.4-10.2) mg/dL NT-Pro-B Natriuret Pep > 3500 H (0-900) pg/mL Assessment and Plan -- Accelerated hypertension Status: Acute Resume home antihypertensives, as needed hydralazine Closely monitor --h/o chronic atrial fibrillation/rate controlled Status: Chronic Resume home beta-blockers, not on chronic anticoagulation Cardiology consult if needed --End-stage renal disease needing dialysis Status: Acute Nephrology consulted, HD per schedule Supportive care --Anemia of chronic disease Status: Acute Monitor H&H and transfuse as needed Procrit during hemodialysis --DVT prophylaxis Heparin renal dose We will closely monitor the patient and adjust management as needed Follow training consultant recommendations
[2020-09-17] MEDS ORDERED: FUROSEMIDE 40 MG TAB PO SCH (10:30)
[2020-09-17] MEDS ORDERED: ASPIRIN EC 325 MG TAB PO SCH (10:30)
[2020-09-17] MEDS ORDERED: cloNIDine 0.1 MG TAB PO SCH (10:30)
[2020-09-17] MEDS ORDERED: carvediloL 25 MG TAB PO SCH (10:30)
[2020-09-17] MEDS ORDERED: hydrALAZINE 20 MG/1 ML INJ IV PRN (10:30)
[2020-09-17] MEDS ORDERED: CINACALCET 30 MG TAB PO SCH (10:30)
[2020-09-17] MEDS ORDERED: PANTOPRAZOLE 40 MG TAB PO SCH (10:30)
[2020-09-17] MEDS ORDERED: SODIUM CHLORIDE 0.9% 100 ML IV PRN (13:26)
--- NOTE | 2020-09-17 13:29 | Event Note ---
Date: 09/17/20 Patient is known to our group and has been accepted to [facility] for HD under the care of Dr. Garcia; he previously was following with [facility] prior to moving to [place]. He has a chair at [facility] but is just awaiting his COVID test, and as his last HD was several days ago, came to ED for HD in interim period. Will place HD orders with official consult to follow.
[2020-09-17] MEDS ORDERED: hydrALAZINE 100 MG TAB PO SCH (14:00)
[2020-09-17 15:16] LABS: Hepatitis C Virus Antibody Non-Reactive (NonReactive)
[2020-09-17 15:24] LABS: Hepatitis B Surface Antigen Nonreactive (Negative)
--- NOTE | 2020-09-17 15:42 | Consultation ---
History of Present Illness - Reason for Consult Consult date: 09/17/20 end stage renal disease - History of Present Illness This is a 55 year-old man with ESRD who presents for need for HD. Patient usually dialyzes //, just moved back from [place] to [place], was to start at [facility] but awaiting COVID testing. Last HD one week ago. Denies any recent issues with HD, including dizziness, lightheadedness, cramping, chest pain on HD. Currently, patient denies any issues including dyspnea, edema, access issues, nausea, vomiting, headaches. Does have residual renal function Past History Past Medical History: atrial fib (Chronic), dialysis, ESRD, hypertension Past Surgical History: Other (AV fistula) Social history: denies: smoking, alcohol abuse, prescription drug abuse Family history: no significant family history Medications and Allergies Allergies Allergy/AdvReac Type Severity Reaction Status Date / Time No Known Allergies Allergy Verified 04/25/19 08:50 Home Medications Medication Instructions Recorded Confirmed Last Taken Type Cinacalcet [Sensipar] 30 mg PO QDAY #30 04/26/19 Unknown Rx Epoetin Curt 20,000 Unit [Procrit] 20,000 unit SUB-Q vial 04/26/19 Unknown Rx Epoetin Curt 20,000 Unit [Procrit] 20,000 unit SUB-Q vial 04/26/19 Unknown Rx Epoetin Curt 20,000 Unit [Procrit] 20,000 unit SUB-Q vial 04/26/19 Unknown Rx Furosemide [Lasix TAB] 80 mg PO QDAY tablet 04/26/19 Unknown Rx Furosemide [Lasix TAB] 80 mg PO QDAY #30 04/26/19 Unknown Rx NIFEdipine [Nifedipine ER] 90 mg PO QDAY #30 04/26/19 Unknown Rx Pantoprazole [Protonix TAB] 40 mg PO QDAY #30 04/26/19 Unknown Rx carvediloL [Coreg] 25 mg PO QDAY #30 04/26/19 Unknown Rx cloNIDine [Catapres] 0.1 mg PO BID #60 tablet 04/26/19 Unknown Rx hydrALAZINE [Apresoline TAB] 100 mg PO TID #90 tab 04/26/19 Unknown Rx Active Meds: Active Medications Aspirin (Aspirin Ec 325 Mg Tab) 325 mg PO QDAY DESTIN Last Admin: 09/17/20 10:55 Dose: 325 mg Documented by: Carvedilol (Carvedilol 25 Mg Tab) 25 mg PO QDAY [facility] Last Admin: 09/17/20 10:54 Dose: 25 mg Documented by: Cinacalcet (Cinacalcet 30 Mg Tab) 30 mg PO QDAY [facility] Last Admin: 09/17/20 11:30 Dose: 30 mg Documented by: Clonidine HCl (Clonidine 0.1 Mg Tab) 0.1 mg PO BID [facility] Last Admin: 09/17/20 10:54 Dose: 0.1 mg Documented by: Furosemide (Furosemide 40 Mg Tab) 80 mg PO QDAY [facility] Last Admin: 09/17/20 11:30 Dose: 80 mg Documented by: Hydralazine HCl (Hydralazine 100 Mg Tab) 100 mg PO TID [facility] Hydralazine HCl (Hydralazine 20 Mg/1 Ml Inj) 10 mg IV Q4HR PRN PRN Reason: Hypertension Last Admin: 09/17/20 10:56 Dose: 10 mg Documented by: Sodium Chloride (Nacl 0.9%) 100 mls @ 999 mls/hr IV STEPAN PRN PRN Reason: Hypotension Pantoprazole Sodium (Pantoprazole 40 Mg Tab) 40 mg PO QDAY [facility] Last Admin: 09/17/20 10:55 Dose: 40 mg Documented by: Exam - Vital Signs Vital signs: Vital Signs Temp Pulse Resp BP Pulse Ox 98.3 F 81 16 194/102 96 09/16/20 15:19 09/16/20 15:19 09/16/20 15:19 09/16/20 15:19 09/16/20 15:19 - Physical Exam Narrative exam: Constitutional: no acute distress Head: NC/AT Neck: supple Lungs: clear to auscultation CV: RRR, no M/R/G Abdomen: soft, non-tender, bowel sounds present Back: nontender Extremities: no edema, pulses WNL, AVF intact Skin: intact Neuro: no focal deficits, alert and oriented x4 Results - Lab Results 09/16/20 16:10 09/16/20 16:10 Most recent lab results Calcium 8.3 mg/dL (8.4-10.2) L 09/16/20 16:10 Assessment and Plan This is a 55 year old man who presents with need for HD # ESRD: HD today for solute/toxin clearance and volume removal - daily labs - renally dose meds - avoid nephrotoxins - renal diet - verbal consent obtained for HD - can be discharged post-HD today if stable and plan to start as outpatient # Anemia: last hemoglobin 7.5, ESAs with HD prn # HTN: UF as tolerated. BP high # Secondary Hyperparathyroidism: continue home binders as needed
--- NOTE | 2020-09-17 17:13 | Discharge Summary ---
Providers - Providers Date of Admission: 09/17/20 03:51 Date of discharge: 09/17/20 Attending physician: ARSALAN LUA 09/17/20 03:48 Consult to Physician [CONS] Routine Comment: Consulting Provider: YAMILKA GARCIA Physician Instructions: Reason For Exam: HD- patient known to Dr. 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 Patient is denies any chest pain shortness of breath, came for hemodialysis and be discharged Patient has history of atrial fibrillation however not on chronic anticoagulation Initial work-up is consistent with accelerated hypertension, mild shortness of breath Patient did not receive COVID-19 vaccination Reports that he tested for COVID-19 outside, pending report Patient blood pressures are uncontrolled on admission However improved after dialysis Patient was evaluated by nephrology, underwent hemodialysis And nephrology cleared for discharge as patient has outpatient dialysis scheduled And patient can collect his Covid 19 report and presented to the dialysis center Patient is hemodynamically and clinically stable at discharge Discharge diagnosis; -- Accelerated hypertension Status: Acute Improved, continue current antihypertensives --h/o paroxysmal atrial fibrillation/patient is in sinus rhythm Status: Chronic Reviewed many previous EKGs, sinus rhythm Patient on beta-blockers, not on anticoagulation --End-stage renal disease needing dialysis Status: Acute HD per schedule --Anemia of chronic disease Status: Acute Procrit during dialysis, transfuse as needed --DVT prophylaxis Heparin renal dose Cleared by nephrology for discharge Stable at discharge Disposition: 01 HOME / SELF CARE / HOMELESS Final Discharge Diagnosis (Prints w/discharge instructions): Accelerated hypertension/improved. Chronic atrial fibrillation/rate controlled. Not on anticoagulation. End-stage renal disease. Requiring hemodialysis. Anemia of chronic disease Time spent for discharge: 35 min Core Measure Documentation - Palliative Care Palliative Care/ Comfort Measures: Not Applicable - Core Measures Any of the following diagnoses?: none Exam - Constitutional Vitals: Temp Pulse Resp BP Pulse Ox 97.8 F 68 13 176/89 97 09/17/20 04:10 09/17/20 12:31 09/17/20 12:31 09/17/20 12:31 09/17/20 12:31 General appearance: Present: no acute distress, well-nourished - EENT Eyes: Present: PERRL, EOM intact - Neck Neck: Present: supple, normal ROM - Respiratory Respiratory effort: normal Respiratory: bilateral: diminished, rales, negative: rhonchi, wheezing - Cardiovascular Rhythm: regular Heart Sounds: Present: S1 & S2 - Extremities Extremities: no ischemia, No edema - Abdominal General gastrointestinal: Present: soft, non-tender, non-distended, normal bowel sounds - Integumentary Integumentary: Present: clear, warm - Musculoskeletal Musculoskeletal: strength equal bilaterally, generalized weakness - Psychiatric Psychiatric: appropriate mood/affect, cooperative - Neurologic Neurologic: moves all extremities Plan Activity: advance as tolerated Diet: renal Additional Instructions: Follow renal/hemodialysis per schedule. If you have worsening symptoms,contact MD or go to the nearest emergency room,. Advised to comply with medications, diet, follow-up visits, hemodialysis Follow up with: PRIMARY CARE, [Primary Care Provider] - 7 Days MOE RODRIGUEZ MD [Staff Physician] - 7 Days
[2020-09-17 20:11] VITALS: BP 182/92
[2020-09-18] MEDS ORDERED: oxyCODONE /ACETAMINOPHEN 5-325MG TAB PO PRN (02:37)
== END 2020-09-17 23:59 | disposition home or self-care (01) ==
LOC: ED 14:37 → 3A 09-17 03:51
PROVIDERS: ADMIT Hospitalist; ATTEND Internal Medicine
DX: I16.0 Hypertensive urgency (principal); I12.0 Hypertensive chronic kidney disease with stage 5 chronic kidney disease or end stage renal disease; N18.6 End stage renal disease; D63.1 Anemia in chronic kidney disease; I48.91 Unspecified atrial fibrillation; N25.81 Secondary hyperparathyroidism of renal origin; Z79.899 Other long term (current) drug therapy; Z99.2 Dependence on renal dialysis; Z98.890 Other specified postprocedural states; Z79.82 Long term (current) use of aspirin
CPT/HCPCS: 36415; 80048; 80074; 83880; 85027; 96374; 99291; G0257; G0378; J0360

== ENCOUNTER 2020-09-20 11:39 | Emergency (ER) | payer MEDICARE ==
[2020-09-20 13:08] VITALS: BP 194/109
== END 2020-09-20 16:00 | disposition left against medical advice (07) ==
LOC: ED 11:39
DX: R10.9 Unspecified abdominal pain (principal); Z53.21 Procedure and treatment not carried out due to patient leaving prior to being seen by health care provider
CPT/HCPCS: 36415; 80053; 83690; 85025

== ENCOUNTER 2020-09-23 10:26 | Observation (INO) | payer MEDICARE ==
[2020-09-23 11:27] LABS: Basophils # (Auto) 0.1 K/mm3 (0.0-0.1); Basophils % (Auto) 1.1 % (0.0-1.8); Eosinophils # (Auto) 0.4 K/mm3 (0.0-0.4); Eosinophils % (Auto) 5.5 % (0.0-4.3); Hemoglobin 6.3 gm/dl (11.8-15.2); Lymphocytes # (Auto) 0.4 K/mm3 (1.2-5.4); Lymphocytes % (Auto) 5.4 % (13.4-35.0); Mean Corpuscular HGB Conc 33 % (32-34); Mean Corpuscular Volume 94 fl (84-94); Monocytes # (Auto) 0.6 K/mm3 (0.0-0.8); Platelet Count 220 K/mm3 (140-440); Red Blood Count 2.05 M/mm3 (3.65-5.03)
[2020-09-23 12:13] LABS: Hematocrit 19.2 % (35.5-45.6); Red Cell Distribution Width 20.6 % (13.2-15.2)
--- NOTE | 2020-09-23 12:45 | Event Note ---
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 Further treatment and workup at subsequent clinical providers discretion. Patient/guardian urged not to elope from the ED as their condition may be serious if not clinically assessed and managed. 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
[2020-09-23 12:58] LABS: Albumin 3.8 g/dL (3.9-5); Calcium 7.9 mg/dL (8.4-10.2)
--- NOTE | 2020-09-23 17:40 | Emergency Department Report ---
ED General Adult HPI - General Chief complaint: Recheck/Abnormal Lab/Rx Stated complaint: SENT BY SHAILESH HEMOGLOBIN 6.8 Time Seen by Provider: 09/23/20 12:44 Source: patient Mode of arrival: Ambulatory Limitations: Other - History of Present Illness Initial comments: Patient presents to the emergency department for evaluation of anemia. Patient has a history of end-stage renal disease and is on hemodialysis. His days of dialysis on Monday, Monday, Monday. Patient states his last dialysis was on Monday. Patient went to dialysis this morning and after checking his blood counts he was told that his hemoglobin was 6.8 and he should come to the [facility] for a blood transfusion. Patient states he does make a small amount of urine but it is inconsistent. Patient denies chest pain, shortness breath, or headache. -: unknown Severity scale (0 -10): 0 Consistency: constant Improves with: none Worsens with: none Associated Symptoms: denies other symptoms Treatments Prior to Arrival: none - Related Data Previous Rx's Medication Instructions Recorded Last Taken Type Cinacalcet [Sensipar] 30 mg PO QDAY #30 04/26/19 Unknown Rx Epoetin Curt 20,000 Unit [Procrit] 20,000 unit SUB-Q Sa vial 04/26/19 Unknown Rx Epoetin Curt 20,000 Unit [Procrit] 20,000 unit SUB-Q Th vial 04/26/19 Unknown Rx Epoetin Curt 20,000 Unit [Procrit] 20,000 unit SUB-Q Tu vial 04/26/19 Unknown Rx Furosemide [Lasix TAB] 80 mg PO QDAY #30 04/26/19 Unknown Rx NIFEdipine [Nifedipine ER] 90 mg PO QDAY #30 04/26/19 Unknown Rx Pantoprazole [Protonix TAB] 40 mg PO QDAY #30 04/26/19 Unknown Rx carvediloL [Coreg] 25 mg PO QDAY #30 04/26/19 Unknown Rx cloNIDine [Catapres] 0.1 mg PO BID #60 tablet 04/26/19 Unknown Rx hydrALAZINE [Apresoline TAB] 100 mg PO TID #90 tab 04/26/19 Unknown Rx Allergies Allergy/AdvReac Type Severity Reaction Status Date / Time No Known Allergies Allergy Verified 09/23/20 10:37 ED Review of Systems ROS: Stated complaint: SENT BY [facility]AIL[facility] HEMOGLOBIN 6.8 Other details as noted in HPI Comment: All other systems reviewed and negative Constitutional: denies: chills, fever Eyes: denies: eye pain, eye discharge, vision change ENT: denies: ear pain, throat pain Respiratory: denies: cough, shortness of breath, wheezing Cardiovascular: denies: chest pain, palpitations Endocrine: no symptoms reported Gastrointestinal: denies: abdominal pain, nausea, diarrhea Genitourinary: denies: urgency, dysuria Musculoskeletal: denies: back pain, joint swelling, arthralgia Skin: denies: rash, lesions Neurological: denies: headache, weakness, paresthesias Psychiatric: denies: anxiety, depression Hematological/Lymphatic: denies: easy bleeding, easy bruising ED Past Medical Hx - Past Medical History Hx Hypertension: Yes Hx Heart Attack/AMI: No Hx Renal Disease: Yes (HD TThS. Last HD) Additional medical history: Glaucoma. afib - Surgical History Additional Surgical History: Left A/V Graft - Social History Smoking Status: Never Smoker Substance Use Type: None - Medications Home Medications: Home Medications Medication Instructions Recorded Confirmed Last Taken Type Cinacalcet [Sensipar] 30 mg PO QDAY #30 04/26/19 Unknown Rx Epoetin Curt 20,000 Unit [Procrit] 20,000 unit SUB-Q Sa vial 04/26/19 Unknown Rx Epoetin Curt 20,000 Unit [Procrit] 20,000 unit SUB-Q Th vial 04/26/19 Unknown Rx Epoetin Curt 20,000 Unit [Procrit] 20,000 unit SUB-Q Tu vial 04/26/19 Unknown Rx Furosemide [Lasix TAB] 80 mg PO QDAY #30 04/26/19 Unknown Rx NIFEdipine [Nifedipine ER] 90 mg PO QDAY #30 04/26/19 Unknown Rx Pantoprazole [Protonix TAB] 40 mg PO QDAY #30 04/26/19 Unknown Rx carvediloL [Coreg] 25 mg PO QDAY #30 04/26/19 Unknown Rx cloNIDine [Catapres] 0.1 mg PO BID #60 tablet 04/26/19 Unknown Rx hydrALAZINE [Apresoline TAB] 100 mg PO TID #90 tab 04/26/19 Unknown Rx ED Physical Exam - General Limitations: Other General appearance: alert, in no apparent distress - Head Head exam: Present: atraumatic, normocephalic - Eye Eye exam: Present: normal appearance, PERRL, EOMI - ENT ENT exam: Present: mucous membranes moist - Neck Neck exam: Present: normal inspection - Respiratory Respiratory exam: Present: normal lung sounds bilaterally. Absent: respiratory distress - Cardiovascular Cardiovascular Exam: Present: regular rate, normal rhythm. Absent: systolic murmur, diastolic murmur, rubs, gallop - GI/Abdominal GI/Abdominal exam: Present: soft, normal bowel sounds. Absent: distended, tenderness - Rectal Rectal exam: Present: deferred - Extremities Exam Extremities exam: Present: normal inspection - Back Exam Back exam: Present: normal inspection - Neurological Exam Neurological exam: Present: alert, oriented X3, CN II-XII intact. Absent: motor sensory deficit - Psychiatric Psychiatric exam: Present: normal affect, normal mood - Skin Skin exam: Present: warm, dry, intact, normal color. Absent: rash ED Course Vital Signs 09/23/20 09/23/20 09/23/20 10:40 10:41 16:23 Temperature 98.8 F 98.2 F Pulse Rate 92 H 84 Respiratory 16 20 Rate Blood Pressure 213/87 Blood Pressure 185/86 [Right] O2 Sat by Pulse 93 96 Oximetry 09/23/20 16:26 Temperature 98.2 F Pulse Rate 89 Respiratory 20 Rate Blood Pressure 213/87 Blood Pressure [Right] O2 Sat by Pulse 96 Oximetry ED Medical Decision Making - Lab Data Result diagrams: 09/23/20 11:06 09/23/20 11:06 Lab Results 09/23/20 09/23/20 09/23/20 Range/Units 11:06 11:06 11:10 WBC 7.6 (4.5-11.0) K/mm3 RBC 2.05 L (3.65-5.03) M/mm3 Hgb 6.3 L (11.8-15.2) gm/dl Hct 19.2 L* (35.5-45.6) % MCV 94 (84-94) fl MCH 31 (28-32) pg MCHC 33 (32-34) % RDW 20.6 H (13.2-15.2) % Plt Count 220 (140-440) K/mm3 Lymph % (Auto) 5.4 L (13.4-35.0) % [place] % (Auto) 8.0 H (0.0-7.3) % Eos % (Auto) 5.5 H (0.0-4.3) % Baso % (Auto) 1.1 (0.0-1.8) % Lymph # (Auto) 0.4 L (1.2-5.4) K/mm3 [place] # (Auto) 0.6 (0.0-0.8) K/mm3 Eos # (Auto) 0.4 (0.0-0.4) K/mm3 Baso # (Auto) 0.1 (0.0-0.1) K/mm3 Seg Neutrophils % 80.0 H (40.0-70.0) % Seg Neutrophils # 6.1 (1.8-7.7) K/mm3 Sodium 139 (137-145) mmol/L Potassium 4.5 (3.6-5.0) mmol/L Chloride 99.4 (98-107) mmol/L Carbon Dioxide 26 (22-30) mmol/L Anion Gap 18 mmol/L BUN 40 H (9-20) mg/dL Creatinine 8.7 H (0.8-1.3) mg/dL Estimated GFR 8 ml/min BUN/Creatinine Ratio 5 % Glucose 96 (75-100) mg/dL Calcium 7.9 L (8.4-10.2) mg/dL Total Bilirubin 0.70 (0.1-1.2) mg/dL AST 34 (5-40) units/L ALT 15 (7-56) units/L Alkaline Phosphatase 182 H (35-129) units/L Total Protein 6.9 (6.3-8.2) g/dL Albumin 3.8 L (3.9-5) g/dL Albumin/Globulin Ratio 1.2 % Blood Type O POSITIVE Antibody Screen Negative - Medical Decision Making Discussed plan of care with patient Critical care attestation.: If time is entered above; I have spent that time in minutes in the direct care of this critically ill patient, excluding procedure time. ED Disposition Clinical Impression: Anemia requiring transfusions, ESRD (end stage renal disease) on dialysis Disposition: ADMITTED INPATIENT Is pt being admited?: Yes Does the pt Need Aspirin: No Condition: Fair Referrals: TAMIE RUDD MD [Primary Care Provider] - 3-5 Days
[2020-09-23] MEDS ORDERED: ALBUTEROL 2.5 MG/3 ML NEBU IH PRN (18:00)
[2020-09-23] MEDS ORDERED: ONDANSETRON 4 MG/2 ML INJ IV PRN (18:00)
[2020-09-23] MEDS ORDERED: ACETAMINOPHEN 325 MG TAB PO PRN (18:00)
[2020-09-23] MEDS ORDERED: HYDROmorphone 1 MG/1 ML INJ IV PRN (18:00)
[2020-09-23] MEDS ORDERED: SODIUM CHLORIDE 0.9% 500 ML 500 ML IV SCH (18:02)
--- NOTE | 2020-09-23 18:02 | History and Physical Report ---
History of Present Illness Chief complaint: I need dialysis History of present illness: 55 YO Male with ESRD on HD(M,W,F), GERD, HTN, Paroxysmal Atrial Fib not on therapeutic anticoagulation presents to ED for evaluation. Patient reports I was unable to get dialysis". Patient states that he was in his usual state of health and presented to his routine outpatient dialysis center today. Patient was found to have a hemoglobin of 6.8, unable to undergo dialysis. Patient was instructed to seek further care at [facility]. Patient transported to [facility] via private vehicle for further care and evaluation of the aforementioned symptoms. The patient was seen and evaluated in the emergency department. All lab and imaging studies reviewed. Patient found to have end- stage renal disease in need of urgent dialysis as well as symptomatic anemia. Patient placed in observation status admitted to medical floor. Patient treated with packed red blood cell transfusion for symptomatic anemia. Nephrology team consulted in ED for dialysis as per renal team. Patient denies fever, chills, chest pain, palpitation, productive cough, skin rash, recent contact, or known exposure to COVID-19. Prior admission on 09/17/2020 reviewed. All medication listed at time of admission has been reconciled. Past History Past Medical History: atrial fib, ESRD, GERD, hypertension Past Surgical History: Other (Dialysis access) Social history: single. denies: smoking, alcohol abuse, prescription drug abuse Family history: hypertension Medications and Allergies Allergies Allergy/AdvReac Type Severity Reaction Status Date / Time No Known Allergies Allergy Verified 09/23/20 10:37 Home Medications Medication Instructions Recorded Confirmed Last Taken Type Cinacalcet [Sensipar] 30 mg PO QDAY #30 04/26/19 Unknown Rx Epoetin Curt 20,000 Unit [Procrit] 20,000 unit SUB-Q Sa vial 04/26/19 Unknown Rx Epoetin Curt 20,000 Unit [Procrit] 20,000 unit SUB-Q Th vial 04/26/19 Unknown Rx Epoetin Curt 20,000 Unit [Procrit] 20,000 unit SUB-Q Tu vial 04/26/19 Unknown Rx Furosemide [Lasix TAB] 80 mg PO QDAY #30 04/26/19 Unknown Rx NIFEdipine [Nifedipine ER] 90 mg PO QDAY #30 04/26/19 Unknown Rx Pantoprazole [Protonix TAB] 40 mg PO QDAY #30 04/26/19 Unknown Rx carvediloL [Coreg] 25 mg PO QDAY #30 04/26/19 Unknown Rx cloNIDine [Catapres] 0.1 mg PO BID #60 tablet 04/26/19 Unknown Rx hydrALAZINE [Apresoline TAB] 100 mg PO TID #90 tab 04/26/19 Unknown Rx Review of Systems Constitutional: weakness, other (My blood is low), no weight gain, no fever Ears, nose, mouth and throat: no ear pain, no ear discharge, no decreased hearing, no nose pain, no nasal congestion Cardiovascular: no chest pain, no palpitations, no edema, no syncope Respiratory: no cough, no cough with sputum, no hemoptysis, no dyspnea on exertion Gastrointestinal: no abdominal pain, no diarrhea, no change in bowel habits Genitourinary Male: no hematuria, no flank pain, no urinary frequency, no urinary hesitancy, no nocturia Rectal: no pain, no incontinence, no bleeding Musculoskeletal: no neck stiffness, no neck pain, no shooting arm pain, no low back pain, no shooting leg pain Integumentary: no rash, no pruritis, no sores, no wounds, no jaundice, no boils Neurological: no head injury, no transient paralysis, no weakness, no tingling, no seizures, no tremors, no lack of coordination Psychiatric: no memory loss, no sleep disturbances, no insomnia, no hypersomnia, no change in appetite, no suicidal ideation Endocrine: no cold intolerance, no excessive thirst, no polyuria, no excessive sweating Hematologic/Lymphatic: no easy bruising, no easy bleeding Allergic/Immunologic: no urticaria, no wheezing Exam - Constitutional Vitals: Temp Pulse Resp BP Pulse Ox 98.2 F 89 20 213/87 96 09/23/20 16:26 09/23/20 16:26 09/23/20 16:26 09/23/20 16:26 09/23/20 16:26 General appearance: Present: mild distress - EENT Eyes: Present: PERRL ENT: hearing intact, clear oral mucosa - Neck Neck: Present: supple, normal ROM - Respiratory Respiratory effort: normal Respiratory: bilateral: CTA - Cardiovascular Heart Sounds: Present: S1 & S2. Absent: rub, click - Extremities Extremities: pulses symmetrical, No edema Peripheral Pulses: within normal limits - Abdominal General gastrointestinal: Present: soft, non-tender, non-distended, normal bowel sounds Male genitourinary: Present: normal - Integumentary Integumentary: Present: clear, warm, dry - Musculoskeletal Musculoskeletal: gait normal, strength equal bilaterally - Psychiatric Psychiatric: appropriate mood/affect, intact judgment & insight - Neurologic Neurologic: CNII-XII intact, moves all extremities Results - Labs CBC & Chem 7: 09/23/20 11:06 09/23/20 11:06 Labs: Abnormal lab results 09/23/20 09/23/20 Range/Units 11:06 11:06 RBC 2.05 L (3.65-5.03) M/mm3 Hgb 6.3 L (11.8-15.2) gm/dl Hct 19.2 L* (35.5-45.6) % RDW 20.6 H (13.2-15.2) % Lymph % (Auto) 5.4 L (13.4-35.0) % [place] % (Auto) 8.0 H (0.0-7.3) % Eos % (Auto) 5.5 H (0.0-4.3) % Lymph # (Auto) 0.4 L (1.2-5.4) K/mm3 Seg Neutrophils % 80.0 H (40.0-70.0) % BUN 40 H (9-20) mg/dL Creatinine 8.7 H (0.8-1.3) mg/dL Calcium 7.9 L (8.4-10.2) mg/dL Alkaline Phosphatase 182 H (35-129) units/L Albumin 3.8 L (3.9-5) g/dL Assessment and Plan - Patient Problems (1) ESRD (end stage renal disease) on dialysis Current Visit: Yes Status: Acute Plan to address problem: Nephrology team consulted in ED, dialysis as per renal team, avoid nephrotoxic agents. (2) Anemia requiring transfusions Current Visit: Yes Status: Acute Plan to address problem: Primary blood cell transfusion, repeat CBC in a.m. (3) DVT prophylaxis Current Visit: Yes Status: Acute Plan to address problem: SCD to bilateral lower extremities while in bed, patient is ambulatory
[2020-09-23] MEDS ORDERED: FUROSEMIDE 20 MG/2 ML INJ IV ONE (18:03)
[2020-09-23] MEDS ORDERED: hydrALAZINE 20 MG/1 ML INJ IV ONE ×2 (20:33→22:58)
[2020-09-23] MEDS: oxyCODONE /ACETAMINOPHEN 5-325MG TAB PO PRN (21:02)
[2020-09-23] MEDS ORDERED: FUROSEMIDE 40 MG/4 ML INJ IV ONE (22:58)
[2020-09-24] MEDS ORDERED: cloNIDine 0.1 MG TAB PO ONE (04:59)
[2020-09-24] MEDS ORDERED: MORPHINE 2 MG/1 ML INJ IV PRN (04:59)
[2020-09-24] MEDS ORDERED: hydrALAZINE 20 MG/1 ML INJ IV PRN (06:25)
[2020-09-24 07:28] LABS: Calcium 8.5 mg/dL (8.4-10.2)
[2020-09-24] MEDS ORDERED: EPOETIN ALFA-EPBX 10,000 UNIT/1 ML VIAL IV PRN (09:00)
[2020-09-24] MEDS ORDERED: SODIUM CHLORIDE 0.9% 100 ML IV PRN (09:00)
[2020-09-24 11:29] LABS: Hematocrit 30.5 % (35.5-45.6); Hemoglobin 9.9 gm/dl (11.8-15.2); Mean Corpuscular HGB Conc 32 % (32-34); Mean Corpuscular Volume 93 fl (84-94); Platelet Count 183 K/mm3 (140-440); Red Blood Count 3.28 M/mm3 (3.65-5.03); Red Cell Distribution Width 19.2 % (13.2-15.2)
[2020-09-24 15:19] LABS: Poikilocytosis 2+; Total Cells Counted 100
[2020-09-24 15:20] LABS: Anisocytosis 2+; Hypochromasia 2+; Ovalocytes 2+; Platelet Estimate Consistent w Auto; Target Cells 1+
--- NOTE | 2020-09-24 16:26 | Discharge Summary ---
Providers - Providers Date of Admission: 09/23/20 18:00 Date of discharge: 09/24/20 Attending physician: TANIYA COHN 09/23/20 18:04 Consult to Physician [CONS] Routine Comment: Consulting Provider: MOE RODRIGUEZ Physician Instructions: Reason For Exam: esrd Primary care physician: TAMIE RUDD Hospitalization Condition: Fair Disposition: 01 HOME / SELF CARE / HOMELESS Exam - Constitutional Vitals: Temp Pulse Resp BP Pulse Ox 98.2 F 79 24 174/84 99 09/23/20 16:26 09/24/20 13:01 09/24/20 13:01 09/24/20 13:01 09/24/20 13:01 Plan Follow up with: TAMIE RUDD MD [Primary Care Provider] - 3-5 Days
[2020-09-24] MEDS ORDERED: hydrALAZINE 20 MG/1 ML INJ IV ONE (16:33)
[2020-09-24] MEDS: oxyCODONE /ACETAMINOPHEN 5-325MG TAB PO PRN (18:42)
[2020-09-24 20:11] VITALS: BP 179/90
== END 2020-09-24 20:00 | disposition home or self-care (01) ==
LOC: ED 10:26 → 3A 18:00
PROVIDERS: ADMIT Internal Medicine; ATTEND Internal Medicine
DX: I12.0 Hypertensive chronic kidney disease with stage 5 chronic kidney disease or end stage renal disease (principal); N18.6 End stage renal disease; D63.1 Anemia in chronic kidney disease; K21.9 Gastro-esophageal reflux disease without esophagitis; I48.0 Paroxysmal atrial fibrillation; Z99.2 Dependence on renal dialysis
CPT/HCPCS: 36415; 36430; 80048; 80053; 85025; 86850; 86900; 86901; 86920; 96374; 96376; 99284; G0378; J0360; J1940; J7040; P9016; 85007; G0257

== ENCOUNTER 2020-10-19 01:27 | Inpatient (IN) | payer MEDICARE ==
--- NOTE | 2020-10-19 02:02 | Event Note ---
ED Screening Note ED Screening Note: 55-year-old male with end-stage renal disease, hypertension, diabetes presents emerged department complaining of chest pain resulting in him contacting EMS. Chest pain was resolved with nitro and aspirin. This initial assessment/diagnostic orders/clinical plan/treatment(s) is/are subject to change based on patients health status, clinical progression and re- assessment by fellow clinical providers in the ED. Further treatment and workup at subsequent clinical providers discretion. Patient/guardian urged not to elope from the ED as their condition may be serious if not clinically assessed and managed. Initial orders include: Chest x-ray labs chest pain protocol
--- NOTE | 2020-10-19 02:30 | XRay Report ---
CHEST 2 VIEWS INDICATION / CLINICAL INFORMATION: Chest Pain. COMPARISON: None available. FINDINGS: SUPPORT DEVICES: None. HEART / MEDIASTINUM: Cardiomegaly LUNGS / PLEURA: Diffuse opacities are seen in bilateral lungs No pneumothorax. ADDITIONAL FINDINGS: No significant additional findings. IMPRESSION: 1. Diffuse bilateral pulmonary opacities. Cardiomegaly. Signer Name: Lb Burciaga MD Signed: 10/19/2020 2:26 AM Workstation Name: [email or web address]
[2020-10-19 03:04] LABS: Basophils % (Auto) 0.7 % (0.0-1.8); Eosinophils # (Auto) 0.3 K/mm3 (0.0-0.4); Eosinophils % (Auto) 5.4 % (0.0-4.3); Hematocrit 20.6 % (35.5-45.6); Hemoglobin 6.8 gm/dl (11.8-15.2); Lymphocytes # (Auto) 0.8 K/mm3 (1.2-5.4); Lymphocytes % (Auto) 14.8 % (13.4-35.0); Mean Corpuscular HGB Conc 33 % (32-34); Mean Corpuscular Volume 95 fl (84-94); Monocytes # (Auto) 0.5 K/mm3 (0.0-0.8); Monocytes % (Auto) 9.1 % (0.0-7.3); Platelet Count 190 K/mm3 (140-440); Red Blood Count 2.17 M/mm3 (3.65-5.03)
[2020-10-19 03:10] LABS: Albumin 3.7 g/dL (3.9-5); Calcium 8.5 mg/dL (8.4-10.2)
[2020-10-19 03:22] LABS: Red Cell Distribution Width 20.3 % (13.2-15.2)
[2020-10-19 03:43] LABS: Chol/HDL Ratio 2.14 %
[2020-10-19] MEDS ORDERED: NITROGLYCERIN 0.4 MG TAB SUBL SL ONE (06:43)
[2020-10-19] MEDS ORDERED: METOPROLOL TARTRATE 5 MG/5 ML INJ IV ONE (06:43)
--- NOTE | 2020-10-19 06:48 | Emergency Department Report ---
ED Chest Pain HPI - General Chief Complaint: Chest Pain Stated Complaint: SOB/CHEST PAIN Time Seen by Provider: 10/19/20 06:34 Source: patient, EMS Mode of arrival: Stretcher Limitations: No Limitations - History of Present Illness Initial Comments: 55-year-old -[place] male presents to the emergency department via EMS from home with a complaint of shortness of breath and left-sided chest pain that started yesterday morning. The patient received a full dose aspirin and a sublingual nitroglycerin in route with EMS with only mild improvement. He has a past medical history that includes hypertension, paroxysmal atrial fibrillation, CHF, anemia requiring transfusions, and end-stage renal disease on hemodialysis on Monday/Monday/Monday. He follows with [facility] nephrology. He says that he has seen a landfill grader "just down the street" in the past but cannot give me the name of the physician or group. The patient also complains of bilateral lower extremity swelling. No recent travel or sick contacts at home. The patient is vaccinated against COVID-19. He says that he recently had a negative Covid test about 3 days ago. Currently he says that his chest pain is 8 out of 10 in intensity. No known aggravating or alleviating factors. He denies any fever, cough, nausea, vomiting, diarrhea, abdominal pain. - Related Data Previous Rx's Medication Instructions Recorded Last Taken Type Epoetin Curt 20,000 Unit [Procrit] 20,000 unit SUB-Q Sa vial 04/26/19 Unknown Rx Epoetin Curt 20,000 Unit [Procrit] 20,000 unit SUB-Q Th vial 04/26/19 Unknown Rx Epoetin Curt 20,000 Unit [Procrit] 20,000 unit SUB-Q Tu vial 04/26/19 Unknown Rx Cinacalcet [Sensipar] 30 mg PO QDAY #30 09/24/20 Unknown Rx Furosemide [Lasix TAB] 80 mg PO QDAY #30 09/24/20 Unknown Rx NIFEdipine [Nifedipine ER] 90 mg PO QDAY #30 09/24/20 Unknown Rx Pantoprazole [Protonix TAB] 40 mg PO QDAY #30 09/24/20 Unknown Rx carvediloL [Coreg] 25 mg PO QDAY #30 09/24/20 Unknown Rx cloNIDine [Catapres] 0.1 mg PO BID #60 tablet 09/24/20 Unknown Rx hydrALAZINE [Apresoline TAB] 100 mg PO TID #90 tab 09/24/20 Unknown Rx Allergies Allergy/AdvReac Type Severity Reaction Status Date / Time No Known Allergies Allergy Verified 09/23/20 10:37 Heart Score - HEART Score History: Slightly suspicious EKG: Non-specific Age: 45-65 Risk factors: 1-2 risk factors Troponin: > 3x normal limit HEART Score: 5 - EKG Read Time Time EKG Completed: 05:45 EKG Read Time: 05:50 - Critical Actions Critical Actions: 4-6 pts:12-16.6% risk of adverse cardiac event. Should be adm itted ED Review of Systems ROS: Stated complaint: SOB/CHEST PAIN Other details as noted in HPI Comment: All other systems reviewed and negative Constitutional: denies: chills, fever Eyes: denies: eye pain, vision change ENT: denies: ear pain, throat pain Respiratory: shortness of breath. denies: cough Cardiovascular: chest pain, palpitations, edema Gastrointestinal: denies: abdominal pain, vomiting Genitourinary: denies: dysuria, discharge Musculoskeletal: denies: back pain, arthralgia Skin: denies: rash, lesions Neurological: denies: headache, weakness ED Past Medical Hx - Past Medical History Hx Hypertension: Yes Hx Heart Attack/AMI: No Hx Renal Disease: Yes (HD TThS. Last HD) Additional medical history: Glaucoma. afib - Surgical History Additional Surgical History: Left A/V Graft - Social History Smoking Status: Never Smoker Substance Use Type: None - Medications Home Medications: Home Medications Medication Instructions Recorded Confirmed Last Taken Type Epoetin Curt 20,000 Unit [Procrit] 20,000 unit SUB-Q Sa vial 04/26/19 Unknown Rx Epoetin Curt 20,000 Unit [Procrit] 20,000 unit SUB-Q Th vial 04/26/19 Unknown Rx Epoetin Curt 20,000 Unit [Procrit] 20,000 unit SUB-Q Tu vial 04/26/19 Unknown Rx Cinacalcet [Sensipar] 30 mg PO QDAY #30 09/24/20 Unknown Rx Furosemide [Lasix TAB] 80 mg PO QDAY #30 09/24/20 Unknown Rx NIFEdipine [Nifedipine ER] 90 mg PO QDAY #30 09/24/20 Unknown Rx Pantoprazole [Protonix TAB] 40 mg PO QDAY #30 09/24/20 Unknown Rx carvediloL [Coreg] 25 mg PO QDAY #30 09/24/20 Unknown Rx cloNIDine [Catapres] 0.1 mg PO BID #60 tablet 09/24/20 Unknown Rx hydrALAZINE [Apresoline TAB] 100 mg PO TID #90 tab 09/24/20 Unknown Rx ED Physical Exam - General Limitations: No Limitations - Other Other exam information: GENERAL: The patient is well-developed well-nourished. HENT: Normocephalic. Atraumatic. Patient has moist mucous membranes. EYES: Extraocular motions are intact. NECK: Supple. Trachea is midline. CHEST/LUNGS: Coarse breath sounds throughout the chest. No tachypnea or accessory muscle use. HEART/CARDIOVASCULAR: Regular. There is no tachycardia. There is no murmur. ABDOMEN: Abdomen is soft, nontender. Patient has normal bowel sounds. There is no abdominal distention. SKIN: Skin is warm and dry. 1-2+ pitting edema to the bilateral lower extremities. NEURO: The patient is awake, alert, and oriented. The patient is cooperative. The patient has no focal neurologic deficits. Normal speech. MUSCULOSKELETAL: There is no tenderness or deformity. There is no limitation range of motion. ED Course Vital Signs 10/19/20 10/19/20 01:42 07:11 Temperature 98.2 F Pulse Rate 85 75 Respiratory 20 Rate Blood Pressure 199/106 213/121 O2 Sat by Pulse 100 Oximetry SUSAN score - Susan Score Age > 65: (0) No Aspirin use within the Past 7 Days: (0) No 3 or more CAD Risk Factors: (1) Yes 2 or more Angina events in past 24 hrs: (1) Yes Known CAD with more than 50% Stenosis: (0) No Elevated Cardiac Markers: (1) Yes ST Deviation Greater than 0.5mm: (0) No SUSAN Score: 3 ED Medical Decision Making - Lab Data Result diagrams: 10/19/20 02:31 10/19/20 02:31 Lab Results 10/19/20 10/19/20 10/19/20 Range/Units 02:31 02:31 04:41 WBC 5.7 (4.5-11.0) K/mm3 RBC 2.17 L (3.65-5.03) M/mm3 Hgb 6.8 L (11.8-15.2) gm/dl Hct 20.6 L (35.5-45.6) % MCV 95 H (84-94) fl MCH 31 (28-32) pg MCHC 33 (32-34) % RDW 20.3 H (13.2-15.2) % Plt Count 190 (140-440) K/mm3 Lymph % (Auto) 14.8 (13.4-35.0) % [place] % (Auto) 9.1 H (0.0-7.3) % Eos % (Auto) 5.4 H (0.0-4.3) % Baso % (Auto) 0.7 (0.0-1.8) % Lymph # (Auto) 0.8 L (1.2-5.4) K/mm3 [place] # (Auto) 0.5 (0.0-0.8) K/mm3 Eos # (Auto) 0.3 (0.0-0.4) K/mm3 Baso # (Auto) 0.0 (0.0-0.1) K/mm3 Seg Neutrophils % 70.0 (40.0-70.0) % Seg Neutrophils # 4.0 (1.8-7.7) K/mm3 Sodium 139 (137-145) mmol/L Potassium 3.7 (3.6-5.0) mmol/L Chloride 98.1 (98-107) mmol/L Carbon Dioxide 26 (22-30) mmol/L Anion Gap 19 mmol/L BUN 78 H (9-20) mg/dL Creatinine 9.3 H (0.8-1.3) mg/dL Estimated GFR 7 ml/min BUN/Creatinine Ratio 8 % Glucose 96 (75-100) mg/dL Calcium 8.5 (8.4-10.2) mg/dL Total Bilirubin 0.40 (0.1-1.2) mg/dL AST 22 (5-40) units/L ALT 20 (7-56) units/L Alkaline Phosphatase 280 H (35-129) units/L Troponin T 0.085 H 0.092 H (0.00-0.029) ng/mL Total Protein 6.6 (6.3-8.2) g/dL Albumin 3.7 L (3.9-5) g/dL Albumin/Globulin Ratio 1.3 % Triglycerides 39 (2-149) mg/dL Cholesterol 116 (50-199) mg/dL LDL Cholesterol Direct 66 (50-130) mg/dL HDL Cholesterol 54 (40-59) mg/dL Cholesterol/HDL Ratio 2.14 % Blood Type Antibody Screen Crossmatch 10/19/20 Range/Units 06:47 WBC (4.5-11.0) K/mm3 RBC (3.65-5.03) M/mm3 Hgb (11.8-15.2) gm/dl Hct (35.5-45.6) % MCV (84-94) fl MCH (28-32) pg MCHC (32-34) % RDW (13.2-15.2) % Plt Count (140-440) K/mm3 Lymph % (Auto) (13.4-35.0) % [place] % (Auto) (0.0-7.3) % Eos % (Auto) (0.0-4.3) % Baso % (Auto) (0.0-1.8) % Lymph # (Auto) (1.2-5.4) K/mm3 [place] # (Auto) (0.0-0.8) K/mm3 Eos # (Auto) (0.0-0.4) K/mm3 Baso # (Auto) (0.0-0.1) K/mm3 Seg Neutrophils % (40.0-70.0) % Seg Neutrophils # (1.8-7.7) K/mm3 Sodium (137-145) mmol/L Potassium (3.6-5.0) mmol/L Chloride (98-107) mmol/L Carbon Dioxide (22-30) mmol/L Anion Gap mmol/L BUN (9-20) mg/dL Creatinine (0.8-1.3) mg/dL Estimated GFR ml/min BUN/Creatinine Ratio % Glucose (75-100) mg/dL Calcium (8.4-10.2) mg/dL Total Bilirubin (0.1-1.2) mg/dL AST (5-40) units/L ALT (7-56) units/L Alkaline Phosphatase (35-129) units/L Troponin T (0.00-0.029) ng/mL Total Protein (6.3-8.2) g/dL Albumin (3.9-5) g/dL Albumin/Globulin Ratio % Triglycerides (2-149) mg/dL Cholesterol (50-199) mg/dL LDL Cholesterol Direct (50-130) mg/dL HDL Cholesterol (40-59) mg/dL Cholesterol/HDL Ratio % Blood Type O POSITIVE Antibody Screen Negative Crossmatch See Detail - EKG Data -: EKG Interpreted by Me EKG shows normal: sinus rhythm, axis, intervals (Prolonged UT interval), QRS complexes (LVH), ST-T waves Rate: normal - EKG Data When compared to previous EKG there are: no significant change Interpretation: unchanged when compared t (04/25/19) - Radiology Data Radiology results: image reviewed interpreted by me: Chest x-ray shows LVH, pulmonary vascular congestion and some interstitial edema. - Medical Decision Making This patient presents to the emergency department with complaint of chest pain and shortness of breath. He is due for dialysis today and does appear volume overloaded. However the patient does not appear in any respiratory distress. He presents with extremely elevated blood pressure with a systolic greater than 200. Patient has coarse breath sounds and bilateral lower extremity pitting edema. EKG did not have any morphology consistent with ST elevation myocardial infarction. Labs show anemia with a hemoglobin of 6.8 and 1 unit of packed red blood cells has been ordered for transfusion. Patient has renal insufficiency consistent with his end-stage renal disease on hemodialysis. The patient has elevated troponin levels that may be secondary to his renal insufficiency, but the patient does present here with the complaint of chest pain. Chest x-ray looks like volume overload. No obvious pneumonia. No pneumothorax or widened mediastinum. Nephrology contacted and consulted. He will be admitted to the hospital for further evaluation and treatment and was accepted for admission by the hospitalist service. Critical Care Time: Yes Critical care time in (mins) excluding proc time.: 35 Critical care attestation.: If time is entered above; I have spent that time in minutes in the direct care of this critically ill patient, excluding procedure time. Critical care time was spent on this patient during his initial evaluation, multiple reevaluations, ordering interpretation of labs and imaging, ordering of packed red blood cells for transfusion, discussion with nephrology and the hospitalist services. Critical Care Time: 35 minutes ED Disposition Clinical Impression: ESRD needing dialysis, Acute chest pain, Hypertensive urgency, Anemia requiring transfusions, Fluid overload, Severe anemia Disposition: 09 ADMITTED INPATIENT Is pt being admited?: Yes Condition: Serious Time of Disposition: 07:26
[2020-10-19] MEDS ORDERED: SODIUM CHLORIDE 0.9% 500 ML 500 ML IV ONE (07:21)
--- NOTE | 2020-10-19 08:30 | History and Physical Report ---
History of Present Illness Date of examination: 10/19/20 Date of admission: 10/19/2020 Chief complaint: Shortness of breath History of present illness: 55-year-old -[place] male with past medical history of ESRD on HD, congestive heart failure, gastroparesis, paroxysmal atrial fibrillation presenting to our facility with complaint of shortness of breath and left-sided chest pain onset yesterday. Patient states that symptoms of chest pain were intermittent. Shortness of breath was associated with lower extremity edema, fatigue, weakness. He states that he makes walking difficult. He denied any fevers or chills. He denied any nausea, vomiting, diarrhea, constipation. He denied any exposure to sick persons. He had a negative Covid test 3 days ago and is vaccinated against Covid. Per nephrology note, patient's last dialysis treatment was October 02. Patient also missed dialysis on October 12 and is 3 kg currently over his dry weight on October 16. ED Course: NS 500 cc IV, metoprolol 5 mg IV, nitro 0.4 mg SL x1, nephrology consultation PMHx:ESRD on HD, congestive heart failure, gastroparesis, paroxysmal atrial fibrillation PSHx: Right arm fistula placement FHx: Reviewed noncontributory SHx: Tobacco use-denies ETOH Use-denies Recreational Drug Use-denies Nephrologistfollows with Dr. Jose Macias seen Dr. Leopoldo Porras Lives with sister Akosua Fuller Medications and Allergies Allergies Allergy/AdvReac Type Severity Reaction Status Date / Time No Known Allergies Allergy Verified 09/23/20 10:37 Home Medications Medication Instructions Recorded Confirmed Last Taken Type Epoetin Curt 20,000 Unit [Procrit] 20,000 unit SUB-Q Sa vial 04/26/19 Unknown Rx Epoetin Curt 20,000 Unit [Procrit] 20,000 unit SUB-Q Th vial 04/26/19 Unknown Rx Epoetin Curt 20,000 Unit [Procrit] 20,000 unit SUB-Q Tu vial 04/26/19 Unknown Rx Cinacalcet [Sensipar] 30 mg PO QDAY #30 09/24/20 Unknown Rx Furosemide [Lasix TAB] 80 mg PO QDAY #30 09/24/20 Unknown Rx NIFEdipine [Nifedipine ER] 90 mg PO QDAY #30 09/24/20 Unknown Rx Pantoprazole [Protonix TAB] 40 mg PO QDAY #30 09/24/20 Unknown Rx carvediloL [Coreg] 25 mg PO QDAY #30 09/24/20 Unknown Rx cloNIDine [Catapres] 0.1 mg PO BID #60 tablet 09/24/20 Unknown Rx hydrALAZINE [Apresoline TAB] 100 mg PO TID #90 tab 09/24/20 Unknown Rx Review of Systems All systems: negative Constitutional: weight gain, fatigue, weakness Cardiovascular: chest pain, edema, shortness of breath Exam - Physical Exam Narrative exam: Physical Exam: Constitutional: Alert, cooperative. No acute distress Head, Ears, Nose: Normocephalic, atraumatic. External ears, nose normal Eyes: Conjunctivae/corneas clear. No icterus. No ptosis. Neck: Supple, no meningeal signs Oral: dentition fair, no thrush Cardiovascular: S1, S2 normal. Respiratory: Good air entry, bilateral rhonchi GI: Soft, non-tender; bowel sounds normal. No peritoneal signs. Musculoskeletal: Bilateral lower extremity edema, no cyanosis. Skin: No rash or abscess, see nursing assessment for full skin exam Hem/Lymphatic: No palpable cervical or supraclavicular nodes. No lymphangitis Psych: Mood ok. Affect normal Neurological: Awake, alert, oriented. No gross abnormality - Constitutional Vitals: Temp Pulse Resp BP Pulse Ox 98.2 F 75 20 213/121 100 10/19/20 01:42 10/19/20 07:11 10/19/20 01:42 10/19/20 07:11 10/19/20 01:42 HEART Score - HEART Score EKG: Non-specific Age: 45-65 Risk factors: 1-2 risk factors Troponin: Troponin T 0.092 ng/mL (0.00-0.029) H 10/19/20 04:41 Troponin: > 3x normal limit - Critical Actions Critical Actions: 4-6 pts:12-16.6% risk of adverse cardiac event. Should be admitted Results - Labs CBC & Chem 7: 10/19/20 02:31 10/19/20 02:31 Labs: Laboratory Last Values WBC 5.7 K/mm3 (4.5-11.0) 10/19/20 02:31 RBC 2.17 M/mm3 (3.65-5.03) L 10/19/20 02:31 Hgb 6.8 gm/dl (11.8-15.2) L 10/19/20 02:31 Hct 20.6 % (35.5-45.6) L 10/19/20 02:31 MCV 95 fl (84-94) H 10/19/20 02:31 MCH 31 pg (28-32) 10/19/20 02:31 MCHC 33 % (32-34) 10/19/20 02:31 RDW 20.3 % (13.2-15.2) H 10/19/20 02:31 Plt Count 190 K/mm3 (140-440) 10/19/20 02:31 Lymph % (Auto) 14.8 % (13.4-35.0) 10/19/20 02:31 [place] % (Auto) 9.1 % (0.0-7.3) H 10/19/20 02:31 Eos % (Auto) 5.4 % (0.0-4.3) H 10/19/20 02:31 Baso % (Auto) 0.7 % (0.0-1.8) 10/19/20 02:31 Lymph # (Auto) 0.8 K/mm3 (1.2-5.4) L 10/19/20 02:31 [place] # (Auto) 0.5 K/mm3 (0.0-0.8) 10/19/20 02:31 Eos # (Auto) 0.3 K/mm3 (0.0-0.4) 10/19/20 02:31 Baso # (Auto) 0.0 K/mm3 (0.0-0.1) 10/19/20 02:31 Seg Neutrophils % 70.0 % (40.0-70.0) 10/19/20 02:31 Seg Neutrophils # 4.0 K/mm3 (1.8-7.7) 10/19/20 02:31 Sodium 139 mmol/L (137-145) 10/19/20 02:31 Potassium 3.7 mmol/L (3.6-5.0) 10/19/20 02:31 Chloride 98.1 mmol/L (98-107) 10/19/20 02:31 Carbon Dioxide 26 mmol/L (22-30) 10/19/20 02:31 Anion Gap 19 mmol/L 10/19/20 02:31 BUN 78 mg/dL (9-20) H 10/19/20 02:31 Creatinine 9.3 mg/dL (0.8-1.3) H 10/19/20 02:31 Estimated GFR 7 ml/min 10/19/20 02:31 BUN/Creatinine Ratio 8 % 10/19/20 02:31 Glucose 96 mg/dL (75-100) 10/19/20 02:31 Calcium 8.5 mg/dL (8.4-10.2) 10/19/20 02:31 Total Bilirubin 0.40 mg/dL (0.1-1.2) 10/19/20 02:31 AST 22 units/L (5-40) 10/19/20 02:31 ALT 20 units/L (7-56) 10/19/20 02:31 Alkaline Phosphatase 280 units/L (35-129) H 10/19/20 02:31 Troponin T 0.092 ng/mL (0.00-0.029) H 10/19/20 04:41 Total Protein 6.6 g/dL (6.3-8.2) 10/19/20 02:31 Albumin 3.7 g/dL (3.9-5) L 10/19/20 02:31 Albumin/Globulin Ratio 1.3 % 10/19/20 02:31 Triglycerides 39 mg/dL (2-149) 10/19/20 02:31 Cholesterol 116 mg/dL (50-199) 10/19/20 02:31 LDL Cholesterol Direct 66 mg/dL (50-130) 10/19/20 02:31 HDL Cholesterol 54 mg/dL (40-59) 10/19/20 02:31 Cholesterol/HDL Ratio 2.14 % 10/19/20 02:31 Blood Type O POSITIVE 10/19/20 06:47 Crossmatch See Detail 10/19/20 06:47 Assessment and Plan Assessment and plan: 1. Lower Extremity Edema Suspect in the setting of medical noncompliance and missed hemodialysis sessions Patient is oliguric Chest x-ray demonstrates bilateral opacities BNP ordered, troponins are negative, no obvious ST elevation or T wave inversion on EKG Nephrology consulted for hemodialysis. Plan to complete today and possibly tomorrow as well. 2. ESRD on hemodialysis, M/W/F Nephrology consulted 3. hypertensive emergency -Resume home antihypertensives Labetalol IV as needed 4. Anemia of chronic kidney disease Denies any hematemesis, melena, hematochezia or bleeding otherwise Hemoglobin on admission 6.8 1 unit PRBC ordered, follow-up repeat H&H - Transfuse prn, maintain hgb > 7. Appears to be on Epogen outpatient 5. Paroxysmal A. fib Self reports history of paroxysmal A. fib however doees not take any medications - no episodes of tachycardia or atrial fibrillation noted this admission Continuous telemetry 6. Gastroparesis - has seen Dr. Leopoldo Porras - jamien zofran - sucralfate ordered with meals 7. History of glaucoma #8 history of noncompliance Admits to not taking furosemide regularly or other anti-hypertensives Admits to missing hemodialysis sessions Full code Renal diet DVT prophylaxis: Heparin 5000 units subcu twice daily - Patient Problems (1) Bilateral lower extremity edema Current Visit: Yes Status: Acute (2) Hypertensive emergency Current Visit: Yes Status: Acute (3) Anemia due to end stage renal disease Current Visit: Yes Status: Acute (4) Gastroparesis Current Visit: Yes Status: Acute (5) End-stage renal disease needing dialysis Current Visit: Yes Status: Acute (6) Shortness of breath Current Visit: No Status: Acute (7) Noncompliance Current Visit: Yes Status: Acute (8) Paroxysmal A-fib Current Visit: Yes Status: Acute
--- NOTE | 2020-10-19 09:03 | Electrocardiograph Report ---
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
--- NOTE | 2020-10-19 09:53 | Consultation ---
History of Present Illness - Reason for Consult Consult date: 10/19/20 end stage renal disease - History of Present Illness 55-year-old -[place]ian male w ESRD, CHF and atrial fibrillation who presents to the emergency department via EMS from home with a complaint of shortness of breath and left-sided chest pain that started yesterday morning. The patient also complains of bilateral lower extremity swelling. No recent travel or sick contacts at home. The patient is vaccinated against COVID-19. He says that he recently had a negative Covid test about 3 days ago. Currently he says that his chest pain is 8 out of 10 in intensity. No known aggravating or alleviating factors. He denies any fever, cough, nausea, vomiting, diarrhea, abdominal pain. Patient's last complete dialysis treatment was on Oct 02. Patient also missed dialysis on Oct 12 - as such, he was appx 3 kg over his DW on Oct 16 upon completion of treatment Past History Past Medical History: atrial fib, ESRD, heart failure, hypertension Past Surgical History: Other (AV access) Social history: no significant social history Family history: no significant family history Medications and Allergies Allergies Allergy/AdvReac Type Severity Reaction Status Date / Time No Known Allergies Allergy Verified 09/23/20 10:37 Home Medications Medication Instructions Recorded Confirmed Last Taken Type Epoetin Curt 20,000 Unit [Procrit] 20,000 unit SUB-Q Sa vial 04/26/19 Unknown Rx Epoetin Curt 20,000 Unit [Procrit] 20,000 unit SUB-Q Th vial 04/26/19 Unknown Rx Epoetin Curt 20,000 Unit [Procrit] 20,000 unit SUB-Q Tu vial 04/26/19 Unknown Rx Cinacalcet [Sensipar] 30 mg PO QDAY #30 09/24/20 Unknown Rx Furosemide [Lasix TAB] 80 mg PO QDAY #30 09/24/20 Unknown Rx NIFEdipine [Nifedipine ER] 90 mg PO QDAY #30 09/24/20 Unknown Rx Pantoprazole [Protonix TAB] 40 mg PO QDAY #30 09/24/20 Unknown Rx carvediloL [Coreg] 25 mg PO QDAY #30 09/24/20 Unknown Rx cloNIDine [Catapres] 0.1 mg PO BID #60 tablet 09/24/20 Unknown Rx hydrALAZINE [Apresoline TAB] 100 mg PO TID #90 tab 09/24/20 Unknown Rx Active Meds: Active Medications Carvedilol (Carvedilol 25 Mg Tab) 25 mg PO QDAY DESTIN Cinacalcet (Cinacalcet 30 Mg Tab) 30 mg PO QDAY DESTIN Clonidine HCl (Clonidine 0.1 Mg Tab) 0.1 mg PO BID DESTIN Furosemide (Furosemide 40 Mg/4 Ml Inj) 40 mg IV 0600,1800 DESTIN Hydralazine HCl (Hydralazine 100 Mg Tab) 100 mg PO TID DESTIN Sodium Chloride (Nacl 0.9%) 100 mls @ 999 mls/hr IV STEPAN PRN PRN Reason: Hypotension Labetalol HCl (Labetalol 20 Mg/4 Ml Inj) 10 mg IV Q4H PRN PRN Reason: sbp > 160, hold for HR < 70 Nifedipine (Nifedipine Xl 90 Mg Tab) 90 mg PO QDAY DESTIN Pantoprazole Sodium (Pantoprazole 40 Mg Tab) 40 mg PO QDAC DESTIN Review of Systems All systems: negative Exam - Vital Signs Vital signs: Vital Signs Temp Pulse Resp BP Pulse Ox 98.2 F 85 20 199/106 100 10/19/20 01:42 10/19/20 01:42 10/19/20 01:42 10/19/20 01:42 10/19/20 01:42 - General Appearance General appearance: well-developed, well-nourished EENT: ATNC Respiratory: Clear to Ascultation Heart: regular, S1S2 Gastrointestinal: Present: normal. Absent: tenderness, distended Integumentary: warm and dry Neurologic: alert and oriented x3 Musculoskeletal: Present: other (+ edema) Results - Lab Results 10/19/20 02:31 10/19/20 02:31 Most recent lab results Calcium 8.5 mg/dL (8.4-10.2) 10/19/20 02:31 Assessment and Plan Impression: * End stage renal disease * Accelerated hypertension * Fluid overload * Anemia secondary to ESRD * Secondary hyperparathyroidism * Medical noncompliance - patient's last complete dialysis treatment prior to admission was on Oct 02. Patient also missed dialysis on Oct 12 - as such, he was appx 3 kg over his DW upon completion of treatment on Oct 16 Plan: * Hemodialysis today - UF as tolerated * May require HD again tomorrow * Transfuse pRBC prn - note order * Epogen with dialysis as needed * Renal diet
[2020-10-19] MEDS: cloNIDine 0.1 MG TAB PO SCH ×2 (10:00→21:35)
[2020-10-19] MEDS ORDERED: SODIUM CHLORIDE 0.9% 100 ML IV PRN (10:00)
[2020-10-19] MEDS ORDERED: NON-FORMULARY EACH (Nifedipine [Nifedipine Er] 90 MG Tablet.Er) PO SCH (10:00)
[2020-10-19] MEDS ORDERED: EPOETIN ALFA-EPBX 10,000 UNIT/1 ML VIAL IV PRN (10:00)
[2020-10-19] MEDS: NIFEdipine XL 90 MG TAB PO SCH (10:09)
[2020-10-19] MEDS: CINACALCET 30 MG TAB PO SCH (10:10)
[2020-10-19] MEDS: carvediloL 25 MG TAB PO SCH (10:11)
[2020-10-19] MEDS: PANTOPRAZOLE 40 MG TAB PO SCH (10:11)
[2020-10-19] MEDS: FUROSEMIDE 40 MG/4 ML INJ IV SCH ×3 (16:48→20:35)
[2020-10-19] MEDS: hydrALAZINE 100 MG TAB PO SCH ×2 (16:49→21:35)
[2020-10-19 16:52] LABS: Hepatitis C Virus Antibody Non-Reactive (NonReactive)
[2020-10-19 16:58] LABS: Hepatitis B Surface Antigen Nonreactive (Negative)
[2020-10-19] MEDS ORDERED: ACETAMINOPHEN 325 MG TAB PO PRN (17:19)
[2020-10-19] MEDS ORDERED: ALBUTEROL 2.5 MG/3 ML NEBU IH PRN (17:19)
[2020-10-19] MEDS ORDERED: ONDANSETRON 4 MG/2 ML INJ IV PRN (17:19)
[2020-10-19] MEDS ORDERED: MORPHINE 2 MG/1 ML INJ IV PRN (17:19)
[2020-10-19] MEDS: HEPARIN 5,000 UNIT/1 ML VIAL SUB-Q SCH (21:35)
[2020-10-19] MEDS: DOCUSATE SODIUM 100 MG CAP PO SCH (21:35)
[2020-10-19 21:36] LABS: Hematocrit 25.3 % (35.5-45.6); Hemoglobin 8.4 gm/dl (11.8-15.2)
[2020-10-19] MEDS: oxyCODONE /ACETAMINOPHEN 5-325MG TAB PO PRN (22:46)
[2020-10-20 05:55] LABS: Basophils % (Auto) 0.5 % (0.0-1.8); Eosinophils # (Auto) 0.2 K/mm3 (0.0-0.4); Eosinophils % (Auto) 3.4 % (0.0-4.3); Hematocrit 24.9 % (35.5-45.6); Hemoglobin 8.3 gm/dl (11.8-15.2); Lymphocytes # (Auto) 0.8 K/mm3 (1.2-5.4); Lymphocytes % (Auto) 11.8 % (13.4-35.0); Mean Corpuscular HGB Conc 33 % (32-34); Mean Corpuscular Volume 92 fl (84-94); Monocytes # (Auto) 0.7 K/mm3 (0.0-0.8); Platelet Count 218 K/mm3 (140-440)
[2020-10-20] MEDS: FUROSEMIDE 40 MG/4 ML INJ IV SCH ×2 (06:02→18:19)
[2020-10-20] MEDS: oxyCODONE /ACETAMINOPHEN 5-325MG TAB PO PRN ×2 (06:02→23:09)
[2020-10-20 06:04] LABS: Red Cell Distribution Width 20.3 % (13.2-15.2)
[2020-10-20 06:18] LABS: Albumin 3.7 g/dL (3.9-5); Calcium 8.7 mg/dL (8.4-10.2)
[2020-10-20] MEDS: PANTOPRAZOLE 40 MG TAB PO SCH (07:02)
[2020-10-20] MEDS: hydrALAZINE 100 MG TAB PO SCH ×3 (07:32→23:11)
--- NOTE | 2020-10-20 09:44 | Progress Note ---
Assessment and Plan Impression: * End stage renal disease * Accelerated hypertension * Fluid overload * Anemia secondary to ESRD * Secondary hyperparathyroidism * Medical noncompliance - patient's last complete dialysis treatment prior to admission was on Oct 02. Patient also missed dialysis on Oct 12 - as such, he was appx 3 kg over his DW upon completion of treatment on Oct 16 Plan: * Patient is s/p HD yesterday * Hemodialysis again today - UF as tolerated * Continue MWF schedule * Transfuse pRBC prn - note order * Epogen with dialysis as needed * Renal diet Subjective Date of service: 10/20/20 Interval history: Patient has no complaints. Remains on supplemental oxygen Objective - Vital Signs Vital signs: Vital Signs - 12hr 10/19/20 10/19/20 10/19/20 21:46 22:00 22:16 Pulse Rate 85 88 86 Respiratory 14 24 22 Rate Blood Pressure 162/84 151/82 151/82 O2 Sat by Pulse 94 93 92 Oximetry 10/19/20 10/19/20 10/19/20 22:30 22:46 23:00 Pulse Rate 91 H 92 H 94 H Respiratory 19 16 23 Rate Blood Pressure 151/82 151/82 129/63 O2 Sat by Pulse 91 91 92 Oximetry 10/19/20 10/19/20 10/19/20 23:16 23:30 23:35 Pulse Rate 82 85 84 Respiratory 16 16 15 Rate Blood Pressure 129/63 129/63 129/63 O2 Sat by Pulse 96 97 97 Oximetry 10/19/20 10/20/20 10/20/20 23:46 00:00 00:16 Pulse Rate 87 89 89 Respiratory 16 14 16 Rate Blood Pressure 129/63 160/86 160/86 O2 Sat by Pulse 99 93 92 Oximetry 10/20/20 10/20/20 10/20/20 00:30 00:46 01:00 Pulse Rate 89 89 87 Respiratory 16 17 25 H Rate Blood Pressure 160/86 160/86 158/86 O2 Sat by Pulse 93 92 92 Oximetry 10/20/20 10/20/20 10/20/20 01:16 01:30 01:46 Pulse Rate 85 91 H 93 H Respiratory 16 25 H 21 Rate Blood Pressure 158/86 158/86 158/86 O2 Sat by Pulse 95 93 88 Oximetry 10/20/20 10/20/20 10/20/20 02:00 02:16 02:30 Pulse Rate 82 84 87 Respiratory 17 13 12 Rate Blood Pressure 162/82 162/82 158/86 O2 Sat by Pulse 97 97 99 Oximetry 10/20/20 10/20/20 10/20/20 02:46 03:00 03:16 Pulse Rate 90 85 85 Respiratory 14 11 L 13 Rate Blood Pressure 158/86 170/82 170/82 O2 Sat by Pulse 96 96 95 Oximetry 10/20/20 10/20/20 10/20/20 03:30 03:46 04:00 Pulse Rate 84 85 85 Respiratory 14 15 13 Rate Blood Pressure 170/82 170/82 170/82 O2 Sat by Pulse 93 93 92 Oximetry 10/20/20 10/20/20 10/20/20 04:16 04:30 04:46 Pulse Rate 83 82 85 Respiratory 10 L 15 13 Rate Blood Pressure 170/82 170/82 170/82 O2 Sat by Pulse 92 95 96 Oximetry 10/20/20 10/20/20 10/20/20 05:00 05:16 05:30 Pulse Rate 86 92 H 89 Respiratory 11 L 20 16 Rate Blood Pressure 149/80 149/80 149/80 O2 Sat by Pulse 89 87 94 Oximetry 10/20/20 10/20/20 10/20/20 05:46 06:00 06:16 Pulse Rate 84 79 81 Respiratory 19 15 12 Rate Blood Pressure 149/80 166/97 166/97 O2 Sat by Pulse 99 98 97 Oximetry 10/20/20 10/20/20 10/20/20 06:30 06:45 07:00 Pulse Rate 81 82 81 Respiratory 10 L 11 L 11 L Rate Blood Pressure 166/97 166/97 166/97 O2 Sat by Pulse 99 100 95 Oximetry 10/20/20 10/20/20 10/20/20 07:16 07:30 07:46 Pulse Rate 82 82 82 Respiratory 13 13 11 L Rate Blood Pressure 166/97 169/94 169/94 O2 Sat by Pulse 94 95 96 Oximetry - General Appearance General appearance: well-developed, well-nourished EENT: ATNC Respiratory: Present: Clear to Ascultation Cardiology: regular, S1S2 Gastrointestinal: normal, no tenderness, no distended Integumentary: warm and dry Psychiatric: cooperative - Lab 10/20/20 05:26 10/21/20 07:42 Most recent lab results Calcium 8.7 mg/dL (8.4-10.2) 10/20/20 05:26 Medications & Allergies - Medications Allergies/Adverse Reactions: Allergies No Known Allergies Allergy (Verified 09/23/20 10:37) Home Medications: Home Medications Medication Instructions Recorded Confirmed Last Taken Type Epoetin Curt 20,000 Unit [Procrit] 20,000 unit SUB-Q Sa vial 04/26/19 Unknown Rx Epoetin Curt 20,000 Unit [Procrit] 20,000 unit SUB-Q Th vial 04/26/19 Unknown Rx Epoetin Curt 20,000 Unit [Procrit] 20,000 unit SUB-Q Tu vial 04/26/19 Unknown Rx Cinacalcet [Sensipar] 30 mg PO QDAY #30 09/24/20 Unknown Rx Furosemide [Lasix TAB] 80 mg PO QDAY #30 09/24/20 Unknown Rx NIFEdipine [Nifedipine ER] 90 mg PO QDAY #30 09/24/20 Unknown Rx Pantoprazole [Protonix TAB] 40 mg PO QDAY #30 09/24/20 Unknown Rx carvediloL [Coreg] 25 mg PO QDAY #30 09/24/20 Unknown Rx cloNIDine [Catapres] 0.1 mg PO BID #60 tablet 09/24/20 Unknown Rx hydrALAZINE [Apresoline TAB] 100 mg PO TID #90 tab 09/24/20 Unknown Rx Active Medications: Generic Name Dose Route Start Last Admin Trade Name Freq PRN Reason Stop Dose Admin Acetaminophen 650 mg 10/19/20 17:19 Acetaminophen 325 Mg Tab PO Q4H PRN Pain MILD(1-3)/Fever >100.5/NIELSON Albuterol 2.5 mg 10/19/20 17:19 Albuterol 2.5 Mg/3 Ml Nebu IH Q4H PRN Shortness Of Breath Carvedilol 25 mg 10/19/20 10:00 10/19/20 10:11 Carvedilol 25 Mg Tab PO 25 mg QDAY DESTIN Administration Cinacalcet 30 mg 10/19/20 10:00 10/19/20 10:10 Cinacalcet 30 Mg Tab PO 30 mg QDAY DESTIN Administration Clonidine HCl 0.1 mg 10/19/20 10:00 10/19/20 21:35 Clonidine 0.1 Mg Tab PO 0.1 mg BID DESTIN Administration Docusate Sodium 100 mg 10/19/20 22:00 10/19/20 21:35 Docusate Sodium 100 Mg Cap PO 100 mg BID DESTIN Administration Furosemide 40 mg 10/19/20 10:00 10/20/20 06:02 Furosemide 40 Mg/4 Ml Inj IV 40 mg 0600,1800 DESTIN Administration Heparin Sodium (Porcine) 5,000 unit 10/19/20 22:00 10/19/20 21:35 Heparin 5,000 Unit/1 Ml Vial SUB-Q 5,000 unit Q12HR DESTIN Administration Hydralazine HCl 100 mg 10/19/20 14:00 10/20/20 07:32 Hydralazine 100 Mg Tab PO 100 mg TID DESTIN Administration Sodium Chloride 100 mls @ 999 mls/hr 10/19/20 10:00 Nacl 0.9% IV STEPAN PRN Hypotension Labetalol HCl 10 mg 10/19/20 09:00 Labetalol 20 Mg/4 Ml Inj IV Q4H PRN sbp > 160, hold for HR < 70 Morphine Sulfate 2 mg 10/19/20 17:19 Morphine 2 Mg/1 Ml Inj IV Q4H PRN Pain, Moderate (4-6) Nifedipine 90 mg 10/19/20 10:00 10/19/20 10:09 Nifedipine Xl 90 Mg Tab PO 90 mg QDAY DESTIN Administration Ondansetron HCl 4 mg 10/19/20 17:19 Ondansetron 4 Mg/2 Ml Inj IV Q8H PRN Nausea And Vomiting Oxycodone/Acetaminophen 1 tab 10/19/20 17:19 10/20/20 06:02 Oxycodone /Acetaminophen 5-325mg Tab PO 1 tab Q6H PRN Administration Pain, Moderate (4-6) Pantoprazole Sodium 40 mg 10/19/20 10:00 10/20/20 07:02 Pantoprazole 40 Mg Tab PO 40 mg QDAC DESTIN Administration Sodium Chloride 10 ml 10/19/20 22:00 10/19/20 21:35 Sodium Chloride 0.9% 10 Ml Flush Syringe IV 10 ml BID DESTIN Administration Sodium Chloride 10 ml 10/19/20 17:19 Sodium Chloride 0.9% 10 Ml Flush Syringe IV PRN PRN LINE FLUSH
[2020-10-20] MEDS ORDERED: SODIUM CHLORIDE 0.9% 100 ML IV PRN (10:00)
[2020-10-20] MEDS: DOCUSATE SODIUM 100 MG CAP PO SCH ×2 (10:58→23:07)
[2020-10-20] MEDS: cloNIDine 0.1 MG TAB PO SCH ×2 (10:58→23:07)
[2020-10-20] MEDS: carvediloL 25 MG TAB PO SCH (10:58)
[2020-10-20] MEDS: NIFEdipine XL 90 MG TAB PO SCH (10:58)
[2020-10-20] MEDS: HEPARIN 5,000 UNIT/1 ML VIAL SUB-Q SCH ×2 (10:58→23:08)
[2020-10-20] MEDS: CINACALCET 30 MG TAB PO SCH (10:59)
--- NOTE | 2020-10-20 15:34 | Progress Note ---
Assessment and Plan Assessment and plan: Mr. Fuller is a 55-year-old male history of ESRD on HD, CHF, atrial fibrillation, and anemia of chronic disease who presented with shortness of breath and lower extremity edema after missing multiple dialysis appointments. Currently stable after 2 HD sessions. #Volume overload -Likely secondary to missed dialysis sessions, improving -EKGs negative for acute ST changes, troponin also negative -BNP greater than 70,000 #ESRD on HD, MWF -HD 10/19 and 10/20 -Nephrology following, appreciate assistance -will resume HD schedule at discharge #Hypertensive emergency with history of hypertension -Continue home antihypertensives #Anemia of chronic kidney disease -status post 1 unit PRBC -transfuse to goal hemoglobin greater than 7 -continue Epogen with HD #Paroxysmal A. fib -NSR this admission -Continue telemetry #Gastroparesis -As needed Zofran, sucralfate with meals #History of noncompliance -patient admits to not taking medications and missing hemodialysis sessions -Currently experiencing issues with transportation, will discuss with social work Disposition Plan: Home with sister after discharge Total Time Spent with Patient (Minutes): 30 minutes History Interval history: No acute events overnight. Patient currently stable on room air. Reports feeling much better after dialysis. No current chest pain or lower extremity swelling. Hospitalist Physical - Constitutional Vitals: Temp Pulse Resp BP Pulse Ox 98.0 F 81 18 181/103 100 10/20/20 14:30 10/20/20 14:30 10/20/20 14:30 10/20/20 14:30 10/20/20 14:30 General appearance: Present: no acute distress - Respiratory Respiratory effort: normal Respiratory: bilateral: CTA - Cardiovascular Rhythm: regular - Murmur systolic murmur (1) Location: left sternal border Grade: III/ - Extremities Extremities: no ischemia Extremity abnormal: other (RUE AV fistula) - Abdominal General gastrointestinal: soft, non-tender, non-distended - Psychiatric Psychiatric: appropriate mood/affect - Neurologic Neurologic: moves all extremities - Allied Health Allied health notes reviewed: nursing HEART Score - HEART Score EKG: Non-specific Age: 45-65 Risk factors: 1-2 risk factors Troponin: Troponin T 0.092 ng/mL (0.00-0.029) H 10/19/20 04:41 Troponin: > 3x normal limit - Critical Actions Critical Actions: 4-6 pts:12-16.6% risk of adverse cardiac event. Should be admitted Results - Labs CBC & Chem 7: 10/20/20 05:26 10/20/20 05:26 Labs: Laboratory Last Values WBC 6.6 K/mm3 (4.5-11.0) 10/20/20 05:26 RBC 2.70 M/mm3 (3.65-5.03) L 10/20/20 05:26 Hgb 8.3 gm/dl (11.8-15.2) L 10/20/20 05:26 Hct 24.9 % (35.5-45.6) L 10/20/20 05:26 MCV 92 fl (84-94) 10/20/20 05:26 MCH 31 pg (28-32) 10/20/20 05:26 MCHC 33 % (32-34) 10/20/20 05:26 RDW 20.3 % (13.2-15.2) H 10/20/20 05:26 Plt Count 218 K/mm3 (140-440) 10/20/20 05:26 Lymph % (Auto) 11.8 % (13.4-35.0) L 10/20/20 05:26 Sibley % (Auto) 10.0 % (0.0-7.3) H 10/20/20 05:26 Eos % (Auto) 3.4 % (0.0-4.3) 10/20/20 05:26 Baso % (Auto) 0.5 % (0.0-1.8) 10/20/20 05:26 Lymph # (Auto) 0.8 K/mm3 (1.2-5.4) L 10/20/20 05:26 Sibley # (Auto) 0.7 K/mm3 (0.0-0.8) 10/20/20 05:26 Eos # (Auto) 0.2 K/mm3 (0.0-0.4) 10/20/20 05:26 Baso # (Auto) 0.0 K/mm3 (0.0-0.1) 10/20/20 05:26 Seg Neutrophils % 74.3 % (40.0-70.0) H 10/20/20 05:26 Seg Neutrophils # 4.9 K/mm3 (1.8-7.7) 10/20/20 05:26 Sodium 136 mmol/L (137-145) L 10/20/20 05:26 Potassium 3.5 mmol/L (3.6-5.0) L 10/20/20 05:26 Chloride 94.7 mmol/L (98-107) L 10/20/20 05:26 Carbon Dioxide 30 mmol/L (22-30) 10/20/20 05:26 Anion Gap 15 mmol/L 10/20/20 05:26 BUN 44 mg/dL (9-20) H 10/20/20 05:26 Creatinine 6.5 mg/dL (0.8-1.3) H 10/20/20 05:26 Estimated GFR 11 ml/min 10/20/20 05:26 BUN/Creatinine Ratio 7 % 10/20/20 05:26 Glucose 97 mg/dL (75-100) 10/20/20 05:26 Calcium 8.7 mg/dL (8.4-10.2) 10/20/20 05:26 Total Bilirubin 0.80 mg/dL (0.1-1.2) 10/20/20 05:26 AST 20 units/L (5-40) 10/20/20 05:26 ALT 18 units/L (7-56) 10/20/20 05:26 Alkaline Phosphatase 272 units/L (35-129) H 10/20/20 05:26 Troponin T 0.092 ng/mL (0.00-0.029) H 10/19/20 04:41 NT-Pro-B Natriuret Pep > 19740 pg/mL (0-900) H 10/19/20 08:41 Total Protein 6.9 g/dL (6.3-8.2) 10/20/20 05:26 Albumin 3.7 g/dL (3.9-5) L 10/20/20 05:26 Albumin/Globulin Ratio 1.2 % 10/20/20 05:26 Triglycerides 39 mg/dL (2-149) 10/19/20 02:31 Cholesterol 116 mg/dL (50-199) 10/19/20 02:31 LDL Cholesterol Direct 66 mg/dL (50-130) 10/19/20 02:31 HDL Cholesterol 54 mg/dL (40-59) 10/19/20 02:31 Cholesterol/HDL Ratio 2.14 % 10/19/20 02:31 Hepatitis A IgM Ab Non-reactive (NonReactive) 10/19/20 11:39 Hep Bs Antigen Nonreactive (Negative) 10/19/20 11:39 Hep B Core IgM Ab Non-reactive (NonReactive) 10/19/20 11:39 Hepatitis C Antibody Non-reactive (NonReactive) 10/19/20 11:39 Blood Type O POSITIVE 10/19/20 06:47 Antibody Screen Negative 10/19/20 06:47 Crossmatch See Detail 10/19/20 06:47 Active Medications - Current Medications Current Medications: Generic Name Dose Route Start Last Admin Trade Name Freq PRN Reason Stop Dose Admin Acetaminophen 650 mg 10/19/20 17:19 Acetaminophen 325 Mg Tab PO Q4H PRN Pain MILD(1-3)/Fever >100.5/NIELSON Albuterol 2.5 mg 10/19/20 17:19 Albuterol 2.5 Mg/3 Ml Nebu IH Q4H PRN Shortness Of Breath Carvedilol 25 mg 10/19/20 10:00 10/20/20 10:58 Carvedilol 25 Mg Tab PO Not Given QDAY DESTIN Cinacalcet 30 mg 10/19/20 10:00 10/20/20 10:59 Cinacalcet 30 Mg Tab PO Not Given QDAY DESTIN Clonidine HCl 0.1 mg 10/19/20 10:00 10/20/20 10:58 Clonidine 0.1 Mg Tab PO Not Given BID DESTIN Docusate Sodium 100 mg 10/19/20 22:00 10/20/20 10:58 Docusate Sodium 100 Mg Cap PO Not Given BID DESTIN Furosemide 40 mg 10/19/20 10:00 10/20/20 06:02 Furosemide 40 Mg/4 Ml Inj IV 40 mg 0600,1800 DESTIN Administration Heparin Sodium (Porcine) 5,000 unit 10/19/20 22:00 10/20/20 10:58 Heparin 5,000 Unit/1 Ml Vial SUB-Q Not Given Q12HR DESTIN Hydralazine HCl 100 mg 10/19/20 14:00 10/20/20 07:32 Hydralazine 100 Mg Tab PO 100 mg TID DESTIN Administration Sodium Chloride 100 mls @ 999 mls/hr 10/20/20 10:00 Nacl 0.9% IV STEPAN PRN Hypotension Labetalol HCl 10 mg 10/19/20 09:00 10/20/20 11:08 Labetalol 20 Mg/4 Ml Inj IV 10 mg Q4H PRN Administration sbp > 160, hold for HR < 70 Morphine Sulfate 2 mg 10/19/20 17:19 Morphine 2 Mg/1 Ml Inj IV Q4H PRN Pain, Moderate (4-6) Nifedipine 90 mg 10/19/20 10:00 10/20/20 10:58 Nifedipine Xl 90 Mg Tab PO Not Given QDAY DESTNI Ondansetron HCl 4 mg 10/19/20 17:19 Ondansetron 4 Mg/2 Ml Inj IV Q8H PRN Nausea And Vomiting Oxycodone/Acetaminophen 1 tab 10/19/20 17:19 10/20/20 06:02 Oxycodone /Acetaminophen 5-325mg Tab PO 1 tab Q6H PRN Administration Pain, Moderate (4-6) Pantoprazole Sodium 40 mg 10/19/20 10:00 10/20/20 07:02 Pantoprazole 40 Mg Tab PO 40 mg QDAC DESTIN Administration Sodium Chloride 10 ml 10/19/20 22:00 10/20/20 10:59 Sodium Chloride 0.9% 10 Ml Flush Syringe IV Not Given BID DESTIN Sodium Chloride 10 ml 10/19/20 17:19 Sodium Chloride 0.9% 10 Ml Flush Syringe IV PRN PRN LINE FLUSH
[2020-10-21] MEDS: FUROSEMIDE 40 MG/4 ML INJ IV SCH ×2 (07:37→18:12)
[2020-10-21] MEDS: PANTOPRAZOLE 40 MG TAB PO SCH (08:00)
[2020-10-21] MEDS: hydrALAZINE 100 MG TAB PO SCH ×3 (08:00→21:23)
[2020-10-21 08:37] LABS: Calcium 9.3 mg/dL (8.4-10.2)
--- NOTE | 2020-10-21 09:54 | Progress Note ---
Assessment and Plan Impression: * End stage renal disease * Accelerated hypertension * Fluid overload * Anemia secondary to ESRD * Secondary hyperparathyroidism * Medical noncompliance - patient's last complete dialysis treatment prior to admission was on Oct 02. Patient also missed dialysis on Oct 12 - as such, he was appx 3 kg over his DW upon completion of treatment on Oct 16 Plan: * Patient is s/p Monday and Monday * Hemodialysis today - maintain MWF schedule * Transfuse pRBC prn * Epogen with dialysis as needed * Renal diet Subjective Date of service: 10/21/20 Interval history: Patient reports that he is feeling better. He is now off supplement oxygen. Seen during HD Objective - Vital Signs Vital signs: Vital Signs - 12hr 10/20/20 10/20/20 10/20/20 22:00 23:09 23:21 Temperature 97.8 F Pulse Rate 84 Respiratory 20 16 Rate Blood Pressure 173/77 O2 Sat by Pulse 94 92 Oximetry 10/21/20 10/21/20 03:08 08:34 Temperature 98.1 F Pulse Rate 80 80 Respiratory 16 Rate Blood Pressure 159/77 O2 Sat by Pulse 94 100 Oximetry - General Appearance General appearance: well-developed, well-nourished EENT: ATNC Neck: no JVD Respiratory: Present: Clear to Ascultation Cardiology: regular, S1S2 Gastrointestinal: normal, no tenderness, no distended Neurologic: alert and oriented x3 - Lab 10/20/20 05:26 10/21/20 07:42 Most recent lab results Calcium 9.3 mg/dL (8.4-10.2) 10/21/20 07:42 Medications & Allergies - Medications Allergies/Adverse Reactions: Allergies No Known Allergies Allergy (Verified 09/23/20 10:37) Home Medications: Home Medications Medication Instructions Recorded Confirmed Last Taken Type Epoetin Curt 20,000 Unit [Procrit] 20,000 unit SUB-Q Sa vial 04/26/19 10/21/20 Unknown Rx Epoetin Curt 20,000 Unit [Procrit] 20,000 unit SUB-Q Th vial 04/26/19 10/21/20 Unknown Rx Epoetin Curt 20,000 Unit [Procrit] 20,000 unit SUB-Q Tu vial 04/26/19 10/21/20 Unknown Rx Cinacalcet [Sensipar] 30 mg PO QDAY #30 09/24/20 10/21/20 Unknown Rx Furosemide [Lasix TAB] 80 mg PO QDAY #30 09/24/20 10/21/20 Unknown Rx NIFEdipine [Nifedipine ER] 90 mg PO QDAY #30 09/24/20 10/21/20 Unknown Rx Pantoprazole [Protonix TAB] 40 mg PO QDAY #30 09/24/20 10/21/20 Unknown Rx carvediloL [Coreg] 25 mg PO QDAY #30 09/24/20 10/21/20 Unknown Rx cloNIDine [Catapres] 0.1 mg PO BID #60 tablet 09/24/20 10/21/20 Unknown Rx hydrALAZINE [Apresoline TAB] 100 mg PO TID #90 tab 09/24/20 10/21/20 Unknown Rx Active Medications: Generic Name Dose Route Start Last Admin Trade Name Freq PRN Reason Stop Dose Admin Acetaminophen 650 mg 10/19/20 17:19 Acetaminophen 325 Mg Tab PO Q4H PRN Pain MILD(1-3)/Fever >100.5/NIELSON Albuterol 2.5 mg 10/19/20 17:19 Albuterol 2.5 Mg/3 Ml Nebu IH Q4H PRN Shortness Of Breath Carvedilol 25 mg 10/19/20 10:00 10/20/20 10:58 Carvedilol 25 Mg Tab PO Not Given QDAY DESTIN Cinacalcet 30 mg 10/19/20 10:00 10/20/20 10:59 Cinacalcet 30 Mg Tab PO Not Given QDAY DESTIN Clonidine HCl 0.1 mg 10/19/20 10:00 10/20/20 23:07 Clonidine 0.1 Mg Tab PO 0.1 mg BID DESTIN Administration Docusate Sodium 100 mg 10/19/20 22:00 10/20/20 23:07 Docusate Sodium 100 Mg Cap PO 100 mg BID DESTIN Administration Furosemide 40 mg 10/19/20 10:00 10/21/20 07:37 Furosemide 40 Mg/4 Ml Inj IV 40 mg 0600,1800 DESTIN Administration Heparin Sodium (Porcine) 5,000 unit 10/19/20 22:00 10/20/20 23:08 Heparin 5,000 Unit/1 Ml Vial SUB-Q 5,000 unit Q12HR DESITN Administration Hydralazine HCl 100 mg 10/19/20 14:00 10/20/20 23:11 Hydralazine 100 Mg Tab PO 100 mg TID DESTIN Administration Sodium Chloride 100 mls @ 999 mls/hr 10/20/20 10:00 Nacl 0.9% IV STEPAN PRN Hypotension Labetalol HCl 10 mg 10/19/20 09:00 10/20/20 11:08 Labetalol 20 Mg/4 Ml Inj IV 10 mg Q4H PRN Administration sbp > 160, hold for HR < 70 Morphine Sulfate 2 mg 10/19/20 17:19 Morphine 2 Mg/1 Ml Inj IV Q4H PRN Pain, Moderate (4-6) Nifedipine 90 mg 10/19/20 10:00 10/20/20 10:58 Nifedipine Xl 90 Mg Tab PO Not Given QDAY DESTIN Ondansetron HCl 4 mg 10/19/20 17:19 Ondansetron 4 Mg/2 Ml Inj IV Q8H PRN Nausea And Vomiting Oxycodone/Acetaminophen 1 tab 10/19/20 17:19 10/20/20 23:09 Oxycodone /Acetaminophen 5-325mg Tab PO 1 tab Q6H PRN Administration Pain, Moderate (4-6) Pantoprazole Sodium 40 mg 10/19/20 10:00 10/20/20 07:02 Pantoprazole 40 Mg Tab PO 40 mg QDAC DESTIN Administration Sodium Chloride 10 ml 10/19/20 22:00 10/20/20 23:08 Sodium Chloride 0.9% 10 Ml Flush Syringe IV 10 ml BID DESTIN Administration Sodium Chloride 10 ml 10/19/20 17:19 Sodium Chloride 0.9% 10 Ml Flush Syringe IV PRN PRN LINE FLUSH
[2020-10-21] MEDS: HEPARIN 5,000 UNIT/1 ML VIAL SUB-Q SCH ×2 (10:00→21:23)
[2020-10-21] MEDS: DOCUSATE SODIUM 100 MG CAP PO SCH ×2 (10:00→21:24)
[2020-10-21] MEDS: NIFEdipine XL 90 MG TAB PO SCH (15:24)
[2020-10-21] MEDS: carvediloL 25 MG TAB PO SCH (15:24)
[2020-10-21] MEDS: cloNIDine 0.1 MG TAB PO SCH ×2 (15:24→21:24)
[2020-10-21] MEDS: CINACALCET 30 MG TAB PO SCH (15:24)
--- NOTE | 2020-10-21 18:31 | Progress Note ---
Assessment and Plan Assessment and plan: Mr. Fuller is a 55-year-old male history of ESRD on HD, CHF, atrial fibrillation, and anemia of chronic disease who presented with shortness of breath and lower extremity edema after missing multiple dialysis appointments. Currently stable after 2 HD sessions. #Volume overload -Likely secondary to missed dialysis sessions, improving -EKGs negative for acute ST changes, troponin also negative -BNP greater than 70,000 -TTE 10/20: LVEF 45 to 50% with RVSP suggestive of severe pulmonary hypertension #ESRD on HD, MWF -HD 10/19, 10/20 and today -Nephrology following, appreciate assistance -will resume MWF HD schedule at discharge #Hypertensive emergency with history of hypertension -Continue home antihypertensives #Anemia of chronic kidney disease -status post 1 unit PRBC -transfuse to goal hemoglobin greater than 7 -continue Epogen with HD #Paroxysmal A. fib -NSR this admission -Continue telemetry #Gastroparesis -As needed Zofran, sucralfate with meals #History of noncompliance -patient admits to not taking medications and missing hemodialysis sessions -Currently experiencing issues with transportation, will discuss with social work Disposition Plan: Home Total Time Spent with Patient (Minutes): 30 minutes History Interval history: No acute events overnight. Patient currently stable on room air. Seen during dialysis. Patient reports feeling much improved from admission. Hospitalist Physical - Physical exam Narrative exam: GENERAL: Thin male, lying on stretcher. CHEST/LUNGS: CTAB on room air HEART/CARDIOVASCULAR: RRR. No murmur, rubs or gallops appreciated. ABDOMEN: +BS. NT/ND. NEURO: No focal motor deficit. Follows all commands. Moves all extremities equally. EXTREMITIES: RUE AVF. No cyanosis, cubbing or edema. PSYCH: Cooperative. - Constitutional Vitals: Temp Pulse Resp BP Pulse Ox 97.6 F 89 18 167/84 91 10/21/20 17:26 10/21/20 17:26 10/21/20 17:26 10/21/20 17:26 10/21/20 17:26 General appearance: Present: no acute distress HEART Score - HEART Score EKG: Non-specific Age: 45-65 Risk factors: 1-2 risk factors Troponin: Troponin T 0.092 ng/mL (0.00-0.029) H 10/19/20 04:41 Troponin: > 3x normal limit - Critical Actions Critical Actions: 4-6 pts:12-16.6% risk of adverse cardiac event. Should be admitted Results - Labs CBC & Chem 7: 10/20/20 05:26 10/21/20 07:42 Labs: Laboratory Last Values WBC 6.6 K/mm3 (4.5-11.0) 10/20/20 05:26 RBC 2.70 M/mm3 (3.65-5.03) L 10/20/20 05:26 Hgb 8.3 gm/dl (11.8-15.2) L 10/20/20 05:26 Hct 24.9 % (35.5-45.6) L 10/20/20 05:26 MCV 92 fl (84-94) 10/20/20 05:26 MCH 31 pg (28-32) 10/20/20 05:26 MCHC 33 % (32-34) 10/20/20 05:26 RDW 20.3 % (13.2-15.2) H 10/20/20 05:26 Plt Count 218 K/mm3 (140-440) 10/20/20 05:26 Lymph % (Auto) 11.8 % (13.4-35.0) L 10/20/20 05:26 Frederick % (Auto) 10.0 % (0.0-7.3) H 10/20/20 05:26 Eos % (Auto) 3.4 % (0.0-4.3) 10/20/20 05:26 Baso % (Auto) 0.5 % (0.0-1.8) 10/20/20 05:26 Lymph # (Auto) 0.8 K/mm3 (1.2-5.4) L 10/20/20 05:26 Frederick # (Auto) 0.7 K/mm3 (0.0-0.8) 10/20/20 05:26 Eos # (Auto) 0.2 K/mm3 (0.0-0.4) 10/20/20 05:26 Baso # (Auto) 0.0 K/mm3 (0.0-0.1) 10/20/20 05:26 Seg Neutrophils % 74.3 % (40.0-70.0) H 10/20/20 05:26 Seg Neutrophils # 4.9 K/mm3 (1.8-7.7) 10/20/20 05:26 Sodium 135 mmol/L (137-145) L 10/21/20 07:42 Potassium 3.7 mmol/L (3.6-5.0) 10/21/20 07:42 Chloride 94.2 mmol/L (98-107) L 10/21/20 07:42 Carbon Dioxide 26 mmol/L (22-30) 10/21/20 07:42 Anion Gap 19 mmol/L 10/21/20 07:42 BUN 61 mg/dL (9-20) H 10/21/20 07:42 Creatinine 8.2 mg/dL (0.8-1.3) H 10/21/20 07:42 Estimated GFR 8 ml/min 10/21/20 07:42 BUN/Creatinine Ratio 7 % 10/21/20 07:42 Glucose 96 mg/dL (75-100) 10/21/20 07:42 Calcium 9.3 mg/dL (8.4-10.2) 10/21/20 07:42 Total Bilirubin 0.80 mg/dL (0.1-1.2) 10/20/20 05:26 AST 20 units/L (5-40) 10/20/20 05:26 ALT 18 units/L (7-56) 10/20/20 05:26 Alkaline Phosphatase 272 units/L (35-129) H 10/20/20 05:26 Troponin T 0.092 ng/mL (0.00-0.029) H 10/19/20 04:41 NT-Pro-B Natriuret Pep > 70686 pg/mL (0-900) H 10/19/20 08:41 Total Protein 6.9 g/dL (6.3-8.2) 10/20/20 05:26 Albumin 3.7 g/dL (3.9-5) L 10/20/20 05:26 Albumin/Globulin Ratio 1.2 % 10/20/20 05:26 Triglycerides 39 mg/dL (2-149) 10/19/20 02:31 Cholesterol 116 mg/dL (50-199) 10/19/20 02:31 LDL Cholesterol Direct 66 mg/dL (50-130) 10/19/20 02:31 HDL Cholesterol 54 mg/dL (40-59) 10/19/20 02:31 Cholesterol/HDL Ratio 2.14 % 10/19/20 02:31 Hepatitis A IgM Ab Non-reactive (NonReactive) 10/19/20 11:39 Hep Bs Antigen Nonreactive (Negative) 10/19/20 11:39 Hep B Core IgM Ab Non-reactive (NonReactive) 10/19/20 11:39 Hepatitis C Antibody Non-reactive (NonReactive) 10/19/20 11:39 Blood Type O POSITIVE 10/19/20 06:47 Antibody Screen Negative 10/19/20 06:47 Crossmatch See Detail 10/19/20 06:47 Active Medications - Current Medications Current Medications: Generic Name Dose Route Start Last Admin Trade Name Freq PRN Reason Stop Dose Admin Acetaminophen 650 mg 10/19/20 17:19 Acetaminophen 325 Mg Tab PO Q4H PRN Pain MILD(1-3)/Fever >100.5/NIELSON Albuterol 2.5 mg 10/19/20 17:19 Albuterol 2.5 Mg/3 Ml Nebu IH Q4H PRN Shortness Of Breath Carvedilol 25 mg 10/19/20 10:00 10/21/20 15:24 Carvedilol 25 Mg Tab PO 25 mg QDAY DESTIN Administration Cinacalcet 30 mg 10/19/20 10:00 10/21/20 15:24 Cinacalcet 30 Mg Tab PO 30 mg QDAY DESTIN Administration Clonidine HCl 0.1 mg 10/19/20 10:00 10/21/20 15:24 Clonidine 0.1 Mg Tab PO 0.1 mg BID DESTIN Administration Docusate Sodium 100 mg 10/19/20 22:00 10/21/20 10:00 Docusate Sodium 100 Mg Cap PO Not Given BID DESTIN Furosemide 40 mg 10/19/20 10:00 10/21/20 18:12 Furosemide 40 Mg/4 Ml Inj IV 40 mg 0600,1800 DESTIN Administration Heparin Sodium (Porcine) 5,000 unit 10/19/20 22:00 10/21/20 10:00 Heparin 5,000 Unit/1 Ml Vial SUB-Q Not Given Q12HR DESTIN Hydralazine HCl 100 mg 10/19/20 14:00 10/21/20 15:23 Hydralazine 100 Mg Tab PO 100 mg TID DESTIN Administration Sodium Chloride 100 mls @ 999 mls/hr 10/20/20 10:00 Nacl 0.9% IV STEPAN PRN Hypotension Labetalol HCl 10 mg 10/19/20 09:00 10/21/20 12:05 Labetalol 20 Mg/4 Ml Inj IV 10 mg Q4H PRN Administration sbp > 160, hold for HR < 70 Morphine Sulfate 2 mg 10/19/20 17:19 Morphine 2 Mg/1 Ml Inj IV Q4H PRN Pain, Moderate (4-6) Nifedipine 90 mg 10/19/20 10:00 10/21/20 15:24 Nifedipine Xl 90 Mg Tab PO 90 mg QDAY DESTIN Administration Ondansetron HCl 4 mg 10/19/20 17:19 Ondansetron 4 Mg/2 Ml Inj IV Q8H PRN Nausea And Vomiting Oxycodone/Acetaminophen 1 tab 10/19/20 17:19 10/20/20 23:09 Oxycodone /Acetaminophen 5-325mg Tab PO 1 tab Q6H PRN Administration Pain, Moderate (4-6) Pantoprazole Sodium 40 mg 10/19/20 10:00 10/21/20 08:00 Pantoprazole 40 Mg Tab PO Not Given QDAC DESTIN Sodium Chloride 10 ml 10/19/20 22:00 10/21/20 10:26 Sodium Chloride 0.9% 10 Ml Flush Syringe IV Not Given BID DESTIN Sodium Chloride 10 ml 10/19/20 17:19 Sodium Chloride 0.9% 10 Ml Flush Syringe IV PRN PRN LINE FLUSH
[2020-10-21] MEDS: oxyCODONE /ACETAMINOPHEN 5-325MG TAB PO PRN (21:23)
[2020-10-22] MEDS: FUROSEMIDE 40 MG/4 ML INJ IV SCH (05:40)
[2020-10-22 07:57] VITALS: BP 140/82
[2020-10-22] MEDS: PANTOPRAZOLE 40 MG TAB PO SCH (08:16)
[2020-10-22] MEDS: oxyCODONE /ACETAMINOPHEN 5-325MG TAB PO PRN (08:16)
[2020-10-22] MEDS: hydrALAZINE 100 MG TAB PO SCH (08:17)
[2020-10-22] MEDS: carvediloL 25 MG TAB PO SCH (09:13)
[2020-10-22] MEDS: HEPARIN 5,000 UNIT/1 ML VIAL SUB-Q SCH (09:13)
[2020-10-22] MEDS: DOCUSATE SODIUM 100 MG CAP PO SCH (09:13)
[2020-10-22] MEDS: NIFEdipine XL 90 MG TAB PO SCH (09:13)
[2020-10-22] MEDS: cloNIDine 0.1 MG TAB PO SCH (09:13)
[2020-10-22] MEDS: CINACALCET 30 MG TAB PO SCH (09:13)
--- NOTE | 2020-10-22 09:24 | Progress Note ---
Assessment and Plan Impression: * End stage renal disease * Accelerated hypertension * Fluid overload * Anemia secondary to ESRD * Secondary hyperparathyroidism * Medical noncompliance - patient's last complete dialysis treatment prior to admission was on Oct 02. Patient also missed dialysis on Oct 12 - as such, he was appx 3 kg over his DW upon completion of treatment on Oct 16 Plan: * Patient is s/p daily HD x 3 days. No acute indication for HD * Will plan for HD tomorrow * Continue MWF schedule * UF as tolerated * Continue antiHTN medications * Transfuse pRBC prn * Epogen with dialysis as needed * Renal diet * Stable for discharge from a renal standpoint. SW available at outpatient dialysis clinic. She has previously attempted to assist patient with transportation. Application for [employer] was initiated by [employer] but patient did not follow through. She will restart [employer] application Subjective Date of service: 10/22/20 Interval history: Patient has no complaints Objective - Vital Signs Vital signs: Vital Signs - 12hr 10/21/20 10/21/20 10/22/20 21:23 23:43 00:00 Temperature 98.6 F Pulse Rate 76 84 Respiratory 20 18 Rate Blood Pressure 160/81 O2 Sat by Pulse 91 Oximetry 10/22/20 10/22/20 10/22/20 03:37 07:38 08:00 Temperature 98.6 F 97.9 F Pulse Rate 85 91 H Respiratory 18 18 Rate Blood Pressure 154/79 140/82 O2 Sat by Pulse 93 90 94 Oximetry - General Appearance General appearance: well-developed, well-nourished EENT: ATNC Respiratory: Present: Clear to Ascultation Cardiology: regular, S1S2 Gastrointestinal: normal, no tenderness, no distended Integumentary: warm and dry Neurologic: alert and oriented x3 Psychiatric: cooperative - Lab 10/20/20 05:26 10/21/20 07:42 Most recent lab results Calcium 9.3 mg/dL (8.4-10.2) 10/21/20 07:42 Medications & Allergies - Medications Allergies/Adverse Reactions: Allergies No Known Allergies Allergy (Verified 09/23/20 10:37) Home Medications: Home Medications Medication Instructions Recorded Confirmed Last Taken Type Epoetin Curt 20,000 Unit [Procrit] 20,000 unit SUB-Q Sa vial 04/26/19 10/21/20 Unknown Rx Epoetin Curt 20,000 Unit [Procrit] 20,000 unit SUB-Q Th vial 04/26/19 10/21/20 Unknown Rx Epoetin Curt 20,000 Unit [Procrit] 20,000 unit SUB-Q Tu vial 04/26/19 10/21/20 Unknown Rx Cinacalcet [Sensipar] 30 mg PO QDAY #30 09/24/20 10/21/20 Unknown Rx Furosemide [Lasix TAB] 80 mg PO QDAY #30 09/24/20 10/21/20 Unknown Rx NIFEdipine [Nifedipine ER] 90 mg PO QDAY #30 09/24/20 10/21/20 Unknown Rx Pantoprazole [Protonix TAB] 40 mg PO QDAY #30 09/24/20 10/21/20 Unknown Rx carvediloL [Coreg] 25 mg PO QDAY #30 09/24/20 10/21/20 Unknown Rx cloNIDine [Catapres] 0.1 mg PO BID #60 tablet 09/24/20 10/21/20 Unknown Rx hydrALAZINE [Apresoline TAB] 100 mg PO TID #90 tab 09/24/20 10/21/20 Unknown Rx Active Medications: Generic Name Dose Route Start Last Admin Trade Name Freq PRN Reason Stop Dose Admin Acetaminophen 650 mg 10/19/20 17:19 Acetaminophen 325 Mg Tab PO Q4H PRN Pain MILD(1-3)/Fever >100.5/NIELSON Albuterol 2.5 mg 10/19/20 17:19 Albuterol 2.5 Mg/3 Ml Nebu IH Q4H PRN Shortness Of Breath Carvedilol 25 mg 10/19/20 10:00 10/22/20 09:13 Carvedilol 25 Mg Tab PO 25 mg QDAY DESTIN Administration Cinacalcet 30 mg 10/19/20 10:00 10/22/20 09:13 Cinacalcet 30 Mg Tab PO 30 mg QDAY DESTIN Administration Clonidine HCl 0.1 mg 10/19/20 10:00 10/22/20 09:13 Clonidine 0.1 Mg Tab PO 0.1 mg BID DESTIN Administration Docusate Sodium 100 mg 10/19/20 22:00 10/22/20 09:13 Docusate Sodium 100 Mg Cap PO 100 mg BID DESTIN Administration Furosemide 40 mg 10/19/20 10:00 10/22/20 05:40 Furosemide 40 Mg/4 Ml Inj IV 40 mg 0600,1800 DESTIN Administration Heparin Sodium (Porcine) 5,000 unit 10/19/20 22:00 10/22/20 09:13 Heparin 5,000 Unit/1 Ml Vial SUB-Q 5,000 unit Q12HR DESTIN Administration Hydralazine HCl 100 mg 10/19/20 14:00 10/22/20 08:17 Hydralazine 100 Mg Tab PO 100 mg TID DESTIN Administration Sodium Chloride 100 mls @ 999 mls/hr 10/20/20 10:00 Nacl 0.9% IV STEPAN PRN Hypotension Labetalol HCl 10 mg 10/19/20 09:00 10/21/20 12:05 Labetalol 20 Mg/4 Ml Inj IV 10 mg Q4H PRN Administration sbp > 160, hold for HR < 70 Morphine Sulfate 2 mg 10/19/20 17:19 Morphine 2 Mg/1 Ml Inj IV Q4H PRN Pain, Moderate (4-6) Nifedipine 90 mg 10/19/20 10:00 10/22/20 09:13 Nifedipine Xl 90 Mg Tab PO 90 mg QDAY DESTIN Administration Ondansetron HCl 4 mg 10/19/20 17:19 Ondansetron 4 Mg/2 Ml Inj IV Q8H PRN Nausea And Vomiting Oxycodone/Acetaminophen 1 tab 10/19/20 17:19 10/22/20 08:16 Oxycodone /Acetaminophen 5-325mg Tab PO 1 tab Q6H PRN Administration Pain, Moderate (4-6) Pantoprazole Sodium 40 mg 10/19/20 10:00 10/22/20 08:16 Pantoprazole 40 Mg Tab PO 40 mg QDAC DESTIN Administration Sodium Chloride 10 ml 10/19/20 22:00 10/22/20 09:13 Sodium Chloride 0.9% 10 Ml Flush Syringe IV Not Given BID DESTIN Sodium Chloride 10 ml 10/19/20 17:19 Sodium Chloride 0.9% 10 Ml Flush Syringe IV PRN PRN LINE FLUSH
--- NOTE | 2020-10-22 11:15 | Discharge Summary ---
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 fib who presented with left-sided chest pain and shortness of breath. Reportedly patient is noncompliant with medications and misses dialysis frequently. Was significantly volume overloaded on presentation. BNP was greater than 70,000. Echocardiogram showed LVEF of 45 to 50%. Nephrology was consulted for hemodialysis. Hypertensive medications were resumed for hypertensive emergency. He received 1 unit of packed red blood cells for anemia. He was counseled, medications were refilled and he was discharged home. Disposition: 01 HOME / SELF CARE / HOMELESS Final Discharge Diagnosis (Prints w/discharge instructions): Hypertensive emergency. Chronic systolic heart failure. ESRD on HD. Volume overload Time spent for discharge: 20 minutes Core Measure Documentation - Palliative Care Palliative Care/ Comfort Measures: Not Applicable - Core Measures Any of the following diagnoses?: history only Exam - Physical Exam Narrative exam: GENERAL: Thin male, lying on stretcher. CHEST/LUNGS: CTAB on room air HEART/CARDIOVASCULAR: RRR. No murmur, rubs or gallops appreciated. ABDOMEN: +BS. NT/ND. NEURO: No focal motor deficit. Follows all commands. Moves all extremities equally. EXTREMITIES: RUE AVF. No cyanosis, clubbing or edema. PSYCH: Cooperative. - Constitutional Vitals: Temp Pulse Resp BP Pulse Ox 97.9 F 91 H 18 140/82 94 10/22/20 07:38 10/22/20 07:38 10/22/20 07:38 10/22/20 07:38 10/22/20 08:00 Plan Care Plan Goals: Follow up with Primary Care. Resume HD on MWF schedule. Assessment: Patient now euvolemic s/p 3 HD sessions. No longer having chest pains or shortness of breath. BP better controlled. Will discharge with home medications and instructions to report to dialysis tomorrow. Follow up with: PRIMARY MD SERGIO [Primary Care Provider] - 7 Days Prescriptions: Furosemide [Lasix TAB] 80 mg PO QDAY #30 Furosemide [Lasix TAB] 80 mg PO QDAY 30 Days #30 tablet
== END 2020-10-22 12:14 | disposition home or self-care (01) | DRG 291 ==
LOC: ED 01:27 → 4A 07:26 → OBSVTOIN 10-20 11:00 → 4A 10-20 16:36
PROVIDERS: ADMIT Internal Medicine; ATTEND Student in an Organized Health Care Education/Training Program
PROC: 5A1D70Z Performance of Urinary Filtration, Intermittent, Less than 6 Hours Per Day (ICD-10-PCS; 2020-10-19)
PROC: 5A1D70Z Performance of Urinary Filtration, Intermittent, Less than 6 Hours Per Day (ICD-10-PCS; principal; 2020-10-20)
PROC: 5A1D70Z Performance of Urinary Filtration, Intermittent, Less than 6 Hours Per Day (ICD-10-PCS; 2020-10-21)
DX: I13.2 Hypertensive heart and chronic kidney disease with heart failure and with stage 5 chronic kidney disease, or end stage renal disease (principal); N18.6 End stage renal disease; I16.1 Hypertensive emergency; N25.81 Secondary hyperparathyroidism of renal origin; E87.70 Fluid overload, unspecified; I48.0 Paroxysmal atrial fibrillation; Z99.2 Dependence on renal dialysis; K31.84 Gastroparesis; D63.1 Anemia in chronic kidney disease; Z91.15 Patient's noncompliance with renal dialysis; E11.22 Type 2 diabetes mellitus with diabetic chronic kidney disease; Z79.899 Other long term (current) drug therapy; I50.9 Heart failure, unspecified; H40.9 Unspecified glaucoma; Z91.14 Patient's other noncompliance with medication regimen
CPT/HCPCS: 36415; 36430; 71046; 80048; 80053; 80061; 80074; 83880; 84484; 85014; 85018; 85025; 86850; 86900; 86901; 86920; 93005; 93306; 96365; G0378; J1644; J1940; P9016

== ENCOUNTER 2020-11-20 04:42 | Inpatient (IN) | payer MEDICARE ==
--- NOTE | 2020-11-20 06:39 | Emergency Department Report ---
HPI - General Chief Complaint: Urogenital-Male Time Seen by Provider: 11/20/20 06:13 - HPI HPI: 55-year-old -[place] male presents to the emergency department with a complaint of not being able to urinate over the past 2 days. Patient has a history of end-stage renal disease on hemodialysis on Monday/Monday/Monday, but says that he usually urinates small amounts about 4-5 times per day. He feels that the lower abdomen might be slightly distended, but he denies any significant pain. Patient also has history of atrial fibrillation but not on anticoagulation. His artificial marble worker is Dr. Garcia. The patient also tells me that he has some recent history of significant anemia. He says that he had a hemoglobin of 6.8 last week in the dialysis clinic and was supposed to be transported to this emergency department for a transfusion but transport never arrived. He denies any shortness of breath, lower extremity swelling, fever, nausea, vomiting, chest pain. ED Past Medical Hx - Past Medical History Hx Hypertension: Yes Hx Heart Attack/AMI: No Hx Renal Disease: Yes (HD TThS. Last HD) Additional medical history: Glaucoma. afib - Surgical History Additional Surgical History: Left A/V Graft - Social History Smoking Status: Never Smoker - Medications Home Medications: Home Medications Medication Instructions Recorded Confirmed Last Taken Type Epoetin Curt 20,000 Unit [Procrit] 20,000 unit SUB-Q Sa vial 04/26/19 10/21/20 Unknown Rx Epoetin Curt 20,000 Unit [Procrit] 20,000 unit SUB-Q Th vial 04/26/19 10/21/20 Unknown Rx Epoetin Curt 20,000 Unit [Procrit] 20,000 unit SUB-Q Tu vial 04/26/19 10/21/20 Unknown Rx NIFEdipine [Nifedipine ER] 90 mg PO QDAY #30 09/24/20 10/21/20 Unknown Rx Cinacalcet [Sensipar] 30 mg PO QDAY tablet 10/22/20 Unknown Rx Epoetin Curt-Epbx 10,000 Unit 10,000 unit IV STEPAN PRN vial 10/22/20 Unknown Rx [Retacrit] Furosemide [Lasix TAB] 80 mg PO QDAY #30 10/22/20 Unknown Rx Furosemide [Lasix TAB] 80 mg PO QDAY 30 Days #30 tablet 10/22/20 Unknown Rx NIFEdipine XL [Procardia Xl] 90 mg PO QDAY tablet 10/22/20 Unknown Rx Pantoprazole [Protonix TAB] 40 mg PO QDAC tablet 10/22/20 Unknown Rx carvediloL [Coreg] 25 mg PO QDAY tablet 10/22/20 Unknown Rx cloNIDine [Catapres] 0.1 mg PO BID tablet 10/22/20 Unknown Rx hydrALAZINE [Apresoline TAB] 100 mg PO TID tab 10/22/20 Unknown Rx ED Review of Systems ROS: Stated complaint: UNBALE TO VOID X 3DAYS Other details as noted in HPI Comment: All other systems reviewed and negative Constitutional: denies: chills, fever Eyes: denies: eye pain, vision change ENT: denies: ear pain, throat pain Respiratory: denies: cough, shortness of breath Cardiovascular: denies: chest pain, palpitations Gastrointestinal: denies: nausea, vomiting Genitourinary: other (Decreased urination). denies: dysuria Musculoskeletal: denies: back pain, arthralgia Skin: denies: rash, lesions Neurological: denies: headache, weakness Physical Exam - Physical Exam Physical Exam: GENERAL: The patient is well-developed well-nourished. HENT: Normocephalic. Atraumatic. Patient has moist mucous membranes. EYES: Extraocular motions are intact. NECK: Supple. Trachea is midline. CHEST/LUNGS: Clear to auscultation. There is no respiratory distress noted. HEART/CARDIOVASCULAR: Regular. There is no tachycardia. There is no murmur. ABDOMEN: Abdomen is soft, nontender. Patient has normal bowel sounds. SKIN: Skin is warm and dry. NEURO: The patient is awake, alert, and oriented. The patient is cooperative. The patient has no focal neurologic deficits. Normal speech. MUSCULOSKELETAL: There is no tenderness or deformity. There is no limitation range of motion. ED Course - Consultations Consultation #1: 11/20/20 08:21 I spoke to the artificial marble worker on-call, Dr. Jones, who will arrange for the patient to receive dialysis this morning and consult on the patient. He agrees with the plan for the patient to receive a unit of packed red blood cells for transfusion. ED Medical Decision Making - Lab Data Result diagrams: 11/20/20 06:48 11/20/20 06:48 Lab Results 11/20/20 11/20/20 Range/Units 06:48 06:48 WBC 6.3 (4.5-11.0) K/mm3 RBC 2.16 L (3.65-5.03) M/mm3 Hgb 6.9 L (11.8-15.2) gm/dl Hct 20.9 L (35.5-45.6) % MCV 97 H (84-94) fl MCH 32 (28-32) pg MCHC 33 (32-34) % RDW 20.0 H (13.2-15.2) % Plt Count 192 (140-440) K/mm3 Baso % (Auto) T[employer] Up Mechanic Sodium 139 (137-145) mmol/L Potassium 5.0 (3.6-5.0) mmol/L Chloride 96.9 L (98-107) mmol/L Carbon Dioxide 25 (22-30) mmol/L Anion Gap 22 mmol/L BUN 67 H (9-20) mg/dL Creatinine 9.2 H (0.8-1.3) mg/dL Estimated GFR 7 ml/min BUN/Creatinine Ratio 7 % Glucose 94 (75-100) mg/dL Calcium 10.5 H (8.4-10.2) mg/dL - Radiology Data Radiology results: image reviewed interpreted by me: Chest x-ray shows some pulmonary vascular congestion and some mild interstitial edema. No widened mediastinum. No pneumothorax. - Medical Decision Making This patient presents to the emergency department initially with a complaint that he might have urinary retention as there has been decreased urinary output and he had some questionable lower abdominal distention. There was no significant urine seen on the bladder scan and the patient does not complain of any lower abdominal or suprapubic discomfort. I think it is more consistent with decreased urinary output given his end-stage renal disease on hemodialysis. Patient's labs showed hemoglobin of 6.8 that is down a few grams from a month ago. Otherwise labs show renal insufficiency consistent with his end-stage renal disease on hemodialysis. The patient started complaining of shortness of breath and was found to have a room air oxygen saturation of 88%. He was placed on oxygen via nasal cannula with some improvement. Patient presents with hypertensive urgency. Orders were given for the patient to receive hydralazine during dialysis as he reached a systolic blood pressure about 240. Nephrology was contacted and consulted. Patient was ordered a unit of packed red blood cells for transfusion. He was accepted for admission by the hospitalist service. Critical Care Time: Yes Critical care time in (mins) excluding proc time.: 31 Critical care attestation.: If time is entered above; I have spent that time in minutes in the direct care of this critically ill patient, excluding procedure time. Critical care time spent on this patient in doing his initial evaluation, multiple reevaluations, ordering and interpretation of labs and imaging, discussion with the nephrology service, ordering of blood for transfusion, antihypertensives for his hypertensive urgency, supplemental oxygen for the hypoxemia. Critical Care Time: 31 minutes ED Disposition Clinical Impression: ESRD on hemodialysis, Hypertensive urgency, Anemia requiring transfusions Disposition: ADMITTED INPATIENT Is pt being admited?: Yes Condition: Fair Time of Disposition: 08:23
[2020-11-20 07:10] LABS: Hematocrit 20.9 % (35.5-45.6); Hemoglobin 6.9 gm/dl (11.8-15.2); Mean Corpuscular HGB Conc 33 % (32-34); Mean Corpuscular Volume 97 fl (84-94); Platelet Count 192 K/mm3 (140-440); Red Blood Count 2.16 M/mm3 (3.65-5.03)
[2020-11-20 07:23] LABS: Calcium 10.5 mg/dL (8.4-10.2)
[2020-11-20] MEDS ORDERED: hydrALAZINE 20 MG/1 ML INJ IV ONE ×2 (08:08→11:20)
[2020-11-20] MEDS ORDERED: SODIUM CHLORIDE 0.9% 500 ML 500 ML IV ONE (08:12)
--- NOTE | 2020-11-20 08:38 | XRay Report ---
CHEST 1 VIEW INDICATION: SOB. COMPARISON: Yesterday FINDINGS: Support devices: None. Heart: Stable cardiomegaly. Lungs/Pleura: Mild improvement in pulmonary venous congestion and small pleural effusions is demonstr ated. No pneumothorax. Additional findings: None. IMPRESSION: Mild improvement in CHF. Signer Name: Chris Perez Jr, MD Signed: 11/20/2020 8:33 AM Workstation Name: [id number]
[2020-11-20] MEDS ORDERED: NALOXONE 0.4 MG/1 ML INJ IV PRN (10:36)
--- NOTE | 2020-11-20 10:38 | History and Physical Report ---
History of Present Illness Date of examination: 11/20/20 Date of admission: 11/20/2020 Chief complaint: Decreased urinary output History of present illness: Patient is a 55-year-old male with a history significant for ESRD on HD MWF, hypertension and medication noncompliance who presented after 3 days of no urine output. At baseline patient reports being able to make urine. Starting Monday he realized that he no longer was urinating. He reports having the urge to urinate, but dribbling occurs. He denies dysuria, lower back pain, penile discharge. He was recently admitted and discharged 1 month ago. Since that time he reports not taking any medications. He reports he was " denied prescriptions by [facility] pharmacy". Patient was interviewed and evaluated during dialysis. Review of systems significant for bilateral leg cramping and lower extremity edema. He has been having increased fluid intake and not taking Lasix as prescribed. Past History Past Medical History: ESRD, hypertension Social history: no significant social history Family history: no significant family history Medications and Allergies Allergies Allergy/AdvReac Type Severity Reaction Status Date / Time No Known Allergies Allergy Verified 09/23/20 10:37 Home Medications Medication Instructions Recorded Confirmed Last Taken Type Epoetin Curt 20,000 Unit [Procrit] 20,000 unit SUB-Q Sa vial 04/26/19 10/21/20 Unknown Rx Epoetin Curt 20,000 Unit [Procrit] 20,000 unit SUB-Q Th vial 04/26/19 10/21/20 Unknown Rx Epoetin Curt 20,000 Unit [Procrit] 20,000 unit SUB-Q Tu vial 04/26/19 10/21/20 Unknown Rx NIFEdipine [Nifedipine ER] 90 mg PO QDAY #30 09/24/20 10/21/20 Unknown Rx Cinacalcet [Sensipar] 30 mg PO QDAY tablet 10/22/20 Unknown Rx Epoetin Curt-Epbx 10,000 Unit 10,000 unit IV STEPAN PRN vial 10/22/20 Unknown Rx [Retacrit] Furosemide [Lasix TAB] 80 mg PO QDAY #30 10/22/20 Unknown Rx Furosemide [Lasix TAB] 80 mg PO QDAY 30 Days #30 tablet 10/22/20 Unknown Rx NIFEdipine XL [Procardia Xl] 90 mg PO QDAY tablet 10/22/20 Unknown Rx Pantoprazole [Protonix TAB] 40 mg PO QDAC tablet 10/22/20 Unknown Rx carvediloL [Coreg] 25 mg PO QDAY tablet 10/22/20 Unknown Rx cloNIDine [Catapres] 0.1 mg PO BID tablet 10/22/20 Unknown Rx hydrALAZINE [Apresoline TAB] 100 mg PO TID tab 10/22/20 Unknown Rx Exam - Physical Exam Narrative exam: GENERAL: Well-developed well-nourished. Lying in bed. HEENT: Normocephalic. Atraumatic. CHEST/LUNGS: CTAB on 2 L nasal cannula HEART/CARDIOVASCULAR: RRR. No murmur, rubs or gallops appreciated. ABDOMEN: +BS. NT/ND. NEURO: No focal motor deficit. Follows all commands and is ambulatory. MUSCULOSKELETAL: No joint effusion EXTREMITIES: LUE AVF. No cyanosis, clubbing or edema. PSYCH: Cooperative. - Constitutional Vitals: Temp Pulse Resp BP Pulse Ox 20 221/99 99 11/20/20 06:49 11/20/20 08:01 11/20/20 08:01 Results - Labs CBC & Chem 7: 11/20/20 06:48 11/20/20 06:48 Labs: Laboratory Last Values WBC 6.3 K/mm3 (4.5-11.0) 11/20/20 06:48 RBC 2.16 M/mm3 (3.65-5.03) L 11/20/20 06:48 Hgb 6.9 gm/dl (11.8-15.2) L 11/20/20 06:48 Hct 20.9 % (35.5-45.6) L 11/20/20 06:48 MCV 97 fl (84-94) H 11/20/20 06:48 MCH 32 pg (28-32) 11/20/20 06:48 MCHC 33 % (32-34) 11/20/20 06:48 RDW 20.0 % (13.2-15.2) H 11/20/20 06:48 Plt Count 192 K/mm3 (140-440) 11/20/20 06:48 Baso % (Auto) Towel Folder 11/20/20 06:48 Sodium 139 mmol/L (137-145) 11/20/20 06:48 Potassium 5.0 mmol/L (3.6-5.0) 11/20/20 06:48 Chloride 96.9 mmol/L (98-107) L 11/20/20 06:48 Carbon Dioxide 25 mmol/L (22-30) 11/20/20 06:48 Anion Gap 22 mmol/L 11/20/20 06:48 BUN 67 mg/dL (9-20) H 11/20/20 06:48 Creatinine 9.2 mg/dL (0.8-1.3) H 11/20/20 06:48 Estimated GFR 7 ml/min 11/20/20 06:48 BUN/Creatinine Ratio 7 % 11/20/20 06:48 Glucose 94 mg/dL (75-100) 11/20/20 06:48 Calcium 10.5 mg/dL (8.4-10.2) H 11/20/20 06:48 Assessment and Plan Assessment and plan: 55-year-old male history of ESRD on HD, anemia of chronic disease and medication noncompliance who presented with complaint of decreased urinary output x3 days. Found to be anemic and high blood calcemic. Dialyzed while inpatient. Currently stable. #ESRD on HD -Nephrology consulted, plan for HD today -decreased urinary output could be consequence of loss of kidney function -Vascular surgery consulted for defect in skin above AV fistula #Malignant hypertension -patient with severely elevated blood pressure during HD sessions -resume hydralazine, clonidine, coreg, nifedipine at home doses -Likely secondary to medication noncompliance, will adjust as necessary #Acute on anemia of chronic disease -H&H 6.9/20.9, was 8.3/24.9 on 10/20 -Transfuse 1 pack of red cells today -Maintain hemoglobin greater than 7 -Likely secondary to ESRD -Epogen with dialysis #Paroxysmal atrial fibrillation -NSR, will continue to monitor #History of medication noncompliance -patient admits to not taking prescription since last hospital discharge -counseled about importance of medication compliance Advance Directives: No VTE prophylaxis?: Chemical Plan of care discussed with patient/family: Yes
[2020-11-20] MEDS ORDERED: ACETAMINOPHEN 325 MG TAB PO PRN (11:00)
[2020-11-20] MEDS ORDERED: ONDANSETRON 4 MG/2 ML INJ IV PRN (11:00)
[2020-11-20] MEDS ORDERED: hydrALAZINE 20 MG/1 ML INJ ONE (11:21)
[2020-11-20] MEDS: hydrALAZINE 20 MG/1 ML INJ IV SCH ×2 (11:45→15:12)
[2020-11-20] MEDS: cloNIDine 0.1 MG TAB PO SCH ×2 (12:31→23:12)
--- NOTE | 2020-11-20 14:26 | Consultation ---
History of Present Illness - Reason for Consult Consult date: 11/20/20 end stage renal disease Requesting physician: RAVINDER HARVEY - History of Present Illness 55-year-old -Armenian male presents to the emergency department with a complaint of not being able to urinate over the past 2 days. Patient has a history of end-stage renal disease on hemodialysis on Monday/Monday/Monday, but says that he usually urinates small amounts about 4-5 times per day. He f eels that the lower abdomen might be slightly distended, but he denies any significant pain. Patient also has history of atrial fibrillation but not on anticoagulation. 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 The patient also tells me that he has some recent history of significant anemia. He says that he had a hemoglobin of 6.8 last week in the dialysis clinic and was supposed to be transported to this emergency department for a transfusion but transport never arrived. He denies any shortness of breath, lower extremity swelling, fever, nausea, vomiting, chest pain. Patient is currently undergoing dialysis. Denies any shortness of breath. His blood pressure still elevated. Patient noted to have some oozing from his AV fistula site Past History Past Medical History: atrial fib, dialysis, hypertension Past Surgical History: Other (History of creation of AV fistula) Social history: no significant social history Family history: no significant family history Medications and Allergies Allergies Allergy/AdvReac Type Severity Reaction Status Date / Time No Known Allergies Allergy Verified 09/23/20 10:37 Home Medications Medication Instructions Recorded Confirmed Last Taken Type Epoetin Curt 20,000 Unit [Procrit] 20,000 unit SUB-Q Sa vial 04/26/19 10/21/20 Unknown Rx Epoetin Curt 20,000 Unit [Procrit] 20,000 unit SUB-Q Th vial 04/26/19 10/21/20 Unknown Rx Epoetin Curt 20,000 Unit [Procrit] 20,000 unit SUB-Q Tu vial 04/26/19 10/21/20 Unknown Rx NIFEdipine [Nifedipine ER] 90 mg PO QDAY #30 09/24/20 10/21/20 Unknown Rx Cinacalcet [Sensipar] 30 mg PO QDAY tablet 10/22/20 Unknown Rx Epoetin Curt-Epbx 10,000 Unit 10,000 unit IV STEPAN PRN vial 10/22/20 Unknown Rx [Retacrit] Furosemide [Lasix TAB] 80 mg PO QDAY #30 10/22/20 Unknown Rx Furosemide [Lasix TAB] 80 mg PO QDAY 30 Days #30 tablet 10/22/20 Unknown Rx NIFEdipine XL [Procardia Xl] 90 mg PO QDAY tablet 10/22/20 Unknown Rx Pantoprazole [Protonix TAB] 40 mg PO QDAC tablet 10/22/20 Unknown Rx carvediloL [Coreg] 25 mg PO QDAY tablet 10/22/20 Unknown Rx cloNIDine [Catapres] 0.1 mg PO BID tablet 10/22/20 Unknown Rx hydrALAZINE [Apresoline TAB] 100 mg PO TID tab 10/22/20 Unknown Rx Active Meds: Active Medications Acetaminophen (Acetaminophen 325 Mg Tab) 650 mg PO Q4H PRN PRN Reason: Pain MILD(1-3)/Fever >100.5/[facility] Carvedilol (Carvedilol 25 Mg Tab) 25 mg PO BID [facility] Clonidine HCl (Clonidine 0.1 Mg Tab) 0.1 mg PO Q12HR [facility] Last Admin: 11/20/20 12:31 Dose: 0.1 mg Documented by: Hydralazine HCl (Hydralazine 100 Mg Tab) 100 mg PO TID [facility] Hydralazine HCl (Hydralazine 20 Mg/1 Ml Inj) 20 mg IV ONCE@1300 [facility] Stop: 11/20/20 16:00 Last Admin: 11/20/20 11:45 Dose: 20 mg Documented by: Morphine Sulfate (Morphine 4 Mg/1 Ml Inj) 4 mg IV Q4H PRN PRN Reason: Pain , Severe (7-10) Naloxone HCl (Naloxone 0.4 Mg/1 Ml Inj) 0.1 mg IV Q2MIN PRN PRN Reason: Res Rate </= 8 or 02 SAT < 92% Nifedipine (Nifedipine Xl 90 Mg Tab) 90 mg PO QDAY [facility] Ondansetron HCl (Ondansetron 4 Mg/2 Ml Inj) 4 mg IV Q8H PRN PRN Reason: Nausea And Vomiting Oxycodone/Acetaminophen (Oxycodone /Acetaminophen 5-325mg Tab) 1 tab PO Q6H PRN PRN Reason: Pain, Moderate (4-6) Sodium Chloride (Sodium Chloride 0.9% 10 Ml Flush Syringe) 10 ml IV BID [facility] Sodium Chloride (Sodium Chloride 0.9% 10 Ml Flush Syringe) 10 ml IV PRN PRN PRN Reason: LINE FLUSH Review of Systems All systems: negative (Negative except as noted above) Exam - Vital Signs Vital signs: Vital Signs Pulse Ox 89 11/20/20 04:56 - General Appearance General appearance: well-developed, well-nourished, appears stated age EENT: PERRL, mucous membranes moist Neck: Present: neck supple, trachea midline. Absent: JVD/HJR, Masses Respiratory: Clear to Ascultation Heart: regular, normal heart rate Gastrointestinal: Present: normal, normoactive bowel sounds Integumentary: no rash, other (No edema. AV fistula left upper arm. Cannulated for dialysis. Skin overlying his fistula appears to be denuded.) Results - Lab Results 11/20/20 06:48 11/20/20 06:48 Most recent lab results Calcium 10.5 mg/dL (8.4-10.2) H 11/20/20 06:48 Assessment and Plan Impression * End-stage renal disease on maintenance hemodialysis * Severe anemia * Uncontrolled hypertension * AV fistula with compromised overlying skin * Hypercalcemia Recommendations * Patient is currently undergoing hemodialysis. Tolerating well. Maintain him on MWF schedule for now * Transfuse packed RBC as needed. Anemia work-up as per primary team * His blood pressure still elevated. Shall adjust his antihypertensive medication * Skin overlying his fistula seems to be compromised. It appears shiny and also had small bleeding spots noted. Shall consult vascular surgery. [place] * Use lower calcium bath for dialysis * Epogen after better blood pressure control * Binders with meals * Adjust diet and meds for ESRD state * No IV, BP or venipuncture in access site * Thank you very much for the consultation. Shall follow along with you
[2020-11-20] MEDS: NIFEdipine XL 90 MG TAB PO SCH (15:13)
[2020-11-20] MEDS: hydrALAZINE 100 MG TAB PO SCH ×2 (15:13→20:24)
--- NOTE | 2020-11-20 15:49 | Consultation ---
History of Present Illness - Reason for Consult Consult date: 11/20/20 Complications of Dialysis Access Requesting physician: FAIZA SANTACRUZ - History of Present Illness The patient is a 55-year-old male with history of end-stage renal disease who is currently on hemodialysis through a transposed brachiobasilic arteriovenous fistula. He states the fistula was created in [place] approximately 5 years ago. Since that time he has not had significant complications with the fistula. 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 He states he was referred to another vascular surgeon but was unhappy with that surgeon and decided not to have any intervention at that time. He has developed thinning of the skin over both pseudoaneurysms which has become concerning. He denies any prolonged bleeding or difficulty with cannulation of the fistula during dialysis. He has no additional complaints at this time. Past History Past Medical History: atrial fib, anemia, ESRD, hypertension Past Surgical History: Other (History of creation of AV fistula) Social history: no significant social history Family history: no significant family history Medications and Allergies Allergies Allergy/AdvReac Type Severity Reaction Status Date / Time No Known Allergies Allergy Verified 09/23/20 10:37 Home Medications Medication Instructions Recorded Confirmed Last Taken Type Epoetin Curt 20,000 Unit [Procrit] 20,000 unit SUB-Q Sa vial 04/26/19 10/21/20 Unknown Rx Epoetin Curt 20,000 Unit [Procrit] 20,000 unit SUB-Q Th vial 04/26/19 10/21/20 Unknown Rx Epoetin Curt 20,000 Unit [Procrit] 20,000 unit SUB-Q Tu vial 04/26/19 10/21/20 Unknown Rx NIFEdipine [Nifedipine ER] 90 mg PO QDAY #30 09/24/20 10/21/20 Unknown Rx Cinacalcet [Sensipar] 30 mg PO QDAY tablet 10/22/20 Unknown Rx Epoetin Curt-Epbx 10,000 Unit 10,000 unit IV STEPAN PRN vial 10/22/20 Unknown Rx [Retacrit] Furosemide [Lasix TAB] 80 mg PO QDAY #30 10/22/20 Unknown Rx Furosemide [Lasix TAB] 80 mg PO QDAY 30 Days #30 tablet 10/22/20 Unknown Rx NIFEdipine XL [Procardia Xl] 90 mg PO QDAY tablet 10/22/20 Unknown Rx Pantoprazole [Protonix TAB] 40 mg PO QDAC tablet 10/22/20 Unknown Rx carvediloL [Coreg] 25 mg PO QDAY tablet 10/22/20 Unknown Rx cloNIDine [Catapres] 0.1 mg PO BID tablet 10/22/20 Unknown Rx hydrALAZINE [Apresoline TAB] 100 mg PO TID tab 10/22/20 Unknown Rx Active Meds: Active Medications Acetaminophen (Acetaminophen 325 Mg Tab) 650 mg PO Q4H PRN PRN Reason: Pain MILD(1-3)/Fever >100.5/[facility] Carvedilol (Carvedilol 25 Mg Tab) 25 mg PO BID [facility] Clonidine HCl (Clonidine 0.1 Mg Tab) 0.1 mg PO Q12HR [facility] Last Admin: 11/20/20 12:31 Dose: 0.1 mg Documented by: Hydralazine HCl (Hydralazine 100 Mg Tab) 100 mg PO TID [facility] Last Admin: 11/20/20 15:13 Dose: 100 mg Documented by: Hydralazine HCl (Hydralazine 20 Mg/1 Ml Inj) 20 mg IV ONCE@1300 [facility] Stop: 11/20/20 16:00 Last Admin: 11/20/20 15:12 Dose: 20 mg Documented by: Morphine Sulfate (Morphine 4 Mg/1 Ml Inj) 4 mg IV Q4H PRN PRN Reason: Pain , Severe (7-10) Naloxone HCl (Naloxone 0.4 Mg/1 Ml Inj) 0.1 mg IV Q2MIN PRN PRN Reason: Res Rate </= 8 or 02 SAT < 92% Nifedipine (Nifedipine Xl 90 Mg Tab) 90 mg PO QDAY [facility] Last Admin: 11/20/20 15:13 Dose: 90 mg Documented by: Ondansetron HCl (Ondansetron 4 Mg/2 Ml Inj) 4 mg IV Q8H PRN PRN Reason: Nausea And Vomiting Oxycodone/Acetaminophen (Oxycodone /Acetaminophen 5-325mg Tab) 1 tab PO Q6H PRN PRN Reason: Pain, Moderate (4-6) Sodium Chloride (Sodium Chloride 0.9% 10 Ml Flush Syringe) 10 ml IV BID [facility] Sodium Chloride (Sodium Chloride 0.9% 10 Ml Flush Syringe) 10 ml IV PRN PRN PRN Reason: LINE FLUSH Review of Systems All systems: negative Exam - Constitutional Vitals: Temp Pulse Resp BP Pulse Ox 98.3 F 89 24 224/111 92 11/20/20 14:05 11/20/20 15:12 11/20/20 14:05 11/20/20 15:12 11/20/20 14:05 General appearance: Present: no acute distress - Respiratory Respiratory effort: normal Respiratory: bilateral: CTA - Extremities Extremities: abnormal (Left arm arteriovenous fistula with palpable thrill, 2 pseudoaneurysms in the cannulation zone with thin skin and small ulceration without significant bleeding. There are multiple veins in the upper arm and shoulder suggesting he may have central venous occlusion or stenosis.) - Abdominal General gastrointestinal: Present: soft Male genitourinary: Present: deferred - Rectal Rectal Exam: deferred Results - Labs CBC & Chem 7: 11/20/20 06:48 11/20/20 06:48 Labs: Abnormal lab results 11/20/20 11/20/20 11/20/20 Range/Units 06:48 06:48 10:30 RBC 2.16 L (3.65-5.03) M/mm3 Hgb 6.9 L (11.8-15.2) gm/dl Hct 20.9 L (35.5-45.6) % MCV 97 H (84-94) fl RDW 20.0 H (13.2-15.2) % Chloride 96.9 L (98-107) mmol/L BUN 67 H (9-20) mg/dL Creatinine 9.2 H (0.8-1.3) mg/dL Calcium 10.5 H (8.4-10.2) mg/dL Crossmatch See Detail Assessment and Plan The patient is a 55-year-old male who presents with a left brachiobasilic arteriovenous fistula with 2 moderately sized pseudoaneurysms with ulceration and thinning of the skin. The areas are concerning for the potential for hemorr abbi if not treated. I discussed the need for revision of the fistula. Other than the areas of pseudoaneurysm the remainder of the fistula does not have any aneurysmal dilatation. There are multiple veins throughout the upper arm and chest suggesting central venous stenosis versus occlusion. I discussed the plan for a fistulogram with possible intervention, on Monday, along with placement of a permacath at that time. Monday he will have revision of his fistula with excision of the pseudoaneurysms and an interposition graft. The permacath will remain in place for 2 weeks until the incision is healed and they can resume accessing the graft for his dialysis. The patient has expressed understanding and agrees to proceed with the plan. Given his hemoglobin he will require a transfusion prior to proceeding to the operating room.
[2020-11-20 17:41] LABS: Total Cells Counted 100
[2020-11-20 17:42] LABS: Anisocytosis 1+; Platelet Estimate Consistent w Auto; Poikilocytosis 1+; Spherocytes 1+; Target Cells 1+
[2020-11-20] MEDS: oxyCODONE /ACETAMINOPHEN 5-325MG TAB PO PRN (20:24)
[2020-11-20] MEDS: MORPHINE 4 MG/1 ML INJ IV PRN (20:25)
[2020-11-20] MEDS: carvediloL 25 MG TAB PO SCH ×2 (23:12→23:13)
[2020-11-21] MEDS ORDERED: SODIUM CHLORIDE 0.9% 500 ML IVPB IV ONE (01:34)
[2020-11-21] MEDS: MORPHINE 4 MG/1 ML INJ IV PRN (02:08)
[2020-11-21] MEDS ORDERED: hydrALAZINE 20 MG/1 ML INJ IV ONE (02:41)
--- NOTE | 2020-11-21 07:25 | Progress Note ---
Assessment and Plan Assessment and plan: 55-year-old male history of ESRD on HD, anemia of chronic disease and medication noncompliance who presented with complaint of decreased urinary output x3 days. Found to be anemic and high blood calcemic. Dialyzed while inpatient. Currently stable. #ESRD on HD -Nephrology consulted, HD MWF -decreased urinary output could be consequence of loss of kidney function #AV fistula defect -Vascular surgery following, plan for procedure during the week #Hypertension #Malignant hypertension -patient with severely elevated blood pressure during HD sessions -BP controlled with restarting meds -continue hydralazine, clonidine, coreg, nifedipine at home doses -Likely secondary to medication noncompliance, will adjust as necessary #Acute on anemia of chronic disease -H&H 6.9/20.9 -> 8.8/26.2 -Transfused 1 pack pRBCs 11/20 -Maintain hemoglobin greater than 7 -Likely secondary to ESRD -Epogen with dialysis #Paroxysmal atrial fibrillation -NSR, will continue to monitor #History of medication noncompliance -patient admits to not taking prescription since last hospital discharge -counseled about importance of medication compliance Disposition Plan: Home Total Time Spent with Patient (Minutes): 20 minutes History Interval history: No acute events overnight. Patient no longer having cramping in his legs or shortness of breath. No complaints at this time. Hospitalist Physical - Physical exam Narrative exam: GENERAL: Well-developed well-nourished. Lying in bed. HEENT: Normocephalic. Atraumatic. CHEST/LUNGS: CTAB on 2 L nasal cannula HEART/CARDIOVASCULAR: RRR. No murmur, rubs or gallops appreciated. ABDOMEN: +BS. NT/ND. NEURO: No focal motor deficit. Follows all commands and is ambulatory. MUSCULOSKELETAL: No joint effusion EXTREMITIES: LUE AVF. No cyanosis, clubbing or edema. PSYCH: Cooperative. - Constitutional Vitals: Temp Pulse Resp BP Pulse Ox 97.8 F 79 18 133/72 97 11/21/20 05:21 11/21/20 05:21 11/21/20 05:21 11/21/20 05:21 11/21/20 05:21 General appearance: Present: no acute distress Results - Labs CBC & Chem 7: 11/21/20 10:41 11/20/20 06:48 Labs: Laboratory Last Values WBC 6.3 K/mm3 (4.5-11.0) 11/20/20 06:48 RBC 2.16 M/mm3 (3.65-5.03) L 11/20/20 06:48 Hgb 6.9 gm/dl (11.8-15.2) L 11/20/20 06:48 Hct 20.9 % (35.5-45.6) L 11/20/20 06:48 MCV 97 fl (84-94) H 11/20/20 06:48 MCH 32 pg (28-32) 11/20/20 06:48 MCHC 33 % (32-34) 11/20/20 06:48 RDW 20.0 % (13.2-15.2) H 11/20/20 06:48 Plt Count 192 K/mm3 (140-440) 11/20/20 06:48 Baso % (Auto) Data Control Clerk 11/20/20 06:48 Add Manual Diff Complete 11/20/20 06:48 Total Counted 100 11/20/20 06:48 Seg Neuts % (Manual) 83.0 % (40.0-70.0) H 11/20/20 06:48 Lymphocytes % (Manual) 9.0 % (13.4-35.0) L 11/20/20 06:48 Monocytes % (Manual) 1.0 % (0.0-7.3) 11/20/20 06:48 Eosinophils % (Manual) 7.0 % (0.0-4.3) H 11/20/20 06:48 Nucleated RBC % Not Reportable 11/20/20 06:48 Seg Neutrophils # Man 5.2 K/mm3 (1.8-7.7) 11/20/20 06:48 Band Neutrophils # 0.0 K/mm3 11/20/20 06:48 Lymphocytes # (Manual) 0.6 K/mm3 (1.2-5.4) L 11/20/20 06:48 Abs React Lymphs (Man) 0.0 K/mm3 11/20/20 06:48 Monocytes # (Manual) 0.1 K/mm3 (0.0-0.8) 11/20/20 06:48 Eosinophils # (Manual) 0.4 K/mm3 (0.0-0.4) 11/20/20 06:48 Basophils # (Manual) 0.0 K/mm3 (0.0-0.1) 11/20/20 06:48 Metamyelocytes # 0.0 K/mm3 11/20/20 06:48 Myelocytes # 0.0 K/mm3 11/20/20 06:48 Promyelocytes # 0.0 K/mm3 11/20/20 06:48 Blast Cells # 0.0 K/mm3 11/20/20 06:48 WBC Morphology Not Reportable 11/20/20 06:48 Hypersegmented Neuts Not Reportable 11/20/20 06:48 Hyposegmented Neuts Not Reportable 11/20/20 06:48 Hypogranular Neuts Not Reportable 11/20/20 06:48 Smudge Cells Not Reportable 11/20/20 06:48 Toxic Granulation Not Reportable 11/20/20 06:48 Toxic Vacuolation Not Reportable 11/20/20 06:48 Dohle Bodies Not Reportable 11/20/20 06:48 Pelger-Huet Anomaly Not Reportable 11/20/20 06:48 Lucita Rods Not Reportable 11/20/20 06:48 Platelet Estimate Consistent w auto 11/20/20 06:48 Clumped Platelets Not Reportable 11/20/20 06:48 Plt Clumps, EDTA Not Reportable 11/20/20 06:48 Large Platelets Not Reportable 11/20/20 06:48 Giant Platelets Not Reportable 11/20/20 06:48 Platelet Satelliting Not Reportable 11/20/20 06:48 Plt Morphology Comment Not Reportable 11/20/20 06:48 RBC Morphology Not Reportable 11/20/20 06:48 Dimorphic RBCs Not Reportable 11/20/20 06:48 Polychromasia Not Reportable 11/20/20 06:48 Hypochromasia Not Reportable 11/20/20 06:48 Poikilocytosis 1+ 11/20/20 06:48 Anisocytosis 1+ 11/20/20 06:48 Microcytosis Not Reportable 11/20/20 06:48 Macrocytosis Not Reportable 11/20/20 06:48 Spherocytes 1+ 11/20/20 06:48 Pappenheimer Bodies Not Reportable 11/20/20 06:48 Sickle Cells Not Reportable 11/20/20 06:48 Target Cells 1+ 11/20/20 06:48 Tear Drop Cells Not Reportable 11/20/20 06:48 Ovalocytes Not Reportable 11/20/20 06:48 Helmet Cells Not Reportable 11/20/20 06:48 [place] Bodies Not Reportable 11/20/20 06:48 [place] Rings Not Reportable 11/20/20 06:48 Cassidy Cells Not Reportable 11/20/20 06:48 Bite Cells Not Reportable 11/20/20 06:48 Crenated Cell Not Reportable 11/20/20 06:48 Elliptocytes Not Reportable 11/20/20 06:48 Acanthocytes (Spur) Not Reportable 11/20/20 06:48 Rouleaux Not Reportable 11/20/20 06:48 Hemoglobin C Crystals Not Reportable 11/20/20 06:48 Schistocytes Not Reportable 11/20/20 06:48 Malaria parasites Not Reportable 11/20/20 06:48 King Bodies Not Reportable 11/20/20 06:48 Hem Pathologist Commnt No 11/20/20 06:48 Sodium 139 mmol/L (137-145) 11/20/20 06:48 Potassium 5.0 mmol/L (3.6-5.0) 11/20/20 06:48 Chloride 96.9 mmol/L (98-107) L 11/20/20 06:48 Carbon Dioxide 25 mmol/L (22-30) 11/20/20 06:48 Anion Gap 22 mmol/L 11/20/20 06:48 BUN 67 mg/dL (9-20) H 11/20/20 06:48 Creatinine 9.2 mg/dL (0.8-1.3) H 11/20/20 06:48 Estimated GFR 7 ml/min 11/20/20 06:48 BUN/Creatinine Ratio 7 % 11/20/20 06:48 Glucose 94 mg/dL (75-100) 11/20/20 06:48 Calcium 10.5 mg/dL (8.4-10.2) H 11/20/20 06:48 Blood Type O POSITIVE 11/20/20 10:30 Antibody Screen Negative 11/20/20 10:30 Crossmatch See Detail 11/20/20 10:30 Velasquez/IV: Voiding Method Toilet Active Medications - Current Medications Current Medications: Generic Name Dose Route Start Last Admin Trade Name Freq PRN Reason Stop Dose Admin Acetaminophen 650 mg 11/20/20 11:00 Acetaminophen 325 Mg Tab PO Q4H PRN Pain MILD(1-3)/Fever >100.5/NIELSON Carvedilol 25 mg 11/20/20 13:00 11/20/20 23:13 Carvedilol 25 Mg Tab PO Not Given BID DESTIN Clonidine HCl 0.1 mg 11/20/20 13:00 11/20/20 23:12 Clonidine 0.1 Mg Tab PO 0.1 mg Q12HR DESTIN Administration Hydralazine HCl 100 mg 11/20/20 14:00 11/20/20 20:24 Hydralazine 100 Mg Tab PO 100 mg TID DESTIN Administration Morphine Sulfate 4 mg 11/20/20 10:36 11/21/20 02:08 Morphine 4 Mg/1 Ml Inj IV 4 mg Q4H PRN Administration Pain , Severe (7-10) Naloxone HCl 0.1 mg 11/20/20 10:36 Naloxone 0.4 Mg/1 Ml Inj IV Q2MIN PRN Res Rate </= 8 or 02 SAT < 92% Nifedipine 90 mg 11/20/20 13:00 11/20/20 15:13 Nifedipine Xl 90 Mg Tab PO 90 mg QDAY DESTIN Administration Ondansetron HCl 4 mg 11/20/20 11:00 Ondansetron 4 Mg/2 Ml Inj IV Q8H PRN Nausea And Vomiting Oxycodone/Acetaminophen 1 tab 11/20/20 10:36 11/20/20 20:24 Oxycodone /Acetaminophen 5-325mg Tab PO 1 tab Q6H PRN Administration Pain, Moderate (4-6) Sodium Chloride 10 ml 11/20/20 22:00 11/20/20 23:13 Sodium Chloride 0.9% 10 Ml Flush Syringe IV 10 ml BID DESTIN Administration Sodium Chloride 10 ml 11/20/20 10:36 Sodium Chloride 0.9% 10 Ml Flush Syringe IV PRN PRN LINE FLUSH
[2020-11-21] MEDS: hydrALAZINE 100 MG TAB PO SCH ×3 (08:58→21:58)
[2020-11-21] MEDS: HEPARIN 5,000 UNIT/1 ML VIAL SUB-Q SCH ×3 (08:59→21:58)
--- NOTE | 2020-11-21 11:19 | Progress Note ---
Assessment and Plan Impression * End-stage renal disease on maintenance hemodialysis * Severe anemia * Uncontrolled hypertension * AV fistula with compromised overlying skin * Hypercalcemia Recommendations * Patient had uneventful hemodialysis yesterday. Continue dialysis on MWF schedule for now * Patient is status post 1 unit packed RBC transfusion. Recommend GI evaluation. * His blood pressure is better this morning * Skin overlying his fistula seems to be compromised. It appears shiny and also had small bleeding spots noted. Vascular surgery consultation appreciated * Use lower calcium bath for dialysis. Check PTH and phosphorus level * Epogen after better blood pressure control * Binders with meals * Adjust diet and meds for ESRD state * No IV, BP or venipuncture in access site Subjective Date of service: 11/21/20 Interval history: Patient is comfortable today. Denies any shortness of breath. No nausea vomiting or diarrhea. Objective - Vital Signs Vital signs: Vital Signs - 12hr 11/21/20 11/21/20 11/21/20 02:00 02:30 02:44 Temperature 97.6 F 97.6 F Pulse Rate 88 84 Respiratory 20 20 20 Rate Blood Pressure 163/94 160/90 O2 Sat by Pulse 93 95 98 Oximetry 11/21/20 11/21/20 11/21/20 02:45 03:15 04:15 Temperature 97.6 F 97.6 F 97.6 F Pulse Rate 84 84 84 Respiratory 20 18 18 Rate Blood Pressure 160/90 162/90 142/70 O2 Sat by Pulse 98 99 98 Oximetry 11/21/20 05:21 Temperature 97.8 F Pulse Rate 79 Respiratory 18 Rate Blood Pressure 133/72 O2 Sat by Pulse 97 Oximetry - General Appearance General appearance: well-developed, well-nourished, appears stated age EENT: PERRL, mucous membranes moist Neck: no JVD, no thyromegaly, no carotid bruit, supple Respiratory: Present: Clear to Ascultation Cardiology: regular, normal heart rate, S1S2, no murmurs Gastrointestinal: normal, normoactive bowel sounds Integumentary: no rash, other (No edema. AV fistula left upper arm. Good bruit and thrill.) - Lab 11/20/20 06:48 11/20/20 06:48 Most recent lab results Calcium 10.5 mg/dL (8.4-10.2) H 11/20/20 06:48 Medications & Allergies - Medications Allergies/Adverse Reactions: Allergies No Known Allergies Allergy (Verified 09/23/20 10:37) Home Medications: Home Medications Medication Instructions Recorded Confirmed Last Taken Type Epoetin Curt 20,000 Unit [Procrit] 20,000 unit SUB-Q Sa vial 04/26/19 11/20/20 Unknown Rx Epoetin Curt 20,000 Unit [Procrit] 20,000 unit SUB-Q Th vial 04/26/19 11/20/20 Unknown Rx Epoetin Curt 20,000 Unit [Procrit] 20,000 unit SUB-Q Tu vial 04/26/19 11/20/20 Unknown Rx NIFEdipine [Nifedipine ER] 90 mg PO QDAY #30 09/24/20 11/20/20 Unknown Rx Cinacalcet [Sensipar] 30 mg PO QDAY tablet 10/22/20 11/20/20 Unknown Rx Epoetin Curt-Epbx 10,000 Unit 10,000 unit IV STEPAN PRN vial 10/22/20 11/20/20 Unknown Rx [Retacrit] Furosemide [Lasix TAB] 80 mg PO QDAY #30 10/22/20 11/20/20 Unknown Rx Furosemide [Lasix TAB] 80 mg PO QDAY 30 Days #30 tablet 10/22/20 11/20/20 Unknown Rx NIFEdipine XL [Procardia Xl] 90 mg PO QDAY tablet 10/22/20 11/20/20 Unknown Rx Pantoprazole [Protonix TAB] 40 mg PO QDAC tablet 10/22/20 11/20/20 Unknown Rx carvediloL [Coreg] 25 mg PO QDAY tablet 10/22/20 11/20/20 Unknown Rx cloNIDine [Catapres] 0.1 mg PO BID tablet 10/22/20 11/20/20 Unknown Rx hydrALAZINE [Apresoline TAB] 100 mg PO TID tab 10/22/20 11/20/20 Unknown Rx Active Medications: Generic Name Dose Route Start Last Admin Trade Name Freq PRN Reason Stop Dose Admin Acetaminophen 650 mg 11/20/20 11:00 Acetaminophen 325 Mg Tab PO Q4H PRN Pain MILD(1-3)/Fever >100.5/NIELSNO Carvedilol 25 mg 11/20/20 13:00 11/20/20 23:13 Carvedilol 25 Mg Tab PO Not Given BID DESTIN Clonidine HCl 0.1 mg 11/20/20 13:00 11/20/20 23:12 Clonidine 0.1 Mg Tab PO 0.1 mg Q12HR DESTIN Administration Heparin Sodium (Porcine) 5,000 unit 11/21/20 08:00 11/21/20 08:59 Heparin 5,000 Unit/1 Ml Vial SUB-Q 5,000 unit Q8HR DESTIN Administration Hydralazine HCl 100 mg 11/20/20 14:00 11/21/20 08:58 Hydralazine 100 Mg Tab PO 100 mg TID DESTIN Administration Morphine Sulfate 4 mg 11/20/20 10:36 11/21/20 02:08 Morphine 4 Mg/1 Ml Inj IV 4 mg Q4H PRN Administration Pain , Severe (7-10) Naloxone HCl 0.1 mg 11/20/20 10:36 Naloxone 0.4 Mg/1 Ml Inj IV Q2MIN PRN Res Rate </= 8 or 02 SAT < 92% Nifedipine 90 mg 11/20/20 13:00 11/20/20 15:13 Nifedipine Xl 90 Mg Tab PO 90 mg QDAY DESTIN Administration Ondansetron HCl 4 mg 11/20/20 11:00 Ondansetron 4 Mg/2 Ml Inj IV Q8H PRN Nausea And Vomiting Oxycodone/Acetaminophen 1 tab 11/20/20 10:36 11/20/20 20:24 Oxycodone /Acetaminophen 5-325mg Tab PO 1 tab Q6H PRN Administration Pain, Moderate (4-6) Sodium Chloride 10 ml 11/20/20 22:00 11/20/20 23:13 Sodium Chloride 0.9% 10 Ml Flush Syringe IV 10 ml BID DESTIN Administration Sodium Chloride 10 ml 11/20/20 10:36 Sodium Chloride 0.9% 10 Ml Flush Syringe IV PRN PRN LINE FLUSH
[2020-11-21 11:20] LABS: Basophils % (Auto) 0.6 % (0.0-1.8); Eosinophils # (Auto) 0.4 K/mm3 (0.0-0.4); Eosinophils % (Auto) 4.9 % (0.0-4.3); Hematocrit 26.2 % (35.5-45.6); Hemoglobin 8.8 gm/dl (11.8-15.2); Lymphocytes % (Auto) 13.4 % (13.4-35.0); Mean Corpuscular HGB Conc 34 % (32-34); Mean Corpuscular Volume 94 fl (84-94); Monocytes # (Auto) 0.8 K/mm3 (0.0-0.8); Monocytes % (Auto) 11.2 % (0.0-7.3); Platelet Count 217 K/mm3 (140-440); Red Blood Count 2.79 M/mm3 (3.65-5.03); Red Cell Distribution Width 18.7 % (13.2-15.2)
[2020-11-21 11:43] LABS: Calcium 10.2 mg/dL (8.4-10.2)
[2020-11-21] MEDS: carvediloL 25 MG TAB PO SCH ×2 (12:05→21:58)
[2020-11-21] MEDS: NIFEdipine XL 90 MG TAB PO SCH (12:06)
[2020-11-21] MEDS: cloNIDine 0.1 MG TAB PO SCH ×2 (12:06→23:28)
[2020-11-21 12:09] LABS: Hepatitis C Virus Antibody Non-Reactive (NonReactive)
[2020-11-21 12:51] LABS: Hepatitis B Surface Antigen Nonreactive (Negative)
--- NOTE | 2020-11-21 15:43 | Event Note ---
Date: 11/21/20 Plan for cathlab Monday for left arm fistulagram and permacath placement. Then revision of left arm fistula in OR on Monday.
[2020-11-22] MEDS: HEPARIN 5,000 UNIT/1 ML VIAL SUB-Q SCH ×3 (07:08→23:00)
[2020-11-22 07:53] LABS: Hematocrit 24.9 % (35.5-45.6); Hemoglobin 8.7 gm/dl (11.8-15.2); Mean Corpuscular HGB Conc 35 % (32-34); Mean Corpuscular Volume 93 fl (84-94); Platelet Count 213 K/mm3 (140-440); Red Blood Count 2.66 M/mm3 (3.65-5.03); Red Cell Distribution Width 18.6 % (13.2-15.2)
[2020-11-22 08:08] LABS: Calcium 9.7 mg/dL (8.4-10.2)
--- NOTE | 2020-11-22 08:54 | Progress Note ---
Assessment and Plan Assessment and plan: 55-year-old male history of ESRD on HD, anemia of chronic disease and medication noncompliance who presented with complaint of decreased urinary output x3 days. Found to be anemic. Dialyzed while inpatient. Currently stable. #ESRD on HD -Nephrology consulted, HD MWF -decreased urinary output could be consequence of loss of kidney function #AV fistula defect -Vascular surgery following, plan for procedure during the week #Hypertension #Malignant hypertension -patient with severely elevated blood pressure during HD sessions -BP improved with restarting meds -continue hydralazine, clonidine, coreg, nifedipine at home doses -Likely secondary to medication noncompliance, will adjust as necessary #Acute on anemia of chronic disease -s/p 1 pack pRBCs 11/20 -Maintain hemoglobin greater than 7 -Likely secondary to ESRD -Epogen with dialysis #Paroxysmal atrial fibrillation -NSR, will continue to monitor #History of medication noncompliance -patient admits to not taking prescription since last hospital discharge -counseled about importance of medication compliance Disposition Plan: Home Total Time Spent with Patient (Minutes): 20 minutes History Interval history: No acute events overnight. Patient resting. Denies any complaints. Hospitalist Physical - Physical exam Narrative exam: GENERAL: Well-developed well-nourished. Lying in bed. HEENT: Normocephalic. Atraumatic. CHEST/LUNGS: CTAB HEART/CARDIOVASCULAR: RRR. + Systolic murmur at RUSB, LUSB ABDOMEN: +BS. NT/ND. EXTREMITIES: LUE AVF. No cyanosis, clubbing or edema. PSYCH: Cooperative. - Constitutional Vitals: Temp Pulse Resp BP Pulse Ox 98.0 F 90 18 165/78 93 11/22/20 04:47 11/22/20 07:08 11/22/20 07:08 11/22/20 04:47 11/22/20 07:08 General appearance: Present: no acute distress Results - Labs CBC & Chem 7: 11/22/20 07:23 11/22/20 07:23 Labs: Laboratory Last Values WBC 6.6 K/mm3 (4.5-11.0) 11/22/20 07:23 RBC 2.66 M/mm3 (3.65-5.03) L 11/22/20 07:23 Hgb 8.7 gm/dl (11.8-15.2) L 11/22/20 07:23 Hct 24.9 % (35.5-45.6) L 11/22/20 07:23 MCV 93 fl (84-94) 11/22/20 07:23 MCH 33 pg (28-32) H 11/22/20 07:23 MCHC 35 % (32-34) H 11/22/20 07:23 RDW 18.6 % (13.2-15.2) H 11/22/20 07:23 Plt Count 213 K/mm3 (140-440) 11/22/20 07:23 Lymph % (Auto) 13.4 % (13.4-35.0) 11/21/20 10:41 [place] % (Auto) 11.2 % (0.0-7.3) H 11/21/20 10:41 Eos % (Auto) 4.9 % (0.0-4.3) H 11/21/20 10:41 Baso % (Auto) 0.6 % (0.0-1.8) 11/21/20 10:41 Lymph # (Auto) 1.0 K/mm3 (1.2-5.4) L 11/21/20 10:41 [place] # (Auto) 0.8 K/mm3 (0.0-0.8) 11/21/20 10:41 Eos # (Auto) 0.4 K/mm3 (0.0-0.4) 11/21/20 10:41 Baso # (Auto) 0.0 K/mm3 (0.0-0.1) 11/21/20 10:41 Add Manual Diff Complete 11/20/20 06:48 Total Counted 100 11/20/20 06:48 Seg Neutrophils % 69.9 % (40.0-70.0) 11/21/20 10:41 Seg Neuts % (Manual) 83.0 % (40.0-70.0) H 11/20/20 06:48 Lymphocytes % (Manual) 9.0 % (13.4-35.0) L 11/20/20 06:48 Monocytes % (Manual) 1.0 % (0.0-7.3) 11/20/20 06:48 Eosinophils % (Manual) 7.0 % (0.0-4.3) H 11/20/20 06:48 Nucleated RBC % Not Reportable 11/20/20 06:48 Seg Neutrophils # 5.2 K/mm3 (1.8-7.7) 11/21/20 10:41 Seg Neutrophils # Man 5.2 K/mm3 (1.8-7.7) 11/20/20 06:48 Band Neutrophils # 0.0 K/mm3 11/20/20 06:48 Lymphocytes # (Manual) 0.6 K/mm3 (1.2-5.4) L 11/20/20 06:48 Abs React Lymphs (Man) 0.0 K/mm3 11/20/20 06:48 Monocytes # (Manual) 0.1 K/mm3 (0.0-0.8) 11/20/20 06:48 Eosinophils # (Manual) 0.4 K/mm3 (0.0-0.4) 11/20/20 06:48 Basophils # (Manual) 0.0 K/mm3 (0.0-0.1) 11/20/20 06:48 Metamyelocytes # 0.0 K/mm3 11/20/20 06:48 Myelocytes # 0.0 K/mm3 11/20/20 06:48 Promyelocytes # 0.0 K/mm3 11/20/20 06:48 Blast Cells # 0.0 K/mm3 11/20/20 06:48 WBC Morphology Not Reportable 11/20/20 06:48 Hypersegmented Neuts Not Reportable 11/20/20 06:48 Hyposegmented Neuts Not Reportable 11/20/20 06:48 Hypogranular Neuts Not Reportable 11/20/20 06:48 Smudge Cells Not Reportable 11/20/20 06:48 Toxic Granulation Not Reportable 11/20/20 06:48 Toxic Vacuolation Not Reportable 11/20/20 06:48 Dohle Bodies Not Reportable 11/20/20 06:48 Pelger-Huet Anomaly Not Reportable 11/20/20 06:48 Lucita Rods Not Reportable 11/20/20 06:48 Platelet Estimate Consistent w auto 11/20/20 06:48 Clumped Platelets Not Reportable 11/20/20 06:48 Plt Clumps, EDTA Not Reportable 11/20/20 06:48 Large Platelets Not Reportable 11/20/20 06:48 Giant Platelets Not Reportable 11/20/20 06:48 Platelet Satelliting Not Reportable 11/20/20 06:48 Plt Morphology Comment Not Reportable 11/20/20 06:48 RBC Morphology Not Reportable 11/20/20 06:48 Dimorphic RBCs Not Reportable 11/20/20 06:48 Polychromasia Not Reportable 11/20/20 06:48 Hypochromasia Not Reportable 11/20/20 06:48 Poikilocytosis 1+ 11/20/20 06:48 Anisocytosis 1+ 11/20/20 06:48 Microcytosis Not Reportable 11/20/20 06:48 Macrocytosis Not Reportable 11/20/20 06:48 Spherocytes 1+ 11/20/20 06:48 Pappenheimer Bodies Not Reportable 11/20/20 06:48 Sickle Cells Not Reportable 11/20/20 06:48 Target Cells 1+ 11/20/20 06:48 Tear Drop Cells Not Reportable 11/20/20 06:48 Ovalocytes Not Reportable 11/20/20 06:48 Helmet Cells Not Reportable 11/20/20 06:48 [place] Bodies Not Reportable 11/20/20 06:48 [place] Rings Not Reportable 11/20/20 06:48 [place] Cells Not Reportable 11/20/20 06:48 Bite Cells Not Reportable 11/20/20 06:48 Crenated Cell Not Reportable 11/20/20 06:48 Elliptocytes Not Reportable 11/20/20 06:48 Acanthocytes (Spur) Not Reportable 11/20/20 06:48 Rouleaux Not Reportable 11/20/20 06:48 Hemoglobin C Crystals Not Reportable 11/20/20 06:48 Schistocytes Not Reportable 11/20/20 06:48 Malaria parasites Not Reportable 11/20/20 06:48 King Bodies Not Reportable 11/20/20 06:48 Hem Pathologist Commnt No 11/20/20 06:48 Sodium 136 mmol/L (137-145) L 11/22/20 07:23 Potassium 4.5 mmol/L (3.6-5.0) 11/22/20 07:23 Chloride 94.1 mmol/L (98-107) L 11/22/20 07:23 Carbon Dioxide 27 mmol/L (22-30) 11/22/20 07:23 Anion Gap 19 mmol/L 11/22/20 07:23 BUN 44 mg/dL (9-20) H 11/22/20 07:23 Creatinine 7.4 mg/dL (0.8-1.3) H 11/22/20 07:23 Estimated GFR 9 ml/min 11/22/20 07:23 BUN/Creatinine Ratio 6 % 11/22/20 07:23 Glucose 106 mg/dL (75-100) H 11/22/20 07:23 Calcium 9.7 mg/dL (8.4-10.2) 11/22/20 07:23 Phosphorus 3.80 mg/dL (2.5-4.5) 11/22/20 07:23 PTH Intact 1332 pg/mL (15-65) H 11/22/20 07:23 Nasal Screen MRSA (PCR) Negative (Negative) 11/21/20 Unknown Hepatitis A IgM Ab Non-reactive (NonReactive) 11/20/20 09:35 Hep Bs Antigen Nonreactive (Negative) 11/20/20 09:35 Hep B Core IgM Ab Non-reactive (NonReactive) 11/20/20 09:35 Hepatitis C Antibody Non-reactive (NonReactive) 11/20/20 09:35 Blood Type O POSITIVE 11/20/20 10:30 Antibody Screen Negative 11/20/20 10:30 Crossmatch See Detail 11/20/20 10:30 Velasquez/IV: Voiding Method Toilet Active Medications - Current Medications Current Medications: Generic Name Dose Route Start Last Admin Trade Name Freq PRN Reason Stop Dose Admin Acetaminophen 650 mg 11/20/20 11:00 Acetaminophen 325 Mg Tab PO Q4H PRN Pain MILD(1-3)/Fever >100.5/NIELSON Carvedilol 25 mg 11/20/20 13:00 11/21/20 21:58 Carvedilol 25 Mg Tab PO 25 mg BID DESTIN Administration Clonidine HCl 0.1 mg 11/20/20 13:00 11/21/20 23:28 Clonidine 0.1 Mg Tab PO 0.1 mg Q12HR DESTIN Administration Heparin Sodium (Porcine) 5,000 unit 11/21/20 08:00 11/22/20 07:08 Heparin 5,000 Unit/1 Ml Vial SUB-Q 5,000 unit Q8HR DESTIN Administration Hydralazine HCl 100 mg 11/20/20 14:00 11/21/20 21:58 Hydralazine 100 Mg Tab PO 100 mg TID DESTIN Administration Morphine Sulfate 4 mg 11/20/20 10:36 11/21/20 02:08 Morphine 4 Mg/1 Ml Inj IV 4 mg Q4H PRN Administration Pain , Severe (7-10) Naloxone HCl 0.1 mg 11/20/20 10:36 Naloxone 0.4 Mg/1 Ml Inj IV Q2MIN PRN Res Rate </= 8 or 02 SAT < 92% Nifedipine 90 mg 11/20/20 13:00 11/21/20 12:06 Nifedipine Xl 90 Mg Tab PO 90 mg QDAY DESTIN Administration Ondansetron HCl 4 mg 11/20/20 11:00 Ondansetron 4 Mg/2 Ml Inj IV Q8H PRN Nausea And Vomiting Oxycodone/Acetaminophen 1 tab 11/20/20 10:36 11/20/20 20:24 Oxycodone /Acetaminophen 5-325mg Tab PO 1 tab Q6H PRN Administration Pain, Moderate (4-6) Sodium Chloride 10 ml 11/20/20 22:00 11/21/20 21:58 Sodium Chloride 0.9% 10 Ml Flush Syringe IV 10 ml BID DESTIN Administration Sodium Chloride 10 ml 11/20/20 10:36 Sodium Chloride 0.9% 10 Ml Flush Syringe IV PRN PRN LINE FLUSH
[2020-11-22] MEDS: NIFEdipine XL 90 MG TAB PO SCH (09:33)
[2020-11-22] MEDS: hydrALAZINE 100 MG TAB PO SCH ×3 (09:33→23:01)
[2020-11-22] MEDS: cloNIDine 0.1 MG TAB PO SCH ×2 (09:34→23:00)
[2020-11-22] MEDS: carvediloL 25 MG TAB PO SCH ×2 (09:34→23:00)
[2020-11-22 09:44] LABS: Anisocytosis 2+; Poikilocytosis 2+; Total Cells Counted 100
[2020-11-22 09:45] LABS: Schistocytes Rare
[2020-11-22 09:46] LABS: Burr Cells 1+; Helmet Cells Rare; Ovalocytes Few; Platelet Estimate Consistent w Auto
--- NOTE | 2020-11-22 13:18 | Progress Note ---
Assessment and Plan Impression * End-stage renal disease on maintenance hemodialysis * Severe anemia * Uncontrolled hypertension * AV fistula with compromised overlying skin * Hypercalcemia Recommendations * Patient had uneventful hemodialysis on Monday * Vascular surgery notes appreciated. Patient is scheduled for fistulogram as well as PermCath placement tomorrow and surgery for his AV fistula on Monday * Shall plan to dialyze him tomorrow after PermCath placement * Patient is status post 1 unit packed RBC transfusion. Recommend GI evaluation. * His blood pressure is better this morning * Skin overlying his fistula seems to be compromised. It appears shiny and also had small bleeding spots noted. Vascular surgery consultation appreciated * Serum calcium is better. PTH level is elevated at 1330. Add Sensipar * Epogen after better blood pressure control * Binders with meals * Adjust diet and meds for ESRD state * No IV, BP or venipuncture in access site Subjective Date of service: 11/22/20 Interval history: Patient is comfortable today. Denies any shortness of breath. No nausea vomiting or diarrhea. Objective - Vital Signs Vital signs: Vital Signs - 12hr 11/22/20 11/22/20 11/22/20 04:47 07:08 09:34 Temperature 98.0 F Pulse Rate 98 H 90 82 Respiratory 20 18 Rate Blood Pressure 165/78 161/75 O2 Sat by Pulse 86 93 Oximetry - General Appearance General appearance: well-developed, well-nourished, appears stated age EENT: PERRL, mucous membranes moist Neck: no JVD, no thyromegaly, no carotid bruit, supple Respiratory: Present: Clear to Ascultation Cardiology: regular, normal heart rate, S1S2, no murmurs Gastrointestinal: normal, normoactive bowel sounds Integumentary: no rash, warm and dry, other (No edema) - Lab 11/22/20 07:23 11/22/20 07:23 Most recent lab results Calcium 9.7 mg/dL (8.4-10.2) 11/22/20 07:23 Phosphorus 3.80 mg/dL (2.5-4.5) 11/22/20 07:23 Medications & Allergies - Medications Allergies/Adverse Reactions: Allergies No Known Allergies Allergy (Verified 09/23/20 10:37) Home Medications: Home Medications Medication Instructions Recorded Confirmed Last Taken Type Epoetin Curt 20,000 Unit [Procrit] 20,000 unit SUB-Q Sa vial 04/26/19 11/20/20 Unknown Rx Epoetin Curt 20,000 Unit [Procrit] 20,000 unit SUB-Q Th vial 04/26/19 11/20/20 Unknown Rx Epoetin Curt 20,000 Unit [Procrit] 20,000 unit SUB-Q Tu vial 04/26/19 11/20/20 Unknown Rx NIFEdipine [Nifedipine ER] 90 mg PO QDAY #30 09/24/20 11/20/20 Unknown Rx Cinacalcet [Sensipar] 30 mg PO QDAY tablet 10/22/20 11/20/20 Unknown Rx Epoetin Curt-Epbx 10,000 Unit 10,000 unit IV STEPAN PRN vial 10/22/20 11/20/20 Unknown Rx [Retacrit] Furosemide [Lasix TAB] 80 mg PO QDAY #30 10/22/20 11/20/20 Unknown Rx Furosemide [Lasix TAB] 80 mg PO QDAY 30 Days #30 tablet 10/22/20 11/20/20 Unknown Rx NIFEdipine XL [Procardia Xl] 90 mg PO QDAY tablet 10/22/20 11/20/20 Unknown Rx Pantoprazole [Protonix TAB] 40 mg PO QDAC tablet 10/22/20 11/20/20 Unknown Rx carvediloL [Coreg] 25 mg PO QDAY tablet 10/22/20 11/20/20 Unknown Rx cloNIDine [Catapres] 0.1 mg PO BID tablet 10/22/20 11/20/20 Unknown Rx hydrALAZINE [Apresoline TAB] 100 mg PO TID tab 10/22/20 11/20/20 Unknown Rx Active Medications: Generic Name Dose Route Start Last Admin Trade Name Freq PRN Reason Stop Dose Admin Acetaminophen 650 mg 11/20/20 11:00 Acetaminophen 325 Mg Tab PO Q4H PRN Pain MILD(1-3)/Fever >100.5/NIELSON Carvedilol 25 mg 11/20/20 13:00 11/22/20 09:34 Carvedilol 25 Mg Tab PO 25 mg BID DESTIN Administration Clonidine HCl 0.1 mg 11/20/20 13:00 11/22/20 09:34 Clonidine 0.1 Mg Tab PO 0.1 mg Q12HR DESTIN Administration Heparin Sodium (Porcine) 5,000 unit 11/21/20 08:00 11/22/20 07:08 Heparin 5,000 Unit/1 Ml Vial SUB-Q 5,000 unit Q8HR DESTIN Administration Hydralazine HCl 100 mg 11/20/20 14:00 11/22/20 09:33 Hydralazine 100 Mg Tab PO 100 mg TID DESTIN Administration Morphine Sulfate 4 mg 11/20/20 10:36 11/21/20 02:08 Morphine 4 Mg/1 Ml Inj IV 4 mg Q4H PRN Administration Pain , Severe (7-10) Naloxone HCl 0.1 mg 11/20/20 10:36 Naloxone 0.4 Mg/1 Ml Inj IV Q2MIN PRN Res Rate </= 8 or 02 SAT < 92% Nifedipine 90 mg 11/20/20 13:00 11/22/20 09:33 Nifedipine Xl 90 Mg Tab PO 90 mg QDAY DESTIN Administration Ondansetron HCl 4 mg 11/20/20 11:00 Ondansetron 4 Mg/2 Ml Inj IV Q8H PRN Nausea And Vomiting Oxycodone/Acetaminophen 1 tab 11/20/20 10:36 11/20/20 20:24 Oxycodone /Acetaminophen 5-325mg Tab PO 1 tab Q6H PRN Administration Pain, Moderate (4-6) Sodium Chloride 10 ml 11/20/20 22:00 11/22/20 09:35 Sodium Chloride 0.9% 10 Ml Flush Syringe IV 10 ml BID DESTIN Administration Sodium Chloride 10 ml 11/20/20 10:36 Sodium Chloride 0.9% 10 Ml Flush Syringe IV PRN PRN LINE FLUSH
[2020-11-23] MEDS: HEPARIN 5,000 UNIT/1 ML VIAL SUB-Q SCH ×3 (06:37→22:00)
--- NOTE | 2020-11-23 07:59 | Progress Note ---
Assessment and Plan Assessment and plan: 55-year-old male history of ESRD on HD, anemia of chronic disease and medication noncompliance who presented with complaint of decreased urinary output x3 days. Found to be anemic. Dialyzed while inpatient. Currently stable. #ESRD on HD -Nephrology consulted, HD MWF -New place today by vascular surgery -Dialysis today -decreased urinary output could be consequence of loss of kidney function #AV fistula defect -Fistulogram today, will plan for OR for revision of L aVF -Vascular surgery managing #Hypertension #Malignant hypertension -patient with severely elevated blood pressure during HD sessions -BP improved with restarting meds -continue hydralazine, clonidine, coreg, nifedipine at home doses -Likely secondary to medication noncompliance, will adjust as necessary #Acute on anemia of chronic disease -s/p 1 pack pRBCs 11/20 -Maintain hemoglobin greater than 7 -Likely secondary to ESRD -Epogen with dialysis #Paroxysmal atrial fibrillation -NSR, will continue to monitor #History of medication noncompliance -patient admits to not taking prescription since last hospital discharge -counseled about importance of medication compliance Disposition Plan: Continue medical management Total Time Spent with Patient (Minutes): 20 minutes History Interval history: No acute events overnight. Patient seen during dialysis. Denies any complaints. Hospitalist Physical - Physical exam Narrative exam: GENERAL: Well-developed well-nourished. Lying in bed. CHEST/LUNGS: Right chest permacath. CTAB. HEART/CARDIOVASCULAR: RRR. + Systolic murmur at RUSB, LUSB ABDOMEN: +BS. NT/ND. EXTREMITIES: LUE AVF. No cyanosis, clubbing or edema. PSYCH: Cooperative. - Constitutional Vitals: Temp Pulse Resp BP Pulse Ox 98.6 F 79 18 141/80 100 11/23/20 07:42 11/23/20 07:42 11/23/20 07:42 11/23/20 07:42 11/23/20 07:42 General appearance: Present: no acute distress Results - Labs CBC & Chem 7: 11/22/20 07:23 11/22/20 07:23 Labs: Laboratory Last Values WBC 6.6 K/mm3 (4.5-11.0) 11/22/20 07:23 RBC 2.66 M/mm3 (3.65-5.03) L 11/22/20 07:23 Hgb 8.7 gm/dl (11.8-15.2) L 11/22/20 07:23 Hct 24.9 % (35.5-45.6) L 11/22/20 07:23 MCV 93 fl (84-94) 11/22/20 07:23 MCH 33 pg (28-32) H 11/22/20 07:23 MCHC 35 % (32-34) H 11/22/20 07:23 RDW 18.6 % (13.2-15.2) H 11/22/20 07:23 Plt Count 213 K/mm3 (140-440) 11/22/20 07:23 Lymph % (Auto) 13.4 % (13.4-35.0) 11/21/20 10:41 [place] [facility] % (Auto) 11.2 % (0.0-7.3) H 11/21/20 10:41 Eos % (Auto) 4.9 % (0.0-4.3) H 11/21/20 10:41 Baso % (Auto) 0.6 % (0.0-1.8) 11/21/20 10:41 Lymph # (Auto) 1.0 K/mm3 (1.2-5.4) L 11/21/20 10:41 [facility] # (Auto) 0.8 K/mm3 (0.0-0.8) 11/21/20 10:41 Eos # (Auto) 0.4 K/mm3 (0.0-0.4) 11/21/20 10:41 Baso # (Auto) 0.0 K/mm3 (0.0-0.1) 11/21/20 10:41 Add Manual Diff Complete 11/22/20 07:23 Total Counted 100 11/22/20 07:23 Seg Neutrophils % 69.9 % (40.0-70.0) 11/21/20 10:41 Seg Neuts % (Manual) 85.0 % (40.0-70.0) H 11/22/20 07:23 Lymphocytes % (Manual) 4.0 % (13.4-35.0) L 11/22/20 07:23 Monocytes % (Manual) 5.0 % (0.0-7.3) 11/22/20 07:23 Eosinophils % (Manual) 6.0 % (0.0-4.3) H 11/22/20 07:23 Nucleated RBC % Not Reportable 11/22/20 07:23 Seg Neutrophils # 5.2 K/mm3 (1.8-7.7) 11/21/20 10:41 Seg Neutrophils # Man 5.6 K/mm3 (1.8-7.7) 11/22/20 07:23 Band Neutrophils # 0.0 K/mm3 11/22/20 07:23 Lymphocytes # (Manual) 0.3 K/mm3 (1.2-5.4) L 11/22/20 07:23 Abs React Lymphs (Man) 0.0 K/mm3 11/22/20 07:23 Monocytes # (Manual) 0.3 K/mm3 (0.0-0.8) 11/22/20 07:23 Eosinophils # (Manual) 0.4 K/mm3 (0.0-0.4) 11/22/20 07:23 Basophils # (Manual) 0.0 K/mm3 (0.0-0.1) 11/22/20 07:23 Metamyelocytes # 0.0 K/mm3 11/22/20 07:23 Myelocytes # 0.0 K/mm3 11/22/20 07:23 Promyelocytes # 0.0 K/mm3 11/22/20 07:23 Blast Cells # 0.0 K/mm3 11/22/20 07:23 WBC Morphology Not Reportable 11/22/20 07:23 Hypersegmented Neuts Not Reportable 11/22/20 07:23 Hyposegmented Neuts Not Reportable 11/22/20 07:23 Hypogranular Neuts Not Reportable 11/22/20 07:23 Smudge Cells Not Reportable 11/22/20 07:23 Toxic Granulation Not Reportable 11/22/20 07:23 Toxic Vacuolation Not Reportable 11/22/20 07:23 Dohle Bodies Not Reportable 11/22/20 07:23 Pelger-Huet Anomaly Not Reportable 11/22/20 07:23 Lucita Rods Not Reportable 11/22/20 07:23 Platelet Estimate Consistent w auto 11/22/20 07:23 Clumped Platelets Not Reportable 11/22/20 07:23 Plt Clumps, EDTA Not Reportable 11/22/20 07:23 Large Platelets Not Reportable 11/22/20 07:23 Giant Platelets Not Reportable 11/22/20 07:23 Platelet Satelliting Not Reportable 11/22/20 07:23 Plt Morphology Comment Not Reportable 11/22/20 07:23 RBC Morphology Not Reportable 11/22/20 07:23 Dimorphic RBCs Not Reportable 11/22/20 07:23 Polychromasia Not Reportable 11/22/20 07:23 Hypochromasia Not Reportable 11/22/20 07:23 Poikilocytosis 2+ 11/22/20 07:23 Anisocytosis 2+ 11/22/20 07:23 Microcytosis Not Reportable 11/22/20 07:23 Macrocytosis Not Reportable 11/22/20 07:23 Spherocytes Not Reportable 11/22/20 07:23 Pappenheimer Bodies Not Reportable 11/22/20 07:23 Sickle Cells Not Reportable 11/22/20 07:23 Target Cells Not Reportable 11/22/20 07:23 Tear Drop Cells Not Reportable 11/22/20 07:23 Ovalocytes Few 11/22/20 07:23 Helmet Cells Rare 11/22/20 07:23 [place] Bodies Not Reportable 11/22/20 07:23 [place] Rings Not Reportable 11/22/20 07:23 [place] Cells 1+ 11/22/20 07:23 Bite Cells Not Reportable 11/22/20 07:23 Crenated Cell Not Reportable 11/22/20 07:23 Elliptocytes Few 11/22/20 07:23 Acanthocytes (Spur) Not Reportable 11/22/20 07:23 Rouleaux Not Reportable 11/22/20 07:23 Hemoglobin C Crystals Not Reportable 11/22/20 07:23 Schistocytes Rare 11/22/20 07:23 Malaria parasites Not Reportable 11/22/20 07:23 [place] Bodies Not Reportable 11/22/20 07:23 Hem Pathologist Commnt No 11/22/20 07:23 Sodium 136 mmol/L (137-145) L 11/22/20 07:23 Potassium 4.5 mmol/L (3.6-5.0) 11/22/20 07:23 Chloride 94.1 mmol/L (98-107) L 11/22/20 07:23 Carbon Dioxide 27 mmol/L (22-30) 11/22/20 07:23 Anion Gap 19 mmol/L 11/22/20 07:23 BUN 44 mg/dL (9-20) H 11/22/20 07:23 Creatinine 7.4 mg/dL (0.8-1.3) H 11/22/20 07:23 Estimated GFR 9 ml/min 11/22/20 07:23 BUN/Creatinine Ratio 6 % 11/22/20 07:23 Glucose 106 mg/dL (75-100) H 11/22/20 07:23 Calcium 9.7 mg/dL (8.4-10.2) 11/22/20 07:23 Phosphorus 3.80 mg/dL (2.5-4.5) 11/22/20 07:23 PTH Intact 1332 pg/mL (15-65) H 11/22/20 07:23 Nasal Screen MRSA (PCR) Negative (Negative) 11/21/20 Unknown Hepatitis A IgM Ab Non-reactive (NonReactive) 11/20/20 09:35 Hep Bs Antigen Nonreactive (Negative) 11/20/20 09:35 Hep B Core IgM Ab Non-reactive (NonReactive) 11/20/20 09:35 Hepatitis C Antibody Non-reactive (NonReactive) 11/20/20 09:35 Blood Type O POSITIVE 11/20/20 10:30 Antibody Screen Negative 11/20/20 10:30 Crossmatch See Detail 11/20/20 10:30 Velasquez/IV: Voiding Method Toilet Active Medications - Current Medications Current Medications: Generic Name Dose Route Start Last Admin Trade Name Freq PRN Reason Stop Dose Admin Acetaminophen 650 mg 11/20/20 11:00 Acetaminophen 325 Mg Tab PO Q4H PRN Pain MILD(1-3)/Fever >100.5/NIELSON Carvedilol 25 mg 11/20/20 13:00 11/22/20 23:00 Carvedilol 25 Mg Tab PO 25 mg BID DESTIN Administration Cinacalcet 30 mg 11/23/20 10:00 Cinacalcet 30 Mg Tab PO QDAY DESTIN Clonidine HCl 0.1 mg 11/20/20 13:00 11/22/20 23:00 Clonidine 0.1 Mg Tab PO 0.1 mg Q12HR DESTIN Administration Heparin Sodium (Porcine) 5,000 unit 11/21/20 08:00 11/23/20 06:37 Heparin 5,000 Unit/1 Ml Vial SUB-Q Not Given Q8HR [facility] Hydralazine HCl 100 mg 11/20/20 14:00 11/22/20 23:01 Hydralazine 100 Mg Tab PO Not Given TID DESTIN Morphine Sulfate 4 mg 11/20/20 10:36 11/21/20 02:08 Morphine 4 Mg/1 Ml Inj IV 4 mg Q4H PRN Administration Pain , Severe (7-10) Naloxone HCl 0.1 mg 11/20/20 10:36 Naloxone 0.4 Mg/1 Ml Inj IV Q2MIN PRN Res Rate </= 8 or 02 SAT < 92% Nifedipine 90 mg 11/20/20 13:00 11/22/20 09:33 Nifedipine Xl 90 Mg Tab PO 90 mg QDAY DESTIN Administration Ondansetron HCl 4 mg 11/20/20 11:00 Ondansetron 4 Mg/2 Ml Inj IV Q8H PRN Nausea And Vomiting Oxycodone/Acetaminophen 1 tab 11/20/20 10:36 11/20/20 20:24 Oxycodone /Acetaminophen 5-325mg Tab PO 1 tab Q6H PRN Administration Pain, Moderate (4-6) Sodium Chloride 10 ml 11/20/20 22:00 11/22/20 23:01 Sodium Chloride 0.9% 10 Ml Flush Syringe IV 10 ml BID DESTIN Administration Sodium Chloride 10 ml 11/20/20 10:36 Sodium Chloride 0.9% 10 Ml Flush Syringe IV PRN PRN LINE FLUSH
[2020-11-23] MEDS: hydrALAZINE 100 MG TAB PO SCH ×3 (08:00→20:38)
[2020-11-23] MEDS ORDERED: HEPARIN/NS 5000 UNIT/500ML 1,000 ML IR ONE (08:37)
[2020-11-23] MEDS ORDERED: LIDOCAINE (1%) 10 MG/1 ML VIAL 20 ML MDV ONE ×2 (08:37→09:31)
[2020-11-23] MEDS ORDERED: MIDAZOLAM 2 MG/2 ML INJ ONE (08:51)
[2020-11-23] MEDS ORDERED: fentaNYL 100 MCG/2 ML INJ ONE (08:51)
[2020-11-23] MEDS ORDERED: HEPARIN 10,000 UNITS/10 ML VIAL ONE (08:51)
[2020-11-23] MEDS ORDERED: SODIUM CHLORIDE 0.9% 500 ML 500 ML ONE (08:52)
[2020-11-23] MEDS ORDERED: LIDOCAINE 1%/EPINEPHRINE 1:100,000 VIAL (20 ML) INFILTRATI ONE (09:47)
[2020-11-23] MEDS: LIDOCAINE 1%/EPINEPHRINE 1:100,000 VIAL (20 ML) INFILTRATI ONE ×2 (09:49→10:13)
--- NOTE | 2020-11-23 10:52 | Post Operative Note ---
Date of procedure: 11/23/20 Pre-op diagnosis: AVF malfunction Post-op diagnosis: same Procedure: 1. Ultrasound-guided access of the right internal jugular vein. 2. Venography of the SVC. 3. Fluoroscopic guided placement of a 23 cm tip to cuff right internal jugular vein dual-lumen hemodialysis catheter. 4. Ultrasound-guided access of the left arm AV fistula, antegrade 5. Fistulogram. 6. Angioplasty of the left innominate vein and left subclavian vein with a 12 mm x 40 mm angioplasty balloon (central dialysis access angioplasty) 7. Angioplasty of the left distal basilic vein with a 12 mm x 40 mm angioplasty balloon 8. Angioplasty of the left peripheral basilic vein with a 12 mm x 40 mm angioplasty Anesthesia: local Surgeon: ROME ELLSWORTH Estimated blood loss: minimal Condition: stable Disposition: floor
--- NOTE | 2020-11-23 15:27 | Anesthesia Consultation ---
Anesthesia Consult and Med Hx Date of service: 11/23/20 - Airway Anesthetic Teeth Evaluation: Good ROM Head & Neck: Adequate Mental/Hyoid Distance: Adequate Mallampati Class: Class III Intubation Access Assessment: Probably Good - Pulmonary Exam CTA: Yes - Cardiac Exam Cardiac Exam: RRR - Pre-Operative Health Status ASA Pre-Surgery Classification: ASA3 Proposed Anesthetic Plan: General - Pulmonary Hx Smoking: No Hx Asthma: Yes COPD: No Hx Pneumonia: No Hx Sleep Apnea: No - Cardiovascular System Hx Hypertension: Yes Hx Heart Attack/AMI: No Hx Cardia Arrhythmia: Yes (Paroxysmal A-Fib) Hx Pacemaker: No Hx Valvular Heart Disease: No - Central Nervous System CVA: Yes (2012-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
--- NOTE | 2020-11-23 16:00 | Operative Report ---
Operative Report Operative Report: EXAM: 1. Ultrasound-guided access of the right internal jugular vein. 2. Venography of the SVC. 3. Fluoroscopic guided placement of a 23 cm tip to cuff right internal jugular vein dual-lumen hemodialysis catheter. 4. Ultrasound-guided access of the left arm AV brachiobasilic fistula, antegrade 5. Fistulogram. 6. Angioplasty of the left innominate vein and left subclavian vein with a 12 mm x 40 mm angioplasty balloon (central dialysis access angioplasty) 7. Angioplasty of the left distal basilic vein with a 12 mm x 40 mm angioplasty balloon 8. Angioplasty of the left peripheral basilic vein with a 12 mm x 40 mm angioplasty DATE: 11/23/2020 HIDE CURER: ROME ELLSWORTH MD INDICATION: AV fistula malfunction with thinning skin near rupture who requires PermCath and AV fistula MEDICATIONS: Please see nursing report for full details. DEVICES: 23 cm tip to cuff hemodialysis catheter 12 mm x 40 mm angioplasty balloon CONTRAST: Please see [employer] report for full details PROCEDURE: The risks, benefits, and alternatives were discussed and informed consent was obtained. The patient was transported to the angiography suite in satisfactory/stable condition and was transported onto the angiography table. The patient's right internal jugular vein was assessed with ultrasound and deter mined to be patent prior to procedure. The patient was prepped and draped in a sterile fashion. The puncture site was anesthetized. Under sonographic guidance, the right internal jugular vein was punctured with a 21-gauge micropuncture needle and a 0.018 inch wire was advanced into the inferior vena cava. It took a moderate amount of time to negotiate the 0.018 inch wire past the right innominate vein into the SVC. The micropuncture needle was exchanged for a transitional dilator and the wire was retracted into the right atrium to genna intravascular distance. The wire and inner dilator were removed. Digital subtraction angiography was performed through the dilator demonstrating patency of the SVC in appropriate position. 0.035 inch wire was advanced through the transitional dilator into the inferior vena cava. A suitable exit site was identified on the patient's chest inferior and lateral to the venotomy. The site was anesthetized with local anesthetic and the track was anesthetized. Dermatotomy was made. The PermCath was attached to the tunneling device and tunneled between the dermatotomy to the venotomy. Over the 0.035 inch wire, serial dilatation was performed with ultimate placement of a peel-away sheath. The catheter was advanced through the peel- away sheath after the wire was removed and positioned centrally under fluoroscopic guidance. The peel-away sheath was removed. 4-0 Vicryl suture was used to close the venotomy and Dermabond was then applied. 2-0 Ethilon suture was used to secure the catheter at the dermatotomy. The catheter was charged with heparin 1000 units/mL of space. Sterile dressing and Biopatch applied. At this time, attention was then turned towards the left arm AV fistula. Under ultrasound guidance, the left arm AV brachiobasilic fistula was accessed with a 21-gauge micropuncture needle. The area was anesthetized prior to access. 0.018 inch wire was advanced through the micropuncture needle into the fistula and then the needle was exchanged for a 5 [place] transitional dilator. The inner dilator and wire were removed and a 0.035 inch wire was advanced through the venous outflow. The transitional dilator was exchanged for a 7 [place] short sheath. Fistulogram was performed of the venous outflow and central veins. Reflux into the arterial anastomosis was performed. Digital subtraction angiography demonstrated a large arterial anastomosis with patulous perianastomotic segment with scattered calcifications. The peripheral and mid portions of the basilic vein were widely patent. The central portion of the basilic vein had a relative 60% stenosis. The axillary vein was patent. The subclavian vein had a 30 to 40% central stenosis. The left innominate vein had a central 90% stenosis with patency of the rest of the innominate vein. 12 mm x 40 mm angioplasty balloon was then used to perform angioplasty of the left innominate vein, left subclavian vein, left central basilic vein, and perianastomotic basilic vein. Digital subtraction angiography demonstrated less than 20% residual narrowing of the left innominate and left subclavian vein. The left central basilic vein had a 30% relative residual stenosis and the left perianastomotic basilic vein had less than 10% residual narrowing. The wire was removed and the site was closed with a 3-0 Vicryl suture. The sheath was then removed. Hemostasis was achieved with slight manual compression. The patient was transported from the angiography suite to the floor in stable condition. IMPRESSION: Successful tunneled cuffed hemodialysis catheter placement. Successful peripheral dialysis access angioplasty. Successful central dialysis access angioplasty.
[2020-11-23] MEDS: NIFEdipine XL 90 MG TAB PO SCH (16:03)
[2020-11-23] MEDS: carvediloL 25 MG TAB PO SCH ×2 (16:03→22:10)
[2020-11-23] MEDS: CINACALCET 30 MG TAB PO SCH (16:03)
[2020-11-23] MEDS: cloNIDine 0.1 MG TAB PO SCH ×2 (16:03→22:08)
--- NOTE | 2020-11-23 17:49 | Progress Note ---
Assessment and Plan Impression * End-stage renal disease on maintenance hemodialysis * Severe anemia * Uncontrolled hypertension * AV fistula with compromised overlying skin * Hypercalcemia Recommendations * S/p permcath placement 11/23 * Continue HD MWF * Vascular surgery notes reviewed. Patient is scheduled for AV fistula intervention on Monday * Patient is status post 1 unit packed RBC transfusion. Recommend GI evaluation. * Serum calcium is better. PTH level is elevated at 1330. Added Sensipar * Epogen after better blood pressure control * Binders with meals * Adjust diet and meds for ESRD state * No IV, BP or venipuncture at access site Subjective Date of service: 11/23/20 Principal diagnosis: Anemia Interval history: Status post PermCath placement this morning. Seen during dialysis post catheter placement. Objective - Vital Signs Vital signs: Vital Signs - 12hr 11/23/20 11/23/20 11/23/20 05:59 07:42 10:00 Temperature 98.6 F 98.6 F Pulse Rate 78 79 Respiratory 20 18 Rate Blood Pressure 134/76 Blood Pressure 141/80 [Left] O2 Sat by Pulse 96 100 100 Oximetry O2 Sat by Pulse Oximetry [ Anterior Bilateral Throughout] O2 Sat by Pulse Oximetry [ Posterior Bilateral Throughout] O2 Sat by Pulse Oximetry [ Posterior Bilateral] 11/23/20 11/23/20 11/23/20 11:00 11:15 11:30 Temperature 98.6 F Pulse Rate 82 80 81 Respiratory 18 Rate Blood Pressure 149/80 142/81 149/83 Blood Pressure [Left] O2 Sat by Pulse Oximetry O2 Sat by Pulse 99 Oximetry [ Anterior Bilateral Throughout] O2 Sat by Pulse 99 Oximetry [ Posterior Bilateral Throughout] O2 Sat by Pulse 99 Oximetry [ Posterior Bilateral] 11/23/20 11/23/20 11/23/20 11:45 12:00 12:15 Temperature Pulse Rate 82 81 81 Respiratory Rate Blood Pressure 144/82 132/82 134/71 Blood Pressure [Left] O2 Sat by Pulse Oximetry O2 Sat by Pulse Oximetry [ Anterior Bilateral Throughout] O2 Sat by Pulse Oximetry [ Posterior Bilateral Throughout] O2 Sat by Pulse Oximetry [ Posterior Bilateral] 11/23/20 11/23/20 11/23/20 12:30 12:45 13:00 Temperature Pulse Rate 83 85 85 Respiratory Rate Blood Pressure 143/77 150/85 148/86 Blood Pressure [Left] O2 Sat by Pulse Oximetry O2 Sat by Pulse Oximetry [ Anterior Bilateral Throughout] O2 Sat by Pulse Oximetry [ Posterior Bilateral Throughout] O2 Sat by Pulse Oximetry [ Posterior Bilateral] 11/23/20 11/23/20 11/23/20 13:15 13:30 13:45 Temperature Pulse Rate 85 87 88 Respiratory Rate Blood Pressure 152/88 156/97 160/87 Blood Pressure [Left] O2 Sat by Pulse Oximetry O2 Sat by Pulse Oximetry [ Anterior Bilateral Throughout] O2 Sat by Pulse Oximetry [ Posterior Bilateral Throughout] O2 Sat by Pulse Oximetry [ Posterior Bilateral] 11/23/20 11/23/20 11/23/20 14:00 14:15 14:30 Temperature Pulse Rate 88 87 88 Respiratory Rate Blood Pressure 158/93 168/94 168/98 Blood Pressure [Left] O2 Sat by Pulse Oximetry O2 Sat by Pulse Oximetry [ Anterior Bilateral Throughout] O2 Sat by Pulse Oximetry [ Posterior Bilateral Throughout] O2 Sat by Pulse Oximetry [ Posterior Bilateral] 11/23/20 14:45 Temperature 98.4 F Pulse Rate 88 Respiratory 18 Rate Blood Pressure 168/96 Blood Pressure [Left] O2 Sat by Pulse Oximetry O2 Sat by Pulse 99 Oximetry [ Anterior Bilateral Throughout] O2 Sat by Pulse 99 Oximetry [ Posterior Bilateral Throughout] O2 Sat by Pulse 99 Oximetry [ Posterior Bilateral] - Lab 11/22/20 07:23 11/22/20 07:23 Most recent lab results Calcium 9.7 mg/dL (8.4-10.2) 11/22/20 07:23 Phosphorus 3.80 mg/dL (2.5-4.5) 11/22/20 07:23 Medications & Allergies - Medications Allergies/Adverse Reactions: Allergies No Known Allergies Allergy (Verified 09/23/20 10:37) Home Medications: Home Medications Medication Instructions Recorded Confirmed Last Taken Type Epoetin Curt 20,000 Unit [Procrit] 20,000 unit SUB-Q Sa vial 04/26/19 11/20/20 Unknown Rx Epoetin Curt 20,000 Unit [Procrit] 20,000 unit SUB-Q Th vial 04/26/19 11/20/20 Unknown Rx Epoetin Curt 20,000 Unit [Procrit] 20,000 unit SUB-Q Tu vial 04/26/19 11/20/20 Unknown Rx NIFEdipine [Nifedipine ER] 90 mg PO QDAY #30 09/24/20 11/20/20 Unknown Rx Cinacalcet [Sensipar] 30 mg PO QDAY tablet 10/22/20 11/20/20 Unknown Rx Epoetin Curt-Epbx 10,000 Unit 10,000 unit IV STEPAN PRN vial 10/22/20 11/20/20 Unknown Rx [Retacrit] Furosemide [Lasix TAB] 80 mg PO QDAY #30 10/22/20 11/20/20 Unknown Rx Furosemide [Lasix TAB] 80 mg PO QDAY 30 Days #30 tablet 10/22/20 11/20/20 Unknown Rx NIFEdipine XL [Procardia Xl] 90 mg PO QDAY tablet 10/22/20 11/20/20 Unknown Rx Pantoprazole [Protonix TAB] 40 mg PO QDAC tablet 10/22/20 11/20/20 Unknown Rx carvediloL [Coreg] 25 mg PO QDAY tablet 10/22/20 11/20/20 Unknown Rx cloNIDine [Catapres] 0.1 mg PO BID tablet 10/22/20 11/20/20 Unknown Rx hydrALAZINE [Apresoline TAB] 100 mg PO TID tab 10/22/20 11/20/20 Unknown Rx Active Medications: Generic Name Dose Route Start Last Admin Trade Name Freq PRN Reason Stop Dose Admin Acetaminophen 650 mg 11/20/20 11:00 Acetaminophen 325 Mg Tab PO Q4H PRN Pain MILD(1-3)/Fever >100.5/NIELSON Carvedilol 25 mg 11/20/20 13:00 11/23/20 16:03 Carvedilol 25 Mg Tab PO 25 mg BID DESTIN Administration Cinacalcet 30 mg 11/23/20 10:00 11/23/20 16:03 Cinacalcet 30 Mg Tab PO 30 mg QDAY DESTIN Administration Clonidine HCl 0.1 mg 11/20/20 13:00 11/23/20 16:03 Clonidine 0.1 Mg Tab PO 0.1 mg Q12HR DESTIN Administration Heparin Sodium (Porcine) 5,000 unit 11/21/20 08:00 11/23/20 16:08 Heparin 5,000 Unit/1 Ml Vial SUB-Q 5,000 unit Q8HR DESTIN Administration Hydralazine HCl 100 mg 11/20/20 14:00 11/23/20 16:03 Hydralazine 100 Mg Tab PO 100 mg TID DESTIN Administration Morphine Sulfate 4 mg 11/20/20 10:36 11/21/20 02:08 Morphine 4 Mg/1 Ml Inj IV 4 mg Q4H PRN Administration Pain , Severe (7-10) Naloxone HCl 0.1 mg 11/20/20 10:36 Naloxone 0.4 Mg/1 Ml Inj IV Q2MIN PRN Res Rate </= 8 or 02 SAT < 92% Nifedipine 90 mg 11/20/20 13:00 11/23/20 16:03 Nifedipine Xl 90 Mg Tab PO 90 mg QDAY DESTIN Administration Ondansetron HCl 4 mg 11/20/20 11:00 Ondansetron 4 Mg/2 Ml Inj IV Q8H PRN Nausea And Vomiting Oxycodone/Acetaminophen 1 tab 11/20/20 10:36 11/20/20 20:24 Oxycodone /Acetaminophen 5-325mg Tab PO 1 tab Q6H PRN Administration Pain, Moderate (4-6) Sodium Chloride 10 ml 11/20/20 22:00 11/23/20 16:05 Sodium Chloride 0.9% 10 Ml Flush Syringe IV 10 ml BID DESTIN Administration Sodium Chloride 10 ml 11/20/20 10:36 Sodium Chloride 0.9% 10 Ml Flush Syringe IV PRN PRN LINE FLUSH
[2020-11-24] MEDS: HEPARIN 5,000 UNIT/1 ML VIAL SUB-Q SCH ×3 (05:21→21:53)
[2020-11-24 06:31] LABS: Hematocrit 24.1 % (35.5-45.6); Hemoglobin 8.1 gm/dl (11.8-15.2); Mean Corpuscular HGB Conc 34 % (32-34); Mean Corpuscular Volume 95 fl (84-94); Platelet Count 197 K/mm3 (140-440); Red Blood Count 2.53 M/mm3 (3.65-5.03); Red Cell Distribution Width 18.3 % (13.2-15.2)
[2020-11-24] MEDS ORDERED: BUPIVACAINE/PF (0.5%) 5 MG/1 ML 30 ML VIAL INFILTRATI ONE ×2 (07:37→09:32)
[2020-11-24] MEDS ORDERED: SODIUM CHLORIDE 0.9% 500 ML 500 ML ONE (07:38)
[2020-11-24] MEDS ORDERED: HEPARIN 10,000 UNITS/10 ML VIAL ONE (07:38)
[2020-11-24] MEDS ORDERED: HYDROmorphone 1 MG/1 ML INJ ONE (07:59)
[2020-11-24] MEDS: hydrALAZINE 100 MG TAB PO SCH ×3 (08:00→21:53)
[2020-11-24] MEDS ORDERED: LIDOCAINE MPF (2%) 20 MG/1 ML VIAL 5 ML ONE (08:00)
[2020-11-24] MEDS ORDERED: propofoL 200 MG/20 ML VIAL IV ONE (08:00)
[2020-11-24] MEDS ORDERED: ceFAZolin 1 GM VIAL ONE ×2 (09:07)
[2020-11-24] MEDS ORDERED: HYDROmorphone 1 MG/1 ML INJ IV PRN ×2 (09:18)
[2020-11-24] MEDS ORDERED: ONDANSETRON 4 MG/2 ML INJ IV PRN (09:18)
--- NOTE | 2020-11-24 09:18 | Anesthesia Day of Surgery ---
Anesthesia Day of Surgery - Day of Surgery Patient Examined: Yes Patient H&P Reviewed: Yes Patient is NPO: Yes
[2020-11-24] MEDS ORDERED: SODIUM CHLORIDE 0.9% 1000 ML 1,000 ML ONE (09:23)
[2020-11-24] MEDS ORDERED: SODIUM CHLORIDE 0.9% IRR 1,500 ML BOTTLE IR ONE (09:31)
[2020-11-24] MEDS ORDERED: WATER FOR IRRIG STERILE 1,500 ML BOTTLE IR ONE (09:31)
[2020-11-24] MEDS ORDERED: HEPARIN 10,000 UNITS/10 ML VIAL IR ONE (09:32)
[2020-11-24] MEDS ORDERED: SODIUM CHLORIDE 0.9% 500 ML IVPB IRRIGATION ONE (09:33)
[2020-11-24] MEDS ORDERED: rifAMPin 600 MG VIAL ONE (09:39)
[2020-11-24] MEDS ORDERED: SODIUM CHLORIDE 0.9% 250ML 250 ML ONE (09:39)
[2020-11-24] MEDS: CINACALCET 30 MG TAB PO SCH (10:00)
[2020-11-24] MEDS: NIFEdipine XL 90 MG TAB PO SCH (10:00)
[2020-11-24] MEDS: cloNIDine 0.1 MG TAB PO SCH ×2 (10:00→21:53)
[2020-11-24] MEDS: carvediloL 25 MG TAB PO SCH ×2 (10:00→21:53)
[2020-11-24] MEDS ORDERED: rifAMPin 600 MG VIAL IV ONE (10:09)
[2020-11-24] MEDS ORDERED: SODIUM CHLORIDE 0.9% 250 ML IVPB IR ONE (10:09)
[2020-11-24] MEDS ORDERED: ONDANSETRON 4 MG/2 ML INJ ONE (11:41)
--- NOTE | 2020-11-24 12:01 | Operative Report ---
Operative Report Operative Report: Date of Procedure: 11/24/2020 Pre-operative Diagnosis: Complications of Dialysis Access Post-operative Diagnosis: Same Procedure(s): 1. Revision of Left Arm Arteriovenous Fistula with Excision of Pseudoaneurysms and Repair with Interposition 7 mm Bovine Artegraft Surgeon: Ottoniel Ellison M.D. Photo Tube Assembler: None Anesthesia: General Endotracheal Anesthesia EBL: 150 mL Counts: Correct Complications: None Condition: Stable Findings: There was a palpable thrill in the arteriovenous graft at the complet ion of the case Specimen: Left arm arteriovenous fistula pseudoaneurysms were sent to pathology. Indication: The patient is a 55-year-old male with a history of end-stage renal disease who is on hemodialysis through left arm arteriovenous access. He presented to the hospital with 2 moderately sized pseudoaneurysms, in the cannulation zone of the access, with thin shiny skin overlying the pseudoaneurysms. He is in need of revision of his arteriovenous access to prevent ulceration and hemorrhage from the pseudoaneurysms. He was given the risk, benefits, and alternative procedures and consented to the procedure. Description of Procedure: The patient was brought to the operating room and laid in supine position. After a timeout was performed general endotracheal anesthesia was achieved and his left arm was prepped and draped in normal sterile fashion. A longitudinal incision was created on the medial aspect of the fistula extending from the upper arm just distal to the areas of pseudoaneurysm to the lower arm just proximal to the pseudoaneurysms. Cautery was used to carry the incision down to the pseudoaneurysms and sharp dissection with Metzenbaum scissors was used to dissect circumferentially around the arterial inflow, in a normal caliber of the fistula. This was controlled with a vessel loop and then sharp dissection was used to dissect circumferentially around the normal portion of the venous outflow of the fistula and this was controlled with a vessel loop. I then used the Metzenbaum scissors to dissect circumferentially around the areas of pseudoaneurysm into the entire length of the damaged portion of the fistula was dissected free. I then clamped the arterial inflow as well as the venous outflow of the fistula using angled DeBakey clamps and the use curved Mayos to transect the pseudoaneurysm free and passed this off as a specimen. I then used a Coral-Wick tunneler to tunnel from the arterial inflow of the fistula towards the venous outflow of the fistula along the lateral aspect of the incision. I used a 7 mm Bovine Artegraft that had been soaked in Rifampin and tied this to the Coral-Wiblake tunneler using a 2-0 silk tie. I pulled this back through the tunnel and then infused with heparinized saline to ensure that it had not kinked or twisted. At this point I systemically heparinized the patient with 2000 units of heparin IV. I then beveled the arterial inflow of the fistula as well as the graft and created an end-to-end anastomosis using two 5-0 Prolene's in running fashion. After completing the anastomosis I clamped the graft just distal to the anastomosis with air removed and cleared from the arterial inflow of the fistula to ensure hemostasis on the suture line. I then cut the venous outflow portion of the graft to length and beveled the end. I beveled the venous outflow end of the fistula and then created an end-to-end anastomosis using two 5-0 Prolene's in running fashion. Prior to completing the anastomosis I flashed the venous outflow of the fistula as well as the arterial inflow of the fistula and reclamped both vessels. I then flushed the venotomy with heparinized saline to do clear any debris. I completed the anastomosis and then released all clamps allowing flow to the graft which had a palpable thrill. Hemostasis within the wound was then achieved with cautery. I then created a subcutaneous pocket along the medial aspect of the incision to create a flap and then resected the skin below the lateral incision which contain the previously ulcerated portion that overlie the pseudoaneurysms. I then anesthetized the skin and soft tissue using 0.5% Marcaine. I then closed the wound in 2 layers using 3-0 Vicryl in running fashion the deep dermal layer and 4-0 Monocryl in running fashion subcuticular layer. The wound was then dressed with Dermabond, Telfa, Kerlix, and a 3 inch Stew bandage used to the create pressure and prevent hematoma formation. The patient tolerated the procedure well. All sponge, needle, and instrument counts were correct. The patient was taken to the recovery area in stable condition.
[2020-11-24] MEDS: MORPHINE 4 MG/1 ML INJ IV PRN (15:34)
--- NOTE | 2020-11-24 16:38 | Progress Note ---
Assessment and Plan Impression * End-stage renal disease on maintenance hemodialysis * Severe anemia * Uncontrolled hypertension * AV fistula with compromised overlying skin * Hypercalcemia Recommendations * S/p permcath placement 11/23 * Continue HD MWF * Vascular surgery notes reviewed. S/p left AVF revision with pseudoaneurysm excision and repair today * Patient is status post 1 unit packed RBC transfusion. Recommend GI evaluation. * Serum calcium is better. PTH level is elevated at 1330. Added Sensipar * Epogen with HD * Binders with meals * Adjust diet and meds for ESRD state * No IV, BP or venipuncture at access site Subjective Date of service: 11/24/20 Principal diagnosis: Anemia Interval history: S/p left AVF revision with pseudoaneurysm excision and repair today Objective - Exam Narrative Exam: General: No acute distress HEENT: Oral mucosa moist Neck: Supple, no JVD Chest: Clear to auscultation bilaterally Heart: RRR, S1 and S2, no pericardial rub Abdomen: Soft, nontender, no renal bruit Extremity: No peripheral cyanosis, edema Neurological: Alert, awake, no asterixis Dermatology: No skin rash Psych: No agitation Musculoskeletal: No joint effusion - Vital Signs Vital signs: Vital Signs - 12hr 11/24/20 11/24/20 11/24/20 07:42 11:56 12:01 Temperature 100.9 F H Pulse Rate 69 70 Respiratory 12 12 Rate Blood Pressure 109/65 111/64 O2 Sat by Pulse 98 99 100 Oximetry 11/24/20 11/24/20 11/24/20 12:06 12:11 12:26 Temperature 98.1 F Pulse Rate 71 68 73 Respiratory 12 12 16 Rate Blood Pressure 109/64 111/63 116/70 O2 Sat by Pulse 100 100 100 Oximetry - Lab 11/24/20 05:45 11/24/20 05:45 Most recent lab results Calcium 9.0 mg/dL (8.4-10.2) 11/24/20 05:45 Phosphorus 3.80 mg/dL (2.5-4.5) 11/22/20 07:23 Medications & Allergies - Medications Allergies/Adverse Reactions: Allergies No Known Allergies Allergy (Verified 09/23/20 10:37) Home Medications: Home Medications Medication Instructions Recorded Confirmed Last Taken Type Epoetin Curt 20,000 Unit [Procrit] 20,000 unit SUB-Q Sa vial 04/26/19 11/20/20 Unknown Rx Epoetin Curt 20,000 Unit [Procrit] 20,000 unit SUB-Q Th vial 04/26/19 11/20/20 Unknown Rx Epoetin Curt 20,000 Unit [Procrit] 20,000 unit SUB-Q Tu vial 04/26/19 11/20/20 Unknown Rx NIFEdipine [Nifedipine ER] 90 mg PO QDAY #30 09/24/20 11/20/20 Unknown Rx Cinacalcet [Sensipar] 30 mg PO QDAY tablet 10/22/20 11/20/20 Unknown Rx Epoetin Curt-Epbx 10,000 Unit 10,000 unit IV STEPAN PRN vial 10/22/20 11/20/20 Unknown Rx [Retacrit] Furosemide [Lasix TAB] 80 mg PO QDAY #30 10/22/20 11/20/20 Unknown Rx Furosemide [Lasix TAB] 80 mg PO QDAY 30 Days #30 tablet 10/22/20 11/20/20 Unk nown Rx NIFEdipine XL [Procardia Xl] 90 mg PO QDAY tablet 10/22/20 11/20/20 Unknown Rx Pantoprazole [Protonix TAB] 40 mg PO QDAC tablet 10/22/20 11/20/20 Unknown Rx carvediloL [Coreg] 25 mg PO QDAY tablet 10/22/20 11/20/20 Unknown Rx cloNIDine [Catapres] 0.1 mg PO BID tablet 10/22/20 11/20/20 Unknown Rx hydrALAZINE [Apresoline TAB] 100 mg PO TID tab 10/22/20 11/20/20 Unknown Rx Active Medications: Generic Name Dose Route Start Last Admin Trade Name Freq PRN Reason Stop Dose Admin Acetaminophen 650 mg 11/20/20 11:00 Acetaminophen 325 Mg Tab PO Q4H PRN Pain MILD(1-3)/Fever >100.5/NIELSON Carvedilol 25 mg 11/20/20 13:00 11/23/20 22:10 Carvedilol 25 Mg Tab PO 25 mg BID DESTIN Administration Cinacalcet 30 mg 11/23/20 10:00 11/23/20 16:03 Cinacalcet 30 Mg Tab PO 30 mg QDAY DESTIN Administration Clonidine HCl 0.1 mg 11/20/20 13:00 11/23/20 22:08 Clonidine 0.1 Mg Tab PO 0.1 mg Q12HR DESTIN Administration Heparin Sodium (Porcine) 5,000 unit 11/21/20 08:00 11/24/20 14:00 Heparin 5,000 Unit/1 Ml Vial SUB-Q Not Given Q8HR DESTIN Hydralazine HCl 100 mg 11/20/20 14:00 11/24/20 08:00 Hydralazine 100 Mg Tab PO Not Given TID DESTIN Hydromorphone HCl 0.25 mg 11/24/20 09:18 Hydromorphone 1 Mg/1 Ml Inj IV 11/24/20 20:00 Q10MIN PRN Pain, Moderate (4-6) Hydromorphone HCl 0.5 mg 11/24/20 09:18 Hydromorphone 1 Mg/1 Ml Inj IV 11/25/20 20:00 Q10MIN PRN Pain , Severe (7-10) Morphine Sulfate 4 mg 11/20/20 10:36 11/24/20 15:34 Morphine 4 Mg/1 Ml Inj IV 4 mg Q4H PRN Administration Pain , Severe (7-10) Naloxone HCl 0.1 mg 11/20/20 10:36 Naloxone 0.4 Mg/1 Ml Inj IV Q2MIN PRN Res Rate </= 8 or 02 SAT < 92% Nifedipine 90 mg 11/20/20 13:00 11/23/20 16:03 Nifedipine Xl 90 Mg Tab PO 90 mg QDAY DESTIN Administration Ondansetron HCl 4 mg 11/20/20 11:00 Ondansetron 4 Mg/2 Ml Inj IV Q8H PRN Nausea And Vomiting Ondansetron HCl 4 mg 11/24/20 09:18 Ondansetron 4 Mg/2 Ml Inj IV 11/24/20 18:00 ONCE PRN Nausea And Vomiting Oxycodone/Acetaminophen 1 tab 11/20/20 10:36 11/20/20 20:24 Oxycodone /Acetaminophen 5-325mg Tab PO 1 tab Q6H PRN Administration Pain, Moderate (4-6) Sodium Chloride 10 ml 11/20/20 22:00 11/23/20 22:00 Sodium Chloride 0.9% 10 Ml Flush Syringe IV 10 ml BID DESTIN Administration Sodium Chloride 10 ml 11/20/20 10:36 Sodium Chloride 0.9% 10 Ml Flush Syringe IV PRN PRN LINE FLUSH
[2020-11-24] MEDS: oxyCODONE /ACETAMINOPHEN 5-325MG TAB PO PRN (21:52)
[2020-11-25] MEDS ORDERED: EPOETIN ALFA-EPBX 10,000 UNIT/1 ML VIAL IV PRN (00:01)
[2020-11-25] MEDS: HEPARIN 5,000 UNIT/1 ML VIAL SUB-Q SCH ×3 (05:30→21:20)
[2020-11-25 06:20] LABS: Basophils % (Auto) 0.5 % (0.0-1.8); Eosinophils # (Auto) 0.4 K/mm3 (0.0-0.4); Eosinophils % (Auto) 6.3 % (0.0-4.3); Hematocrit 22.9 % (35.5-45.6); Hemoglobin 7.3 gm/dl (11.8-15.2); Lymphocytes # (Auto) 0.6 K/mm3 (1.2-5.4); Lymphocytes % (Auto) 9.3 % (13.4-35.0); Mean Corpuscular HGB Conc 32 % (32-34); Mean Corpuscular Volume 96 fl (84-94); Monocytes # (Auto) 0.8 K/mm3 (0.0-0.8); Monocytes % (Auto) 11.2 % (0.0-7.3); Platelet Count 185 K/mm3 (140-440); Red Cell Distribution Width 18.2 % (13.2-15.2)
[2020-11-25 06:44] LABS: Calcium 9.1 mg/dL (8.4-10.2)
[2020-11-25] MEDS: hydrALAZINE 100 MG TAB PO SCH ×3 (08:26→21:19)
[2020-11-25] MEDS: carvediloL 25 MG TAB PO SCH ×2 (10:25→21:19)
--- NOTE | 2020-11-25 11:33 | Progress Note ---
Assessment and Plan Impression * End-stage renal disease on maintenance hemodialysis * Severe anemia * Uncontrolled hypertension * AV fistula with compromised overlying skin * Hypercalcemia Recommendations * S/p permcath placement 11/23 * Continue HD MWF * Vascular surgery notes reviewed. S/p left AVF revision with pseudoaneurysm excision and repair 11/24 * Patient is status post 1 unit packed RBC transfusion. Recommend GI evaluation. * Serum calcium is better. PTH level is elevated at 1330. Added Sensipar * Epogen with HD * Binders with meals * Adjust diet and meds for ESRD state * No IV, BP or venipuncture at access site Subjective Date of service: 11/25/20 Principal diagnosis: Anemia Interval history: S/p left AVF revision with pseudoaneurysm excision and repair - POD 1 Seen during HD Objective - Exam Narrative Exam: General: No acute distress HEENT: Oral mucosa moist Neck: Supple, no JVD Chest: Clear to auscultation bilaterally Heart: RRR, S1 and S2, no pericardial rub Abdomen: Soft, nontender, no renal bruit Extremity: No peripheral cyanosis, edema Neurological: Alert, awake, no asterixis Dermatology: No skin rash Psych: No agitation Musculoskeletal: No joint effusion - Vital Signs Vital signs: Vital Signs - 12hr 11/25/20 11/25/20 11/25/20 00:51 05:40 09:56 Temperature 98.6 F 98.1 F Pulse Rate 87 84 Respiratory 18 18 Rate Blood Pressure 159/79 186/91 O2 Sat by Pulse 95 94 Oximetry O2 Sat by Pulse 99 Oximetry [ Anterior Bilateral Throughout] O2 Sat by Pulse 99 Oximetry [ Posterior Bilateral Throughout] O2 Sat by Pulse 99 Oximetry [ Posterior Bilateral] 11/25/20 11/25/20 11/25/20 10:09 10:15 10:30 Temperature Pulse Rate 85 85 90 Respiratory Rate Blood Pressure 179/97 178/97 177/95 O2 Sat by Pulse Oximetry O2 Sat by Pulse Oximetry [ Anterior Bilateral Throughout] O2 Sat by Pulse Oximetry [ Posterior Bilateral Throughout] O2 Sat by Pulse Oximetry [ Posterior Bilateral] 11/25/20 11/25/20 11/25/20 10:45 11:00 11:15 Temperature Pulse Rate 84 85 85 Respiratory Rate Blood Pressure 175/95 182/100 183/97 O2 Sat by Pulse Oximetry O2 Sat by Pulse Oximetry [ Anterior Bilateral Throughout] O2 Sat by Pulse Oximetry [ Posterior Bilateral Throughout] O2 Sat by Pulse Oximetry [ Posterior Bilateral] - Lab 11/25/20 05:29 11/25/20 05:29 Most recent lab results Calcium 9.1 mg/dL (8.4-10.2) 11/25/20 05:29 Phosphorus 4.40 mg/dL (2.5-4.5) 11/25/20 05:29 Magnesium 1.60 mg/dL (1.7-2.3) L 11/25/20 05:29 Medications & Allergies - Medications Allergies/Adverse Reactions: Allergies No Known Allergies Allergy (Verified 09/23/20 10:37) Home Medications: Home Medications Medication Instructions Recorded Confirmed Last Taken Type Epoetin Curt 20,000 Unit [Procrit] 20,000 unit SUB-Q Sa vial 04/26/19 11/20/20 Unknown Rx Epoetin Curt 20,000 Unit [Procrit] 20,000 unit SUB-Q Th vial 04/26/19 11/20/20 Unknown Rx Epoetin Curt 20,000 Unit [Procrit] 20,000 unit SUB-Q Tu vial 04/26/19 11/20/20 Unknown Rx NIFEdipine [Nifedipine ER] 90 mg PO QDAY #30 09/24/20 11/20/20 Unknown Rx Cinacalcet [Sensipar] 30 mg PO QDAY tablet 10/22/20 11/20/20 Unknown Rx Epoetin Curt-Epbx 10,000 Unit 10,000 unit IV STEPAN PRN vial 10/22/20 11/20/20 Unknown Rx [Retacrit] Furosemide [Lasix TAB] 80 mg PO QDAY #30 10/22/20 11/20/20 Unknown Rx Furosemide [Lasix TAB] 80 mg PO QDAY 30 Days #30 tablet 10/22/20 11/20/20 Unknown Rx NIFEdipine XL [Procardia Xl] 90 mg PO QDAY tablet 10/22/20 11/20/20 Unknown Rx Pantoprazole [Protonix TAB] 40 mg PO QDAC tablet 10/22/20 11/20/20 Unknown Rx carvediloL [Coreg] 25 mg PO QDAY tablet 10/22/20 11/20/20 Unknown Rx cloNIDine [Catapres] 0.1 mg PO BID tablet 10/22/20 11/20/20 Unknown Rx hydrALAZINE [Apresoline TAB] 100 mg PO TID tab 10/22/20 11/20/20 Unknown Rx Active Medications: Generic Name Dose Route Start Last Admin Trade Name Freq PRN Reason Stop Dose Admin Acetaminophen 650 mg 11/20/20 11:00 Acetaminophen 325 Mg Tab PO Q4H PRN Pain MILD(1-3)/Fever >100.5/NIELSON Carvedilol 25 mg 11/20/20 13:00 11/24/20 21:53 Carvedilol 25 Mg Tab PO 25 mg BID DESTIN Administration Cinacalcet 30 mg 11/23/20 10:00 11/24/20 10:00 Cinacalcet 30 Mg Tab PO Not Given QDAY DESTIN Clonidine HCl 0.1 mg 11/20/20 13:00 11/24/20 21:53 Clonidine 0.1 Mg Tab PO 0.1 mg Q12HR DESTIN Administration Heparin Sodium (Porcine) 5,000 unit 11/21/20 08:00 11/25/20 05:30 Heparin 5,000 Unit/1 Ml Vial SUB-Q 5,000 unit Q8HR DESTIN Administration Hydralazine HCl 100 mg 11/20/20 14:00 11/24/20 21:53 Hydralazine 100 Mg Tab PO 100 mg TID DESTIN Administration Hydromorphone HCl 0.5 mg 11/24/20 09:18 Hydromorphone 1 Mg/1 Ml Inj IV 11/25/20 20:00 Q10MIN PRN Pain , Severe (7-10) Morphine Sulfate 4 mg 11/20/20 10:36 11/24/20 15:34 Morphine 4 Mg/1 Ml Inj IV 4 mg Q4H PRN Administration Pain , Severe (7-10) Naloxone HCl 0.1 mg 11/20/20 10:36 Naloxone 0.4 Mg/1 Ml Inj IV Q2MIN PRN Res Rate </= 8 or 02 SAT < 92% Nifedipine 90 mg 11/20/20 13:00 11/24/20 10:00 Nifedipine Xl 90 Mg Tab PO Not Given QDAY COUNT INCLUDES THE [facility] Ondansetron HCl 4 mg 11/20/20 11:00 Ondansetron 4 Mg/2 Ml Inj IV Q8H PRN Nausea And Vomiting Oxycodone/Acetaminophen 1 tab 11/20/20 10:36 11/24/20 21:52 Oxycodone /Acetaminophen 5-325mg Tab PO 1 tab Q6H PRN Administration Pain, Moderate (4-6) Sodium Chloride 10 ml 11/20/20 22:00 11/24/20 21:54 Sodium Chloride 0.9% 10 Ml Flush Syringe IV 10 ml BID DESTIN Administration Sodium Chloride 10 ml 11/20/20 10:36 Sodium Chloride 0.9% 10 Ml Flush Syringe IV PRN PRN LINE FLUSH
--- NOTE | 2020-11-25 13:50 | Progress Note ---
Assessment and Plan Assessment and plan: 55-year-old male history of ESRD on HD, anemia of chronic disease and medication noncompliance who presented with complaint of decreased urinary output x3 days. Found to be anemic. Dialyzed while inpatient. Currently stable. #ESRD on HD -Nephrology consulted, HD MWF -Vas-Cath placed in upper chest (11/23/2020) -Dialysis today -decreased urinary output could be consequence of loss of kidney function #AV fistula defect -Revision of left AV fistula (11/24/2020); currently POD 1 -Vascular surgery managing -Pending surgical recommendations on final dispo #Hypertension #Malignant hypertension -patient with severely elevated blood pressure during HD sessions -BP improved with restarting meds -continue hydralazine, clonidine, coreg, nifedipine at home doses -Likely secondary to medication noncompliance, will adjust as necessary #Acute on anemia of chronic disease -s/p 1 pack pRBCs 11/20 -Maintain hemoglobin greater than 7 -Likely secondary to ESRD -Epogen with dialysis #Paroxysmal atrial fibrillation -NSR, will continue to monitor #History of medication noncompliance -patient admits to not taking prescription since last hospital discharge -counseled about importance of medication compliance Disposition Plan: Continue medical management Total Time Spent with Patient (Minutes): 30 minutes History Interval history: Patient underwent revision of his AV fistula of his right upper extremity. Patient tolerated the procedure well. Hospitalist Physical - Constitutional Vitals: Temp Pulse Resp BP Pulse Ox 98.1 F 103 H 18 123/70 99 11/25/20 09:56 11/25/20 13:31 11/25/20 09:56 11/25/20 13:31 11/25/20 09:56 General appearance: Present: no acute distress - EENT Eyes: Present: PERRL, EOM intact ENT: hearing intact, clear oral mucosa, dentition normal - Neck Neck: Present: supple, normal ROM - Respiratory Respiratory effort: normal - Cardiovascular Rhythm: regular Heart Sounds: Present: S1 & S2 Details: Permacath in right upper chest - Extremities Extremities: no ischemia, pulses intact, pulses symmetrical, normal temperature, normal color Extremity abnormal: tenderness (Appropriate tenderness of recently repaired AV fistula of left upper extremity), other Peripheral Pulses: within normal limits - Abdominal General gastrointestinal: soft, non-tender, non-distended, normal bowel sounds - Integumentary Integumentary: Present: clear, warm, dry - Psychiatric Psychiatric: appropriate mood/affect, intact judgment & insight, memory intact, cooperative - Neurologic Neurologic: CNII-XII intact, moves all extremities - Allied Health Allied health notes reviewed: nursing Results - Labs CBC & Chem 7: 11/25/20 05:29 11/25/20 05:29 Labs: Laboratory Last Values WBC 6.8 K/mm3 (4.5-11.0) 11/25/20 05:29 RBC 2.40 M/mm3 (3.65-5.03) L 11/25/20 05:29 Hgb 7.3 gm/dl (11.8-15.2) L 11/25/20 05:29 Hct 22.9 % (35.5-45.6) L 11/25/20 05:29 MCV 96 fl (84-94) H 11/25/20 05:29 MCH 31 pg (28-32) 11/25/20 05:29 MCHC 32 % (32-34) 11/25/20 05:29 RDW 18.2 % (13.2-15.2) H 11/25/20 05:29 Plt Count 185 K/mm3 (140-440) 11/25/20 05:29 Lymph % (Auto) 9.3 % (13.4-35.0) L 11/25/20 05:29 [place] % (Auto) 11.2 % (0.0-7.3) H 11/25/20 05:29 Eos % (Auto) 6.3 % (0.0-4.3) H 11/25/20 05:29 Baso % (Auto) 0.5 % (0.0-1.8) 11/25/20 05:29 Lymph # (Auto) 0.6 K/mm3 (1.2-5.4) L 11/25/20 05:29 [place] # (Auto) 0.8 K/mm3 (0.0-0.8) 11/25/20 05:29 Eos # (Auto) 0.4 K/mm3 (0.0-0.4) 11/25/20 05:29 Baso # (Auto) 0.0 K/mm3 (0.0-0.1) 11/25/20 05:29 Add Manual Diff Complete 11/22/20 07:23 Total Counted 100 11/22/20 07:23 Seg Neutrophils % 72.7 % (40.0-70.0) H 11/25/20 05:29 Seg Neuts % (Manual) 85.0 % (40.0-70.0) H 11/22/20 07:23 Lymphocytes % (Manual) 4.0 % (13.4-35.0) L 11/22/20 07:23 Monocytes % (Manual) 5.0 % (0.0-7.3) 11/22/20 07:23 Eosinophils % (Manual) 6.0 % (0.0-4.3) H 11/22/20 07:23 Nucleated RBC % Not Reportable 11/22/20 07:23 Seg Neutrophils # 5.0 K/mm3 (1.8-7.7) 11/25/20 05:29 Seg Neutrophils # Man 5.6 K/mm3 (1.8-7.7) 11/22/20 07:23 Band Neutrophils # 0.0 K/mm3 11/22/20 07:23 Lymphocytes # (Manual) 0.3 K/mm3 (1.2-5.4) L 11/22/20 07:23 Abs React Lymphs (Man) 0.0 K/mm3 11/22/20 07:23 Monocytes # (Manual) 0.3 K/mm3 (0.0-0.8) 11/22/20 07:23 Eosinophils # (Manual) 0.4 K/mm3 (0.0-0.4) 11/22/20 07:23 Basophils # (Manual) 0.0 K/mm3 (0.0-0.1) 11/22/20 07:23 Metamyelocytes # 0.0 K/mm3 11/22/20 07:23 Myelocytes # 0.0 K/mm3 11/22/20 07:23 Promyelocytes # 0.0 K/mm3 11/22/20 07:23 Blast Cells # 0.0 K/mm3 11/22/20 07:23 WBC Morphology Not Reportable 11/22/20 07:23 Hypersegmented Neuts Not Reportable 11/22/20 07:23 Hyposegmented Neuts Not Reportable 11/22/20 07:23 Hypogranular Neuts Not Reportable 11/22/20 07:23 Smudge Cells Not Reportable 11/22/20 07:23 Toxic Granulation Not Reportable 11/22/20 07:23 Toxic Vacuolation Not Reportable 11/22/20 07:23 Dohle Bodies Not Reportable 11/22/20 07:23 Pelger-Huet Anomaly Not Reportable 11/22/20 07:23 Lucita Rods Not Reportable 11/22/20 07:23 Platelet Estimate Consistent w auto 11/22/20 07:23 Clumped Platelets Not Reportable 11/22/20 07:23 Plt Clumps, EDTA Not Reportable 11/22/20 07:23 Large Platelets Not Reportable 11/22/20 07:23 Giant Platelets Not Reportable 11/22/20 07:23 Platelet Satelliting Not Reportable 11/22/20 07:23 Plt Morphology Comment Not Reportable 11/22/20 07:23 RBC Morphology Not Reportable 11/22/20 07:23 Dimorphic RBCs Not Reportable 11/22/20 07:23 Polychromasia Not Reportable 11/22/20 07:23 Hypochromasia Not Reportable 11/22/20 07:23 Poikilocytosis 2+ 11/22/20 07:23 Anisocytosis 2+ 11/22/20 07:23 Microcytosis Not Reportable 11/22/20 07:23 Macrocytosis Not Reportable 11/22/20 07:23 Spherocytes Not Reportable 11/22/20 07:23 Pappenheimer Bodies Not Reportable 11/22/20 07:23 Sickle Cells Not Reportable 11/22/20 07:23 Target Cells Not Reportable 11/22/20 07:23 Tear Drop Cells Not Reportable 11/22/20 07:23 Ovalocytes Few 11/22/20 07:23 Helmet Cells Rare 11/22/20 07:23 [place] Bodies Not Reportable 11/22/20 07:23 [place] Rings Not Reportable 11/22/20 07:23 [place] Cells 1+ 11/22/20 07:23 Bite Cells Not Reportable 11/22/20 07:23 Crenated Cell Not Reportable 11/22/20 07:23 Elliptocytes Few 11/22/20 07:23 Acanthocytes (Spur) Not Reportable 11/22/20 07:23 Rouleaux Not Reportable 11/22/20 07:23 Hemoglobin C Crystals Not Reportable 11/22/20 07:23 Schistocytes Rare 11/22/20 07:23 Malaria parasites Not Reportable 11/22/20 07:23 [place] Bodies Not Reportable 11/22/20 07:23 Hem Pathologist Commnt No 11/22/20 07:23 Sodium 133 mmol/L (137-145) L 11/25/20 05:29 Potassium 4.2 mmol/L (3.6-5.0) 11/25/20 05:29 Chloride 94.0 mmol/L (98-107) L 11/25/20 05:29 Carbon Dioxide 26 mmol/L (22-30) 11/25/20 05:29 Anion Gap 17 mmol/L 11/25/20 05:29 BUN 40 mg/dL (9-20) H 11/25/20 05:29 Creatinine 7.8 mg/dL (0.8-1.3) H 11/25/20 05:29 Estimated GFR 9 ml/min 11/25/20 05:29 BUN/Creatinine Ratio 5 % 11/25/20 05:29 Glucose 87 mg/dL (75-100) 11/25/20 05:29 Calcium 9.1 mg/dL (8.4-10.2) 11/25/20 05:29 Phosphorus 4.40 mg/dL (2.5-4.5) 11/25/20 05:29 Magnesium 1.60 mg/dL (1.7-2.3) L 11/25/20 05:29 PTH Intact 1332 pg/mL (15-65) H 11/22/20 07:23 Nasal Screen MRSA (PCR) Negative (Negative) 11/21/20 Unknown Hepatitis A IgM Ab Non-reactive (NonReactive) 11/20/20 09:35 Hep Bs Antigen Nonreactive (Negative) 11/20/20 09:35 Hep B Core IgM Ab Non-reactive (NonReactive) 11/20/20 09:35 Hepatitis C Antibody Non-reactive (NonReactive) 11/20/20 09:35 Blood Type O POSITIVE 11/20/20 10:30 Antibody Screen Negative 11/20/20 10:30 Crossmatch See Detail 11/20/20 10:30 Velasquez/IV: Voiding Method Toilet Active Medications - Current Medications Current Medications: Generic Name Dose Route Start Last Admin Trade Name Freq PRN Reason Stop Dose Admin Acetaminophen 650 mg 11/20/20 11:00 Acetaminophen 325 Mg Tab PO Q4H PRN Pain MILD(1-3)/Fever >100.5/NIELSON Carvedilol 25 mg 11/20/20 13:00 11/24/20 21:53 Carvedilol 25 Mg Tab PO 25 mg BID DESTIN Administration Cinacalcet 30 mg 11/23/20 10:00 11/24/20 10:00 Cinacalcet 30 Mg Tab PO Not Given QDAY [facility] Clonidine HCl 0.1 mg 11/20/20 13:00 11/24/20 21:53 Clonidine 0.1 Mg Tab PO 0.1 mg Q12HR DESTIN Administration Heparin Sodium (Porcine) 5,000 unit 11/21/20 08:00 11/25/20 05:30 Heparin 5,000 Unit/1 Ml Vial SUB-Q 5,000 unit Q8HR DESTIN Administration Hydralazine HCl 100 mg 11/20/20 14:00 11/24/20 21:53 Hydralazine 100 Mg Tab PO 100 mg TID DESTIN Administration Hydromorphone HCl 0.5 mg 11/24/20 09:18 Hydromorphone 1 Mg/1 Ml Inj IV 11/25/20 20:00 Q10MIN PRN Pain , Severe (7-10) Morphine Sulfate 4 mg 11/20/20 10:36 11/24/20 15:34 Morphine 4 Mg/1 Ml Inj IV 4 mg Q4H PRN Administration Pain , Severe (7-10) Naloxone HCl 0.1 mg 11/20/20 10:36 Naloxone 0.4 Mg/1 Ml Inj IV Q2MIN PRN Res Rate </= 8 or 02 SAT < 92% Nifedipine 90 mg 11/20/20 13:00 11/24/20 10:00 Nifedipine Xl 90 Mg Tab PO Not Given QDAY [facility] Ondansetron HCl 4 mg 11/20/20 11:00 Ondansetron 4 Mg/2 Ml Inj IV Q8H PRN Nausea And Vomiting Oxycodone/Acetaminophen 1 tab 11/20/20 10:36 11/24/20 21:52 Oxycodone /Acetaminophen 5-325mg Tab PO 1 tab Q6H PRN Administration Pain, Moderate (4-6) Sodium Chloride 10 ml 11/20/20 22:00 11/24/20 21:54 Sodium Chloride 0.9% 10 Ml Flush Syringe IV 10 ml BID DESTIN Administration Sodium Chloride 10 ml 11/20/20 10:36 Sodium Chloride 0.9% 10 Ml Flush Syringe IV PRN PRN LINE FLUSH
[2020-11-25] MEDS: oxyCODONE /ACETAMINOPHEN 5-325MG TAB PO PRN (15:23)
[2020-11-25] MEDS: CINACALCET 30 MG TAB PO SCH (15:23)
[2020-11-25] MEDS: NIFEdipine XL 90 MG TAB PO SCH (15:24)
[2020-11-25] MEDS: cloNIDine 0.1 MG TAB PO SCH ×2 (16:32→21:19)
[2020-11-26] MEDS: HEPARIN 5,000 UNIT/1 ML VIAL SUB-Q SCH ×2 (05:11→14:09)
[2020-11-26 08:05] LABS: Basophils % (Auto) 0.6 % (0.0-1.8); Eosinophils # (Auto) 0.5 K/mm3 (0.0-0.4); Eosinophils % (Auto) 8.7 % (0.0-4.3); Hematocrit 20.6 % (35.5-45.6); Hemoglobin 6.9 gm/dl (11.8-15.2); Lymphocytes # (Auto) 0.8 K/mm3 (1.2-5.4); Lymphocytes % (Auto) 13.8 % (13.4-35.0); Mean Corpuscular HGB Conc 34 % (32-34); Mean Corpuscular Volume 94 fl (84-94); Monocytes # (Auto) 0.7 K/mm3 (0.0-0.8); Platelet Count 167 K/mm3 (140-440); Red Blood Count 2.18 M/mm3 (3.65-5.03); Red Cell Distribution Width 18.2 % (13.2-15.2)
[2020-11-26] MEDS: CINACALCET 30 MG TAB PO SCH (10:09)
[2020-11-26] MEDS: NIFEdipine XL 90 MG TAB PO SCH (10:09)
[2020-11-26] MEDS: carvediloL 25 MG TAB PO SCH (10:10)
[2020-11-26] MEDS: cloNIDine 0.1 MG TAB PO SCH (10:10)
[2020-11-26] MEDS: hydrALAZINE 100 MG TAB PO SCH ×2 (10:10→14:08)
[2020-11-26 10:11] VITALS: BP 116/64
--- NOTE | 2020-11-26 12:44 | Progress Note ---
Assessment and Plan Impression * End-stage renal disease on maintenance hemodialysis * Severe anemia * Uncontrolled hypertension * AV fistula with compromised overlying skin * Hypercalcemia Recommendations * S/p permcath placement 11/23 * Continue HD MWF * Vascular surgery notes reviewed. S/p left AVF revision with pseudoaneurysm excision and repair 11/24 * Patient is status post 1 unit packed RBC transfusion. Recommend GI evaluation. * Serum calcium is better. PTH level is elevated at 1330. Added Sensipar * Epogen with HD * Binders with meals * Adjust diet and meds for ESRD state * No IV, BP or venipuncture at access site Subjective Date of service: 11/26/20 Principal diagnosis: Anemia Interval history: S/p left AVF revision with pseudoaneurysm excision and repair - POD 2 Sitting in chair Objective - Exam Narrative Exam: General: No acute distress HEENT: Oral mucosa moist Neck: Supple, no JVD Chest: Clear to auscultation bilaterally Heart: RRR, S1 and S2, no pericardial rub Abdomen: Soft, nontender, no renal bruit Extremity: No peripheral cyanosis, edema Neurological: Alert, awake, no asterixis Dermatology: No skin rash Psych: No agitation Musculoskeletal: No joint effusion - Vital Signs Vital signs: Vital Signs - 12hr 11/26/20 11/26/20 11/26/20 05:12 10:10 10:11 Temperature 99.0 F Pulse Rate 85 85 Respiratory 19 Rate Blood Pressure 122/69 116/64 116/64 O2 Sat by Pulse 99 90 Oximetry - Lab 11/26/20 07:44 11/26/20 07:44 Most recent lab results Calcium 9.0 mg/dL (8.4-10.2) 11/26/20 07:44 Phosphorus 3.80 mg/dL (2.5-4.5) 11/26/20 07:44 Magnesium 1.50 mg/dL (1.7-2.3) L 11/26/20 07:44 Medications & Allergies - Medications Allergies/Adverse Reactions: Allergies No Known Allergies Allergy (Verified 09/23/20 10:37) Home Medications: Home Medications Medication Instructions Recorded Confirmed Last Taken Type Epoetin Curt 20,000 Unit [Procrit] 20,000 unit SUB-Q Sa vial 04/26/19 11/20/20 Unknown Rx Epoetin Curt 20,000 Unit [Procrit] 20,000 unit SUB-Q Th vial 04/26/19 11/20/20 Unknown Rx Epoetin Curt 20,000 Unit [Procrit] 20,000 unit SUB-Q Tu vial 04/26/19 11/20/20 Unknown Rx NIFEdipine [Nifedipine ER] 90 mg PO QDAY #30 09/24/20 11/20/20 Unknown Rx Cinacalcet [Sensipar] 30 mg PO QDAY tablet 10/22/20 11/20/20 Unknown Rx Epoetin Curt-Epbx 10,000 Unit 10,000 unit IV STEPAN PRN vial 10/22/20 11/20/20 Unknown Rx [Retacrit] Furosemide [Lasix TAB] 80 mg PO QDAY #30 10/22/20 11/20/20 Unknown Rx Furosemide [Lasix TAB] 80 mg PO QDAY 30 Days #30 tablet 10/22/20 11/20/20 Unknown Rx NIFEdipine XL [Procardia Xl] 90 mg PO QDAY tablet 10/22/20 11/20/20 Unknown Rx Pantoprazole [Protonix TAB] 40 mg PO QDAC tablet 10/22/20 11/20/20 Unknown Rx carvediloL [Coreg] 25 mg PO QDAY tablet 10/22/20 11/20/20 Unknown Rx cloNIDine [Catapres] 0.1 mg PO BID tablet 10/22/20 11/20/20 Unknown Rx hydrALAZINE [Apresoline TAB] 100 mg PO TID tab 10/22/20 11/20/20 Unknown Rx Active Medications: Generic Name Dose Route Start Last Admin Trade Name Freq PRN Reason Stop Dose Admin Acetaminophen 650 mg 11/20/20 11:00 Acetaminophen 325 Mg Tab PO Q4H PRN Pain MILD(1-3)/Fever >100.5/NIELSON Carvedilol 25 mg 11/20/20 13:00 11/26/20 10:10 Carvedilol 25 Mg Tab PO 25 mg BID DESTIN Administration Cinacalcet 30 mg 11/23/20 10:00 11/26/20 10:09 Cinacalcet 30 Mg Tab PO 30 mg QDAY DESTIN Administration Clonidine HCl 0.1 mg 11/20/20 13:00 11/26/20 10:10 Clonidine 0.1 Mg Tab PO 0.1 mg Q12HR DESTIN Administration Heparin Sodium (Porcine) 5,000 unit 11/21/20 08:00 11/26/20 05:11 Heparin 5,000 Unit/1 Ml Vial SUB-Q 5,000 unit Q8HR DESTIN Administration Hydralazine HCl 100 mg 11/20/20 14:00 11/26/20 10:10 Hydralazine 100 Mg Tab PO 100 mg TID DESTIN Administration Morphine Sulfate 4 mg 11/20/20 10:36 11/24/20 15:34 Morphine 4 Mg/1 Ml Inj IV 4 mg Q4H PRN Administration Pain , Severe (7-10) Naloxone HCl 0.1 mg 11/20/20 10:36 Naloxone 0.4 Mg/1 Ml Inj IV Q2MIN PRN Res Rate </= 8 or 02 SAT < 92% Nifedipine 90 mg 11/20/20 13:00 11/26/20 10:09 Nifedipine Xl 90 Mg Tab PO 90 mg QDAY DESTIN Administration Ondansetron HCl 4 mg 11/20/20 11:00 Ondansetron 4 Mg/2 Ml Inj IV Q8H PRN Nausea And Vomiting Oxycodone/Acetaminophen 1 tab 11/20/20 10:36 11/25/20 15:23 Oxycodone /Acetaminophen 5-325mg Tab PO 1 tab Q6H PRN Administration Pain, Moderate (4-6) Sodium Chloride 10 ml 11/20/20 22:00 11/26/20 10:10 Sodium Chloride 0.9% 10 Ml Flush Syringe IV 10 ml BID DESTIN Administration Sodium Chloride 10 ml 11/20/20 10:36 Sodium Chloride 0.9% 10 Ml Flush Syringe IV PRN PRN LINE FLUSH
--- NOTE | 2020-11-26 13:06 | Progress Note ---
Assessment and Plan Patient is doing well following revision of his AV fistula. From a vascular standpoint, the patient may be discharged home today. He will follow-up in our office for postoperative visit. Patient will need to have his dialysis performed through his PermCath in his right chest wall until cleared by vascular surgery to use the fistula. Subjective Date of service: 11/26/20 Principal diagnosis: Anemia Interval history: Patient is postop day 2 status post revision of his left upper arm AV fistula with excision of pseudoaneurysms. His dressing was removed and replaced. The incision is clean dry and intact. No significant drainage. The arm below the dressing has a mild amount of edema secondary to the compressive nature of his postoperative dressing. Patient has no complaints of pain. Objective - Constitutional Vitals: Vital Signs - 12hr 11/26/20 11/26/20 11/26/20 05:12 10:10 10:11 Temperature 99.0 F Pulse Rate 85 85 Respiratory 19 Rate Blood Pressure 122/69 116/64 116/64 O2 Sat by Pulse 99 90 Oximetry General appearance: Present: no acute distress - EENT Eyes: EOM intact ENT: hearing intact - Neck Neck: supple, normal ROM - Respiratory Respiratory effort: normal Extremities: abnormal Extremity abnormal: edema - Gastrointestinal General gastrointestinal: Present: deferred Rectal Exam: deferred - Genitourinary Male genitourinary: deferred - Neurologic Neurologic: no focal deficits - Psychiatric Psychiatric: appropriate mood/affect, cooperative - Labs CBC & Chem 7: 11/26/20 07:44 11/26/20 07:44 Labs: Abnormal lab results 11/26/20 11/26/20 Range/Units 07:44 07:44 RBC 2.18 L (3.65-5.03) M/mm3 Hgb 6.9 L (11.8-15.2) gm/dl Hct 20.6 L (35.5-45.6) % RDW 18.2 H (13.2-15.2) % [place] % (Auto) 12.0 H (0.0-7.3) % Eos % (Auto) 8.7 H (0.0-4.3) % Lymph # (Auto) 0.8 L (1.2-5.4) K/mm3 Eos # (Auto) 0.5 H (0.0-0.4) K/mm3 Sodium 134 L (137-145) mmol/L Chloride 93.5 L (98-107) mmol/L BUN 22 H (9-20) mg/dL Creatinine 5.0 H (0.8-1.3) mg/dL Magnesium 1.50 L (1.7-2.3) mg/dL Medications & Allergies - Medications Allergies/Adverse Reactions: Allergies No Known Allergies Allergy (Verified 09/23/20 10:37) Home Medications: Home Medications Medication Instructions Recorded Confirmed Last Taken Type Epoetin Curt 20,000 Unit [Procrit] 20,000 unit SUB-Q Sa vial 04/26/19 11/20/20 Unknown Rx Epoetin Curt 20,000 Unit [Procrit] 20,000 unit SUB-Q Th vial 04/26/19 11/20/20 Unknown Rx Epoetin Curt 20,000 Unit [Procrit] 20,000 unit SUB-Q Tu vial 04/26/19 11/20/20 Unknown Rx NIFEdipine [Nifedipine ER] 90 mg PO QDAY #30 09/24/20 11/20/20 Unknown Rx Cinacalcet [Sensipar] 30 mg PO QDAY tablet 10/22/20 11/20/20 Unknown Rx Epoetin Curt-Epbx 10,000 Unit 10,000 unit IV STEPAN PRN vial 10/22/20 11/20/20 Unknown Rx [Retacrit] Furosemide [Lasix TAB] 80 mg PO QDAY #30 10/22/20 11/20/20 Unknown Rx Furosemide [Lasix TAB] 80 mg PO QDAY 30 Days #30 tablet 10/22/20 11/20/20 Unknown Rx NIFEdipine XL [Procardia Xl] 90 mg PO QDAY tablet 10/22/20 11/20/20 Unknown Rx Pantoprazole [Protonix TAB] 40 mg PO QDAC tablet 10/22/20 11/20/20 Unknown Rx carvediloL [Coreg] 25 mg PO QDAY tablet 10/22/20 11/20/20 Unknown Rx cloNIDine [Catapres] 0.1 mg PO BID tablet 10/22/20 11/20/20 Unknown Rx hydrALAZINE [Apresoline TAB] 100 mg PO TID tab 10/22/20 11/20/20 Unknown Rx Active Medications: Generic Name Dose Route Start Last Admin Trade Name Freq PRN Reason Stop Dose Admin Acetaminophen 650 mg 11/20/20 11:00 Acetaminophen 325 Mg Tab PO Q4H PRN Pain MILD(1-3)/Fever >100.5/NIELSON Carvedilol 25 mg 11/20/20 13:00 11/26/20 10:10 Carvedilol 25 Mg Tab PO 25 mg BID DESTIN Administration Cinacalcet 30 mg 11/23/20 10:00 11/26/20 10:09 Cinacalcet 30 Mg Tab PO 30 mg QDAY DESTIN Administration Clonidine HCl 0.1 mg 11/20/20 13:00 11/26/20 10:10 Clonidine 0.1 Mg Tab PO 0.1 mg Q12HR DESTIN Administration Heparin Sodium (Porcine) 5,000 unit 11/21/20 08:00 11/26/20 05:11 Heparin 5,000 Unit/1 Ml Vial SUB-Q 5,000 unit Q8HR DESTIN Administration Hydralazine HCl 100 mg 11/20/20 14:00 11/26/20 10:10 Hydralazine 100 Mg Tab PO 100 mg TID DESTIN Administration Morphine Sulfate 4 mg 11/20/20 10:36 11/24/20 15:34 Morphine 4 Mg/1 Ml Inj IV 4 mg Q4H PRN Administration Pain , Severe (7-10) Naloxone HCl 0.1 mg 11/20/20 10:36 Naloxone 0.4 Mg/1 Ml Inj IV Q2MIN PRN Res Rate </= 8 or 02 SAT < 92% Nifedipine 90 mg 11/20/20 13:00 11/26/20 10:09 Nifedipine Xl 90 Mg Tab PO 90 mg QDAY DESTIN Administration Ondansetron HCl 4 mg 11/20/20 11:00 Ondansetron 4 Mg/2 Ml Inj IV Q8H PRN Nausea And Vomiting Oxycodone/Acetaminophen 1 tab 11/20/20 10:36 11/25/20 15:23 Oxycodone /Acetaminophen 5-325mg Tab PO 1 tab Q6H PRN Administration Pain, Moderate (4-6) Sodium Chloride 10 ml 11/20/20 22:00 11/26/20 10:10 Sodium Chloride 0.9% 10 Ml Flush Syringe IV 10 ml BID DESTIN Administration Sodium Chloride 10 ml 11/20/20 10:36 Sodium Chloride 0.9% 10 Ml Flush Syringe IV PRN PRN LINE FLUSH
--- NOTE | 2020-11-26 13:53 | Discharge Summary ---
Providers - Providers Date of Admission: 11/21/20 07:23 Date of discharge: 11/26/20 Attending physician: LOIS CRAWFORD MD 11/20/20 08:12 Consult to Physician [CONS] Routine Comment: Consulting Provider: FAIZA SANTACRUZ Physician Instructions: Reason For Exam: ESRD needing dialysis 11/20/20 14:32 Consult to Physician [CONS] Routine Comment: Consulting Provider: CHASE VARGHESE Physician Instructions: Reason For Exam: evaluate AVF. Compromised overlying skin Primary care physician: JET SKI MECHANIC Hospitalization Reason for admission: Oliguria Condition: Fair Pertinent studies: Reviewed. Procedures: Placement of Vas-Cath: 11/23/2020 Revision of AV fistula of left upper extremity: 11/24/2020 Hospital course: Patient is a 55-year-old male with a history of ESRD on hemodialysis (AV fistula in left upper extremity), anemia of chronic disease, hypertension, paroxysmal A. fib, and history of medication noncompliance who presented for complaints of decreased urinary output for approximately 3 days. The AV fistula was found to have pseudoaneurysms requiring excision by vascular surgery. In the meantime the patient underwent placement of Vas-Cath in his right upper chest on 11/23/2020. Revision of the AV fistula was performed 11/24/2020. The patient was counseled at length about the importance of medication compliance, and he expressed understanding. The patient has been counseled about utilizing his permacath until his AV fistula has been cleared by vascular surgery (will be evaluated in outpatient setting). Patient expressed understanding. Patient can be safely discharged home today. Disposition: 01 HOME / SELF CARE / HOMELESS Final Discharge Diagnosis (Prints w/discharge instructions): Malignant hypertension; ESRD on hemodialysis; paroxysmal A. fib; revision of pseudoaneurysm of AV fistula Time spent for discharge: 40 minutes Core Measure Documentation - Palliative Care Palliative Care/ Comfort Measures: Not Applicable - Core Measures Any of the following diagnoses?: none - VTE Discharge Requirements Deep Vein Thrombosis/Pulmonary Embolism Present on Admission: No Has pt received <5 days of overlap therapy or INR<2.0: No (Not indicated) Anticoagulant overlap therapy prescribed at discharge: No Contraindication No Overlap Therapy order at DC: Not Indicated - Acute AL Discharge Requirements Aspirin at discharge: No Reason for no aspirin on DC: Medical contraindication (Not indicated) STEW/ARB for LVSD if EF <40%: Not Applicable Reason for no STEW/ARB: Renal impairment Beta tab at discharge: Yes Statin for LDL = or >100 mg/dl on DC: Yes - Heart Failure Discharge Requirements STEW/ARB for LVSD if EF <40%: Not Applicable Reason for no STEW/ARB: Renal impairment Beta tab at discharge: Yes - Stroke Discharge Requirements Statin for LDL = or >70 mg/dl on DC: Not Applicable Reason for no statin on DC: Not Indicated Anticoag for atrial fib/atrial flutter: Not Applicable Reason for no anticoag for AF/F on DC: Not Indicated Antithrombotic for ischemic stroke: No Reason for no antithrombotic on DC: Not Indicated Exam - Constitutional Vitals: Temp Pulse Resp BP Pulse Ox 99.0 F 85 19 116/64 90 11/26/20 05:12 11/26/20 10:11 11/26/20 05:12 11/26/20 10:11 11/26/20 10:11 General appearance: Present: no acute distress, well-nourished - EENT Eyes: Present: PERRL, EOM intact ENT: hearing intact, clear oral mucosa, dentition normal - Neck Neck: Present: supple, normal ROM - Respiratory Respiratory effort: normal - Cardiovascular Rhythm: regular Heart Sounds: Present: S1 & S2 - Extremities Extremities: no ischemia, pulses intact, pulses symmetrical, No edema (Appropriate postprocedural edema of left upper extremity), normal temperature, normal color, abnormal (AV fistula in left upper extremity wrapped in Stew bandage) Extremity abnormal: tenderness (Appropriate tenderness of postoperative site) Peripheral Pulses: within normal limits - Abdominal General gastrointestinal: Present: soft, non-tender, non-distended, normal bowel sounds Male genitourinary: Present: deferred - Rectal Rectal Exam: deferred - Integumentary Integumentary: Present: clear, warm, dry - Musculoskeletal Musculoskeletal: strength equal bilaterally - Psychiatric Psychiatric: appropriate mood/affect, intact judgment & insight, memory intact, cooperative - Neurologic Neurologic: CNII-XII intact, moves all extremities - Allied Health Allied health notes reviewed: nursing Plan Activity: no restrictions Weight Bearing Status: Weight Bear as Tolerated Diet: renal Wound: per your surgeon's advice Care Plan Goals: Patient discharging home safely Assessment: Patient was admitted with oliguria and managed for malignant hypertension. Patient required revision of pseudoaneurysm of AV fistula of left upper extremity (11/24/2020) and underwent Vas-Cath placement (11/23/2020). Patient counseled on medication compliance. Will follow up with vascular in outpatient setting Follow up with: PRIMARY CAREMD [Primary Care Provider] - 7 Days ROME LEON MD [Staff Physician] - 14 Days (Follow up of pseudoaneurysm repair of AV fistula of LUE) Prescriptions: hydrALAZINE [Apresoline TAB] 100 mg PO TID #90 tab cloNIDine [Catapres] 0.1 mg PO Q12HR #60 tablet carvediloL [Coreg] 25 mg PO BID #50 tablet carvediloL [Coreg] 25 mg PO QDAY #30 tablet NIFEdipine XL [Procardia Xl] 90 mg PO QDAY #30 tablet Cinacalcet [Sensipar] 30 mg PO QDAY #30 tablet
== END 2020-11-26 15:05 | disposition home or self-care (01) | DRG 252 ==
LOC: ED 04:42 → 3A 08:23 → OBSVTOIN 11-21 07:23 → 3A 11-26 01:07
PROVIDERS: ADMIT Student in an Organized Health Care Education/Training Program; ATTEND Student in an Organized Health Care Education/Training Program
PROC: 5A1D70Z Performance of Urinary Filtration, Intermittent, Less than 6 Hours Per Day (ICD-10-PCS; principal; 2020-11-20)
PROC: 30233N1 Transfusion of Nonautologous Red Blood Cells into Peripheral Vein, Percutaneous Approach (ICD-10-PCS; 2020-11-21)
PROC: 5A1D70Z Performance of Urinary Filtration, Intermittent, Less than 6 Hours Per Day (ICD-10-PCS; 2020-11-23)
PROC: 05763ZZ Dilation of Left Subclavian Vein, Percutaneous Approach (ICD-10-PCS; 2020-11-23)
PROC: 057C3ZZ Dilation of Left Basilic Vein, Percutaneous Approach (ICD-10-PCS; 2020-11-23)
PROC: B5181ZZ Fluoroscopy of Superior Vena Cava using Low Osmolar Contrast (ICD-10-PCS; 2020-11-23)
PROC: 0JH63XZ Insertion of Tunneled Vascular Access Device into Chest Subcutaneous Tissue and Fascia, Percutaneous Approach (ICD-10-PCS; 2020-11-23)
PROC: 02HV33Z Insertion of Infusion Device into Superior Vena Cava, Percutaneous Approach (ICD-10-PCS; 2020-11-23)
PROC: 05WY0KZ Revision of Nonautologous Tissue Substitute in Upper Vein, Open Approach (ICD-10-PCS; 2020-11-24)
PROC: 5A1D70Z Performance of Urinary Filtration, Intermittent, Less than 6 Hours Per Day (ICD-10-PCS; 2020-11-25)
DX: T82.898A Other specified complication of vascular prosthetic devices, implants and grafts, initial encounter (principal); N18.6 End stage renal disease; I12.0 Hypertensive chronic kidney disease with stage 5 chronic kidney disease or end stage renal disease; D64.89 Other specified anemias; R09.02 Hypoxemia; E87.70 Fluid overload, unspecified; Z20.822 Contact with and (suspected) exposure to COVID-19; I77.0 Arteriovenous fistula, acquired; I48.0 Paroxysmal atrial fibrillation; D64.9 Anemia, unspecified; E83.52 Hypercalcemia; Y83.8 Other surgical procedures as the cause of abnormal reaction of the patient, or of later complication, without mention of misadventure at the time of the procedure; Y92.89 Other specified places as the place of occurrence of the external cause
CPT/HCPCS: 36415; 36558; 36907; 71045; 77001; 80048; 80074; 83735; 83970; 84100; 85007; 85025; 85027; 86850; 86900; 86901; 86920; 87641; 88304; 88311; G0378; C1725; C1750; C1751; C1768; C1894; J0360; J0690; J1170; J1644; J2250; J2270; J2405; J2704; J3010; J3490; J7030; J7040; J7050; P9016; Q9967; U0003

== ENCOUNTER 2020-11-30 08:03 | Emergency (ER) | payer MEDICARE ==
--- NOTE | 2020-11-30 08:57 | Emergency Department Report ---
ED General Adult HPI - General Chief complaint: Tube Replacement Stated complaint: LEFT ARM PAIN /POST PORT SUGERY Time Seen by Provider: 11/30/20 08:28 Source: patient Mode of arrival: Ambulatory Limitations: No Limitations - History of Present Illness Initial comments: Patient is 55 years old male with history of end-stage renal disease on hemodialysis. Patient presented to the ER stating that for the last 3 days he noticed a leaking from his recently revised left arm AV fistula. Patient had a revision done on November 24. Patient denied any fever or chills. He was heading for dialysis today however he was concerned about the leaking so he came to the ER. - Related Data Home Medications Medication Instructions Recorded Confirmed Last Taken Cinacalcet [Sensipar] 30 mg PO DAILY 11/30/20 11/30/20 11/30/20 07:00 Pantoprazole [Protonix TAB] 40 mg PO DAILY 11/30/20 11/30/20 11/29/20 09:00 Previous Rx's Medication Instructions Recorded Last Taken Type Epoetin Curt-Epbx 10,000 Unit 10,000 unit IV STEPAN PRN vial 10/22/20 11/27/20 19:00 Rx [Retacrit] NIFEdipine XL [Procardia Xl] 90 mg PO QDAY #30 tablet 11/26/20 11/30/20 07:00 Rx carvediloL [Coreg] 25 mg PO QDAY #30 tablet 11/26/20 11/30/20 07:00 Rx cloNIDine [Catapres] 0.1 mg PO Q12HR #60 tablet 11/26/20 11/30/20 07:00 Rx hydrALAZINE [Apresoline TAB] 100 mg PO TID #90 tab 11/26/20 11/30/20 07:00 Rx Allergies Allergy/AdvReac Type Severity Reaction Status Date / Time diphenhydramine AdvReac Mild Unknown Verified 11/30/20 08:55 [From Silvio] ED Review of Systems ROS: Stated complaint: LEFT ARM PAIN /POST PORT SUGERY Other details as noted in HPI Comment: All other systems reviewed and negative Constitutional: denies: chills, fever Respiratory: denies: cough, shortness of breath, SOB with exertion Cardiovascular: denies: chest pain, palpitations Gastrointestinal: denies: abdominal pain, nausea, vomiting Genitourinary: denies: dysuria Musculoskeletal: denies: back pain Neurological: denies: headache, weakness, numbness, paresthesias, confusion ED Past Medical Hx - Past Medical History Previous Medical History?: Yes Hx Hypertension: Yes Hx Heart Attack/AMI: No Hx Congestive Heart Failure: No Hx Diabetes: No Hx Liver Disease: No Hx Renal Disease: Yes (HD MWF - last on 11/23/20) Hx Asthma: Yes Hx COPD: No Additional medical history: Glaucoma. afib - Surgical History Past Surgical History?: Yes Hx Pacemaker: No Additional Surgical History: Left A/V Graft - Social History Smoking Status: Unknown if ever smoked - Medications Home Medications: Home Medications Medication Instructions Recorded Confirmed Last Taken Type Epoetin Curt-Epbx 10,000 Unit 10,000 unit IV STEPAN PRN vial 10/22/20 11/30/20 11/27/20 19:00 Rx [Retacrit] NIFEdipine XL [Procardia Xl] 90 mg PO QDAY #30 tablet 11/26/20 11/30/20 11/30/20 07:00 Rx carvediloL [Coreg] 25 mg PO QDAY #30 tablet 11/26/20 11/30/20 11/30/20 07:00 Rx cloNIDine [Catapres] 0.1 mg PO Q12HR #60 tablet 11/26/20 11/30/20 11/30/20 07:00 Rx hydrALAZINE [Apresoline TAB] 100 mg PO TID #90 tab 11/26/20 11/30/20 11/30/20 07:00 Rx Cinacalcet [Sensipar] 30 mg PO DAILY 11/30/20 11/30/20 11/30/20 07:00 History Pantoprazole [Protonix TAB] 40 mg PO DAILY 11/30/20 11/30/20 11/29/20 09:00 History ED Physical Exam - General Limitations: No Limitations General appearance: alert, in no apparent distress - Head Head exam: Present: atraumatic, normocephalic, normal inspection - Eye Eye exam: Present: normal appearance, PERRL - ENT ENT exam: Present: normal exam, normal orophraynx. Absent: mucous membranes moist - Neck Neck exam: Present: normal inspection, full ROM. Absent: tenderness, meningismus - Respiratory Respiratory exam: Present: normal lung sounds bilaterally - Cardiovascular Cardiovascular Exam: Present: regular rate, normal rhythm, normal heart sounds - GI/Abdominal GI/Abdominal exam: Present: soft, normal bowel sounds. Absent: distended, tenderness, guarding, rebound, rigid, mass, bruit, pulsatile mass, hernia - Extremities Exam Extremities exam: Present: normal capillary refill, other (Left arm fistula. Surgical wound appears intact with mild greenish discharge at the proximal site of the wound. No erythema noticed. Positive thrill.). Absent: calf tenderness - Back Exam Back exam: Present: normal inspection, full ROM. Absent: CVA tenderness (R), CVA tenderness (L) - Neurological Exam Neurological exam: Present: alert, oriented X3, CN II-XII intact - Psychiatric Psychiatric exam: Present: normal mood - Skin Skin exam: Present: warm ED Course Vital Signs 11/30/20 11/30/20 11/30/20 08:05 08:07 08:09 Temperature 98.1 F 98.0 F Pulse Rate 89 88 Respiratory 16 17 17 Rate Blood Pressure 121/68 Blood Pressure 122/70 [Left] O2 Sat by Pulse 97 98 99 Oximetry 11/30/20 11/30/20 11/30/20 08:33 08:45 09:01 Temperature Pulse Rate 88 86 Respiratory 14 22 Rate Blood Pressure 118/69 118/69 Blood Pressure [Left] O2 Sat by Pulse 97 97 97 Oximetry 11/30/20 11/30/20 11/30/20 09:31 10:01 11:25 Temperature Pulse Rate 91 H 109 H 90 Respiratory 24 16 18 Rate Blood Pressure 121/68 121/70 121/70 Blood Pressure [Left] O2 Sat by Pulse 97 96 97 Oximetry 11/30/20 11/30/20 11:45 12:15 Temperature Pulse Rate 85 78 Respiratory 18 20 Rate Blood Pressure 130/70 152/80 Blood Pressure [Left] O2 Sat by Pulse 99 93 Oximetry - Consultations Consultation #1: 11/30/20 12:45 I discussed the patient with Dr. Prado, vascular on-call. He stated that he is coming down to evaluate the patient in the emergency room. ED Medical Decision Making - Lab Data Result diagrams: 11/30/20 09:03 11/30/20 09:03 - Radiology Data Radiology results: report reviewed - Medical Decision Making Patient is 55 years old male with history of end-stage renal disease on hemodialysis. Patient presented to the ER stating that for the last 3 days he noticed a leaking from his recently revised left arm AV fistula. Patient had a revision done on November 24. Patient denied any fever or chills. He was heading for dialysis today however he was concerned about the leaking so he came to the ER. Patient remained stable in the ER with stable vital sign. Patient has been evaluated by Dr. Prado, vascular surgeon on-call. He stated this is most likely seroma and patient can be discharged home and have his dialysis through his cath now. Patient advised to head to his dialysis clinic today which is usually started at 3 PM according to him. Patient advised to return to the ER if he develop any new symptoms. Critical care attestation.: If time is entered above; I have spent that time in minutes in the direct care of this critically ill patient, excluding procedure time. ED Disposition Clinical Impression: AV fistula, End stage renal disease on dialysis Disposition: 01 HOME / SELF CARE / HOMELESS Is pt being admited?: No Condition: Stable Instructions: Dialysis Fistulogram, Hemodialysis, Care After Additional Instructions: Please go to your dialysis center to have your dialysis today. Referrals: PRIMARY CAREMD [Primary Care Provider] - 3-5 Days
[2020-11-30 09:41] LABS: Calcium 10.2 mg/dL (8.4-10.2)
[2020-11-30 09:59] LABS: Basophils # (Auto) 0.1 K/mm3 (0.0-0.1); Basophils % (Auto) 0.8 % (0.0-1.8); Eosinophils # (Auto) 0.4 K/mm3 (0.0-0.4); Eosinophils % (Auto) 4.5 % (0.0-4.3); Hemoglobin 6.9 gm/dl (11.8-15.2); Lymphocytes # (Auto) 0.9 K/mm3 (1.2-5.4); Lymphocytes % (Auto) 9.9 % (13.4-35.0); Mean Corpuscular HGB Conc 33 % (32-34); Mean Corpuscular Volume 95 fl (84-94); Monocytes # (Auto) 1.1 K/mm3 (0.0-0.8); Monocytes % (Auto) 12.1 % (0.0-7.3); Platelet Count 217 K/mm3 (140-440); Red Blood Count 2.22 M/mm3 (3.65-5.03)
--- NOTE | 2020-11-30 11:20 | Vascular Lab Report ---
Left upper extremity AV fistula Ultrasound HISTORY: AV FISTULA MALFUNCTION. Patient reportedly had a revision on 11/24/2020 TECHNIQUE: Grayscale and color imaging performed. COMPARISON: None FINDINGS: The left brachial artery is patent with peak systolic velocity of 198 cm/s. Inflow of the A V fistula is patent with systolic velocity of 233 cm/s. At the level of the distal biceps, peak systo lic velocity in the fistula is 242 cm/s and then in the mid biceps level 244 cm/s. In the proximal bi ceps region, peak systolic velocity in the fistula is 576 cm/s and there is a slight narrowing visual ly. The outflow velocity is 128 cm/s with wide patency. Flow volume is estimated between approximately 7473-7553 mL/m. There is a collection about the graft which measures approximately 4 x 4 centimeters in maximal dimen giana and is slightly complex. IMPRESSION: 1. Patent left upper arm AV fistula, although there appears to be a stenosis at the level the proxima l biceps. 2. Complex collection along the proximal fistula. Given history of recent revision, this most likely represents a hematoma; however, correlate with exam findings and labs. Signer Name: Efrain Lowe MD Signed: 11/30/2020 11:16 AM Workstation Name: [id number]
[2020-11-30 13:59] VITALS: BP 160/88
--- NOTE | 2020-11-30 14:27 | Consultation ---
History of Present Illness - Reason for Consult Consult date: 11/30/20 swelling LUE Requesting physician: EVELYN TREVINO - History of Present Illness 55-year-old male with end-stage renal disease on hemodialysis who presented to the emergency room with swelling from his left upper extremity AV fistula. Patient had angioplasty on 11/23/2020 and revision on 11/24/2020. He has some swelling of the left upper extremity, and a seroma at the revision site. Reviewed ultrasound, differential also includes seroma with some blood products. A stenosis postsurgically was mentioned in the proximal biceps which may be the venous anastomotic site. Although ER note mentioned that the patient was leaking from this seroma for 3 days, the patient denies this and just reports that he was having some swelling. No signs of cellulitis or erythema. Palpable left radial pulse. No weakness or numbness of the hand or arm. No evidence of infection from the right internal jugular PermCath. Past Medical History Previous Medical History?: Yes Hx Hypertension: Yes Hx Heart Attack/AMI: No Hx Congestive Heart Failure: No Hx Diabetes: No Hx Liver Disease: No Hx Renal Disease: Yes (HD MWF - last on 11/23/20) Hx Asthma: Yes Hx COPD: No Additional medical history: Glaucoma. afib Surgical History Past Surgical History?: Yes Hx Pacemaker: No Additional Surgical History: Left A/V Graft Social History Smoking Status: Unknown if ever smoked Medications and Allergies Allergies Allergy/AdvReac Type Severity Reaction Status Date / Time diphenhydramine AdvReac Mild Unknown Verified 11/30/20 08:55 [From Benadryl] Home Medications Medication Instructions Recorded Confirmed Last Taken Type Epoetin Curt-Epbx 10,000 Unit 10,000 unit IV STEPAN PRN vial 10/22/20 11/30/20 11/27/20 19:00 Rx [Retacrit] NIFEdipine XL [Procardia Xl] 90 mg PO QDAY #30 tablet 11/26/20 11/30/20 11/30/20 07:00 Rx carvediloL [Coreg] 25 mg PO QDAY #30 tablet 11/26/20 11/30/20 11/30/20 07:00 Rx cloNIDine [Catapres] 0.1 mg PO Q12HR #60 tablet 11/26/20 11/30/20 11/30/20 07:00 Rx hydrALAZINE [Apresoline TAB] 100 mg PO TID #90 tab 11/26/20 11/30/20 11/30/20 07:00 Rx Cinacalcet [Sensipar] 30 mg PO DAILY 11/30/20 11/30/20 11/30/20 07:00 History Pantoprazole [Protonix TAB] 40 mg PO DAILY 11/30/20 11/30/20 11/29/20 09:00 History Review of Systems All systems: negative (see HPI) Exam - Constitutional Vitals: Temp Pulse Resp BP Pulse Ox 98.2 F 91 H 23 160/88 96 11/30/20 14:02 11/30/20 14:02 11/30/20 14:02 11/30/20 14:02 11/30/20 14:02 General appearance: Present: no acute distress - EENT Eyes: Present: EOM intact ENT: hearing intact - Neck Neck: Present: supple - Respiratory Respiratory effort: normal - Extremities Extremities: pulses intact (left radial), normal temperature, normal color, abnormal (see HPI) - Abdominal General gastrointestinal: Present: soft, non-tender - Musculoskeletal Musculoskeletal: strength equal bilaterally - Psychiatric Psychiatric: appropriate mood/affect, cooperative - Neurologic Neurologic: moves all extremities Results - Labs CBC & Chem 7: 11/30/20 09:03 11/30/20 09:03 Labs: Abnormal lab results 11/30/20 11/30/20 Range/Units 09:03 09:03 RBC 2.22 L (3.65-5.03) M/mm3 Hgb 6.9 L (11.8-15.2) gm/dl Hct 21.0 L (35.5-45.6) % MCV 95 H (84-94) fl RDW 18.0 H (13.2-15.2) % Lymph % (Auto) 9.9 L (13.4-35.0) % [place] % (Auto) 12.1 H (0.0-7.3) % Eos % (Auto) 4.5 H (0.0-4.3) % Lymph # (Auto) 0.9 L (1.2-5.4) K/mm3 [place] # (Auto) 1.1 H (0.0-0.8) K/mm3 Seg Neutrophils % 72.7 H (40.0-70.0) % Chloride 97.9 L (98-107) mmol/L BUN 65 H (9-20) mg/dL Creatinine 9.3 H D (0.8-1.3) mg/dL Glucose 120 H (75-100) mg/dL Assessment and Plan 55-year-old patient with end-stage renal disease status post left upper extremity AV fistula angioplasty, PermCath placement, and revision who presents with swelling of the left upper extremity with seroma with some blood products within it. No evidence of leakage. Patient denies leakage. Keep area clean and dry until completely healed. Seroma should resolved on its own. Discussed with patient that if it becomes red, inflamed, or starts to leak, to contact our office. Contacted office and patient to set up appointment for patient to see us in approximately 7 days. Fistula functioning well. Has thrill. May have some stenosis that may be addressing 14 days after surgery. Recommend elevation of left upper extremity when sleeping. Follow-up as outpatient.
== END 2020-11-30 14:08 | disposition home or self-care (01) ==
LOC: ED 08:03
DX: I77.0 Arteriovenous fistula, acquired (principal); I12.0 Hypertensive chronic kidney disease with stage 5 chronic kidney disease or end stage renal disease; N18.6 End stage renal disease; J45.909 Unspecified asthma, uncomplicated; Z79.899 Other long term (current) drug therapy; Z88.8 Allergy status to other drugs, medicaments and biological substances
CPT/HCPCS: 36415; 80048; 85025; 93990; 99284

== ENCOUNTER 2020-12-07 02:14 | Emergency (ER) | payer MEDICARE ==
[2020-12-07 02:47] VITALS: BP 164/98
[2020-12-07] MEDS ORDERED: HYDROcodone/ACETAMINOPHEN 5-325 MG TAB PO ONE (03:55)
[2020-12-07] MEDS ORDERED: ONDANSETRON 4 MG ODT TAB PO ONE (03:55)
--- NOTE | 2020-12-07 04:03 | Event Note ---
ED Screening Note Date of service: 12/07/20 Time: 04:00 ED Screening Note: Patient is a 55-year-old -[place] male with a history of ESRD on hemodialysis who is 1 week status post left upper arm fistula revision surgery and who presents to the ED with persistent severely painful left upper arm with mild discharge from the surgical site for the last 1 week, worse in the last 2 days. Patient states that the pain radiates from the left upper arm distally to the left forearm constantly. Patient denies fall, traumatic injury, dizziness, syncope, chest pain, shortness of breath, abdominal pain, nausea and vomiting, fever, chills, cough or neck pain. This initial assessment/diagnostic orders/clinical plan/treatment(s) is/are subject to change based on patients health status, clinical progression and re- assessment by fellow clinical providers in the ED. Further treatment and workup at subsequent clinical providers discretion. Patient/guardian urged not to elope from the ED as their condition may be serious if not clinically assessed and managed. Initial orders include: CBC, CMP, Doppler ultrasound left upper extremity
[2020-12-07 04:52] LABS: Basophils # (Auto) 0.1 K/mm3 (0.0-0.1); Basophils % (Auto) 0.8 % (0.0-1.8); Eosinophils # (Auto) 0.6 K/mm3 (0.0-0.4); Eosinophils % (Auto) 7.1 % (0.0-4.3); Hemoglobin 6.2 gm/dl (11.8-15.2); Lymphocytes # (Auto) 0.8 K/mm3 (1.2-5.4); Lymphocytes % (Auto) 9.9 % (13.4-35.0); Mean Corpuscular HGB Conc 33 % (32-34); Mean Corpuscular Volume 96 fl (84-94); Monocytes # (Auto) 0.8 K/mm3 (0.0-0.8); Platelet Count 251 K/mm3 (140-440); Red Blood Count 1.95 M/mm3 (3.65-5.03); Red Cell Distribution Width 17.1 % (13.2-15.2)
[2020-12-07 04:55] LABS: Albumin 3.6 g/dL (3.9-5); Calcium 9.9 mg/dL (8.4-10.2)
[2020-12-07 05:21] LABS: Hematocrit 18.8 % (35.5-45.6)
--- NOTE | 2020-12-07 07:57 | Emergency Department Report ---
ED General Adult HPI - General Chief complaint: Extremity Injury, Upper Stated complaint: LT ARM PAIN AND SWELLING X 1 WK Time Seen by Provider: 12/07/20 07:49 Source: patient Mode of arrival: Ambulatory Limitations: No Limitations - History of Present Illness Initial comments: 55-year-old male presents to ED with left arm pain. Patient underwent left AV fistula revision on 11/24/2020. Patient presented to the ED 6 days later, on 11/30/2020, with complaint of swelling and fluid leaking from the area of the procedure. Patient had an ultrasound on that day that showed complex collection that could represent a hematoma. Patient was evaluated by Dr. Prado in the ED as well. Symptoms thought to be secondary to a seroma. Patient now returns 1 week later, complaining of continued pain and swelling in the left arm since his evaluation last week. States he has tried elevating the extremity without relief. He denies any fever, discharge, numbness or tingling, weakness. Patient reports he has a follow-up appointment with Dr. Ellison in 3 days on 12/10/2020 -: week(s) (1) Location: left, upper extremity Radiation: distal Severity scale (0 -10): 4 Quality: aching Consistency: constant Improves with: none Worsens with: none Associated Symptoms: denies: fever/chills - Related Data Home Medications Medication Instructions Recorded Confirmed Last Taken Cinacalcet [Sensipar] 30 mg PO DAILY 11/30/20 11/30/20 11/30/20 07:00 Pantoprazole [Protonix TAB] 40 mg PO DAILY 11/30/20 11/30/20 11/29/20 09:00 Previous Rx's Medication Instructions Recorded Last Taken Type Epoetin Curt-Epbx 10,000 Unit 10,000 unit IV STEPAN PRN vial 10/22/20 11/27/20 19:00 Rx [Retacrit] NIFEdipine XL [Procardia Xl] 90 mg PO QDAY #30 tablet 11/26/20 11/30/20 07:00 Rx carvediloL [Coreg] 25 mg PO QDAY #30 tablet 11/26/20 11/30/20 07:00 Rx cloNIDine [Catapres] 0.1 mg PO Q12HR #60 tablet 11/26/20 11/30/20 07:00 Rx hydrALAZINE [Apresoline TAB] 100 mg PO TID #90 tab 11/26/20 11/30/20 07:00 Rx traMADoL [Ultram 50 MG tab] 25 mg PO Q6HR PRN #7 tablet 12/07/20 Unknown Rx Allergies Allergy/AdvReac Type Severity Reaction Status Date / Time diphenhydramine AdvReac Mild Unknown Verified 11/30/20 08:55 [From Benadryl] ED Review of Systems ROS: Stated complaint: LT ARM PAIN AND SWELLING X 1 WK Other details as noted in HPI Comment: All other systems reviewed and negative Constitutional: denies: fever Musculoskeletal: as per HPI Neurological: denies: weakness, numbness, paresthesias ED Past Medical Hx - Past Medical History Hx Hypertension: Yes Hx Heart Attack/AMI: No Hx Congestive Heart Failure: No Hx Diabetes: No Hx Liver Disease: No Hx Renal Disease: Yes (HD MWF - last on 11/23/20) Hx Asthma: Yes Hx COPD: No Additional medical history: Glaucoma. afib - Surgical History Past Surgical History?: Yes Hx Pacemaker: No Additional Surgical History: Left A/V Graft - Social History Smoking Status: Never Smoker Substance Use Type: Alcohol - Medications Home Medications: Home Medications Medication Instructions Recorded Confirmed Last Taken Type Epoetin Curt-Epbx 10,000 Unit 10,000 unit IV STEPAN PRN vial 10/22/20 11/30/20 11/27/20 19:00 Rx [Retacrit] NIFEdipine XL [Procardia Xl] 90 mg PO QDAY #30 tablet 11/26/20 11/30/20 11/30/20 07:00 Rx carvediloL [Coreg] 25 mg PO QDAY #30 tablet 11/26/20 11/30/20 11/30/20 07:00 Rx cloNIDine [Catapres] 0.1 mg PO Q12HR #60 tablet 11/26/20 11/30/20 11/30/20 07:00 Rx hydrALAZINE [Apresoline TAB] 100 mg PO TID #90 tab 11/26/20 11/30/20 11/30/20 07 :00 Rx Cinacalcet [Sensipar] 30 mg PO DAILY 11/30/20 11/30/20 11/30/20 07:00 History Pantoprazole [Protonix TAB] 40 mg PO DAILY 1011/30/20 11/29/20 09:00 History traMADoL [Ultram 50 MG tab] 25 mg PO Q6HR PRN #7 tablet 12/07/20 Unknown Rx ED Physical Exam - General Limitations: No Limitations General appearance: alert, in no apparent distress - Head Head exam: Present: atraumatic, normocephalic - Eye Eye exam: Present: normal appearance, EOMI - ENT ENT exam: Present: mucous membranes moist - Neck Neck exam: Present: normal inspection - Respiratory Respiratory exam: Present: normal lung sounds bilaterally. Absent: respiratory distress - Cardiovascular Cardiovascular Exam: Present: regular rate, normal rhythm - GI/Abdominal GI/Abdominal exam: Absent: distended - Extremities Exam Extremities exam: Present: other (AV fistula present in left upper arm; palpable thrill present; no evidence of discharge from incision site; upper arm appears swollen, there is some induration and tenderness present; extremity is warm, cap refill is normal, patient able to flex and extend his fingers; sensation intact) - Neurological Exam Neurological exam: Present: alert, oriented X3. Absent: motor sensory deficit - Psychiatric Psychiatric exam: Present: normal affect, normal mood - Skin Skin exam: Present: warm, dry, intact ED Course Vital Signs 12/07/20 02:25 Temperature 98.7 F Pulse Rate 96 H Respiratory 18 Rate Blood Pressure 164/98 [Left] O2 Sat by Pulse 98 Oximetry - Consultations Consultation #1: 12/07/20 08:[address] Prado, vascular surgeon. He evaluated patient last week during his ED visit. States since no leukocytosis, afebrile, no evidence of purulent discharge on exam, patient can be discharged and needs to follow-up as scheduled on . States will likely take 2 to 4 weeks for seroma to resolve. ED Medical Decision Making - Lab Data Result diagrams: 12/07/20 04:04 12/07/20 04:04 Critical care attestation.: If time is entered above; I have spent that time in minutes in the direct care of this critically ill patient, excluding procedure time. ED Disposition Clinical Impression: Seroma after procedure Disposition: HOME / SELF CARE / HOMELESS Is pt being admited?: No Condition: Stable Instructions: Seroma Prescriptions: traMADoL [Ultram 50 MG tab] 25 mg PO Q6HR PRN #7 tablet PRN Reason: Pain Referrals: PRIMARY CARE, [Primary Care Provider] - 3-5 Days Time of Disposition: 08:34
== END 2020-12-07 08:44 | disposition home or self-care (01) ==
LOC: ED 02:14
DX: L76.34 Postprocedural seroma of skin and subcutaneous tissue following other procedure (principal); J45.909 Unspecified asthma, uncomplicated; I12.0 Hypertensive chronic kidney disease with stage 5 chronic kidney disease or end stage renal disease; N18.6 End stage renal disease; Z88.8 Allergy status to other drugs, medicaments and biological substances; Y83.8 Other surgical procedures as the cause of abnormal reaction of the patient, or of later complication, without mention of misadventure at the time of the procedure
CPT/HCPCS: 36415; 80053; 85025; 99283; Q0162

== ENCOUNTER 2020-12-09 08:35 | Observation (INO) | payer MEDICARE ==
--- NOTE | 2020-12-09 08:48 | Emergency Department Report ---
HPI - General Time Seen by Provider: 12/09/20 08:43 - HPI HPI: 55-year-old -[place] male presents to the emergency department via EMS from home after he was contacted by his dialysis clinic and talent development specialist, Dr. Garcia, to go to the emergency department for a blood transfusion. The patient was seen here on 11/30, and then again 2 days ago on 12/07, regarding some left u pper extremity pain and swelling after a AV graft revision that caused a seroma. Patient had some blood work 2 days ago that showed a hemoglobin of 6.2. It appears that the talent development specialist became aware of this hemoglobin level and the dialysis clinic felt that it was too low to get dialysis today. He has end- stage renal disease on hemodialysis on Monday/Monday/Monday and last had dialysis on Monday, 5 days ago. The patient also has a history of hypertension, atrial fibrillation on anticoagulation, coronary artery disease with previous [place]. The patient just complains of some shortness of breath, but denies any chest pain, lower extremity swelling, fever, nausea, vomiting, cough, back pain. ED Past Medical Hx - Past Medical History Hx Hypertension: Yes Hx Heart Attack/AMI: No Hx Congestive Heart Failure: No Hx Diabetes: No Hx Liver Disease: No Hx Renal Disease: Yes (HD MWF - last on 11/23/20) Hx Asthma: Yes Hx COPD: No Additional medical history: Glaucoma. afib - Surgical History Hx Pacemaker: No Additional Surgical History: Left A/V Graft - Social History Smoking Status: Never Smoker Substance Use Type: Alcohol - Medications Home Medications: Home Medications Medication Instructions Recorded Confirmed Last Taken Type Epoetin Curt-Epbx 10,000 Unit 10,000 unit IV STEPAN PRN vial 10/22/20 11/30/20 11/27/20 19:00 Rx [Retacrit] NIFEdipine XL [Procardia Xl] 90 mg PO QDAY #30 tablet 11/26/20 11/30/20 11/30/20 07:00 Rx carvediloL [Coreg] 25 mg PO QDAY #30 tablet 11/26/20 11/30/20 11/30/20 07:00 Rx cloNIDine [Catapres] 0.1 mg PO Q12HR #60 tablet 11/26/20 11/30/20 11/30/20 07:00 Rx hydrALAZINE [Apresoline TAB] 100 mg PO TID #90 tab 11/26/20 11/30/20 11/30/20 07:00 Rx Cinacalcet [Sensipar] 30 mg PO DAILY 11/30/20 11/30/20 11/30/20 07:00 History Pantoprazole [Protonix TAB] 40 mg PO DAILY 11/30/20 11/30/20 11/29/20 09:00 History traMADoL [Ultram 50 MG tab] 25 mg PO Q6HR PRN #7 tablet 12/07/20 Unknown Rx ED Review of Systems ROS: Stated complaint: ZACHARIAH/DIALYSIS Other details as noted in HPI Comment: All other systems reviewed and negative Constitutional: denies: chills, fever Eyes: denies: eye pain, vision change ENT: denies: ear pain, throat pain Respiratory: shortness of breath. denies: cough Cardiovascular: denies: chest pain, edema Gastrointestinal: denies: abdominal pain, vomiting Genitourinary: denies: dysuria, discharge Musculoskeletal: denies: back pain, arthralgia Skin: denies: rash, lesions Neurological: denies: headache, weakness Physical Exam - Physical Exam Physical Exam: GENERAL: The patient is well-developed well-nourished. HENT: Normocephalic. Atraumatic. Patient has moist mucous membranes. EYES: Extraocular motions are intact NECK: Supple. Trachea is midline. CHEST/LUNGS: Clear to auscultation. There is no respiratory distress noted. HEART/CARDIOVASCULAR: Regular. There is no tachycardia. There is no murmur. ABDOMEN: Abdomen is soft, nontender. Patient has normal bowel sounds. SKIN: Skin is warm and dry. NEURO: The patient is awake, alert, and oriented. The patient is cooperative. The patient has no focal neurologic deficits. Normal speech. MUSCULOSKELETAL: There is no tenderness or deformity. There is no limitation range of motion. ED Medical Decision Making - Lab Data Result diagrams: 12/09/20 09:06 12/09/20 09:06 Lab Results 12/09/20 12/09/20 12/09/20 Range/Units 09:06 09:06 09:15 WBC 8.5 (4.5-11.0) K/mm3 RBC 2.01 L (3.65-5.03) M/mm3 Hgb 6.2 L (11.8-15.2) gm/dl Hct 19.4 L* (35.5-45.6) % MCV 97 H (84-94) fl MCH 31 (28-32) pg MCHC 32 (32-34) % RDW 17.5 H (13.2-15.2) % Plt Count 230 (140-440) K/mm3 Add Manual Diff Complete Total Counted 100 Seg Neuts % (Manual) 84.0 H (40.0-70.0) % Band Neutrophils % 1.0 % Lymphocytes % (Manual) 12.0 L (13.4-35.0) % Monocytes % (Manual) 1.0 (0.0-7.3) % Eosinophils % (Manual) 1.0 (0.0-4.3) % Myelocytes % 1.0 % Nucleated RBC % 1.0 H (0.0-0.9) % Seg Neutrophils # Man 7.1 (1.8-7.7) K/mm3 Band Neutrophils # 0.1 K/mm3 Lymphocytes # (Manual) 1.0 L (1.2-5.4) K/mm3 Abs React Lymphs (Man) 0.0 K/mm3 Monocytes # (Manual) 0.1 (0.0-0.8) K/mm3 Eosinophils # (Manual) 0.1 (0.0-0.4) K/mm3 Basophils # (Manual) 0.0 (0.0-0.1) K/mm3 Metamyelocytes # 0.0 K/mm3 Myelocytes # 0.1 K/mm3 Promyelocytes # 0.0 K/mm3 Blast Cells # 0.0 K/mm3 Hypersegmented Neuts Not Reportable Hyposegmented Neuts Not Reportable Hypogranular Neuts Not Reportable Smudge Cells Not Reportable Toxic Granulation Not Reportable Toxic Vacuolation Not Reportable Dohle Bodies Not Reportable Pelger-Huet Anomaly Not Reportable Lucita Rods Not Reportable Platelet Estimate Consistent w auto Clumped Platelets Not Reportable Plt Clumps, EDTA Not Reportable Large Platelets Not Reportable Giant Platelets Not Reportable Platelet Satelliting Not Reportable Plt Morphology Comment Not Reportable RBC Morphology Not Reportable Dimorphic RBCs Not Reportable Polychromasia 1+ Hypochromasia 2+ Poikilocytosis Not Reportable Anisocytosis Not Reportable Microcytosis Not Reportable Macrocytosis Not Reportable Spherocytes Not Reportable Pappenheimer Bodies Not Reportable Sickle Cells Not Reportable Target Cells Not Reportable Tear Drop Cells Not Reportable Ovalocytes 1+ Helmet Cells Not Reportable Huff-Blackshear Bodies Not Reportable Iroquois Rings Not Reportable Bergoo Cells Not Reportable Bite Cells Not Reportable Crenated Cell Not Reportable Elliptocytes Not Reportable Acanthocytes (Spur) Not Reportable Rouleaux Not Reportable Hemoglobin C Crystals Not Reportable Schistocytes Not Reportable Malaria parasites Not Reportable King Bodies Not Reportable Hem Pathologist Commnt No Sodium 135 L (137-145) mmol/L Potassium 4.7 (3.6-5.0) mmol/L Chloride 92.1 L (98-107) mmol/L Carbon Dioxide 25 (22-30) mmol/L Anion Gap 23 mmol/L BUN 100 H (9-20) mg/dL Creatinine 11.1 H (0.8-1.3) mg/dL Estimated GFR 6 ml/min BUN/Creatinine Ratio 9 % Glucose 135 H (75-100) mg/dL Calcium 9.6 (8.4-10.2) mg/dL Blood Type O POSITIVE Antibody Screen Negative Crossmatch See Detail - Radiology Data Radiology results: image reviewed interpreted by me: Chest x-ray shows mild cardiomegaly and bilateral interstitial edema. No pneumothorax or widened mediastinum. - Medical Decision Making This patient presents to the emergency department after missing his last 2 dialysis sessions, and was told to come to the emergency department secondary to some recently low hemoglobin. Hemoglobin today was found to be 6.2. The patient has elevated BUN and creatinine without significant elevation in his potassium level. Nephrology was contacted and consulted and the patient will receive dialysis today. I have ordered 1 unit of packed red blood cells for transfusion. Patient will be admitted to the hospital for further evaluation and treatment was accepted for admission by the hospitalist, Dr. William. Critical Care Time: No Critical care attestation.: If time is entered above; I have spent that time in minutes in the direct care of this critically ill patient, excluding procedure time. ED Disposition Clinical Impression: ESRD needing dialysis, Anemia requiring transfusions, Missed dialysis Fluid overload Qualifiers: Hypervolemia type: unspecified Qualified Code(s): E87.70 - Fluid overload, unspecified Disposition: 09 ADMITTED INPATIENT Is pt being admited?: Yes Condition: Fair Time of Disposition: 11:41
[2020-12-09 09:34] LABS: Hemoglobin 6.2 gm/dl (11.8-15.2); Mean Corpuscular HGB Conc 32 % (32-34); Mean Corpuscular Volume 97 fl (84-94); Platelet Count 230 K/mm3 (140-440); Red Blood Count 2.01 M/mm3 (3.65-5.03); Red Cell Distribution Width 17.5 % (13.2-15.2)
[2020-12-09 09:38] LABS: Hematocrit 19.4 % (35.5-45.6)
--- NOTE | 2020-12-09 09:41 | XRay Report ---
CHEST 1 VIEW INDICATION: SOB. COMPARISON: 11/20/2020 FINDINGS: SUPPORT DEVICES: Right IJ CVL with tip in the high right atrium. HEART: Stable cardiomegaly. LUNGS/PLEURA: Mild interstitial edema. No dense consolidation or effusion. No pneumothorax. ADDITIONAL FINDINGS: None. IMPRESSION: 1. New right IJ catheter in satisfactory position with no complication. 2. Mild interstitial edema. Signer Name: Efrain Lowe MD Signed: 12/09/2020 9:37 AM Workstation Name: [employer]
[2020-12-09 09:49] LABS: Calcium 9.6 mg/dL (8.4-10.2)
[2020-12-09 10:48] LABS: Band Neutrophils # (Manual) 0.1 K/mm3; Myelocytes # (Manual) 0.1 K/mm3; Total Cells Counted 100
[2020-12-09 10:50] LABS: Ovalocytes 1+
[2020-12-09 10:54] LABS: Hypochromasia 2+; Platelet Estimate Consistent w Auto
[2020-12-09] MEDS ORDERED: SODIUM CHLORIDE 0.9% 500 ML 500 ML IV ONE ×2 (11:41→14:13)
--- NOTE | 2020-12-09 12:10 | Consultation ---
History of Present Illness - History of Present Illness Thank you for the consultation Patient was evaluated today My assessment and plan are as follows #End-stage renal disease: Patient is currently on maintenance hemodialysis at [facility] facility where he dialyzes 3 times a week currently being admitted here with shortness of breath and severe anemia and is being admitted Will monitor dialysis-related labs periodically. Hemodialysis nurse to ultrafiltrate as tolerated, systolic blood pressure must be kept above 100, heart rate below 100 #Medication management: Reviewed today #Electrolyte and volume: Volume overloaded as always very noncompliant patient Will monitor and follow #Dialysis Access: Was recently seen by vascular surgery noted to have cerumen will need to follow-up with access is complicated over the years and lately getting worse Working well no issues per patient #Anemia in ESRD: Patient will receive packed red blood cell transfusion and will need to stay for further workup including a GI consultation and possibly a hematology consultation To monitor hemoglobin and hematocrit periodically erythropoietin as needed, #Bone mineral disorder and secondary hyperparathyroidism: Goal phosphorus under 5-1/2 PTH under 600 Monitor phosphorus and PTH level periodically, #Cardiovascular: Prior history of hypertension atrial fibrillation, coronary artery disease and myocardial infarction #Diet and nutrition: Nepro, multivitamin #End-stage kidney disease Counseling: Done regarding all the issues related to end-stage kidney disease care at length regarding diet lifestyle changes fluid restriction sodium restriction and blood pressure monitoring from home #Overall compliance extremely poor, Patient has been counseled educated that he is very high risk for mortality adverse outcome, he is very poorly involved in his care, he needs to take ownership of his health as well. Have adequately counseled educated this patient to the best of my knowledge and belief prognosis will depend on his compliance with the treatment Author: Franklin Garcia M.D. [facility], [address] [place] [address] Tel; [phone] Source of information: From patient as well as patient's current chart History of present illness 55-year-old -[place] male who is been currently established in our clinic for dialysis care, has been noted to have low hemoglobin, recently has had AV graft revision which cause seroma. Patient's hemoglobin at the clinic was 6.2 is currently in Monday hemodialysis, last dialysis treatment was 5 days ago, Patient is here with shortness of breath, fluid overload, and severe anemia Past medical history: Severe noncompliance ESRD Hypertension Chronic fluid overload Coronary artery disease Myocardial infarction Atrial fibrillation Hypertension Current allergies: Reviewed from the current chart Social history: Reviewed from the current chart Family history: Reviewed from the current chart Review of system: Positive for severe anemia, shortness of breath missing dialysis treatment All other review of systems negative Physical examination Vitals: Reviewed General: No acute distress HEENT: Oral mucosa moist no pallor or icterus Neck: Supple without any JVD thyromegaly or nodular mass Chest: Bilateral crackles Heart: Regular rate and rhythm S1-S2 heard no S3-S4 Abdomen: Soft nontender, bowel sounds present no renal bruit no suprapubic masses no CVA tenderness noted Extremity: 2+ edema dry skin no peripheral cyanosis Endocrine: Thyroid not enlarged Psychiatric: No agitation and aggression noted Musculoskeletal: No joint effusion noted Labs and x-rays: Reviewed from this admission Medications and Allergies Allergies Allergy/AdvReac Type Severity Reaction Status Date / Time diphenhydramine AdvReac Mild Unknown Verified 11/30/20 08:55 [From [facility]] Home Medications Medication Instructions Recorded Confirmed Last Taken Type Epoetin Curt-Epbx 10,000 Unit 10,000 unit IV STEPAN PRN vial 10/22/20 11/30/20 11/27/20 19:00 Rx [Retacrit] NIFEdipine XL [Procardia Xl] 90 mg PO QDAY #30 tablet 11/26/20 11/30/20 11/30/20 07:00 Rx carvediloL [Coreg] 25 mg PO QDAY #30 tablet 11/26/20 11/30/20 11/30/20 07:00 Rx cloNIDine [Catapres] 0.1 mg PO Q12HR #60 tablet 11/26/20 11/30/20 11/30/20 07:00 Rx hydrALAZINE [Apresoline TAB] 100 mg PO TID #90 tab 11/26/20 11/30/20 11/30/20 07:00 Rx Cinacalcet [Sensipar] 30 mg PO DAILY 11/30/20 11/30/20 11/30/20 07:00 History Pantoprazole [Protonix TAB] 40 mg PO DAILY 11/30/20 11/30/20 11/29/20 09:00 History traMADoL [Ultram 50 MG tab] 25 mg PO Q6HR PRN #7 tablet 12/07/20 Unknown Rx Exam - Vital Signs Vital signs: Vital Signs Pulse Resp BP Pulse Ox 87 12 131/69 99 12/09/20 09:15 12/09/20 09:15 12/09/20 09:15 12/09/20 09:15 Results - Lab Results 12/09/20 09:06 12/09/20 09:06 Most recent lab results Calcium 9.6 mg/dL (8.4-10.2) 12/09/20 09:06
[2020-12-09] MEDS ORDERED: SODIUM CHLORIDE 0.9% 100 ML IV PRN (12:30)
[2020-12-09] MEDS ORDERED: EPOETIN ALFA-EPBX 20,000 UNIT/1 ML VIAL SUB-Q SCH (13:00)
[2020-12-09] MEDS ORDERED: SODIUM CHLORIDE 0.9% 250ML 250 ML ONE (15:09)
[2020-12-09] MEDS ORDERED: ACETAMINOPHEN 325 MG TAB ONE (17:27)
[2020-12-09 18:37] VITALS: BP 172/89
--- NOTE | 2020-12-10 09:13 | Electrocardiograph Report ---
[facility] Test Date: 2020-12-09 Test Time: 13:29:10 Pat Name: MENDEZ RIVERA Department: Room: [facility] Gender: M Director Of Alumni Relations: NURSE : 1965 Requested By: RAVINDER HARVEY Order Number: [id number] Reading MD: Wayne Garcia Measurements Intervals Wright Rate: 87 P: 13 WV: 168 QRS: 53 QRSD: 94 T: 64 QT: 351 QTc: 422 Interpretive Statements Sinus rhythm Compared to ECG 10/19/2020 05:45:17 First degree AV block no longer present Left ventricular hypertrophy no longer present Electronically Signed On 12-10-2020 9:13:32 EDT by Wayne Garcia
--- NOTE | 2020-12-11 07:57 | Discharge Summary ---
Providers - Providers Date of Admission: 12/09/20 11:41 Date of discharge: 12/09/20 Attending physician: TANIYA COHN 12/09/20 11:40 Consult to Physician [CONS] Routine Comment: Consulting Provider: YAMILKA GARCIA Physician Instructions: Reason For Exam: ESRD needing dialysis 12/09/20 12:11 Consult to Physician [CONS] Routine Comment: Consulting Provider: GERMAINE ROTHMAN Physician Instructions: Reason For Exam: GI bleed needs egd and colonoscopy Primary care physician: MACHINE MAINTENANCE TECHNICIAN Hospitalization Condition: Fair Hospital course: 55-year-old -Marshallese male presents to the emergency department via EMS from home after he was contacted by his dialysis clinic and white goods appliance tech, Dr. Garcia, to go to the emergency department for a blood transfusion. The patient was seen here on 11/30, and then again 2 days ago on 12/07, regarding some left upper extremity pain and swelling after a AV graft revision that caused a ser domo. Patient had some blood work 2 days ago that showed a hemoglobin of 6.2. It appears that the white goods appliance tech became aware of this hemoglobin level and the dialysis clinic felt that it was too low to get dialysis today. He has end- stage renal disease on hemodialysis on Monday/Monday/Monday and last had dialysis on Monday, 5 days ago. The patient also has a history of hypertension, atrial fibrillation on anticoagulation, coronary artery disease with previous SD. The patient just complains of some shortness of breath, but denies any chest pain, lower extremity swelling, fever, nausea, vomiting, cough, back pain. Assessment and Plan Advance Directives: Yes (Full code) VTE prophylaxis?: Chemical Plan of care discussed with patient/family: Yes - Patient Problems (1) Anemia due to end stage renal disease Status: Acute Plan to address problem: Transfuse 1 to 2 units of packed red blood cells Continue Epogen (2) End-stage renal disease on hemodialysis Status: Chronic Plan to address problem: Continue hemodialysis as per schedule (3) T2DM (type 2 diabetes mellitus) Status: Chronic Qualifiers: Diabetes mellitus buttermaker continuous churn insulin use: unspecified custodial insulin use status Plan to address problem: Coverage for now and check hemoglobin A1c (4) Hypertension Status: Chronic Qualifiers: Hypertension type: primary hypertension Qualified Code(s): I10 - Essential (primary) hypertension Plan to address problem: Continue antihypertensives and adjust medications Disposition: HOME / SELF CARE / HOMELESS Final Discharge Diagnosis (Prints w/discharge instructions): Symptomatic anemia. End-stage renal disease on hemodialysis. Hypertension. T2DM Time spent for discharge: 35 minutes - Discharge Diagnoses (1) Anemia due to end stage renal disease Status: Acute (2) End-stage renal disease on hemodialysis Status: Chronic (3) T2DM (type 2 diabetes mellitus) Status: Chronic Qualifiers: Diabetes mellitus buttermaker continuous churn insulin use: unspecified custodial insulin use status (4) Hypertension Status: Chronic Qualifiers: Hypertension type: primary hypertension Qualified Code(s): I10 - Essential (primary) hypertension (5) DVT prophylaxis Status: Acute Core Measure Documentation - Palliative Care Palliative Care/ Comfort Measures: Not Applicable - Core Measures Any of the following diagnoses?: none Exam - Constitutional Vitals: Temp Pulse Resp BP Pulse Ox 98.9 F 95 H 20 172/89 98 12/09/20 18:37 12/09/20 18:37 12/09/20 18:37 12/09/20 18:37 12/09/20 18:37 General appearance: Present: no acute distress, well-nourished - EENT Eyes: Present: PERRL ENT: hearing intact, clear oral mucosa - Neck Neck: Present: supple, normal ROM - Respiratory Respiratory effort: normal Respiratory: bilateral: CTA - Cardiovascular Heart rate: 78 Rhythm: regular Heart Sounds: Present: S1 & S2. Absent: rub, click - Extremities Extremities: pulses symmetrical, No edema Peripheral Pulses: within normal limits - Abdominal General gastrointestinal: Present: soft, non-tender, non-distended, normal bowel sounds Male genitourinary: Present: normal - Rectal Rectal Exam: deferred - Integumentary Integumentary: Present: clear, warm, dry - Musculoskeletal Musculoskeletal: gait normal, strength equal bilaterally - Psychiatric Psychiatric: appropriate mood/affect, intact judgment & insight - Neurologic Neurologic: CNII-XII intact, moves all extremities - Allied Health Allied health notes reviewed: nursing, case management Plan Activity: no restrictions Diet: renal Follow up with: PRIMARY MD SERGIO [Primary Care Provider] - 3-5 Days
--- NOTE | 2020-12-11 07:57 | History and Physical Report ---
History of Present Illness Date of examination: 12/09/20 Date of admission: 12/09/20 11:41 Chief complaint: Anemia History of present illness: 55-year-old -Bul[place] male presents to the emergency department via EMS from home after he was contacted by his dialysis clinic and field representatives director, Dr. Garcia, to go to the emergency department for a blood transfusion. The patient was seen here on 11/30, and then again 2 days ago on 12/07, regarding some left upper extremity pain and swelling after a AV graft revision that caused a seroma. Patient had some blood work 2 days ago that showed a hemoglobin of 6.2. It appears that the field representatives director became aware of this hemoglobin level and the dialysis clinic felt that it was too low to get dialysis today. He has end- stage renal disease on hemodialysis on Monday/Monday/Monday and last had dialysis on Monday, 5 days ago. The patient also has a history of hypertension, atrial fibrillation on anticoagulation, coronary artery disease with previous [place]. The patient just complains of some shortness of breath, but denies any chest pain, lower extremity swelling, fever, nausea, vomiting, cough, back pain. - Past Medical History --Hypertension: Yes --Renal Disease: Yes (HD MWF - last on 11/23/20) --Additional medical history: Glaucoma. afib - Surgical History --Pacemaker: No --Additional Surgical History: Left A/V Graft - Social History --Smoking Status: Never Smoker --Substance Use Type: Alcohol - Medications Home Medications: Home Medications Medication Instructions Recorded Confirmed Last Taken Type Epoetin Curt-Epbx 10,000 Unit 10,000 unit IV STEPAN PRN vial 10/22/20 11/30/20 11/27/20 19:00 Rx [Retacrit] NIFEdipine XL [Procardia Xl] 90 mg PO QDAY #30 tablet 11/26/20 11/30/20 11/30/20 07:00 Rx carvediloL [Coreg] 25 mg PO QDAY #30 tablet 11/26/20 11/30/20 11/30/20 07:00 Rx cloNIDine [Catapres] 0.1 mg PO Q12HR #60 tablet 11/26/20 11/30/20 11/30/20 07:00 Rx hydrALAZINE [Apresoline TAB] 100 mg PO TID #90 tab 11/26/20 11/30/20 11/30/20 07:00 Rx Cinacalcet [Sensipar] 30 mg PO DAILY 11/30/20 11/30/20 11/30/20 07:00 History Pantoprazole [Protonix TAB] 40 mg PO DAILY 11/30/20 11/30/20 11/29/20 09:00 History traMADoL [Ultram 50 MG tab] 25 mg PO Q6HR PRN #7 tablet 12/07/20 Unknown Rx Review of Systems ROS: Stated complaint: ZACHARIAH/DIALYSIS Other details as noted in HPI Comment: All other systems reviewed and negative Constitutional: denies: chills, fever Eyes: denies: eye pain, vision change ENT: denies: ear pain, throat pain Respiratory: shortness of breath. denies: cough Cardiovascular: denies: chest pain, edema Gastrointestinal: denies: abdominal pain, vomiting Genitourinary: denies: dysuria, discharge Musculoskeletal: denies: back pain, arthralgia Skin: denies: rash, lesions Neurological: denies: headache, weakness Medications and Allergies Allergies Allergy/AdvReac Type Severity Reaction Status Date / Time diphenhydramine AdvReac Mild falls out Verified 12/22/20 11:52 [From Benadryl] and starts shaking Home Medications Medication Instructions Recorded Confirmed Last Taken Type NIFEdipine XL [Procardia Xl] 90 mg PO QDAY #30 tablet 11/26/20 12/22/20 12/21/20 Rx carvediloL [Coreg] 25 mg PO QDAY #30 tablet 11/26/20 12/22/20 12/21/20 Rx cloNIDine [Catapres] 0.1 mg PO Q12HR #60 tablet 11/26/20 12/22/20 12/21/20 Rx hydrALAZINE [Apresoline TAB] 100 mg PO TID #90 tab 11/26/20 12/22/20 12/21/20 Rx Pantoprazole [Protonix TAB] 40 mg PO DAILY 11/30/20 12/22/20 12/21/20 History Cinacalcet [Sensipar] 30 mg PO DAILY #30 tablet 12/23/20 Unknown Rx Furosemide [Lasix TAB] 40 mg PO QDAY #30 tab 12/23/20 Unknown Rx Exam - Constitutional Vitals: Temp Pulse Resp BP Pulse Ox 98.9 F 95 H 20 172/89 98 12/09/20 18:37 12/09/20 18:37 12/09/20 18:37 12/09/20 18:37 12/09/20 18:37 General appearance: Present: no acute distress, well-nourished - EENT Eyes: Present: PERRL ENT: hearing intact, clear oral mucosa - Neck Neck: Present: supple, normal ROM - Respiratory Respiratory effort: normal Respiratory: bilateral: CTA - Cardiovascular Heart rate: 78 Rhythm: regular Heart Sounds: Present: S1 & S2. Absent: rub, click - Extremities Extremities: pulses symmetrical, No edema Peripheral Pulses: within normal limits - Abdominal General gastrointestinal: Present: soft, non-tender, non-distended, normal bowel sounds Male genitourinary: Present: normal - Integumentary Integumentary: Present: clear, warm, dry - Musculoskeletal Musculoskeletal: gait normal, strength equal bilaterally - Psychiatric Psychiatric: appropriate mood/affect, intact judgment & insight - Neurologic Neurologic: CNII-XII intact, moves all extremities Results - Labs CBC & Chem 7: 12/09/20 09:06 12/09/20 09:06 Labs: Laboratory Last Values WBC 8.5 K/mm3 (4.5-11.0) 12/09/20 09:06 RBC 2.01 M/mm3 (3.65-5.03) L 12/09/20 09:06 Hgb 6.2 gm/dl (11.8-15.2) L 12/09/20 09:06 Hct 19.4 % (35.5-45.6) L* 12/09/20 09:06 MCV 97 fl (84-94) H 12/09/20 09:06 MCH 31 pg (28-32) 12/09/20 09:06 MCHC 32 % (32-34) 12/09/20 09:06 RDW 17.5 % (13.2-15.2) H 12/09/20 09:06 Plt Count 230 K/mm3 (140-440) 12/09/20 09:06 Add Manual Diff Complete 12/09/20 09:06 Total Counted 100 12/09/20 09:06 Seg Neuts % (Manual) 84.0 % (40.0-70.0) H 12/09/20 09:06 Band Neutrophils % 1.0 % 12/09/20 09:06 Lymphocytes % (Manual) 12.0 % (13.4-35.0) L 12/09/20 09:06 Monocytes % (Manual) 1.0 % (0.0-7.3) 12/09/20 09:06 Eosinophils % (Manual) 1.0 % (0.0-4.3) 12/09/20 09:06 Myelocytes % 1.0 % 12/09/20 09:06 Nucleated RBC % 1.0 % (0.0-0.9) H 12/09/20 09:06 Seg Neutrophils # Man 7.1 K/mm3 (1.8-7.7) 12/09/20 09:06 Band Neutrophils # 0.1 K/mm3 12/09/20 09:06 Lymphocytes # (Manual) 1.0 K/mm3 (1.2-5.4) L 12/09/20 09:06 Abs React Lymphs (Man) 0.0 K/mm3 12/09/20 09:06 Monocytes # (Manual) 0.1 K/mm3 (0.0-0.8) 12/09/20 09:06 Eosinophils # (Manual) 0.1 K/mm3 (0.0-0.4) 12/09/20 09:06 Basophils # (Manual) 0.0 K/mm3 (0.0-0.1) 12/09/20 09:06 Metamyelocytes # 0.0 K/mm3 12/09/20 09:06 Myelocytes # 0.1 K/mm3 12/09/20 09:06 Promyelocytes # 0.0 K/mm3 12/09/20 09:06 Blast Cells # 0.0 K/mm3 12/09/20 09:06 WBC Morphology Not Reportable 12/09/20 09:06 Hypersegmented Neuts Not Reportable 12/09/20 09:06 Hyposegmented Neuts Not Reportable 12/09/20 09:06 Hypogranular Neuts Not Reportable 12/09/20 09:06 Smudge Cells Not Reportable 12/09/20 09:06 Toxic Granulation Not Reportable 12/09/20 09:06 Toxic Vacuolation Not Reportable 12/09/20 09:06 Dohle Bodies Not Reportable 12/09/20 09:06 Pelger-Huet Anomaly Not Reportable 12/09/20 09:06 Lucita Rods Not Reportable 12/09/20 09:06 Platelet Estimate Consistent w auto 12/09/20 09:06 Clumped Platelets Not Reportable 12/09/20 09:06 Plt Clumps, EDTA Not Reportable 12/09/20 09:06 Large Platelets Not Reportable 12/09/20 09:06 Giant Platelets Not Reportable 12/09/20 09:06 Platelet Satelliting Not Reportable 12/09/20 09:06 Plt Morphology Comment Not Reportable 12/09/20 09:06 RBC Morphology Not Reportable 12/09/20 09:06 Dimorphic RBCs Not Reportable 12/09/20 09:06 Polychromasia 1+ 12/09/20 09:06 Hypochromasia 2+ 12/09/20 09:06 Poikilocytosis Not Reportable 12/09/20 09:06 Anisocytosis Not Reportable 12/09/20 09:06 Microcytosis Not Reportable 12/09/20 09:06 Macrocytosis Not Reportable 12/09/20 09:06 Spherocytes Not Reportable 12/09/20 09:06 Pappenheimer Bodies Not Reportable 12/09/20 09:06 Sickle Cells Not Reportable 12/09/20 09:06 Target Cells Not Reportable 12/09/20 09:06 Tear Drop Cells Not Reportable 12/09/20 09:06 Ovalocytes 1+ 12/09/20 09:06 Helmet Cells Not Reportable 12/09/20 09:06 Huff-Dalton Bodies Not Reportable 12/09/20 09:06 [place] Rings Not Reportable 12/09/20 09:06 [place] Cells Not Reportable 12/09/20 09:06 Bite Cells Not Reportable 12/09/20 09:06 Crenated Cell Not Reportable 12/09/20 09:06 Elliptocytes Not Reportable 12/09/20 09:06 Acanthocytes (Spur) Not Reportable 12/09/20 09:06 Rouleaux Not Reportable 12/09/20 09:06 Hemoglobin C Crystals Not Reportable 12/09/20 09:06 Schistocytes Not Reportable 12/09/20 09:06 Malaria parasites Not Reportable 12/09/20 09:06 King Bodies Not Reportable 12/09/20 09:06 Hem Pathologist Commnt No 12/09/20 09:06 Sodium 135 mmol/L (137-145) L 12/09/20 09:06 Potassium 4.7 mmol/L (3.6-5.0) 12/09/20 09:06 Chloride 92.1 mmol/L (98-107) L 12/09/20 09:06 Carbon Dioxide 25 mmol/L (22-30) 12/09/20 09:06 Anion Gap 23 mmol/L 12/09/20 09:06 BUN 100 mg/dL (9-20) H 12/09/20 09:06 Creatinine 11.1 mg/dL (0.8-1.3) H 12/09/20 09:06 Estimated GFR 6 ml/min 12/09/20 09:06 BUN/Creatinine Ratio 9 % 12/09/20 09:06 Glucose 135 mg/dL (75-100) H 12/09/20 09:06 Calcium 9.6 mg/dL (8.4-10.2) 12/09/20 09:06 Blood Type O POSITIVE 12/09/20 09:15 Antibody Screen Negative 12/09/20 09:15 Crossmatch See Detail 12/09/20 09:15 Assessment and Plan Advance Directives: Yes (Full code) VTE prophylaxis?: Chemical Plan of care discussed with patient/family: Yes - Patient Problems (1) Anemia due to end stage renal disease Status: Acute Plan to address problem: Transfuse 1 to 2 units of packed red blood cells Continue Epogen (2) End-stage renal disease on hemodialysis Status: Chronic Plan to address problem: Continue hemodialysis as per schedule (3) T2DM (type 2 diabetes mellitus) Status: Chronic Qualifiers: Diabetes mellitus exterminator helper termite insulin use: unspecified exterminator helper termite insulin use status Plan to address problem: Coverage for now and check hemoglobin A1c (4) Hypertension Status: Chronic Qualifiers: Hypertension type: primary hypertension Qualified Code(s): I10 - Essential (primary) hypertension Plan to address problem: Continue antihypertensives and adjust medications (5) DVT prophylaxis Status: Acute Plan to address problem: On anticoagulation GI prophylaxis
== END 2020-12-09 19:15 | disposition home or self-care (01) ==
LOC: ED 08:35 → 3A 11:41
PROVIDERS: ADMIT Internal Medicine; ATTEND Internal Medicine
DX: I12.0 Hypertensive chronic kidney disease with stage 5 chronic kidney disease or end stage renal disease (principal); N18.6 End stage renal disease; D63.1 Anemia in chronic kidney disease; E11.22 Type 2 diabetes mellitus with diabetic chronic kidney disease; E87.70 Fluid overload, unspecified; H40.9 Unspecified glaucoma; I48.91 Unspecified atrial fibrillation; Z99.2 Dependence on renal dialysis
CPT/HCPCS: 36415; 71045; 80048; 85025; 86850; 86900; 86901; 86920; 93005; 99285; G0257; G0378; J0885; J7050; P9016; 36430; 85007

== ENCOUNTER 2020-12-16 07:12 | Emergency (ER) | payer MEDICARE ==
[2020-12-16] MEDS ORDERED: HYDROcodone/ACETAMINOPHEN 10-325MG TAB PO ONE (08:07)
[2020-12-16 08:12] LABS: Basophils # (Auto) 0.1 K/mm3 (0.0-0.1); Basophils % (Auto) 1.2 % (0.0-1.8); Eosinophils # (Auto) 0.3 K/mm3 (0.0-0.4); Eosinophils % (Auto) 4.3 % (0.0-4.3); Hematocrit 22.8 % (35.5-45.6); Hemoglobin 7.5 gm/dl (11.8-15.2); Lymphocytes # (Auto) 0.9 K/mm3 (1.2-5.4); Mean Corpuscular HGB Conc 33 % (32-34); Mean Corpuscular Volume 93 fl (84-94); Monocytes # (Auto) 0.8 K/mm3 (0.0-0.8); Monocytes % (Auto) 11.5 % (0.0-7.3); Platelet Count 224 K/mm3 (140-440); Red Blood Count 2.46 M/mm3 (3.65-5.03); Red Cell Distribution Width 17.6 % (13.2-15.2)
--- NOTE | 2020-12-16 08:31 | Emergency Department Report ---
ED Upper Extremity Inj HPI - General Chief Complaint: Extremity Problem,Nontraumatic Stated Complaint: LEFT SWOLLEN AND INFECTED ARM Time Seen by Provider: 12/16/20 07:24 Source: patient Mode of arrival: Ambulatory Limitations: No Limitations - History of Present Illness Initial Comments: This is a 55-year-old male nontoxic, well nourished in appearance, no acute signs of distress presents to the ED with c/o of left arm swelling times several days. Patient stated he had a AV graft removed by Ottoniel Boo several weeks ago and symptoms occurred several days ago. Patient otherwise denies any injuries or trauma. Patient denies any numbness, tingling, fever, chills, nausea, vomiting, chest pain, shortness of breath, headache, stiff neck. Patie nt denies any joint redness. Patient denies decreased range of motion. Patient stated allergies to diphenhydramine. Patient still has access for his dialysis to his right subclavian PICC line. MD Complaint: Injury to:: left, arm -: days(s) Other Extremity Injury: Arm: Left Severity scale (0 -10): 3 Improves With: none Worsens With: none Associated Symptoms: denies other symptoms. denies: weakness, numbness, neck pain, suspects foreign body, nausea/vomiting, heard/felt popping sensat - Related Data Home Medications Medication Instructions Recorded Confirmed Last Taken Cinacalcet [Sensipar] 30 mg PO DAILY 11/30/20 11/30/20 11/30/20 07:00 Pantoprazole [Protonix TAB] 40 mg PO DAILY 11/30/20 11/30/20 11/29/20 09:00 Previous Rx's Medication Instructions Recorded Last Taken Type Epoetin Curt-Epbx 10,000 Unit 10,000 unit IV STEPAN PRN vial 10/22/20 11/27/20 19:00 Rx [Retacrit] NIFEdipine XL [Procardia Xl] 90 mg PO QDAY #30 tablet 11/26/20 11/30/20 07:00 Rx carvediloL [Coreg] 25 mg PO QDAY #30 tablet 11/26/20 11/30/20 07:00 Rx cloNIDine [Catapres] 0.1 mg PO Q12HR #60 tablet 11/26/20 11/30/20 07:00 Rx hydrALAZINE [Apresoline TAB] 100 mg PO TID #90 tab 11/26/20 11/30/20 07:00 Rx traMADoL [Ultram 50 MG tab] 25 mg PO Q6HR PRN #7 tablet 12/07/20 Unknown Rx Allergies Allergy/AdvReac Type Severity Reaction Status Date / Time diphenhydramine AdvReac Mild Unknown Verified 11/30/20 08:55 [From Benadryl] ED Review of Systems ROS: Stated complaint: LEFT SWOLLEN AND INFECTED ARM Other details as noted in HPI Comment: All other systems reviewed and negative Constitutional: denies: chills, fever Eyes: denies: eye pain, eye discharge, vision change ENT: denies: ear pain, throat pain Respiratory: denies: cough, shortness of breath, wheezing Cardiovascular: denies: chest pain, palpitations Endocrine: no symptoms reported Gastrointestinal: denies: abdominal pain, nausea, diarrhea Genitourinary: denies: urgency, dysuria Musculoskeletal: denies: back pain, joint swelling, arthralgia Skin: denies: rash, lesions Neurological: denies: headache, weakness, paresthesias Psychiatric: denies: anxiety, depression Hematological/Lymphatic: denies: easy bleeding, easy bruising ED Past Medical Hx - Past Medical History Previous Medical History?: Yes Hx Hypertension: Yes Hx Heart Attack/AMI: No Hx Congestive Heart Failure: No Hx Diabetes: No Hx Liver Disease: No Hx Renal Disease: Yes (HD MWF - last on 11/23/20) Hx Asthma: Yes Hx COPD: No Additional medical history: Glaucoma. afib - Surgical History Past Surgical History?: Yes Hx Pacemaker: No Additional Surgical History: Left A/V Graft - Social History Smoking Status: Never Smoker Substance Use Type: Alcohol - Medications Home Medications: Home Medications Medication Instructions Recorded Confirmed Last Taken Type Epoetin Curt-Epbx 10,000 Unit 10,000 unit IV STEPAN PRN vial 10/22/20 11/30/20 11/27/20 19:00 Rx [Retacrit] NIFEdipine XL [Procardia Xl] 90 mg PO QDAY #30 tablet 11/26/20 11/30/20 11/30/20 07:00 Rx carvediloL [Coreg] 25 mg PO QDAY #30 tablet 11/26/20 11/30/20 11/30/20 07:00 Rx cloNIDine [Catapres] 0.1 mg PO Q12HR #60 tablet 11/26/20 11/30/20 11/30/20 07:00 Rx hydrALAZINE [Apresoline TAB] 100 mg PO TID #90 tab 11/26/20 11/30/20 11/30/20 07:00 Rx Cinacalcet [Sensipar] 30 mg PO DAILY 11/30/20 11/30/20 11/30/20 07:00 History Pantoprazole [Protonix TAB] 40 mg PO DAILY 11/30/20 11/30/20 11/29/20 09:00 History traMADoL [Ultram 50 MG tab] 25 mg PO Q6HR PRN #7 tablet 12/07/20 Unknown Rx ED Physical Exam - General Limitations: No Limitations General appearance: alert, in no apparent distress - Head Head exam: Present: atraumatic, normocephalic - Eye Eye exam: Present: normal appearance - Neck Neck exam: Present: normal inspection, full ROM. Absent: lymphadenopathy - Respiratory Respiratory exam: Absent: respiratory distress - Cardiovascular Cardiovascular Exam: Present: regular rate - Extremities Exam Extremities exam: Present: full ROM, tenderness, normal capillary refill. Absent: joint swelling - Expanded Upper Extremity Exam Left General: Present: normal inspection Shoulder Exam: Present: normal inspection, full ROM. Absent: tenderness, swelling Upper Arm exam: Present: normal inspection, full ROM. Absent: tenderness, swelling Elbow exam: Present: normal inspection, full ROM. Absent: tenderness, swelling Forearm Wrist exam: Present: normal inspection, full ROM, swelling. Absent: tenderness, abrasion, laceration, ecchymosis, deformity, crepidus, dislocation, erythema, tenderness over anatomical snuff box, pain with axial thumb loading Hand Wrist exam: Present: normal inspection, full ROM, swelling. Absent: tenderness, abrasion, laceration, ecchymosis, deformity, crepidus, dislocation, erythema, amputation, nail avulsion, subungual hematoma Vascular: Present: normal capillary refill. Absent: vascular compromise (Neurovascular within normal limits), pulse deficit radial art, pulse deficit brachial art, radial pulse, brachial pulse, ulnar pulse - Back Exam Back exam: Present: normal inspection, full ROM - Neurological Exam Neurological exam: Present: alert, oriented X3 - Psychiatric Psychiatric exam: Present: normal affect, normal mood - Skin Skin exam: Present: warm, dry, intact, normal color. Absent: rash ED Course Vital Signs 12/16/20 12/16/20 12/16/20 07:20 08:13 10:05 Temperature 98.4 F Pulse Rate 96 H Respiratory 16 18 18 Rate Blood Pressure Blood Pressure 161/69 [Right] O2 Sat by Pulse 97 100 Oximetry 12/16/20 12/16/20 12/16/20 10:58 11:00 11:01 Temperature Pulse Rate 84 83 Respiratory 10 L 12 Rate Blood Pressure 112/71 Blood Pressure [Right] O2 Sat by Pulse 93 96 Oximetry 12/16/20 12/16/20 12/16/20 11:16 11:30 11:46 Temperature Pulse Rate 78 86 79 Respiratory 15 17 17 Rate Blood Pressure 112/71 118/73 118/73 Blood Pressure [Right] O2 Sat by Pulse 94 93 95 Oximetry 12/16/20 12/16/20 12/16/20 12:00 12:16 12:30 Temperature Pulse Rate 81 79 79 Respiratory 19 21 19 Rate Blood Pressure 106/60 106/60 113/62 Blood Pressure [Right] O2 Sat by Pulse 89 89 91 Oximetry 12/16/20 12/16/20 12/16/20 12:46 13:00 13:16 Temperature Pulse Rate 84 79 80 Respiratory 15 19 16 Rate Blood Pressure 113/62 125/69 125/69 Blood Pressure [Right] O2 Sat by Pulse 91 89 86 Oximetry 12/16/20 12/16/20 12/16/20 13:30 13:46 14:00 Temperature Pulse Rate 82 80 79 Respiratory 19 11 L 21 Rate Blood Pressure 125/69 125/69 125/67 Blood Pressure [Right] O2 Sat by Pulse 83 L 89 90 Oximetry 12/16/20 12/16/20 12/16/20 14:16 14:30 14:46 Temperature Pulse Rate 78 77 80 Respiratory 15 13 14 Rate Blood Pressure 125/67 125/67 125/67 Blood Pressure [Right] O2 Sat by Pulse 88 86 84 Oximetry 12/16/20 12/16/20 12/16/20 15:00 15:16 15:30 Temperature Pulse Rate 82 85 85 Respiratory 16 29 H 21 Rate Blood Pressure 140/69 140/69 140/69 Blood Pressure [Right] O2 Sat by Pulse 91 91 89 Oximetry 12/16/20 15:46 Temperature Pulse Rate 87 Respiratory 31 H Rate Blood Pressure 140/69 Blood Pressure [Right] O2 Sat by Pulse 90 Oximetry - Reevaluation(s) Reevaluation #1: 12/16/20 08:31 Patient is speaking in full sentences with no signs of distress noted. - Consultations Consultation #1: 12/16/20 10:55 Patient has been consulted with Dr. Choi about patient history, physical exam, and labs/imaging results and agrees to ED plan of care with Dr. Varghese Consult. Consultation #2: 12/16/20 11:48 Patient has been consulted with Jany (RN for Dr. Varghese) about patient history, physical exam, and labs/imaging results and stated will consult with Dr. Varghese and get back to me. Consultation #3: 12/16/20 14:20 Jany (RN for Dr. Varghese) stated Dr. Varghese in the OR but will reach other again. Also stated that typically patient are discharged with follow-up. Awaiting for a treatment plan by Dr. Varghese for patient. 12/16/20 14:59 Consulted with Jany again and stated has not heard back from Dr. Varghese. Awaiting for Dr. Varghese consult for the plan of care. 12/16/20 15:38 Patient has been consulted with Dr. Varghese about patient history, physical exam, and labs/imaging and stated is chronic DVT and not treatment needed at this time and patient can be sent home with outpatient follow-up. 12/16/20 15:55 Patient has been consulted with Dr. Choi about Dr. Varghese plan of care and agrees for discharge with follow-up. ED Medical Decision Making - Lab Data Result diagrams: 12/16/20 07:45 12/16/20 07:45 Lab Results 12/16/20 12/16/20 12/16/20 Range/Units 07:45 07:45 12:25 WBC 7.3 (4.5-11.0) K/mm3 RBC 2.46 L (3.65-5.03) M/mm3 Hgb 7.5 L (11.8-15.2) gm/dl Hct 22.8 L (35.5-45.6) % MCV 93 (84-94) fl MCH 31 (28-32) pg MCHC 33 (32-34) % RDW 17.6 H (13.2-15.2) % Plt Count 224 (140-440) K/mm3 Lymph % (Auto) 13.0 L (13.4-35.0) % Price % (Auto) 11.5 H (0.0-7.3) % Eos % (Auto) 4.3 (0.0-4.3) % Baso % (Auto) 1.2 (0.0-1.8) % Lymph # (Auto) 0.9 L (1.2-5.4) K/mm3 Price # (Auto) 0.8 (0.0-0.8) K/mm3 Eos # (Auto) 0.3 (0.0-0.4) K/mm3 Baso # (Auto) 0.1 (0.0-0.1) K/mm3 Seg Neutrophils % 70.0 (40.0-70.0) % Seg Neutrophils # 5.1 (1.8-7.7) K/mm3 PT 14.2 (12.2-14.9) Sec. INR 0.99 (0.87-1.13) APTT 31.2 (24.2-36.6) Sec. Sodium 137 (137-145) mmol/L Potassium 4.2 (3.6-5.0) mmol/L Chloride 94.3 L (98-107) mmol/L Carbon Dioxide 25 (22-30) mmol/L Anion Gap 22 mmol/L BUN 75 H (9-20) mg/dL Creatinine 7.5 H (0.8-1.3) mg/dL Estimated GFR 9 ml/min BUN/Creatinine Ratio 10 % Glucose 121 H (75-100) mg/dL Calcium 10.1 (8.4-10.2) mg/dL Total Bilirubin 0.70 (0.1-1.2) mg/dL AST 19 (5-40) units/L ALT 11 (7-56) units/L Alkaline Phosphatase 326 H (35-129) units/L Total Protein 7.7 (6.3-8.2) g/dL Albumin 3.9 (3.9-5) g/dL Albumin/Globulin Ratio 1.0 % - Radiology Data [facility] [address] [place] [address] Vascular Lab Report Signed Patient: MENDEZ RIVERA MR#: [id number] : 1965 Acct:[id number] Age/Sex: 55 / M ADM Date: 12/16/20 Loc: ED Attending Dr: Ordering Physician: SHAHEED ELLINGTON NP Date of Service: 12/16/20 Procedure(s): VL venous duplex UE LT Accession Number(s): [id number] cc: SHAHEED ELLINGTON NP Left upper extremity venous Ultrasound HISTORY: left arm swelling. TECHNIQUE: Grayscale and color imaging performed. COMPARISON: None FINDINGS: The left internal jugular vein is occluded. The subclavian, axillary, brachial, ulnar, and radial veins are all patent. There is an AV fistula in the upper arm which is occluded and dilated measuring up to 5.1 cm in maximal transverse dimension. IMPRESSION: 1. Occlusive DVT in the left IJ. 2. Occluded and dilated left upper arm AV fistula. Findings were called to the patient's nurse Alexa by the corporate intern at 10:47 AM Eastern standard time. Signer Name: Efrain Lowe MD Signed: 12/16/2020 11:10 AM Workstation Name: [id number] Transcribed By: FERN Dictated By: Efrain Lowe MD Electronically Authenticated By: Efrain Lowe MD Signed Date/Time: 12/16/20 1110 DD/ 1108 TD/TT: - Medical Decision Making 55-year-old male that presents with chronic left upper extremity DVT and occluded AV fistula. Patient consulted with Dr. Varghese for treatment plan of care. Please see note for results. As per Dr. Varghese, no Eliquis or any blood thinners needed at discharge due to chronic DVT. patient was notified of the results with no questions noted by the patient. Patient did receive heparin in the ER. Patient was instructed to follow-up with a Dr. Varghese in 2 days or if symptoms worsen and continue return to emergency room as soon as possible. At time of discharge, the patient does not seem toxic or ill in appearance. No acute signs of distress noted. Patient agrees to discharge treatment plan of c are. No further questions noted by the patient. Critical care attestation.: If time is entered above; I have spent that time in minutes in the direct care of this critically ill patient, excluding procedure time. ED Disposition Clinical Impression: Left upper extremity deep vein thrombosis Qualifiers: Affected thrombotic vein of extremity: unspecified vein of extremity Chronicity: acute Qualified Code(s): I82.622 - Acute embolism and thrombosis of deep veins of left upper extremity AV fistula occlusion Qualifiers: Encounter type: initial encounter Qualified Code(s): T82.898A - Other specified complication of vascular prosthetic devices, implants and grafts, initial enco unter Disposition: 01 HOME / SELF CARE / HOMELESS Is pt being admited?: No Does the pt Need Aspirin: No Condition: Stable Additional Instructions: Follow-up with a Dr. Varghese in 2 days or if symptoms worsen and continue return to emergency room as soon as possible. Referrals: PRIMARY CARE, [Primary Care Provider] - 3-5 Days OTTONIEL VARGHESE MD [Staff Physician] - 12/18/20 Time of Disposition: 15:56
[2020-12-16 08:33] LABS: Albumin 3.9 g/dL (3.9-5); Calcium 10.1 mg/dL (8.4-10.2)
--- NOTE | 2020-12-16 11:14 | Vascular Lab Report ---
Left upper extremity venous Ultrasound HISTORY: left arm swelling. TECHNIQUE: Grayscale and color imaging performed. COMPARISON: None FINDINGS: The left internal jugular vein is occluded. The subclavian, axillary, brachial, ulnar, and radial veins are all patent. There is an AV fistula in the upper arm which is occluded and dilated measuring up to 5.1 cm in maxim al transverse dimension. IMPRESSION: 1. Occlusive DVT in the left IJ. 2. Occluded and dilated left upper arm AV fistula. Findings were called to the patient's nurse Alexa by the solid state tester at 10:47 AM Eastern standard time. Signer Name: Efrain Lowe MD Signed: 12/16/2020 11:10 AM Workstation Name: [id number]
[2020-12-16] MEDS ORDERED: HEPARIN 10,000 UNITS/10 ML VIAL IV PRN (12:11)
[2020-12-16] MEDS ORDERED: HEPARIN 10,000 UNITS/10 ML VIAL IV ONE (12:11)
[2020-12-16] MEDS ORDERED: HEPARIN/ 0.45% NACL DRIP 25,000 UNIT/500 ML BAG IV SCH (13:00)
[2020-12-16 13:17] LABS: INR 0.99 (0.87-1.13)
[2020-12-16 13:18] LABS: Partial Thromboplastin Time 31.2 Sec. (24.2-36.6)
[2020-12-16 16:09] VITALS: BP 146/78
== END 2020-12-16 17:03 | disposition home or self-care (01) ==
LOC: ED 07:12
DX: I82.622 Acute embolism and thrombosis of deep veins of left upper extremity (principal); T82.898A Other specified complication of vascular prosthetic devices, implants and grafts, initial encounter; I12.9 Hypertensive chronic kidney disease with stage 1 through stage 4 chronic kidney disease, or unspecified chronic kidney disease; N18.9 Chronic kidney disease, unspecified; J45.909 Unspecified asthma, uncomplicated; Z88.8 Allergy status to other drugs, medicaments and biological substances; Y82.8 Other medical devices associated with adverse incidents; Y92.89 Other specified places as the place of occurrence of the external cause
CPT/HCPCS: 36415; 80053; 85025; 85610; 85730; 93971; 96365; 96366; 96376; 99284; J1644

== ENCOUNTER 2021-01-17 07:52 | Observation (INO) | payer MEDICARE ==
--- NOTE | 2021-01-17 09:29 | Emergency Department Report ---
ED General Adult HPI - General Chief complaint: Pain General Stated complaint: Blood in urine, blood in the stool, body aches, bilateral thoracic PUI?: Yes Time Seen by Provider: 01/17/21 09:25 Source: patient, EMS ( EMS documentation not available at time of chart dictation . Verbal report received from emergency medical service), RN notes reviewed, old records reviewed Mode of arrival: Stretcher Limitations: Physical Limitation - History of Present Illness Initial comments: The patient is a 55-year-old gentleman. He is vaccinated against COVID-19. He has a past medical history of end-stage renal disease, on hemodialysis, Monday, Monday, Monday. His last hemodialysis session was this past Monday. He states his application development liaison is Dr. Garcia. He also has a history of hypertension, paroxysmal A. fib, with a chronically abnormal chest x-ray, with cardiomegaly, and bilateral groundglass opacities in his lung quijano. He has recently been seen by [place] [facility] at this practice, who advised against systemic anticoagulation secondary to chronic anemia, with no known history of coronary artery disease, with a negative cardiac nuclear stress test in 2019, which demonstrated an ejection fraction of 45 to 50%. The patient presents to the ER today with a complaint of blood in urine, which is painless, bilateral thoracic pain, history of bloody stool, which is now resolved, and generalized body aches, malaise and fatigue. No headache or neck pain. No fever. No vomiting. No testicular pain. No loss of taste or smell. -: Sudden, hour(s), days(s) Location: back, left, right, upper extremity, lower extremity Quality: aching Consistency: constant Improves with: rest Worsens with: movement - Related Data Home Medications Medication Instructions Recorded Confirmed Last Taken Pantoprazole [Protonix TAB] 40 mg PO DAILY 11/30/20 01/13/21 01/12/21 carvediloL [Coreg] 25 mg PO BID 01/04/21 01/13/21 01/12/21 Previous Rx's Medication Instructions Recorded Last Taken Type NIFEdipine XL [Procardia Xl] 90 mg PO QDAY #30 tablet 11/26/20 01/12/21 Rx cloNIDine [Catapres] 0.1 mg PO Q12HR #60 tablet 11/26/20 01/12/21 Rx hydrALAZINE [Apresoline TAB] 100 mg PO TID #90 tab 11/26/20 01/12/21 Rx Cinacalcet [Sensipar] 30 mg PO DAILY #30 tablet 12/23/20 12/30/20 Rx Furosemide [Lasix TAB] 40 mg PO QDAY #30 tablet 01/14/21 Unknown Rx Allergies Allergy/AdvReac Type Severity Reaction Status Date / Time diphenhydramine AdvReac Mild fainting Verified 01/13/21 11:39 ED Review of Systems ROS: Stated complaint: blood in urine Other details as noted in HPI Constitutional: malaise, weakness Eyes: denies: eye discharge ENT: denies: epistaxis Respiratory: denies: cough Cardiovascular: denies: chest pain Genitourinary: hematuria. denies: dysuria, testicular pain Musculoskeletal: back pain, arthralgia, myalgia Neurological: weakness. denies: headache Hematological/Lymphatic: denies: easy bleeding ED Past Medical Hx - Past Medical History Hx Hypertension: Yes Hx Heart Attack/AMI: No Hx Congestive Heart Failure: No Hx Diabetes: No Hx Liver Disease: No Hx Renal Disease: Yes (HD MWF - last on 11/23/20) Hx Asthma: Yes Hx COPD: No Additional medical history: Glaucoma. afib - Surgical History Hx Pacemaker: No Additional Surgical History: Left A/V Graft, right chest Vas-Cath - Social History Smoking Status: Unknown if ever smoked - Medications Home Medications: Home Medications Medication Instructions Recorded Confirmed Last Taken Type NIFEdipine XL [Procardia Xl] 90 mg PO QDAY #30 tablet 11/26/20 01/13/21 01/12/21 Rx cloNIDine [Catapres] 0.1 mg PO Q12HR #60 tablet 11/26/20 01/13/21 01/12/21 Rx hydrALAZINE [Apresoline TAB] 100 mg PO TID #90 tab 11/26/20 01/13/21 01/12/21 Rx Pantoprazole [Protonix TAB] 40 mg PO DAILY 11/30/20 01/13/21 01/12/21 History Cinacalcet [Sensipar] 30 mg PO DAILY #30 tablet 12/23/20 01/13/21 12/30/20 Rx carvediloL [Coreg] 25 mg PO BID 01/04/21 01/13/21 01/12/21 History Furosemide [Lasix TAB] 40 mg PO QDAY #30 tablet 01/14/21 Unknown Rx ED Physical Exam - General Limitations: Physical Limitation General appearance: alert, anxious - Head Head exam: Present: atraumatic, normocephalic - Eye Eye exam: Present: normal appearance, EOMI. Absent: nystagmus - ENT ENT exam: Present: normal exam, normal orophraynx, mucous membranes moist, normal external ear exam - Neck Neck exam: Present: normal inspection, full ROM. Absent: tenderness, meningismus - Respiratory Respiratory exam: Present: chest wall tenderness, decreased breath sounds. Absent: respiratory distress, wheezes, rales, rhonchi, stridor - Cardiovascular Cardiovascular Exam: Present: regular rate, normal rhythm, normal heart sounds. Absent: bradycardia, tachycardia, irregular rhythm, systolic murmur, diastolic murmur, rubs, gallop - GI/Abdominal GI/Abdominal exam: Present: soft. Absent: distended, tenderness, guarding, rebound, rigid, pulsatile mass - Rectal Rectal exam: Present: normal inspection, heme (-) stool, other (Chaperoned by Vivek Schulz). Absent: heme (+) stool, black stool, bloody stool - exam: Present: normal inspection, other (There is normal testicular lie. T here is normal cremasteric reflex. There is no testicular tenderness. There is no testicular swelling/ Chaperond by Vivek Schulz). Absent: testicular tenderness External exam: Present: normal external exam - Extremities Exam Extremities exam: Present: normal inspection (Left upper extremity graft, with appropriate thrill, no redness, pus or streaking. Minimally tender.), full ROM, other (2+ pulses noted in the bilateral upper and lower extremities. There is no palpable cord. negative Homans sign. Muscular compartments are soft. The pelvis is stable.). Absent: calf tenderness - Back Exam Back exam: Present: normal inspection, paraspinal tenderness. Absent: tenderness, CVA tenderness (R), CVA tenderness (L), muscle spasm, vertebral tenderness - Neurological Exam Neurological exam: Present: alert, oriented X3, other (No facial droop. Tongue midline. Extraocular movements intact bilaterally. Facial sensation intact to light touch in V1, V2, V3 distribution bilaterally. 5 and a 5 strength in 4 extremities. Sensation intact to light touch in 4 extremities.). Absent: motor sensory deficit - Psychiatric Psychiatric exam: Present: anxious - Skin Skin exam: Present: warm, dry, intact, normal color, other (There is a right- sided thoracic vascular access catheter noted, without redness, pus or streaking.). Absent: rash ED Course Vital Signs 01/17/21 01/17/21 01/17/21 09:28 09:30 09:51 Temperature 98.0 F Pulse Rate 89 84 82 Respiratory 18 26 H 16 Rate Blood Pressure 107/67 [Right] O2 Sat by Pulse 93 93 99 Oximetry 01/17/21 09:58 Temperature 98.0 F Pulse Rate Respiratory Rate Blood Pressure [Right] O2 Sat by Pulse Oximetry - Reevaluation(s) Reevaluation #1: 01/17/21 09:37 Differential diagnosis, including but not limited to: Myositis, viral syndrome, COVID-19, pneumonia, congestive heart failure, urinary tract infection, diverticulosis, angiodysplasia, malignancy, electrolyte derangement, musculosk eletal pain Assessment and plan: 55-year-old gentleman, with diffuse body aches, pains, malaise and fatigue, acute hypoxic respiratory failure, saturating 85% on room air, COVID-19 vaccinated, up-to-date "with the rest of my shots", presenting with the aforementioned. Place patient on isolation. Obtain appropriate laboratory studies and x-ray the chest. Obtain EKG, and treat symptoms. Plan to discuss with nephrology once initial diagnostic studies have resulted. Patient declines/refuses digital rectal exam, however, external examination unremarkable, patient did provide permission for rectal temperature, which demonstrated no blood on the probe tip cover, and the residue on this probe cover was guaiac negative. Reassess after initial data points. Abdomen soft and benign. He is not currently on systemic anticoagulation 01/17/21 11:21 Laboratory studies reviewed and appreciated. Elevated troponin is chronic. This is likely a type II troponin leak. Contacted nephrology on-call for the patient's group, Dr Jones Discussed the patient's history, physical, laboratory studies, clinical impression. He will follow in consultation. We will treat this patient empirically with antibiotics, steroids, and we will admit to the hospital service. Awaiting callback from hospital physician. 01/17/21 11:[address] Uriarte service under internal medicine service. 01/17/21 11:44 Defer to inpatient team to follow-up on urinalysis. ED Medical Decision Making - Lab Data Result diagrams: 01/17/21 09:58 01/17/21 10:00 Vital Signs 01/17/21 01/17/21 01/17/21 09:28 09:30 09:51 Temperature 98.0 F Pulse Rate 89 84 82 Respiratory 18 26 H 16 Rate Blood Pressure 107/67 [Right] O2 Sat by Pulse 93 93 99 Oximetry 01/17/21 09:58 Temperature 98.0 F Pulse Rate Respiratory Rate Blood Pressure [Right] O2 Sat by Pulse Oximetry Lab Results 01/17/21 01/17/21 01/17/21 Range/Units 09:58 10:00 10:00 WBC 7.6 (4.5-11.0) K/mm3 RBC 2.79 L (3.65-5.03) M/mm3 Hgb 8.3 L (11.8-15.2) gm/dl Hct 26.2 L (35.5-45.6) % MCV 94 (84-94) fl MCH 30 (28-32) pg MCHC 32 (32-34) % RDW 18.2 H (13.2-15.2) % Plt Count 235 (140-440) K/mm3 Lymph % (Auto) 9.1 L (13.4-35.0) % [place] % (Auto) 9.9 H (0.0-7.3) % Eos % (Auto) 3.3 (0.0-4.3) % Baso % (Auto) 0.9 (0.0-1.8) % Lymph # (Auto) 0.7 L (1.2-5.4) K/mm3 [place] # (Auto) 0.7 (0.0-0.8) K/mm3 Eos # (Auto) 0.3 (0.0-0.4) K/mm3 Baso # (Auto) 0.1 (0.0-0.1) K/mm3 Seg Neutrophils % 76.8 H (40.0-70.0) % Seg Neutrophils # 5.8 (1.8-7.7) K/mm3 PT 16.2 H (12.2-14.9) Sec. INR 1.17 H (0.87-1.13) APTT 31.7 (24.2-36.6) Sec. Sodium 138 (137-145) mmol/L Potassium 4.5 (3.6-5.0) mmol/L Chloride 97.3 L (98-107) mmol/L Carbon Dioxide 25 (22-30) mmol/L Anion Gap 20 mmol/L BUN 51 H (9-20) mg/dL Glucose 104 H (75-100) mg/dL Lactic Acid (0.7-2.0) mmol/L Calcium 10.0 (8.4-10.2) mg/dL Magnesium 1.80 (1.7-2.3) mg/dL Total Bilirubin 0.80 (0.1-1.2) mg/dL AST 17 (5-40) units/L ALT 14 (7-56) units/L Alkaline Phosphatase 322 H (35-129) units/L Troponin T 0.128 H* (0.00-0.029) ng/mL Total Protein 6.9 (6.3-8.2) g/dL Albumin 3.7 L (3.9-5) g/dL Albumin/Globulin Ratio 1.2 % /01/26 Range/Units 10:00 WBC (4.5-11.0) K/mm3 RBC (3.65-5.03) M/mm3 Hgb (11.8-15.2) gm/dl Hct (35.5-45.6) % MCV (84-94) fl MCH (28-32) pg MCHC (32-34) % RDW (13.2-15.2) % Plt Count (140-440) K/mm3 Lymph % (Auto) (13.4-35.0) % [place] % (Auto) (0.0-7.3) % Eos % (Auto) (0.0-4.3) % Baso % (Auto) (0.0-1.8) % Lymph # (Auto) (1.2-5.4) K/mm3 [place] # (Auto) (0.0-0.8) K/mm3 Eos # (Auto) (0.0-0.4) K/mm3 Baso # (Auto) (0.0-0.1) K/mm3 Seg Neutrophils % (40.0-70.0) % Seg Neutrophils # (1.8-7.7) K/mm3 PT (12.2-14.9) Sec. INR (0.87-1.13) APTT (24.2-36.6) Sec. Sodium (137-145) mmol/L Potassium (3.6-5.0) mmol/L Chloride (98-107) mmol/L Carbon Dioxide (22-30) mmol/L Anion Gap mmol/L BUN (9-20) mg/dL Glucose (75-100) mg/dL Lactic Acid 0.80 (0.7-2.0) mmol/L Calcium (8.4-10.2) mg/dL Magnesium (1.7-2.3) mg/dL Total Bilirubin (0.1-1.2) mg/dL AST (5-40) units/L ALT (7-56) units/L Alkaline Phosphatase (35-129) units/L Troponin T (0.00-0.029) ng/mL Total Protein (6.3-8.2) g/dL Albumin (3.9-5) g/dL Albumin/Globulin Ratio % - EKG Data -: EKG Interpreted by In EKG shows normal: sinus rhythm Rate: normal - EKG Data 01/17/21 11:58 The EKG is interpreted at 11: 45 Sinus rhythm, 79 bpm. Normal axis, normal intervals, left ventricular hypertrophy, poor R wave progression. There is motion artifact. This is an abnormal EKG. This is not a STEMI. - Radiology Data Radiology results: pending, report reviewed, image reviewed CHEST 1 VIEW 01/17/2021 9:33 AM INDICATION / CLINICAL INFORMATION: Dyspnea. COMPARISON: 01/13/2021 FINDINGS: SUPPORT DEVICES: Permacath appears unchanged HEART / MEDIASTINUM: There is enlargement of the cardiac silhouette. Atherosclerotic calcifications are noted in the aortic arch LUNGS / PLEURA: Bilateral pulmonary opacities persist. Given differences in technique there is no significant change. No pneumothorax. ADDITIONAL FINDINGS: No significant additional findings. IMPRESSION: 1. No significant change. Signer Name: Jose L Kapoor MD Signed: 01/17/2021 8:48 AM Workstation Name: [id number] Critical care attestation.: If time is entered above; I have spent that time in minutes in the direct care of this critically ill patient, excluding procedure time. ED Disposition Clinical Impression: End stage renal disease, Hypoxia, History of hematuria, History of rectal bleeding, Abnormal chest x-ray Disposition: 09 ADMITTED INPATIENT Is pt being admited?: Yes Does the pt Need Aspirin: No Condition: Good Referrals: PRIMARY CARE, [Primary Care Provider] - 3-5 Days
--- NOTE | 2021-01-17 09:52 | XRay Report ---
CHEST 1 VIEW 01/17/2021 9:33 AM INDICATION / CLINICAL INFORMATION: Dyspnea. COMPARISON: 01/13/2021 FINDINGS: SUPPORT DEVICES: Permacath appears unchanged HEART / MEDIASTINUM: There is enlargement of the cardiac silhouette. Atherosclerotic calcifications a re noted in the aortic arch LUNGS / PLEURA: Bilateral pulmonary opacities persist. Given differences in technique there is no sig nificant change. No pneumothorax. ADDITIONAL FINDINGS: No significant additional findings. IMPRESSION: 1. No significant change. Signer Name: Jose L Kapoor MD Signed: 01/17/2021 9:48 AM Workstation Name: [id number]
[2021-01-17 10:08] LABS: Basophils # (Auto) 0.1 K/mm3 (0.0-0.1); Basophils % (Auto) 0.9 % (0.0-1.8); Eosinophils # (Auto) 0.3 K/mm3 (0.0-0.4); Eosinophils % (Auto) 3.3 % (0.0-4.3); Hematocrit 26.2 % (35.5-45.6); Hemoglobin 8.3 gm/dl (11.8-15.2); Lymphocytes # (Auto) 0.7 K/mm3 (1.2-5.4); Lymphocytes % (Auto) 9.1 % (13.4-35.0); Mean Corpuscular HGB Conc 32 % (32-34); Mean Corpuscular Volume 94 fl (84-94); Monocytes # (Auto) 0.7 K/mm3 (0.0-0.8); Monocytes % (Auto) 9.9 % (0.0-7.3); Platelet Count 235 K/mm3 (140-440); Red Blood Count 2.79 M/mm3 (3.65-5.03); Red Cell Distribution Width 18.2 % (13.2-15.2)
[2021-01-17 10:17] LABS: INR 1.17 (0.87-1.13)
[2021-01-17 10:18] LABS: Partial Thromboplastin Time 31.7 Sec. (24.2-36.6)
[2021-01-17 10:36] LABS: Alanine Aminotransferase 14 units/L (7-56); Albumin 3.7 g/dL (3.9-5); Blood Urea Nitrogen 51 mg/dL (9-20); Hemolysis Index 2
[2021-01-17] MEDS ORDERED: FUROSEMIDE 40 MG/4 ML INJ IV ONE ×2 (11:20→16:00)
[2021-01-17] MEDS ORDERED: AMOXICILLIN 500 MG CAP PO ONE ×2 (11:21→16:00)
[2021-01-17] MEDS ORDERED: dexAMETHasone 4 MG/ML VIAL IV ONE ×2 (11:21→16:00)
[2021-01-17] MEDS ORDERED: AZITHROMYCIN 250 MG TAB PO ONE ×2 (11:22→16:00)
[2021-01-17] MEDS ORDERED: ASPIRIN 81 MG TAB CHEW PO ONE ×2 (11:23→16:00)
[2021-01-17 11:46] LABS: BUN/Creatinine Ratio 7
--- NOTE | 2021-01-17 11:49 | History and Physical Report ---
History of Present Illness Chief complaint: I feel bad History of present illness: 55 YO Male with ESRD on HD(M,W,F), GERD, HTN, Paroxysmal Atrial Fib not on therapeutic anticoagulation presents to ED for evaluation. Patient reports "I feel bad". Patient states that he has experienced generalized weakness, fatigue, malaise, body aches, and shortness of breath over the past 3 days with persistent symptoms over the same timeframe. Patient also reports blood in urine which has now resolved. EMS notified and upon arrival the patient was found to be in distress and subsequent transported to [facility] for further care and evaluation of the aforementioned symptoms. The patient was seen and evaluated in the emergency department. All lab and imaging studies reviewed. Patient found to have a pulse oximetry of 89% on room air which is consistent with acute hypoxemic respiratory failure. Chest x-ray revealed bilateral pneumonia. Patient admitted to medical floor and initiated on pneumonia protocol as well as coronavirus protocol. Patient has fever, chills, chest pain, palpitation, productive cough, skin rash, recent ill contacts, or known exposure to COVID-19. Prior admission on 01/13/2021 reviewed. All medication listed at time of admission has been reconciled. Advanced care planning conducted in ED. Past History Past Medical History: atrial fib, ESRD, GERD, hypertension Past Surgical History: Other (Dialysis access) Social history: single. denies: smoking, alcohol abuse, prescription drug abuse Family history: diabetes, hypertension Medications and Allergies Allergies Allergy/AdvReac Type Severity Reaction Status Date / Time diphenhydramine AdvReac Mild fainting Verified 01/13/21 11:39 Home Medications Medication Instructions Recorded Confirmed Last Taken Type NIFEdipine XL [Procardia Xl] 90 mg PO QDAY #30 tablet 11/26/20 01/13/21 01/12/21 Rx cloNIDine [Catapres] 0.1 mg PO Q12HR #60 tablet 11/26/20 01/13/21 01/12/21 Rx hydrALAZINE [Apresoline TAB] 100 mg PO TID #90 tab 11/26/20 01/13/21 01/12/21 Rx Pantoprazole [Protonix TAB] 40 mg PO DAILY 11/30/20 01/13/21 01/12/21 History Cinacalcet [Sensipar] 30 mg PO DAILY #30 tablet 12/23/20 01/13/21 12/30/20 Rx carvediloL [Coreg] 25 mg PO BID 01/04/21 01/13/21 01/12/21 History Furosemide [Lasix TAB] 40 mg PO QDAY #30 tablet 01/14/21 Unknown Rx Review of Systems Constitutional: fatigue, weakness, malaise, no weight loss, no weight gain, no fever Ears, nose, mouth and throat: no ear pain, no ear discharge, no tinnitis, no nose pain, no nasal discharge Cardiovascular: shortness of breath, no chest pain, no orthopnea, no palpitati ons, no rapid/irregular heart beat, no syncope Respiratory: shortness of breath, no excessive sputum, no hemoptysis, no wheezing, no pleurisy Gastrointestinal: no abdominal pain, no nausea, no vomiting, no diarrhea, no constipation Genitourinary Male: hematuria, no flank pain, no discharge, no urinary frequency, no urinary hesitancy Rectal: no pain, no incontinence, no bleeding Musculoskeletal: no neck stiffness, no neck pain, no shooting arm pain, no low back pain, no shooting leg pain Integumentary: no rash, no pruritis, no sores, no wounds, no jaundice, no boils Neurological: no head injury, no transient paralysis, no parathesias, no numbness, no tingling, no seizures, no syncope, no ataxia Psychiatric: no anxiety, no memory loss, no change in sleep habits, no insomnia, no change in appetite Endocrine: no cold intolerance, no polyphagia, no excessive thirst, no polyuria, no nocturia Hematologic/Lymphatic: no easy bruising Allergic/Immunologic: no urticaria, no allergic rhinitis, no wheezing, no persistent infections, no anaphylaxis, no angioedema Exam - Constitutional Vitals: Temp Pulse Resp BP Pulse Ox 98.0 F 82 16 107/67 99 01/17/21 09:58 01/17/21 09:51 01/17/21 09:51 01/17/21 09:51 01/17/21 09:51 General appearance: Present: mild distress - EENT Eyes: Present: PERRL ENT: hearing intact, clear oral mucosa - Neck Neck: Present: supple, normal ROM - Respiratory Respiratory effort: labored, accessory muscle use Respiratory: bilateral: diminished, rhonchi - Cardiovascular Heart Sounds: Present: S1 & S2. Absent: rub, click - Extremities Extremities: pulses symmetrical, No edema Peripheral Pulses: within normal limits - Abdominal General gastrointestinal: Present: soft, non-tender, non-distended, normal bowel sounds Male genitourinary: Present: normal - Integumentary Integumentary: Present: clear, warm, dry - Musculoskeletal Musculoskeletal: gait normal, strength equal bilaterally - Psychiatric Psychiatric: appropriate mood/affect, intact judgment & insight - Neurologic Neurologic: CNII-XII intact, moves all extremities HEART Score - HEART Score Troponin: Troponin T 0.128 ng/mL (0.00-0.029) H* 01/17/21 10:00 Results - Labs CBC & Chem 7: 01/17/21 09:58 01/17/21 10:00 Labs: Abnormal lab results 01/17/21 01/17/21 01/17/21 Range/Units 09:58 10:00 10:00 RBC 2.79 L (3.65-5.03) M/mm3 Hgb 8.3 L (11.8-15.2) gm/dl Hct 26.2 L (35.5-45.6) % RDW 18.2 H (13.2-15.2) % Lymph % (Auto) 9.1 L (13.4-35.0) % [place] % (Auto) 9.9 H (0.0-7.3) % Lymph # (Auto) 0.7 L (1.2-5.4) K/mm3 Seg Neutrophils % 76.8 H (40.0-70.0) % PT 16.2 H (12.2-14.9) Sec. INR 1.17 H (0.87-1.13) Chloride 97.3 L (98-107) mmol/L BUN 51 H (9-20) mg/dL Creatinine 6.9 H (0.8-1.3) mg/dL Glucose 104 H (75-100) mg/dL Alkaline Phosphatase 322 H (35-129) units/L Troponin T 0.128 H* (0.00-0.029) ng/mL Albumin 3.7 L (3.9-5) g/dL Assessment and Plan - Patient Problems (1) Acute hypoxemic respiratory failure Current Visit: Yes Status: Acute Plan to address problem: Chest x-ray, supplemental oxygen, pulse oximetry, nebulizer therapy, pulmonary toilet. (2) Pneumonia Current Visit: Yes Status: Acute Plan to address problem: Pneumonia protocol: Chest x-ray, CBC, CMP, IV antibiotic therapy, supplemental oxygen, pulse oximetry, nebulizer therapy, blood culture. (3) Suspected 2019 novel coronavirus infection Current Visit: Yes Status: Acute Plan to address problem: Coronavirus protocol: IV steroid therapy, IV antibiotic therapy, vitamin C therapy, vitamin D therapy, zinc therapy, prophylactic anticoagulation (4) End stage renal disease Current Visit: Yes Status: Acute Plan to address problem: Nephrology team consulted in ED, dialysis as per renal team, avoid nephrotoxic agents. (5) Atrial fibrillation Current Visit: Yes Status: Acute Plan to address problem: Rate control. Patient not currently taking therapeutic anticoagulation due to high risk of bleeding as per cardiology recommendations. (6) DVT prophylaxis Current Visit: Yes Status: Acute Plan to address problem: SCDs bilateral lower extremities while in bed, prophylactic anticoagulation. (7) Advance care planning Current Visit: Yes Status: Acute Plan to address problem: Disease education conducted, care plan discussed, diagnoses discussed, prognosis discussed, care plan discussed, patient acknowledges understanding and agreement with care plan, +30 minutes.
[2021-01-17] MEDS ORDERED: ONDANSETRON 4 MG/2 ML INJ IV PRN (11:50)
[2021-01-17] MEDS ORDERED: ACETAMINOPHEN 325 MG TAB PO PRN (11:50)
[2021-01-17] MEDS ORDERED: ALBUTEROL 2.5 MG/3 ML NEBU IH PRN (11:50)
[2021-01-17] MEDS ORDERED: HYDROmorphone 1 MG/1 ML INJ IV PRN (11:50)
[2021-01-17] MEDS ORDERED: oxyCODONE /ACETAMINOPHEN 5-325MG TAB PO PRN (11:50)
[2021-01-17] MEDS ORDERED: cefTRIAXone/NS 2 GM/100 ML 2 GM/100 ML BAG IV SCH ×2 (12:00→16:00)
[2021-01-17] MEDS ORDERED: AZITHROMYCIN/NS 500 MG/250 ML 500 MG/250 ML BAG IV SCH (13:00)
[2021-01-17 13:22] LABS: C-Reactive Protein 2.7 mg/dL (0.00-1.30)
--- NOTE | 2021-01-17 13:49 | Consultation ---
History of Present Illness - Reason for Consult Consult date: 01/17/21 end stage renal disease Requesting physician: JESSICA TEIXEIRA - History of Present Illness 55 YO Male with ESRD on HD(M,W,F), GERD, HTN, Paroxysmal Atrial Fib not on therapeutic anticoagulation presents to ED for evaluation. The patient presents to the ER today with a complaint of blood in urine, which is painless, bilateral thoracic pain, history of bloody stool, which is now resolved, and generalized body aches, malaise and fatigue. No headache or neck pain. No fever. No vomiting. No testicular pain. No loss of taste or smell. He undergoes dialysis at [facility] on MWF schedule. He did have his dialysis treatment on Monday but the treatment was cut short to about 2-1/2 hours. He also did miss his dialysis treatment on 01/13/2021. Patient does have mild shortness of breath. However he is able to lay flat and currently oxygen saturation is 98% on room air Past History Past Medical History: dialysis, hypertension, other (Paroxysmal atrial fibrillation) Past Surgical History: Other (History of creation of AV fistula) Social history: no significant social history Family history: no significant family history Medications and Allergies Allergies Allergy/AdvReac Type Severity Reaction Status Date / Time diphenhydramine AdvReac Mild fainting Verified 01/13/21 11:39 Home Medications Medication Instructions Recorded Confirmed Last Taken Type NIFEdipine XL [Procardia Xl] 90 mg PO QDAY #30 tablet 11/26/20 01/13/21 01/12/21 Rx cloNIDine [Catapres] 0.1 mg PO Q12HR #60 tablet 11/26/20 01/13/21 01/12/21 Rx hydrALAZINE [Apresoline TAB] 100 mg PO TID #90 tab 11/26/20 01/13/21 01/12/21 Rx Pantoprazole [Protonix TAB] 40 mg PO DAILY 11/30/20 01/13/21 01/12/21 History Cinacalcet [Sensipar] 30 mg PO DAILY #30 tablet 12/23/20 01/13/21 12/30/20 Rx carvediloL [Coreg] 25 mg PO BID 01/04/21 01/13/21 01/12/21 History Furosemide [Lasix TAB] 40 mg PO QDAY #30 tablet 01/14/21 Unknown Rx Active Meds: Active Medications Acetaminophen (Acetaminophen 325 Mg Tab) 650 mg PO Q4H PRN PRN Reason: Pain MILD(1-3)/Fever >100.5/NIELSON Albuterol (Albuterol 2.5 Mg/3 Ml Nebu) 2.5 mg IH Q4HRT PRN PRN Reason: Shortness Of Breath Ascorbic Acid (Ascorbic Acid 500 Mg Tab) 500 mg PO BID [facility] Cholecalciferol (Cholecalciferol (Vit D3) 400 Unit Tab) 1,000 unit PO QDAY [facility] Cinacalcet (Cinacalcet 30 Mg Tab) 30 mg PO DAILY [facility] Clonidine HCl (Clonidine 0.1 Mg Tab) 0.1 mg PO Q12HR [facility] Furosemide (Furosemide 40 Mg Tab) 40 mg PO QDAY [facility] Heparin Sodium (Porcine) (Heparin 5,000 Unit/1 Ml Vial) 5,000 unit SUB-Q Q12HR [facility] Hydralazine HCl (Hydralazine 100 Mg Tab) 100 mg PO TID [facility] Hydromorphone HCl (Hydromorphone 1 Mg/1 Ml Inj) 0.5 mg IV Q23H PRN PRN Reason: Pain , Severe (7-10) Ceftriaxone Sodium (Rocephin/Ns 2 Gm/100 Ml) 2 gm in 100 mls @ 200 mls/hr IV Q24H [facility]; Protocol Azithromycin (Zithromax/Ns) 500 mg in 250 mls @ 250 mls/hr IV Q24H [facility]; Protocol Methylprednisolone Sodium Succinate (Methylprednisolone Sod Succinate 40 Mg/1 Ml Inj) 40 mg IV Q8HR [facility] Nifedipine (Nifedipine Xl 90 Mg Tab) 90 mg PO QDAY [facility] Ondansetron HCl (Ondansetron 4 Mg/2 Ml Inj) 4 mg IV Q8H PRN PRN Reason: Nausea And Vomiting Oxycodone/Acetaminophen (Oxycodone /Acetaminophen 5-325mg Tab) 1 tab PO Q16H PRN PRN Reason: Pain, Moderate (4-6) Pantoprazole Sodium (Pantoprazole 40 Mg Tab) 40 mg PO DAILY [facility] Sodium Chloride (Sodium Chloride 0.9% 10 Ml Flush Syringe) 10 ml IV BID [facility] Sodium Chloride (Sodium Chloride 0.9% 10 Ml Flush Syringe) 10 ml IV PRN PRN PRN Reason: LINE FLUSH Zinc Sulfate (Zinc Sulfate 220 Mg Cap) 220 mg PO BID [facility] Review of Systems All systems: negative (Negative except as noted above) Exam - Vital Signs Vital signs: Vital Signs Pulse Resp Pulse Ox 89 18 93 01/17/21 09:28 01/17/21 09:28 01/17/21 09:28 - General Appearance General appearance: well-developed, well-nourished, appears stated age EENT: PERRL, mucous membranes moist Neck: Present: neck supple, trachea midline, Other (Right IJ PermCath in place). Absent: JVD/HJR, Masses Respiratory: Clear to Ascultation Heart: irregularly irregular Gastrointestinal: Present: normal, normoactive bowel sounds Integumentary: no rash, other (1+ edema. AV graft in his left upper arm. Good bruit and thrill.) Results - Lab Results 01/17/21 09:58 01/17/21 10:00 Most recent lab results Calcium 10.0 mg/dL (8.4-10.2) 01/17/21 10:00 Magnesium 1.80 mg/dL (1.7-2.3) 01/17/21 10:00 Assessment and Plan Impression * End-stage renal disease on maintenance hemodialysis * Gross hematuria * Hypertension * Chronic atrial fibrillation Recommendations * No urgent indication for dialysis today. His electrolytes are acceptable. Although chest x-ray shows some chronic congestive changes, he is not hypoxic and also not orthopneic. Oxygen saturation is 99% on room air * Shall schedule patient for hemodialysis treatment for tomorrow * Keep him on MWF schedule as outpatient * Work-up for hematuria as per primary team. Recommend urology evaluation * Adjust diet and meds for ESRD state * Patient currently has a PermCath in place. He also has a left upper arm AV access. Patient states that he is going to have it evaluated by Dr. Ellison before we can use it. * Epogen with dialysis * No IV, BP or venipuncture in his access arm * Adjust diet and meds for ESRD state * Avoid nephrotoxins * Thank you very much for the consultation. Shall follow along with you
[2021-01-17] MEDS ORDERED: EPOETIN ALFA-EPBX 10,000 UNIT/1 ML VIAL IV PRN (13:54)
[2021-01-17] MEDS ORDERED: SODIUM CHLORIDE 0.9% 100 ML IV PRN (13:54)
[2021-01-17] MEDS ORDERED: methylPREDNISolone Sod Succinate 40 MG/1 ML INJ IV SCH ×2 (14:00→22:00)
[2021-01-17] MEDS: hydrALAZINE 100 MG TAB PO SCH ×2 (17:55→22:09)
[2021-01-17] MEDS: HEPARIN 5,000 UNIT/1 ML VIAL SUB-Q SCH (22:07)
[2021-01-17] MEDS: ZINC SULFATE 220 MG CAP PO SCH (22:08)
[2021-01-17] MEDS: ASCORBIC ACID 500 MG TAB PO SCH (22:08)
[2021-01-17] MEDS: cloNIDine 0.1 MG TAB PO SCH (22:08)
[2021-01-17] MEDS ORDERED: hydrALAZINE 20 MG/1 ML INJ IV ONE (23:57)
[2021-01-17] MEDS ORDERED: ALUM-MAG HYDROXIDE-SIMETHICONE 200-200-20MG/5ML ORAL LIQD 30 ML PO PRN (23:58)
[2021-01-18 04:59] LABS: Basophils % (Auto) 0.2 % (0.0-1.8); Hematocrit 24.4 % (35.5-45.6); Hemoglobin 7.7 gm/dl (11.8-15.2); Lymphocytes # (Auto) 0.4 K/mm3 (1.2-5.4); Lymphocytes % (Auto) 7.1 % (13.4-35.0); Mean Corpuscular HGB Conc 31 % (32-34); Mean Corpuscular Volume 95 fl (84-94); Monocytes # (Auto) 0.2 K/mm3 (0.0-0.8); Monocytes % (Auto) 2.7 % (0.0-7.3); Platelet Count 221 K/mm3 (140-440); Red Blood Count 2.58 M/mm3 (3.65-5.03); Red Cell Distribution Width 18.6 % (13.2-15.2)
[2021-01-18 05:18] LABS: Calcium 9.4 mg/dL (8.4-10.2)
[2021-01-18] MEDS ORDERED: hydrALAZINE 20 MG/1 ML INJ IV PRN (05:57)
[2021-01-18] MEDS ORDERED: hydrALAZINE 20 MG/1 ML INJ ONE (05:59)
--- NOTE | 2021-01-18 09:32 | Progress Note ---
Subjective Interval history: Patient was seen today for follow-up of multiple renal related issues No complaints of any chest pain pressure or shortness of breath Interdisciplinary notes that also reviewed Events of 24 hours vitals labs intake output medications were reviewed Past medical history: Reviewed Family history: Reviewed Social history: Reviewed Allergies: Reviewed Physical examination: Vitals: Reviewed HEENT: No pallor or icterus oral mucosa moist Neck: Supple no JVD no thyromegaly Chest: Bilateral clear to auscultation anteriorly Heart: Regular rate and rhythm S1-S2 heard no S3-S4 Abdomen: Soft nontender no voluntary guarding rigidity rebound Extremity: Dry skin less than 1+ peripheral edema Psychiatric: No evidence of agitation and aggression noted Dermatology: No petechial rashes Labs and x-rays: Reviewed from today Assessment and plan #End-stage renal disease: Patient is currently on maintenance hemodialysis and will need to be dialyzed today for volume overload, very poorly compliant in the outpatient setting, may need additional treatment depending Will monitor dialysis-related labs periodically. Hemodialysis nurse to ultrafiltrate as tolerated, systolic blood pressure must be kept above 100, heart rate below 100 #Gross hematuria: Needs to be seen and followed by urology #Current access is a permacath, has a left AV fistula, needs to be seen by vascular, has had complicated access in the past and has not followed with vascular surgery properly in the past #Medication management: Reviewed today #Electrolyte and volume: Chronic issues with fluid overload despite ongoing counseling and education continue not to comply in the outpatient setting resulting in frequent hospitalization does not follow-up with physicians like he should #Anemia in ESRD: Complicated by GI bleed, has been advised to see gastroenterology in the past but has not To monitor hemoglobin and hematocrit periodically erythropoietin as needed, #Bone mineral disorder and secondary hyperparathyroidism: Goal phosphorus under 5-1/2 PTH under 600 Monitor phosphorus and PTH level periodically, #Cardiovascular: Atrial fibrillation, congestive heart failure volume overload, very poor compliance #Diet and nutrition: Nepro, multivitamin #End-stage kidney disease Counseling: Done regarding all the issues related to end-stage kidney disease care at length regarding diet lifestyle changes fluid restriction sodium restriction and blood pressure monitoring from home #Prognosis very poor mortality risk is high We'll continue to follow and make recommendation for renal standpoint Objective - Vital Signs Vital signs: Vital Signs - 12hr 01/17/21 01/18/21 01/18/21 22:08 00:30 00:35 Pulse Rate 102 H Respiratory 15 Rate Blood Pressure 174/99 201/112 01/18/21 01/18/21 01:05 06:02 Pulse Rate 100 H Respiratory 17 Rate Blood Pressure 206/127 - Lab 01/18/21 04:30 01/18/21 04:30 Most recent lab results Calcium 9.4 mg/dL (8.4-10.2) 01/18/21 04:30 Magnesium 1.80 mg/dL (1.7-2.3) 01/17/21 10:00 Medications & Allergies - Medications Allergies/Adverse Reactions: Allergies diphenhydramine Adverse Reaction (Mild, Verified 01/13/21 11:39) fainting Home Medications: Home Medications Medication Instructions Recorded Confirmed Last Taken Type NIFEdipine XL [Procardia Xl] 90 mg PO QDAY #30 tablet 11/26/20 01/13/21 01/12/21 Rx cloNIDine [Catapres] 0.1 mg PO Q12HR #60 tablet 11/26/20 01/13/21 01/12/21 Rx hydrALAZINE [Apresoline TAB] 100 mg PO TID #90 tab 11/26/20 01/13/21 01/12/21 Rx Pantoprazole [Protonix TAB] 40 mg PO DAILY 11/30/20 01/13/21 01/12/21 History Cinacalcet [Sensipar] 30 mg PO DAILY #30 tablet 12/23/20 01/13/21 12/30/20 Rx carvediloL [Coreg] 25 mg PO BID 01/04/21 01/13/21 01/12/21 History Furosemide [Lasix TAB] 40 mg PO QDAY #30 tablet 01/14/21 Unknown Rx Active Medications: Generic Name Dose Route Start Last Admin Trade Name Freq PRN Reason Stop Dose Admin Acetaminophen 650 mg 01/17/21 11:50 Acetaminophen 325 Mg Tab PO Q4H PRN Pain MILD(1-3)/Fever >100.5/NIELSON Al Hydrox/Mg Hydrox/Simethicone 30 ml 01/17/21 23:58 Alum-Mag Hydroxide-Simethicone [phone]/5ml Oral Liqd 30 Ml PO Q4H PRN Indigestion Albuterol 2.5 mg 01/17/21 11:50 Albuterol 2.5 Mg/3 Ml Nebu IH Q4HRT PRN Shortness Of Breath Ascorbic Acid 500 mg 01/17/21 22:00 01/17/21 22:08 Ascorbic Acid 500 Mg Tab PO 500 mg BID [facility] Administration Azithromycin 500 mg 01/18/21 16:00 Azithromycin 250 Mg Tab PO 01/21/21 16:01 Q24H [facility] Cholecalciferol 1,000 unit 01/18/21 10:00 Cholecalciferol (Vit D3) 400 Unit Tab PO QDAY [facility] Cinacalcet 30 mg 01/18/21 10:00 Cinacalcet 30 Mg Tab PO DAILY [facility] Clonidine HCl 0.1 mg 01/17/21 22:00 01/17/21 22:08 Clonidine 0.1 Mg Tab PO 0.1 mg Q12HR [facility] Administration Furosemide 40 mg 01/18/21 10:00 Furosemide 40 Mg Tab PO QDAY [facility] Heparin Sodium (Porcine) 5,000 unit 01/17/21 22:00 01/17/21 22:07 Heparin 5,000 Unit/1 Ml Vial SUB-Q 5,000 unit Q12HR [facility] Administration Hydralazine HCl 100 mg 01/17/21 14:00 01/17/21 22:09 Hydralazine 100 Mg Tab PO 100 mg TID [facility] Administration Hydralazine HCl 10 mg 01/18/21 05:57 01/18/21 06:02 Hydralazine 20 Mg/1 Ml Inj IV 10 mg Q4HR PRN Administration Hypertension Hydromorphone HCl 0.5 mg 01/17/21 11:50 01/18/21 00:35 Hydromorphone 1 Mg/1 Ml Inj IV 0.5 mg Q23H PRN Administration Pain , Severe (7-10) Sodium Chloride 100 mls @ 999 mls/hr 01/17/21 13:54 Nacl 0.9% IV STEPAN PRN Hypotension Ceftriaxone Sodium 2 gm in 100 mls @ 200 mls/hr 01/17/21 16:00 Rocephin/Ns 2 Gm/100 Ml IV 01/21/21 16:29 Q24H [facility] Protocol Methylprednisolone Sodium Succinate 40 mg 01/17/21 22:00 01/17/21 22:08 Methylprednisolone Sod Succinate 40 Mg/1 Ml Inj IV 40 mg Q8HR [facility] Administration Nifedipine 90 mg 01/18/21 10:00 Nifedipine Xl 90 Mg Tab PO QDAY [facility] Ondansetron HCl 4 mg 01/17/21 11:50 Ondansetron 4 Mg/2 Ml Inj IV Q8H PRN Nausea And Vomiting Oxycodone/Acetaminophen 1 tab 01/17/21 11:50 Oxycodone /Acetaminophen 5-325mg Tab PO Q16H PRN Pain, Moderate (4-6) Pantoprazole Sodium 40 mg 01/18/21 10:00 Pantoprazole 40 Mg Tab PO DAILY [facility] Sodium Chloride 10 ml 01/17/21 22:00 01/17/21 22:09 Sodium Chloride 0.9% 10 Ml Flush Syringe IV 10 ml BID [facility] Administration Sodium Chloride 10 ml 01/17/21 11:50 Sodium Chloride 0.9% 10 Ml Flush Syringe IV PRN PRN LINE FLUSH Zinc Sulfate 220 mg 01/17/21 22:00 01/17/21 22:08 Zinc Sulfate 220 Mg Cap PO 220 mg BID [facility] Administration
[2021-01-18] MEDS ORDERED: CHOLECALCIFEROL (VIT D3) 400 UNIT TAB PO SCH (10:00)
[2021-01-18] MEDS ORDERED: PANTOPRAZOLE 40 MG TAB PO SCH (10:00)
[2021-01-18] MEDS ORDERED: FUROSEMIDE 40 MG TAB PO SCH (10:00)
[2021-01-18] MEDS ORDERED: CINACALCET 30 MG TAB PO SCH (10:00)
[2021-01-18] MEDS ORDERED: NIFEdipine XL 90 MG TAB PO SCH (10:00)
[2021-01-18] MEDS: cloNIDine 0.1 MG TAB PO SCH (10:50)
[2021-01-18] MEDS: ZINC SULFATE 220 MG CAP PO SCH (10:50)
[2021-01-18] MEDS: ASCORBIC ACID 500 MG TAB PO SCH (10:50)
[2021-01-18] MEDS: HEPARIN 5,000 UNIT/1 ML VIAL SUB-Q SCH (10:51)
[2021-01-18] MEDS ORDERED: CHOLECALCIFEROL (VIT D3) 1000 UNIT (25 mcg) TAB PO SCH (12:00)
[2021-01-18] MEDS ORDERED: AZITHROMYCIN 250 MG TAB PO SCH (16:00)
--- NOTE | 2021-01-18 16:32 | Discharge Summary ---
Providers - Providers Date of Admission: 01/17/21 13:02 Date of discharge: 01/18/21 Attending physician: TANIYA COHN 01/17/21 09:28 Consult to Physician [CONS] Urgent Comment: Consulting Provider: YAMILKA RUDD Physician Instructions: Reason For Exam: esrd hypoxia 01/18/21 13:10 Consult to Physician [CONS] Routine Comment: Consulting Provider: CHASE VARGHESE Physician Instructions: Reason For Exam: Malfunction AV fistula per nephrology Primary care physician: RELOCATION COUNSELOR Hospitalization Condition: Good Procedures: Hemodialysis X1 session Hospital course: History of present illness: 55 YO Male with ESRD on HD(M,W,F), GERD, HTN, Paroxysmal Atrial Fib not on therapeutic anticoagulation presents to ED for evaluation. Patient reports "I feel bad". Patient states that he has experienced generalized weakness, fatigue, malaise, body aches, and shortness of breath over the past 3 days with persistent symptoms over the same timeframe. Patient also reports blood in urine which has now resolved. EMS notified and upon arrival the patient was found to be in distress and subsequent transported to [facility] for further care and evaluation of the aforementioned symptoms. The patient was seen and evaluated in the emergency department. All lab and imaging studies reviewed. Patient found to have a pulse oximetry of 89% on room air which is consistent with acute hypoxemic respiratory failure. Chest x-ray revealed bilateral pneumonia. Patient admitted to medical floor and initiated on pneumonia protocol as well as coronavirus protocol. Patient has fever, chills, chest pain, palpitation, productive cough, skin rash, recent ill contacts, or known exposure to COVID-19. Prior admission on 01/13/2021 reviewed. All medication listed at time of admission has been reconciled. Advanced care planning conducted in ED. Patient underwent hemodialysis today Patient is asymptomatic 1 out of 2 bottles--blood cultures positive for cocci in clusters. Patient is afebrile throughout the admission. No signs of infection. Patient has a permacath on the right which is being used now. AV fistula needs to be evaluated by vascular surgery/IR as inpatient or outpatient Patient has appointment with Dr. Varghese as outpatient. Family counseled about the importance of keeping the appointment. No hematuria at all.--No need for urology consult Discussed with sister about the diagnosis and prognosis and the need for HD on a regular basis Also to get Ultrasound as outpatient on Tuesdays or . Patient eats lots of ice because of his anemia which causes fluid overload unknowingly. Sister and the patient counseled about not eating ice and not drinking too many fluids and attending hemodialysis on a regular basis Assessment and Plan - Patient Problems (1) Acute hypoxemic respiratory failure Current Visit: Yes Status: Acute Plan to address problem: Improved On room air Covid test negative (2)Volume overload Increased ultrafiltration during hemodialysis Patient needs to keep his appointments with the hemodialysis center and other physicians (3) Pneumonia ruled out Current Visit: Yes Status: Acute Plan to address problem: Secondary to fluid overload Pneumonia ruled out Volume overload (4) Suspected 2019 novel coronavirus infection Current Visit: Yes Status: Acute Plan to address problem: Covid negative (5) End stage renal disease Current Visit: Yes Status: Acute Plan to address problem: Volume overload Patient underwent hemodialysis today (6) Atrial fibrillation Current Visit: Yes Status: Acute Plan to address problem: Rate control. Patient not currently taking therapeutic anticoagulation due to high risk of bleeding as per cardiology recommendations. Disposition: 01 HOME / SELF CARE / HOMELESS Final Discharge Diagnosis (Prints w/discharge instructions): Acute respiratory failure with hypoxia. Volume overload. PUI-Covid ruled out. End-stage renal disease. Atrial fibrillation Time spent for discharge: 33 minutes - Discharge Diagnoses (1) Acute hypoxemic respiratory failure Status: Acute (2) Atrial fibrillation Status: Acute (3) End stage renal disease Status: Acute (4) History of hematuria Status: Acute Comment: No hematuria No need for urology consult (5) Suspected 2019 novel coronavirus infection Status: Suspected Comment: Covid ruled out (6) Anemia due to end stage renal disease Status: Chronic Comment: Epogen as per nephrology Eats lots of ice which is causing his fluid overload (7) Volume overload Status: Acute Comment: Missed hemodialysis and excess fluid intake causing volume overload and shortness of breath Core Measure Documentation - Palliative Care Palliative Care/ Comfort Measures: Not Applicable - Core Measures Any of the following diagnoses?: none Exam - Constitutional Vitals: Temp Pulse Resp BP Pulse Ox 98.0 F 100 H 17 206/127 95 01/17/21 20:02 01/18/21 06:02 01/18/21 01:05 01/18/21 06:02 01/18/21 12:02 General appearance: Present: no acute distress, well-nourished - EENT Eyes: Present: PERRL ENT: hearing intact, clear oral mucosa - Neck Neck: Present: supple, normal ROM - Respiratory Respiratory effort: normal Respiratory: bilateral: CTA - Cardiovascular Heart rate: 78 Rhythm: regular Heart Sounds: Present: S1 & S2. Absent: rub, click - Extremities Extremities: no ischemia, pulses intact, pulses symmetrical, No edema Peripheral Pulses: within normal limits - Abdominal General gastrointestinal: Present: soft, non-tender, non-distended, normal bowel sounds Male genitourinary: Present: normal - Rectal Rectal Exam: deferred - Integumentary Integumentary: Present: clear, warm, dry - Musculoskeletal Musculoskeletal: gait normal, strength equal bilaterally - Psychiatric Psychiatric: appropriate mood/affect, intact judgment & insight - Neurologic Neurologic: CNII-XII intact, moves all extremities - Allied Health Allied health notes reviewed: nursing, case management Plan Activity: no restrictions Diet: renal Special Instructions: restrict fluid intake to (700 mL) Durable Medical Equipment Needed Upon Discharge: other (None) Follow up with: PRIMARY CAREMD [Primary Care Provider] - 3-5 Days FAIZA SANTACRUZ MD [Staff Physician] - 7 Days Forms: Accompanied Note Prescriptions: hydrALAZINE [Apresoline TAB] 50 mg PO TID #90 tab cloNIDine [Catapres] 0.1 mg PO Q12HR #60 tablet NIFEdipine XL [Procardia Xl] 90 mg PO QDAY #30 tablet Pantoprazole [Protonix TAB] 40 mg PO DAILY #30 tablet Cinacalcet [Sensipar] 30 mg PO DAILY #30 tablet
--- NOTE | 2021-01-18 18:06 | Event Note ---
Date: 01/18/21 I evaluated the patient. The seroma is nearly resolved. There is a good thrill on the AV access. Ordered ultrasound. If he is being discharged me will not be able to have it performed. Will perform as an outpatient. Patient cannot followup up on Monday in the office for unclear reasons with transportion. Will try to arrange with his dialysis center but patient's limited transportation issues make his care complicated.
[2021-01-18 20:07] VITALS: BP 167/96
--- NOTE | 2021-01-19 14:24 | Electrocardiograph Report ---
[facility] Test Date: 2021-01-17 Test Time: 07:54:42 Pat Name: MENDEZ RIVERA Department: Room: A367 Gender: M Handbag Stitcher: GP : 1965 Requested By: TANIYA COHN Order Number: [id number] Reading MD: Quirino Escobar Measurements Intervals [place] Rate: 99 P: 89 VT: 243 QRS: 120 QRSD: 121 T: -11 QT: 361 QTc: 463 Interpretive Statements Sinus rhythm Prolonged VT interval Right bundle branch block Compared to ECG 01/13/2021 07:02:20 Right bundle-branch block now present Electronically Signed On 01-19-2021 14:24:04 EST by Quirino Escobar
--- NOTE | 2021-01-19 14:26 | Electrocardiograph Report ---
[facility] Test Date: 2021-01-17 Test Time: 11:45:04 Pat Name: MENDEZ RIVERA Department: Room: A367 Gender: M Data Modeler: CARLEY : 1965 Requested By: JESSICA TEIXEIRA Order Number: [id number] Reading MD: Quirino Escobar Measurements Intervals [place] Rate: 79 P: -7 AR: 170 QRS: 57 QRSD: 93 T: 74 QT: 378 QTc: 435 Interpretive Statements Sinus rhythm Poor R wave progression, consider old anterior infarct Compared to ECG 01/17/2021 07:54:42 Right bundle branch block is no longer evident Electronically Signed On 01-19-2021 14:26:12 EST by Quirino Escobar
== END 2021-01-18 18:48 | disposition home or self-care (01) ==
LOC: ED 07:52 → INTOOBSV 13:02 → 3A 13:02
PROVIDERS: ADMIT Internal Medicine; ATTEND Internal Medicine
DX: J96.01 Acute respiratory failure with hypoxia (principal); Z20.822 Contact with and (suspected) exposure to COVID-19; J18.9 Pneumonia, unspecified organism; I12.0 Hypertensive chronic kidney disease with stage 5 chronic kidney disease or end stage renal disease; N18.6 End stage renal disease; D63.1 Anemia in chronic kidney disease; E87.70 Fluid overload, unspecified; I48.20 Chronic atrial fibrillation, unspecified; J45.909 Unspecified asthma, uncomplicated; R31.9 Hematuria, unspecified; K62.5 Hemorrhage of anus and rectum; R93.1 Abnormal findings on diagnostic imaging of heart and coronary circulation; I51.7 Cardiomegaly; Z99.2 Dependence on renal dialysis; Z79.899 Other long term (current) drug therapy; Z98.890 Other specified postprocedural states
CPT/HCPCS: 36415; 71045; 80048; 80053; 82140; 83615; 83735; 83880; 84145; 84484; 85025; 85379; 85610; 85730; 86140; 87040; 93005; 96372; 96374; 96375; 96376; 99285; G0257; G0378; J0360; J1100; J1170; J1644; J1940; J2920; U0003

== ENCOUNTER 2021-01-24 06:35 | Emergency (ER) | payer MEDICARE ==
[2021-01-24 09:04] VITALS: BP 204/108
[2021-01-24 10:03] LABS: Basophils % (Auto) 0.7 % (0.0-1.8); Eosinophils # (Auto) 0.3 K/mm3 (0.0-0.4); Eosinophils % (Auto) 3.9 % (0.0-4.3); Hematocrit 24.3 % (35.5-45.6); Hemoglobin 7.7 gm/dl (11.8-15.2); Lymphocytes # (Auto) 0.9 K/mm3 (1.2-5.4); Lymphocytes % (Auto) 11.4 % (13.4-35.0); Mean Corpuscular HGB Conc 32 % (32-34); Mean Corpuscular Volume 96 fl (84-94); Monocytes # (Auto) 0.7 K/mm3 (0.0-0.8); Monocytes % (Auto) 9.9 % (0.0-7.3); Platelet Count 211 K/mm3 (140-440); Red Blood Count 2.55 M/mm3 (3.65-5.03); Red Cell Distribution Width 19.3 % (13.2-15.2)
--- NOTE | 2021-01-24 10:04 | XRay Report ---
CHEST 2 VIEWS INDICATION / CLINICAL INFORMATION: Dyspnea. COMPARISON: 01/17/2021 FINDINGS: SUPPORT DEVICES: Stable satisfactory device positioning. HEART / MEDIASTINUM: Stable. LUNGS / PLEURA: Stable diffuse bilateral pulmonary opacities. ADDITIONAL FINDINGS: No significant additional findings. IMPRESSION: 1. No adverse change from the prior exam. Signer Name: Tim Rojas MD Signed: 01/24/2021 10:00 AM Workstation Name: [id number]
--- NOTE | 2021-01-24 10:09 | Event Note ---
ED Screening Note Date of service: 01/24/21 Time: 09:56 ED Screening Note: 55-year-old -Citizen Of [place] male presents to the emergency room complaining of shortness of breath and chest discomfort for the last hour. Patient states he is a dialysis patient and goes Monday and Monday. Patient states that on the holiday schedule he is supposed to go today but felt bad. He goes to [facility] in [place]. Was noted that his blood pressure was 204/108 and is satting around 92% on room air. Patient is afebrile at this time and pulse is 96. This initial assessment/diagnostic orders/clinical plan/treatment(s) is/are subject to change based on patients health status, clinical progression and re- assessment by fellow clinical providers in the ED. Further treatment and workup at subsequent clinical providers discretion. Patient/guardian urged not to elope from the ED as their condition may be serious if not clinically assessed and managed. Initial orders include: CBC CMP EKG chest x-ray
[2021-01-24 10:20] LABS: Albumin 3.9 g/dL (3.9-5); Calcium 10.2 mg/dL (8.4-10.2)
--- NOTE | 2021-01-24 12:05 | Electrocardiograph Report ---
[facility] Test Date: 2021-01-24 Test Time: 10:28:39 Pat Name: MENDEZ RIVERA Department: Room: Gender: M Logging Specialist: KAVITHA : 1965 Requested By: MIMI CROUCH Order Number: [id number] Reading MD: Rosendo Goss Measurements Intervals [place] Rate: 89 P: 53 [place]: 200 QRS: 16 QRSD: 92 T: 62 QT: 357 QTc: 434 Interpretive Statements Sinus rhythm Probable left atrial enlargement Probable left ventricular hypertrophy Compared to ECG 01/17/2021 11:45:04 Myocardial infarct finding no longer present Electronically Signed On 01-24-2021 12:05:24 EST by Rosendo Goss
--- NOTE | 2021-01-24 12:07 | Emergency Department Report ---
ED Shortness of Breath HPI - General Chief Complaint: Dyspnea/Respdistress Stated Complaint: ZACHARIAH Time Seen by Provider: 01/24/21 09:33 Source: patient, EMS Mode of arrival: Ambulatory Limitations: No Limitations - History of Present Illness Initial Comments: Chief complaint: I have been having shortness of breath and chest pain since September. HPI: This is a 55-year-old male with history of end-stage renal disease on hemodialysis Monday, atrial fibrillation, congestive heart failure, GERD, medication noncompliance, hypertension, diabetes mellitus who presents with shortness of breath and chest pain for the past 3 months. Due to chronic chest pain or shortness of breath he has difficulty walking from [employer] to dialysis. Consequently he chose to use ambulance service to come to the hospital in order to obtain dialysis. He had scheduled dialysis today for holiday schedule. He admits that he does not have any chest pain or shortness of breath. His chronic symptoms make it difficult for him to ambulate. I have reviewed electronic record. Person hearing aid consultant Dr. Garcia Patient recently discharged last week 6 days ago for acute hypoxemic respiratory failure. MD Complaint: shortness of breath, chest pain -: Gradual, month(s) (3 months) Severity: mild Consistency: constant Improves With: rest Worsens With: exertion Associated Symptoms: chest pain - Related Data Home Medications Medication Instructions Recorded Confirmed Last Taken RX: carvediloL [Coreg] 25 mg PO BID 01/04/21 01/13/21 01/12/21 Previous Rx's Medication Instructions Recorded Last Taken Type RX: Furosemide [Lasix TAB] 40 mg PO QDAY #30 tablet 01/14/21 Unknown Rx RX: Cinacalcet [Sensipar] 30 mg PO DAILY #30 tablet 01/18/21 Unknown Rx RX: Epoetin Curt-Epbx 10,000 Unit 10,000 unit IV STEPAN PRN vial 01/18/21 Unknown Rx [Retacrit] RX: NIFEdipine XL [Procardia Xl] 90 mg PO QDAY #30 tablet 01/18/21 Unknown Rx RX: Pantoprazole [Protonix TAB] 40 mg PO DAILY #30 tablet 01/18/21 Unknown Rx RX: cloNIDine [Catapres] 0.1 mg PO Q12HR #60 tablet 01/18/21 Unknown Rx RX: hydrALAZINE [Apresoline TAB] 50 mg PO TID #90 tab 01/18/21 Unknown Rx Allergies Allergy/AdvReac Type Severity Reaction Status Date / Time diphenhydramine AdvReac Mild fainting Verified 01/13/21 11:39 ED Review of Systems ROS: Stated complaint: ZACHARIAH Other details as noted in HPI Comment: All other systems reviewed and negative Constitutional: denies: chills, fever, malaise Respiratory: shortness of breath Cardiovascular: chest pain Gastrointestinal: denies: abdominal pain, nausea, vomiting ED Past Medical Hx - Past Medical History Previous Medical History?: Yes Hx Hypertension: Yes Hx Heart Attack/AMI: No Hx Congestive Heart Failure: No Hx Diabetes: No Hx Liver Disease: No Hx Renal Disease: Yes (HD MWF - last on 01/18/21) Hx Asthma: Yes Hx COPD: No Additional medical history: Glaucoma. afib - Surgical History Past Surgical History?: Yes Hx Pacemaker: No Additional Surgical History: Left A/V Graft, right chest Vas-Cath - Social History Smoking Status: Never Smoker - Medications Home Medications: Home Medications Medication Instructions Recorded Confirmed Last Taken Type RX: carvediloL [Coreg] 25 mg PO BID 01/04/21 01/13/21 01/12/21 History RX: Furosemide [Lasix TAB] 40 mg PO QDAY #30 tablet 01/14/21 Unknown Rx RX: Cinacalcet [Sensipar] 30 mg PO DAILY #30 tablet 01/18/21 Unknown Rx RX: Epoetin Curt-Epbx 10,000 Unit 10,000 unit IV STEPAN PRN vial 01/18/21 Unknown Rx [Retacrit] RX: NIFEdipine XL [Procardia Xl] 90 mg PO QDAY #30 tablet 01/18/21 Unknown Rx RX: Pantoprazole [Protonix TAB] 40 mg PO DAILY #30 tablet 01/18/21 Unknown Rx RX: cloNIDine [Catapres] 0.1 mg PO Q12HR #60 tablet 01/18/21 Unknown Rx RX: hydrALAZINE [Apresoline TAB] 50 mg PO TID #90 tab 01/18/21 Unknown Rx ED Physical Exam - General Limitations: No Limitations General appearance: alert, in no apparent distress - Head Head exam: Present: atraumatic, normocephalic - Eye Eye exam: Present: normal appearance - ENT ENT exam: Present: mucous membranes moist - Neck Neck exam: Present: normal inspection, full ROM - Respiratory Respiratory exam: Present: normal lung sounds bilaterally, rales. Absent: respiratory distress, wheezes, rhonchi - Cardiovascular Cardiovascular Exam: Present: regular rate, normal rhythm, normal heart sounds. Absent: systolic murmur, diastolic murmur, rubs, gallop - GI/Abdominal GI/Abdominal exam: Present: soft, normal bowel sounds. Absent: distended, tenderness, guarding - Rectal Rectal exam: Present: deferred - Extremities Exam Extremities exam: Present: normal inspection - Neurological Exam Neurological exam: Present: alert, oriented X3 - Psychiatric Psychiatric exam: Present: normal affect, normal mood - Skin Skin exam: Present: warm, dry, intact, normal color. Absent: rash ED Course Vital Signs 01/24/21 01/24/21 07:34 09:02 Temperature 97.9 F 98.7 F Pulse Rate 93 H 96 H Respiratory 16 20 Rate Blood Pressure 180/98 204/108 [Right] O2 Sat by Pulse 93 93 Oximetry ED Medical Decision Making - Lab Data Result diagrams: 01/24/21 09:39 01/24/21 09:39 - EKG Data -: EKG Interpreted by Nh EKG shows normal: sinus rhythm, axis, intervals Rate: normal - EKG Data 01/24/21 12:05 EKG obtained 1028 EKG interpreted by nj Rate 90 bpm normal axis normal intervals no ST elevation positive LVH - Radiology Data Radiology results: report reviewed Patient Name: MENDEZ RIVERA Gender: Male Date of : 1965 Referring Provider: MIMI CROUCH Organization: [facility] Accession Number: [id number] Requested Date: January 24, 2021 09:34 Report Status: Final Requested Procedure: 1 Procedure Description: XR chest routine 2V Modality: XR Findings Reporting MD: Tim Rojas Dictation Time: January 24, 2021 09:00 Agency Owner: Not available Csr Retail Date: CHEST 2 VIEWS INDICATION / CLINICAL INFORMATION: Dyspnea. COMPARISON: 01/17/2021 FINDINGS: SUPPORT DEVICES: Stable satisfactory device positioning. HEART / MEDIASTINUM: Stable. LUNGS / PLEURA: Stable diffuse bilateral pulmonary opacities. ADDITIONAL FINDINGS: No significant additional findings. IMPRESSION: 1. No adverse change from the prior exam. Signer Name: Tim Rojas MD Signed: 01/24/2021 9:00 AM Workstation Name: [id number] - Medical Decision Making End-stage renal disease on hemodialysis history of medication noncompliance. Patient chose to come to the emergency department for assistance with transportation. He did not want to walk from [facility] to dialysis clinic. He does not require emergent dialysis at this time. I discussed case with Dr. Cesar associate of Dr. Garcia who agreed the patient did not require emergent hemodialysis. Hypertensive urgency: Patient will take his home medications. No evidence of en dorgan damage. Patient is no apparent distress. He ambulates without difficulty. He does not exhibit any work of breathing. He appears comfortable. Critical care attestation.: If time is entered above; I have spent that time in minutes in the direct care of this critically ill patient, excluding procedure time. ED Disposition Clinical Impression: End-stage renal disease on hemodialysis, Hypertensive urgency Disposition: 01 HOME / SELF CARE / HOMELESS Is pt being admited?: No Does the pt Need Aspirin: No Condition: Stable Additional Instructions: Please follow-up with your hemodialysis clinic. Referrals: YAMILKA GARCIA MD [Staff Physician] - as needed
== END 2021-01-24 12:24 | disposition home or self-care (01) ==
LOC: ED 06:35
DX: I13.2 Hypertensive heart and chronic kidney disease with heart failure and with stage 5 chronic kidney disease, or end stage renal disease (principal); N18.6 End stage renal disease; J45.909 Unspecified asthma, uncomplicated
CPT/HCPCS: 36415; 71046; 80053; 85025; 93005; 99284